=== PATIENT | female | born 1935 | race Caucasian/White ===

== ENCOUNTER 2017-12-07 17:24 | Inpatient (IN) | payer OTHER ==
[~2017-12-07] VITALS: Ht 152.4 cm; Wt 57.0 kg
[~2017-12-07 17:24] MED LIST: ALBU1AER9 INH; BENZ100C7 PO; CHOL1CAP57 PO; DXY100 PO; FLVHFA110 INH; FURO-85 PO; GABA-113 PO; METO-217 PO; MRLP17X PO; NTRSLP4 SL; POTA1CAP2 PO; SENN-91 PO; TPRSR50 PO; TRAM-10 PO; ZOLE5INJ3 IV
[2017-12-07] MEDS ORDERED: METHYLPREDNISOLONE 125 MG VIAL ONE (17:39)
[2017-12-07 17:45] VITALS: PULSE 113; O2SAT 98; O2SAT 99
[2017-12-07] MEDS ORDERED: ALBUT/IPRATROP 3MG/0.5MG NEB 3 ML VIAL INH ONE (17:45)
[2017-12-07] MEDS ORDERED: MAGNESIUM SULFATE 1GM / D5W 1 GM BAG IV STA (17:53)
[2017-12-07] MEDS ORDERED: SODIUM CHLORIDE 0.9% 1000ML 1,000 ML IV STA (17:53)
[2017-12-07 18:05] LABS: BASO % 0.3 %; BASO ABS # 0.03 K/uL (0-0.2); EOS % 5.4 %; EOS ABS # 0.52 K/uL (0-0.5); HEMATOCRIT 43.9 % (37-47); HEMOGLOBIN 14.2 g/dL (12.0-16.0); IG# 0.03 K/uL (0.00-0.02); LYMPH % 22.6 %; LYMPH ABS # 2.19 K/uL (1.2-3.4); MEAN CELL VOLUME 86.1 fL (80-100); MEAN CORPUSCULAR HEMOGLOBIN 27.8 pg (25-34); MEAN CORPUSCULAR HGB CONC 32.3 g/dl (32-36); MEAN PLATELET VOLUME 10.2 fL (7.4-10.4); MONO % 6.7 %; MONO ABS # 0.65 K/uL (0.11-0.59); NEUT % 64.7 %; NEUT ABS # 6.29 K/uL (1.4-6.5); PLATELET COUNT 242 K/uL (130-400); RED CELL DISTRIBUTION WIDTH SD 60.2 fL (36.4-46.3); WHITE BLOOD COUNT 9.71 K/uL (4.8-10.8)
--- NOTE | 2017-12-07 18:05 | DIAGNOSTIC IMAGING REPORT ---
CHEST ONE VIEW PORTABLE CLINICAL HISTORY: CHEST PAIN COMPARISON STUDY: Chest radiograph May 02, 2016. FINDINGS: Incidental note is made of a reverse total right shoulder arthroplasty and multilevel vertebral augmentation as well as cholecystectomy clips. A large hiatal hernia is again noted. Marked joint space narrowing with minimal osteophytosis of the left glenohumeral joint is noted. This could reflect rheumatoid arthritis. There is no evidence for pulmonary edema. There is no consolidation. Cardiomediastinal silhouette is stable. IMPRESSION: No acute cardiopulmonary findings. No change in appearance of the chest. Electronically signed by: Heriberto Ball M.D. 12/07/2017 6:03 PM Dictated Date/Time: 12/07/2017 6:02 PM
[2017-12-07 18:10] LABS: ISTAT CREATININE 0.8 mg/dl (0.6-1.3); ISTAT IONIZED CALCIUM 1.41 mmol/l (1.12-1.32); ISTAT POTASSIUM 3.8 mEq/L (3.3-5.0)
[2017-12-07] MEDS ORDERED: ALBU18002 INH (18:21)
[2017-12-07 18:23] LABS: BLOOD UREA NITROGEN 29 mg/dl (7-18); CALCIUM 10.5 mg/dl (8.5-10.1); CARBON DIOXIDE 28 mmol/L (21-32); GLUCOSE 147 mg/dl (70-99); POTASSIUM 3.7 mmol/L (3.5-5.1); SODIUM 138 mmol/L (136-145)
[2017-12-07] MEDS ORDERED: METO-217 PO (18:25)
[2017-12-07] MEDS ORDERED: PRED-301 PO (18:31)
--- NOTE | 2017-12-07 18:35 | EMERGENCY ROOM VISIT NOTE ---
History Report prepared by Gloria: Marivel Escalona Under the Supervision of: Dr. Moses Vizcaino M.D. First contact with patient: 17:32 Chief Complaint: RESPIRATORY PROBLEMS Stated Complaint: CHEST AND BREATHING History of Present Illness The patient is an 82 year old female who presents to the Emergency Room with complaints of intermittent respiratory problems for four days. The patient states that she came to the ED today because it became worse. She states that it is worse when lying flat. The patient complains of intermittent coughing. The patient denies chest pain, recent long trips, use of hormone pills, recent surgeries, the use of blood thinners, hemoptysis, fever, and abdominal pain. The patient's notes a history of asthma and a weak heart. She denies ever being in the ICU for her breathing and ever being intubated. She notes that she would only like to be intubated if it is short term. The patient's denies a history of CHF, PE, DVT, and COPD. The patient's notes that this has happened a few times. Source of History: patient Onset: for four days Position: other (global) Quality: other (respiratory problems) Timing: intermittent Modifying Factors (Worsening): other (lying flat) Associated Symptoms: + cough, No fevers, No chest pain, No abdominal pain Note: The patient denies recent long trips, use of hormone pills, recent surgeries, the use of blood thinners, and hemoptysis. Review of Systems See HPI for pertinent positives and negatives. A total of ten systems were reviewed and were otherwise negative. 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 (9) Rheumatoid arthritis Surgical Problems: (1) H/O esophagogastroduodenoscopy (2) H/O shoulder replacement (3) History of back surgery (4) History of bilateral hip arthroplasty (5) History of hysterectomy (6) S/P cholecystectomy Family History FH: heart disease FATHER MOTHER Hypertension FATHER Social History Smoking Status: Never Smoker Alcohol Use: occasionally Drug Use: none Marital Status: Housing Status: lives with family Occupation Status: retired Current/Historical Medications Scheduled Cholecalciferol (Vitamin D3), 1,000 UNITS PO DAILY Fluticasone Propionate (Flovent Hfa), 2 PUFFS INH BID Metoprolol Succinate (Toprol Xl), 50 MG PO HS Metoprolol Succinate (Toprol Xl), 25 MG PO DAILY Prednisone (Prednisone), 5 MG PO DAILY Zoledronic Acid (Zoledronic Acid), 5 MG IV YEARLY Scheduled PRN Albuterol Sulfate (Proair Respiclick), PUFFS INH QID PRN for SOB/Wheezing Benzonatate (Benzonatate), 100 MG PO TID PRN for Cough Nitroglycerin (Nitrostat), 0.4 MG SL UD PRN for Chest Pain Polyethylene (Miralax), 17 GM PO DAILY PRN for Constipation Sennosides-Docusate Sodium (Senna S), 1 TAB PO DAILY PRN for BM Tramadol (Ultram), 50 MG PO Q4H PRN for Pain Allergies Coded Allergies: Levofloxacin (Verified Allergy, Intermediate, HEPATOTOXICITY , 12/07/17) Scopolamine (Verified Allergy, Intermediate, CAUSED RED, SWOLLEN AREA BEHIND EAR WHERE PATCH APPLIED, 12/07/17) Lisinopril (Verified Adverse Reaction, Intermediate, COUGH, 12/07/17) Physical Exam Vital Signs Date Time Temp Pulse Resp B/P (MAP) Pulse Ox O2 Delivery O2 Flow Rate FiO2 12/07/17 18:44 111 25 99 12/07/17 18:39 108 21 100 12/07/17 18:34 107 23 100 12/07/17 18:31 174/101 12/07/17 18:29 110 25 99 12/07/17 18:24 107 24 99 12/07/17 18:19 107 28 100 12/07/17 18:16 168/118 12/07/17 18:15 99 BiPAP 60 12/07/17 18:14 107 24 99 12/07/17 18:09 105 25 98 12/07/17 18:09 99 BiPAP 60 12/07/17 18:04 100 39 99 12/07/17 18:01 168/128 12/07/17 17:59 113 30 98 12/07/17 17:57 187/130 12/07/17 17:54 112 36 99 12/07/17 17:51 113 12/07/17 17:49 113 39 99 12/07/17 17:48 206/131 12/07/17 17:46 227/152 12/07/17 17:45 113 33 98 BiPAP/CPAP 70 12/07/17 17:45 113 99 70 12/07/17 17:44 116 33 99 12/07/17 17:38 247/161 12/07/17 17:26 36.7 118 56 231/ 93 Room Air Physical Exam Physical Exam GENERAL: Patient is ill appearing. Labored breathing. Diaphoretic. HENT: Exam performed. Head: Normocephalic and atraumatic. EYES: Conjunctivae and EOM are normal. Pupils are equal, round, and reactive to light. Right eye exhibits no discharge. Left eye exhibits no discharge. No scleral icterus. NECK: Normal range of motion. Neck supple. No JVD present. No spinous process tenderness present. No carotid bruit present. No rigidity. No tracheal deviation and normal range of motion present. CV: Tachycardic rate, regular rhythm, normal heart sounds and intact distal pulses. There is no peripheral edema. Palpable radial pulses bue. PULM/CHEST: Respiratory distress. Diffuse audible expiratory wheezes bilaterally. No stridor. She has no rales. Chest Wall: She exhibits no tenderness. ABD: The abdomen is soft. Bowel sounds are normal. She has no distension. No mass is present. There is no tenderness. There is no rebound, no guarding, no Echeverria's sign and no tenderness at McBurney's point. Rovsig negative MUSC/SKEL: Normal range of motion. There is no peripheral edema, tenderness or deformity. LYMPH: No cervical adenopathy. NEURO: She is alert and oriented to person, place, and time. She has normal strength. No cranial nerve deficit or sensory deficit. Coordination and gait normal. GCS eye subscore is 4. GCS verbal subscore is 5. GCS motor subscore is 6. Cerebellar tests wnl. SKIN: Skin is warm and dry. Patient is diaphoretic. PSYCH: She has a normal mood and affect. She behavior is normal. Judgment and thought content normal. Medical Decision & Procedures ER Provider Diagnostic Interpretation: Radiology results as stated below per my review and radiologist interpretation: CHEST ONE VIEW PORTABLE CLINICAL HISTORY: CHEST PAIN COMPARISON STUDY: Chest radiograph May 02, 2016. FINDINGS: Incidental note is made of a reverse total right shoulder arthroplasty and multilevel vertebral augmentation as well as cholecystectomy clips. A large hiatal hernia is again noted. Marked joint space narrowing with minimal osteophytosis of the left glenohumeral joint is noted. This could reflect rheumatoid arthritis. There is no evidence for pulmonary edema. There is no consolidation. Cardiomediastinal silhouette is stable. IMPRESSION: No acute cardiopulmonary findings. No change in appearance of the chest. Electronically signed by: Heriberto Ball M.D. 12/07/2017 6:03 PM Dictated Date/Time: 12/07/2017 6:02 PM Laboratory Results 12/07/17 17:40 Red Blood Count 5.10, Mean Corpuscular Volume 86.1, Mean Corpuscular Hemoglobin 27.8, Mean Corpuscular Hemoglobin Concent 32.3, Mean Platelet Volume 10.2, Neutrophils (%) (Auto) 64.7, Lymphocytes (%) (Auto) 22.6, Monocytes (%) (Auto) 6.7, Eosinophils (%) (Auto) 5.4, Basophils (%) (Auto) 0.3, Neutrophils # (Auto) 6.29, Lymphocytes # (Auto) 2.19, Monocytes # (Auto) 0.65, Eosinophils # (Auto) 0.52, Basophils # (Auto) 0.03 Test 12/07/17 17:40 12/07/17 17:51 12/07/17 17:54 12/07/17 17:55 White Blood Count 9.71 K/uL (4.8-10.8) Red Blood Count 5.10 M/uL (4.2-5.4) Hemoglobin 14.2 g/dL (12.0-16.0) Hematocrit 43.9 % (37-47) Mean Corpuscular Volume 86.1 fL (80-100) Mean Corpuscular Hemoglobin 27.8 pg (25-34) Mean Corpuscular Hemoglobin Concent 32.3 g/dl (32-36) Platelet Count 242 K/uL (130-400) Mean Platelet Volume 10.2 fL (7.4-10.4) Neutrophils (%) (Auto) 64.7 % Lymphocytes (%) (Auto) 22.6 % Monocytes (%) (Auto) 6.7 % Eosinophils (%) (Auto) 5.4 % Basophils (%) (Auto) 0.3 % Neutrophils # (Auto) 6.29 K/uL (1.4-6.5) Lymphocytes # (Auto) 2.19 K/uL (1.2-3.4) Monocytes # (Auto) 0.65 K/uL (0.11-0.59) Eosinophils # (Auto) 0.52 K/uL (0-0.5) Basophils # (Auto) 0.03 K/uL (0-0.2) RDW Standard Deviation 60.2 fL (36.4-46.3) RDW Coefficient of Variation 19.0 % (11.5-14.5) Immature Granulocyte % (Auto) 0.3 % Immature Granulocyte # (Auto) 0.03 K/uL (0.00-0.02) Venous Blood pH 7.33 (7.36-7.41) Venous Blood Partial Pressure CO2 56 mmHg (38.0-50.0) Venous Blood Partial Pressure O2 48 mmHg Venous Blood HCO3 29 mmol/L Venous Blood Oxygen Saturation 77.9 % Venous Blood Base Excess 1.7 mEq/L Magnesium Level 2.4 mg/dl (1.8-2.4) Troponin I 0.026 ng/ml (0-0.045) Pro-B-Type Natriuretic Peptide 1062 pg/ml (0-1800) Bedside Lactic Acid Venous 1.96 mmol/L (0.90-1.70) Bedside Troponin I 0.030 ng/ml (0-0.045) Prothrombin Time 10.7 SECONDS (9.0-12.0) Prothromb Time International Ratio 1.0 (0.9-1.1) D-Dimer 2190 ug/L FEU (0-500) Procalcitonin < 0.05 ng/ml (0-0.5) Thyroid Stimulating Hormone (TSH) 2.030 uIu/ml (0.300-4.500) Test 12/07/17 17:57 Bedside Hemoglobin 15.6 g/dl (12.0-16.0) Bedside Hematocrit 46 % (37-47) Bedside Sodium 142 mEq/L (135-144) Bedside Potassium 3.8 mEq/L (3.3-5.0) Bedside Chloride 105 mEq/L (101-112) Bedside Total CO2 27 mEq/l (24-31) Bedside Blood Urea Nitrogen 29 mg/dl (7-18) Bedside Creatinine 0.8 mg/dl (0.6-1.3) Bedside Glucose (other) 145 mg/dl (70-99) Bedside Ionized Calcium (Bambi) 1.41 mmol/l (1.12-1.32) Laboratory results reviewed by me Medications Administered Medications (Trade) Dose Ordered Sig/Raman Route Start Time Stop Time Status Last Admin Dose Admin Methylprednisolone Sodium Succinate (Solu-Medrol IV) 125 mg STK-MED ONCE .ROUTE 12/07/17 17:39 12/07/17 17:40 DC 12/07/17 17:44 125 MG Albuterol/ Ipratropium (Duoneb) 12 ml ONE ONCE INH 12/07/17 17:45 12/07/17 17:46 DC 12/07/17 17:52 12 ML Magnesium Sulfate (Magnesium Sulfate) 2 gm NOW STAT IV 12/07/17 17:53 12/07/17 17:55 DC 12/07/17 18:08 2 GM Sodium Chloride 1,000 ml @ 100 mls/hr Q10H STAT IV 12/07/17 17:53 12/07/17 19:52 DC 12/07/17 17:53 100 MLS/HR ECG Per My Interpretation Indication: SOB/dyspnea Rate (beats per minute): 115 Rhythm: sinus tachycardia Findings: PVC (multiple), other (QRS was 92, QT-c 558, artifact present) Comparison ECG Date: REPEAT Change: Sinus tachycardia with a rate of 111. NC, QRS, and QT-c intervals within normal limits. No ST elevations or depressions. Multiple PVCs are present. ED Course 1733: The patient was evaluated in room C8. Immediately noticed to be in acute distress and immediately moved to resuscitation bay. The patient was placed on O2 and threat monitoring analyst. Two large bore IVs were established. Respiratory was called and patient was placed on Bi-PAP 12/5. She was started on continuous breathing treatment with albuterol and ipratropium. steroids given intravenously. Initial EKG done at 1740. Showed sinus tachycardia with a rate of 115. QRS interval was 92. QT-c interval 558. Multiple PVCs were present. While the EKG was being conducted the patient was still labored breathing and there is a high degree of artifact. 1753: Ordered NSS 1000 ml @ 100 mls/hr IV, Magnesium Sulfate 2 gm IV. 1755: Patient is tolerating Bi-PAP well. She is nodding her head that she states that she feels better. Blood pressure is improved. Repeat EKG showed sinus tachycardia with a rate of 111. NC, QRS, and QT-c intervals are within normal limits. No ST elevation or depression. Multiple PVCs are present. Portable chest x-ray conducted. Bedside interpretation by me showed no pneumothorax, mild cardiomegaly, and no cephalization. The patient continued to have diffuse wheezing. Magnesium 2 grams IV piggy back ordered. 1837: Patient continues to tolerate BiPAP well. Labs including CBC venous blood gas troponin and proBNP within normal limits. wheezing has improved. Discussed the patient's case with Dr. [facility] Her[facility]. The patient will be evaluated for further treatment and disposition. Medical Decision 1733: The patient was evaluated in room C8. Immediately noticed to be in acute distress and immediately moved to resuscitation bay. The patient was placed on O2 and threat monitoring analyst. Two large bore IVs were established. Respiratory was called and patient was placed on Bi-PAP 12/5. She was started on continuous breathing treatment with albuterol and ipratropium. steroids given intravenously. Initial EKG done at 1740. Showed sinus tachycardia with a rate of 115. QRS interval was 92. QT-c interval 558. Multiple PVCs were present. While the EKG was being conducted the patient was still labored breathing and there is a high degree of artifact. 1753: Ordered NSS 1000 ml @ 100 mls/hr IV, Magnesium Sulfate 2 gm IV. 1755: Patient is tolerating Bi-PAP well. She is nodding her head that she states that she feels better. Blood pressure is improved. Repeat EKG showed sinus tachycardia with a rate of 111. NC, QRS, and QT-c intervals are within normal limits. No ST elevation or depression. Multiple PVCs are present. Portable chest x-ray conducted. Bedside interpretation by me showed no pneumothorax, mild cardiomegaly, and no cephalization. The patient continued to have diffuse wheezing. Magnesium 2 grams IV piggy back ordered. 1837: Patient continues to tolerate BiPAP well. Labs including CBC venous blood gas troponin and proBNP within normal limits. wheezing has improved. Discussed the patient's case with Dr. Erick Herrera [facility]. The patient will be evaluated for further treatment and disposition. Medication Reconcilliation Current Medication List: was personally reviewed by me Blood Pressure Screening Patient's blood pressure: Elevated blood pressure Blood pressure disposition: Elevated BP felt to be situational Will be further monitored by hospitalist. Consults Time Called: 1834 Consulting Physician: Dr. Erick Herrera Hospitalist Returned Call: 1836 Discussed the patient's case with Dr. Erick Herrera Hospitalist. The patient will be evaluated for further treatment and disposition. Impression Primary Impression: Status asthmaticus Critical Care I have personally spent greater than 63 minutes of critical care time in the direct management of this patient. This includes bedside care, interpretation of diagnostic studies, and testing, discussion with consultants, patient, and family members, and other required patient management activities. This 63 minutes is in excess of all separately billable procedures. Scribe Attestation The scribe's documentation has been prepared under my direction and personally reviewed by me in its entirety. I confirm that the note above accurately reflects all work, treatment, procedures, and medical decision making performed by me. The chart was completed utilizing [employer] Speech voice recognition software. Grammatical errors, random word insertions, pronoun errors, and incomplete sentences are an occasional consequence of this system due to software limitations, ambient noise, and hardware issues. Any formal questions or concerns about the content, text, or information contained within the body of this dictation should be directly addressed to the physician for clarification. Departure Information Dispostion Being Evaluated By Hospitalist Referrals Maya Rubio DO (PCP) Patient Instructions My [facility]
--- NOTE | 2017-12-07 18:57 | History and Physical ---
History & Physical Date & Time of Service: Dec 07, 2017 at 18:57 Chief Complaint: Chest And Breathing Primary Care Physician: Maya Rubio DO History of Present Illness Source: patient, family 82 yo F with hx of interstitial lung disease /COPD /idiopathic cardiomyopathy with severe systolic dysfunction -Last echo EF 30 % ; RA brought to ER with complain of hypoxia , respiratory distress pt reports past 2-3 days has cough with productive sputum , nasal congestion , generalized weakness , fatigue very poor appetite , had low grade fever , chills has been using Neb tx but no improvement of symptom has Home 02 but only uses it for few mins a day as " rescue therapy " this morning -her symptom was worse with significant Orthopnea and PIERRE no complain of chest pain or chest heaviness , no syncope , in ER pt was found to be hypoxic , with acute respiratory distress given Neb tx /IV Solu Medrol 125 mg X1 placed on Bipap Family History FH: heart disease FATHER MOTHER Hypertension FATHER Social History Smoking Status: Never Smoker Drug Use: none Marital Status: Housing status: lives with family Occupational Status: retired Immunizations History of Influenza Vaccine: Unknown Influenza Vaccine Date: Aug 03, 2009 History of Tetanus Vaccine?: Unknown Tetanus Immunization Date: Aug 03, 2012 History of Pneumococcal: Unknown History of Hepatitis B Vaccine: Unknown Multi-Drug Resistant Organisms History of MDRO: No Allergies Coded Allergies: Levofloxacin (Verified Allergy, Intermediate, HEPATOTOXICITY , 12/07/17) Scopolamine (Verified Allergy, Intermediate, CAUSED RED, SWOLLEN AREA BEHIND EAR WHERE PATCH APPLIED, 12/07/17) Lisinopril (Verified Adverse Reaction, Intermediate, COUGH, 12/07/17) Home Medications Scheduled Cholecalciferol (Vitamin D3), 1,000 UNITS PO DAILY Fluticasone Propionate (Flovent Hfa), 2 PUFFS INH BID Metoprolol Succinate (Toprol Xl), 50 MG PO HS Metoprolol Succinate (Toprol Xl), 25 MG PO DAILY Prednisone (Prednisone), 5 MG PO DAILY Zoledronic Acid (Zoledronic Acid), 5 MG IV YEARLY Scheduled PRN Albuterol Sulfate (Proair Respiclick), PUFFS INH QID PRN for SOB/Wheezing Benzonatate (Benzonatate), 100 MG PO TID PRN for Cough Nitroglycerin (Nitrostat), 0.4 MG SL UD PRN for Chest Pain Polyethylene (Miralax), 17 GM PO DAILY PRN for Constipation Sennosides-Docusate Sodium (Senna S), 1 TAB PO DAILY PRN for BM Tramadol (Ultram), 50 MG PO Q4H PRN for Pain Review of Systems Constitutional: + fever, + chills, + weakness, + fatigue Respiratory: + cough, + sputum, + wheezing, + shortness of breath, + dyspnea on exertion, + dyspnea at rest Cardiovascular: + orthopnea Abdomen: + nausea, + problem reported (poor appetite ) Musculoskeletal: + muscle pain Genitourinary - Female: + problem reported (poor urine output ) Psychiatric: + depression symptoms, + anxiety Endocrine: + fatigue Physical Exam Vital Signs Date Time Temp Pulse Resp B/P (MAP) Pulse Ox O2 Delivery O2 Flow Rate FiO2 12/07/17 18:15 99 BiPAP 60 12/07/17 18:09 99 BiPAP 60 12/07/17 17:51 113 12/07/17 17:45 113 33 98 BiPAP/CPAP 70 12/07/17 17:45 113 99 70 12/07/17 17:26 36.7 118 56 231/ 93 Room Air General Appearance: no apparent distress Head: normocephalic, atraumatic Eyes: normal inspection, PERRL, EOMI, sclerae normal ENT: hearing grossly normal Neck: thyroid normal, no JVD, no carotid bruits, trachea midline Respiratory/Chest: + respiratory distress, + decreased breath sounds, + wheezing Cardiovascular: no edema, no JVD, + tachycardia Abdomen/GI: normal bowel sounds, non tender, soft Neurologic/Psych: no motor/sensory deficits, alert, oriented x 3 Diagnostics Laboratory Results Results Past 24 Hours Test 12/07/17 17:40 12/07/17 17:51 12/07/17 17:54 12/07/17 17:57 Range/Units White Blood Count 9.71 4.8-10.8 K/uL Red Blood Count 5.10 4.2-5.4 M/uL Hemoglobin 14.2 12.0-16.0 g/dL Hematocrit 43.9 37-47 % Mean Corpuscular Volume 86.1 80-100 fL Mean Corpuscular Hemoglobin 27.8 25-34 pg Mean Corpuscular Hemoglobin Concent 32.3 32-36 g/dl Platelet Count 242 130-400 K/uL Mean Platelet Volume 10.2 7.4-10.4 fL Neutrophils (%) (Auto) 64.7 % Lymphocytes (%) (Auto) 22.6 % Monocytes (%) (Auto) 6.7 % Eosinophils (%) (Auto) 5.4 % Basophils (%) (Auto) 0.3 % Neutrophils # (Auto) 6.29 1.4-6.5 K/uL Lymphocytes # (Auto) 2.19 1.2-3.4 K/uL Monocytes # (Auto) 0.65 0.11-0.59 K/uL Eosinophils # (Auto) 0.52 0-0.5 K/uL Basophils # (Auto) 0.03 0-0.2 K/uL RDW Standard Deviation 60.2 36.4-46.3 fL RDW Coefficient of Variation 19.0 11.5-14.5 % Immature Granulocyte % (Auto) 0.3 % Immature Granulocyte # (Auto) 0.03 0.00-0.02 K/uL Venous Blood pH 7.33 7.36-7.41 Venous Blood Partial Pressure CO2 56 38.0-50.0 mmHg Venous Blood Partial Pressure O2 48 mmHg Venous Blood HCO3 29 mmol/L Venous Blood Oxygen Saturation 77.9 % Venous Blood Base Excess 1.7 mEq/L Sodium Level 138 136-145 mmol/L Potassium Level 3.7 3.5-5.1 mmol/L Chloride Level 104 98-107 mmol/L Carbon Dioxide Level 28 21-32 mmol/L Anion Gap 6.0 15.0 16-25 mmol/L Blood Urea Nitrogen 29 7-18 mg/dl Creatinine 0.90 0.60-1.20 mg/dl Estimated GFR () 68.1 Estimated GFR (Non- 58.7 BUN/Creatinine Ratio 31.6 10-20 Random Glucose 147 70-99 mg/dl Calcium Level 10.5 8.5-10.1 mg/dl Magnesium Level 2.4 1.8-2.4 mg/dl Troponin I 0.026 0-0.045 ng/ml Pro-B-Type Natriuretic Peptide 1062 0-1800 pg/ml Bedside Lactic Acid Venous 1.96 0.90-1.70 mmol/L Bedside Troponin I 0.030 0-0.045 ng/ml Bedside Hemoglobin 15.6 12.0-16.0 g/dl Bedside Hematocrit 46 37-47 % Bedside Sodium 142 135-144 mEq/L Bedside Potassium 3.8 3.3-5.0 mEq/L Bedside Chloride 105 101-112 mEq/L Bedside Total CO2 27 24-31 mEq/l Bedside Blood Urea Nitrogen 29 7-18 mg/dl Bedside Creatinine 0.8 0.6-1.3 mg/dl Bedside Glucose (other) 145 70-99 mg/dl Bedside Ionized Calcium (Bambi) 1.41 1.12-1.32 mmol/l Test 12/07/17 18:42 Range/Units Microbiology Results 12/07/17 Blood Culture, Received Pending 12/07/17 Blood Culture, Received Pending Diagnostic Radiology CHEST ONE VIEW PORTABLE CLINICAL HISTORY: CHEST PAIN COMPARISON STUDY: Chest radiograph May 02, 2016. FINDINGS: Incidental note is made of a reverse total right shoulder arthroplasty and multilevel vertebral augmentation as well as cholecystectomy clips. A large hiatal hernia is again noted. Marked joint space narrowing with minimal osteophytosis of the left glenohumeral joint is noted. This could reflect rheumatoid arthritis. There is no evidence for pulmonary edema. There is no consolidation. Cardiomediastinal silhouette is stable. IMPRESSION: No acute cardiopulmonary findings. No change in appearance of the chest. CT CHEST WITH CONTRAST : IMPRESSION: 1. No pulmonary emboli identified although segmental and subsegmental pulmonary arteries suboptimally assessed due to respiratory motion. 2. No acute intrathoracic findings. 3. Moderate cardiomegaly. 4. Large hiatal hernia with partially intrathoracic stomach. BILATERAL LOWER EXT DOPPLER : IMPRESSION: No evidence of deep venous thrombus within the bilateral lower extremities. Impression Assessment and Plan ACUTE HYPOXEMIC RESPIRATORY FAILURE : with hx of interstitial lung disease -follows with Pulm at [facility] possible due to COPD exacerbation associated with viral URI/bronchitis -presents with SOB /PIERRE -symptom has ongoing for past 3-4 days associated with flu like symptom became worse this AM was placed on BiPAP , given Neb tx /Iv Solu Medrol symptom much improved after above measures weaned off Bipap -transitioned to nasal canula Cxray shows no infiltrate ; Influenza A -PCR negative D dimer elevated CTA of chest -no PE , lower ext Doppler-no DVT pt is continued with respiratory support with supplemental 02 via nasal canula , Scheduled Q6 hrs and Q2 PRN Neb tx IV solu Medrol empiric Abx with Doxycycline blood and sputum culture ordered Pulmonary eval requested report of using home 02 intermittently will need 2 step exercise prior to discharge for home 02 needs IDIOPATHIC CARDIOMYOPATHY WITH SYSTOLIC DYSFUNCTION : no evidence of Vol overload pt appears clinically dry ordered for gentle hydration ; monitor vol status repeat ECHO ordered not on any diuretics not on ACEI for hx of intolerance( chronic cough ) HTN : presented with hypertensive urgency SBP > 200 due to respiratory distress cont home meds of Metoprolol monitor in Tele RHEUMATOID ARTHRITIS : Hold PO Prednisone as pt will be on IV solu Medrol FULL CODE DVT PROPHYLAXIS : sub q heparin DISPOSITION expected to be discharged home when medically stable PT/OT eval prior to discharge Medicine follow up with Dr Rubio Cardiology follow up with Dr Vincent Family updated at bedside Level of Care Telemetry Resuscitation Status FULL RESUSCITATION VTE Prophylaxis VTE Risk Assessment Done? Y/N: Yes Risk Level: Moderate Given or contraindicated: Unfractionated heparin SQ
[2017-12-07] MEDS ORDERED: ALUMINUM/MAGNESIUM/SIMETH (MAALOX MAX) 30 ML UDC PO PRN (19:00)
[2017-12-07] MEDS ORDERED: NITROGLYCERIN 0.4 MG SL PER TAB CHARGE SL PRN ×2 (19:00→20:45)
[2017-12-07] MEDS ORDERED: POLYETHYLENE (MIRALAX) 17 GM PACK PO PRN ×2 (19:00→20:45)
[2017-12-07] MEDS ORDERED: MAGNESIUM HYDROXIDE SUSP 30 ML UDC PO PRN (19:00)
[2017-12-07] MEDS ORDERED: ACETAMINOPHEN 325 MG TAB PO PRN (19:00)
[2017-12-07 19:48] VITALS: BP 196/108; PULSE 92; TEMP 36.6; O2SAT 100; Ht 152.4 cm; Wt 57.0 kg
[2017-12-07] MEDS ORDERED: TRAMADOL HCL 50 MG TAB PO PRN (20:45)
[2017-12-07] MEDS ORDERED: SODIUM CHLORIDE 0.9% 1000ML 1,000 ML IV SCH (20:45)
[2017-12-07] MEDS ORDERED: DOCUSATE SODIUM/SENNA 50/8.6MG TAB PO PRN (20:45)
[2017-12-07 20:46] VITALS: BP 150/103; O2SAT 96
[2017-12-07] MEDS ORDERED: LEVALBUTEROL/IPRATROPIUM NEB INH SCH (21:00)
[2017-12-07] MEDS ORDERED: LEVALBUTEROL 1.25MG/0.5ML NEB INH SCH (21:00)
[2017-12-07] MEDS ORDERED: IPRATROPIUM BROMIDE NEB SOLN 0.02% 2.5 ML VIAL INH SCH (21:00)
[2017-12-07 21:02] VITALS: PULSE 68; O2SAT 99
[2017-12-07 21:44] LABS: INFLUENZA A PCR Neg for Influ A (NEG); INFLUENZA B PCR Neg for Influ B (NEG)
[2017-12-07 21:47] LABS: CREATININE 0.78 mg/dl (0.60-1.20); POTASSIUM 3.7 mmol/L (3.5-5.1)
[2017-12-07 21:50] LABS: TOTAL PROTEIN 7.7 gm/dl (6.4-8.2)
[2017-12-07] MEDS ORDERED: OPTIRAY 320 IV PRN (22:00)
--- NOTE | 2017-12-07 22:13 | DIAGNOSTIC IMAGING REPORT ---
CT ANGIOGRAPHY OF THE CHEST, PULMONARY EMBOLUS PROTOCOL CLINICAL HISTORY: Hypoxia. COMPARISON STUDY: Chest CT March 17, 2015 and chest radiograph performed earlier today. TECHNIQUE: Following IV administration of 98 mL of Optiray-320, helical axial images of the chest were obtained utilizing the pulmonary embolus protocol. Maximal intensity projections and sagittal and coronal reformats were viewed on an independent 3D workstation. IV contrast was administered without complication. A dose lowering technique was utilized adhering to the principles of ALARA. CT DOSE: 322.41 mGy.cm FINDINGS: No pulmonary emboli are identified although the segmental and subsegmental pulmonary arteries are suboptimally assessed due to respiratory motion. Heart is moderately enlarged. There is no evidence for thoracic aortic dissection. A large hiatal hernia with partially intrathoracic stomach is unchanged. There are no enlarged thoracic lymph nodes. Central airways are patent. A 6 mm right upper lobe nodule is unchanged and CT of March 17, 2015. Therefore, this is benign. There is no consolidation to suggest pneumonia. Linear left lower opacity represents atelectasis. There is no consolidation to suggest pneumonia. The central airways are patent. Numerous old thoracic and lumbar spine compression deformity is are noted. The patient is status post multilevel vertebral augmentation. A left renal cyst is noted. Multiple hypodense hepatic lesions are unchanged and likely reflect cysts as well. IMPRESSION: 1. No pulmonary emboli identified although segmental and subsegmental pulmonary arteries suboptimally assessed due to respiratory motion. 2. No acute intrathoracic findings. 3. Moderate cardiomegaly. 4. Large hiatal hernia with partially intrathoracic stomach. Electronically signed by: Heriberto Ball M.D. 12/07/2017 10:12 PM Dictated Date/Time: 12/07/2017 9:58 PM
--- NOTE | 2017-12-07 22:35 | DIAGNOSTIC IMAGING REPORT ---
BILATERAL LOWER EXTREMITY VENOUS DOPPLER CLINICAL HISTORY: elevated d dimer , R/O DVT COMPARISON STUDY: No previous studies for comparison. TECHNIQUE: Sonography of the deep venous system of the bilateral lower extremities was performed. Compression and augmentation were evaluated. FINDINGS: The bilateral common femoral, superficial femoral and popliteal veins were compressible. Augmentation was normal. Flow was shown within the deep calf vessels. IMPRESSION: No evidence of deep venous thrombus within the bilateral lower extremities. Electronically signed by: Heriberto Ball M.D. 12/07/2017 10:33 PM Dictated Date/Time: 12/07/2017 10:33 PM
[2017-12-07] MEDS: METOPROLOL SUCC 50MG EXT REL TAB PO SCH (22:36)
[2017-12-07] MEDS: DOXYCYCLINE HYCLATE 100 MG CAP PO SCH (22:36)
[2017-12-07] MEDS: FLUTICASONE HFA 110MCG INHALER INH SCH (22:36)
[2017-12-07] MEDS: HEPARIN SOD 5000 UNIT/0.5 ML CARP SQ SCH (22:39)
[2017-12-08] VITALS (14 sets, daily range): BP systolic 130–186; BP diastolic 80–103; PULSE 66–108; TEMP 36.6–36.9; O2SAT 93–100
[2017-12-08] MEDS: METHYLPREDNISOLONE IV 40 MG in SYRINGE 0 ML IV SCH ×3 (00:18→15:57)
[2017-12-08] MEDS: HEPARIN SOD 5000 UNIT/0.5 ML CARP SQ SCH ×3 (05:22→21:46)
[2017-12-08] MEDS ORDERED: NRN300 PO (06:29)
[2017-12-08] MEDS ORDERED: NUTR-977 PO (06:29)
[2017-12-08] MEDS ORDERED: FRRS300 PO (06:29)
[2017-12-08] MEDS: LEVALBUTEROL 1.25MG/0.5ML NEB INH SCH ×2 (07:22→13:57)
[2017-12-08] MEDS: IPRATROPIUM BROMIDE NEB SOLN 0.02% 2.5 ML VIAL INH SCH ×2 (07:23→13:57)
[2017-12-08 07:48] LABS: MEAN CORPUSCULAR HGB CONC 32.1 g/dl (32-36)
[2017-12-08 08:03] LABS: HEMATOCRIT 39.6 % (37-47); HEMOGLOBIN 12.7 g/dL (12.0-16.0); MEAN CELL VOLUME 86.5 fL (80-100); MEAN CORPUSCULAR HEMOGLOBIN 27.7 pg (25-34); RED CELL DISTRIBUTION WIDTH CV 18.5 % (11.5-14.5); RED CELL DISTRIBUTION WIDTH SD 58.8 fL (36.4-46.3); WHITE BLOOD COUNT 6.76 K/uL (4.8-10.8)
[2017-12-08 08:25] LABS: PLATELET COUNT 219 K/uL (130-400)
[2017-12-08] MEDS: BOOST VANILLA PO SCH (08:52)
[2017-12-08] MEDS: DOXYCYCLINE HYCLATE 100 MG CAP PO SCH ×2 (08:54→20:00)
[2017-12-08] MEDS: GABAPENTIN 300 MG CAP PO SCH ×3 (08:54→19:58)
[2017-12-08] MEDS: FERROUS SULFATE 325 MG TAB PO SCH (08:54)
[2017-12-08] MEDS: METOPROLOL SUCC 50MG EXT REL TAB PO SCH ×2 (08:55→19:59)
[2017-12-08] MEDS: CHOLECALCIFEROL 1000 INTER.UNIT TAB PO SCH (08:55)
[2017-12-08] MEDS: FLUTICASONE HFA 110MCG INHALER INH SCH ×2 (08:57→19:59)
--- NOTE | 2017-12-08 11:41 | PULMONARY CONSULTATION ---
DATE OF CONSULTATION: 12/08/2017 TIME: 09:45 a.m. REPORT OF CONSULTATION: The patient was seen in room #241, bed 1. She is a very pleasant 82-year-old female, who presented to the Emergency Room yesterday afternoon with severe shortness of breath. Her history is that she began to notice a mild shortness of breath, starting approximately in December 03. She has a ProAir inhaler at home. It was helping. She also had oxygen that she would use. She began with a mild cough on December 05. There was a small amount of mucus. The ProAir inhaler was not working as good as it had initially. The patient's status worsened significantly on December 07. She became respiratory distressed. She was brought to the ER by her family, although it was recorded that her respiratory rate when she first presented was 56 per minute. She was very rapidly put on BiPAP. This seemed to significantly improve her respiratory status. She states she was only on the BiPAP for about an hour because she felt so much better. She had a good night last night. She feels well this morning. The patient carries a history of asthma. However, she states she was told by a [facility] pulmonary doctor that she did not have asthma. She had been hospitalized from 07/09/2015 until 07/13/2015 with cough, congestion and wheezing. It was thought that she had an asthma exacerbation then. Her ejection fraction at that time was 55%-60%. She was admitted again from 11/29/2015 until 12/09/2015. At that time, she was diagnosed with pneumonia and congestive heart failure. Her ejection fraction at that time was only 25%-30%. The patient has been following with outpatient cardiology. She has not had any leg edema. She did not have any chest pain, but she had just chest tightness. She states she has not used her rescue inhaler at all in between these attacks. She has not had any recent travel history. The patient and her used to travel the world, but they have not had a trip outside the [place] in 11 years. 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 She lives in her home, where she has been for a long time. There has not been any construction going on. She has a history of hiatal hernia. The patient states she does not get reflux and she has not had any dysphagia. She takes [id number] Dramamine on a regular basis for this. She states she found years ago that it worked better than the prescription medicines. The patient had never smoked. PAST SURGICAL HISTORY: 1. Right shoulder replacement. 2. Right and left hip replacements. 3. Vertebroplasty x3. 4. Hysterectomy. 5. Cholecystectomy. 6. Partial parathyroidectomy. PAST MEDICAL HISTORY: 1. Cervical spondylosis. 2. Hiatal hernia. 3. Hyperparathyroidism. 4. Iron deficiency anemia. 5. Osteoporosis. 6. Rheumatoid arthritis. SOCIAL HISTORY: Tobacco never. ETOH -- occasional. ALLERGIES: 1. LEVOFLOXACIN, WHICH CAUSED HEPATOTOXICITY. 2. SCOPOLAMINE, WHICH CAUSED A LOCALIZED SKIN REACTION. 3. LISINOPRIL, WHICH GAVE HER COUGH. MEDICATIONS AT HOME: 1. ProAir p.r.n. 2. Benzonatate p.r.n. 3. Ensure Plus. 4. Ferrous sulfate. 5. Listed as taking Flovent HFA, but the patient denied that to me. 6. Gabapentin 300 mg b.i.d. 7. Metoprolol 50 mg at bedtime and 25 mg daily. 8. Nitro p.r.n. 9. MiraLax p.r.n. 10. Prednisone 5 mg daily. 11. Senna p.r.n. 12. Tramadol p.r.n. 13. Zoledronic acid 5 mg IV yearly. REVIEW OF SYSTEMS: GENERAL: The patient's energy level has been good. She denies chills, fevers or sweats. NEUROLOGIC: Denies syncope or near syncope. OPHTHALMIC: No visual complaints. ENT: Denies nasal congestion, nasal coryza, or postnasal drip. CARDIAC: No chest pain, only the chest tightness. PULMONARY: As noted above. GASTROINTESTINAL: Denies heartburn, nausea, vomiting or diarrhea. GENITOURINARY: No frequency, urgency, or dysuria. MUSCULOSKELETAL: Chronic back pain as well as the pains of rheumatoid arthritis. DERMATOLOGIC: No skin rashes. ENDOCRINE: History of partial parathyroid surgery. PHYSICAL EXAMINATION: VITAL SIGNS: The patient is an 82-year-old female who was cooperative, alert and oriented. She looked in no distress. VITAL SIGNS: Temperature is 36.6. She has not had any fevers since admission. HEENT: Eye exam suggested cataract formation bilaterally. Nares were clear. Mouth exam was unremarkable. NECK: Palpation of the neck reveals no lymph nodes. She did not have any neck vein distention even when nearly supine. She did indicate she has a bed at home that she can adjust her heights and she elevates her head somewhat at night due to the hiatal hernia. CHEST: Inspection of the chest reveals a severe dorsal kyphosis. HEART: Heart rate was 100 per minute. The rhythm was regular. Questionable gallop was heard. LUNGS: Auscultation of the lung saldaña revealed them to be clear. The breath sounds at the left base were diminished compared with the right base. No active wheezes, rales or rhonchi were heard at present. Oxygen saturation was 97% on 4 liters. ABDOMEN: Soft. She has a scar in the lower abdominal region from prior surgery. Bowel sounds were normal. There was no tenderness to palpation, masses or organomegaly. EXTREMITIES: Showed no cyanosis, clubbing or edema. Chest x-ray showed no acute cardiopulmonary findings. A large hiatal hernia was noted. Venous Doppler was negative. CT angio of the chest reveals no pulmonary emboli. A large hiatal hernia was seen with the stomach partially in the chest. There was minimal atelectasis in the left lower lung field. There is a 6-mm right upper lobe nodule unchanged from 03/17/2015. There was no evidence of pneumonia. LABORATORY DATA: White count on admission was 9.71. Hemoglobin 14.2. Platelets 242,000. Today, the hemoglobin was down to 12.7. D-dimer was 2190. INR was 1. Urinalysis showed 10-30 WBCs with 2+ bacteria. Venous blood gas showed a pH of 7.33 with a pCO2 of 56 and a pO2 of 48. Electrolytes show sodium 142, potassium 3.8, chloride 105, and bicarbonate 27. Lactic acid was 1.96, which would be mildly elevated. TSH was 2.03. Procalcitonin was less than 0.05. The original troponin was 0.03. Troponin increased to 0.072 upon repeat. BUN was 27 with a creatinine of 0.78. EKG showed a sinus rhythm with a rate of 91. T-wave inversions were slightly seen in the anterolateral leads. There was a mild left axis deviation. IMPRESSIONS: 1. Acute respiratory failure with hypoxia. 2. Acute bronchospasm -- exact etiology not clear. 3. Asthma by history. 4. Kyphosis. 5. Hiatal hernia. 6. Right upper lobe nodule unchanged in 2 years. 7. Elevated troponins with a history of decreased ejection fraction. COMMENTS: The patient came in with severe distress. She has resolved very quickly. There is a 3-5 day prodrome of symptoms. She did not, however, feel like she was having a cold. She denies any possibility of aspiration. She had a similar episode at the time of 2 prior hospital stays as noted above. She initially was told that she had asthma and then told she did not have asthma. She apparently has had pulmonary function testing done as an outpatient. Clinically, she is doing well. She is on methylprednisolone 40 mg IV q. 8 hours. If she continues to be stable, I would change that to oral as of tomorrow. She is on levalbuterol and ipratropium q. 6 hours while awake. She is ordered Flovent, although she had told me she was not really taking that at home. Clinically, she does not seem to be in CHF, but I suspect cardiology will be involved in her care. I would suggest that an up-to-date echo will be done if it has not been done very recently. She remains on doxycycline and I have no objection to that. Again, if we could obtain a copy of her outpatient pulmonary functions and placed on the chart, that would be great. Thank you for asking me to assist in her care.
--- NOTE | 2017-12-08 14:20 | ECHOCARDIOGRAM REPORT ---
*NOTICE TO RECEIVING [employer] This information is strictly Confidential and protected under [place] law. [place] law prohibits you from making any further disclosure of this information unless further disclosure is expressly permitted by the written consent of the person to whom it pertains or is authorized by law. A general authorization for the release of medical or other information is not sufficient for this purpose. Hospital accepts no responsibility if the information is made available to any other person, INCLUDING THE PATIENT. Interpretation Summary * Name: CONSUELO DUGAN Study Date: 12/08/2017 06:55 AM BP: 152/88 mmHg * Patient Location: C.2T\S\S241\S\1 HR: 90 * : 1935 (M/d/yyy) Gender: Female Height: 60 in * Age: 82 yrs Ethnicity: CA Weight: 123 lb * Ordering Physician: Uzma Suarez * Referring Physician: Self, Referred * Performed By: Alyssa Hdez RDCS * * Reason For Study: Congestive Heart Failure * BSA: 1.5 m2 * -- Conclusions -- * Normal LV chamber size and wall thickness, sigmoid appearing septum. * Moderately reduced LV systolic function with moderate global hypokinesis, EF 35-40%. * Grade III diastolic dysfunction. * No significant valvular pathology. Procedure Details * A complete two-dimensional transthoracic echocardiogram was performed (2D, M-mode, Doppler and color flow Doppler). Left Ventricle * The left ventricle is normal in size. * There is normal left ventricular wall thickness. * The basal septum is thickened and angulated consistent with sigmoid septum. * Ejection Fraction = 35-40%. * Left ventricular systolic function is moderately reduced. * There is moderate global hypokinesis of the left ventricle. Right Ventricle * The right ventricular cavity size is normal (basal dimension <4.2 cm in right ventricular apical 4-chamber view). * The right ventricular systolic function is normal as assessed by tricuspid annular plane systolic excursion (TAPSE) (normal >1.5 cm). Atria * The left atrium is mildly dilated. * Right atrial size is normal. * No ASD detected; PFO is not assessed. Mitral Valve * The mitral valve is normal in structure and function. Tricuspid Valve * The tricuspid valve is normal in structure and function. Aortic Valve * The aortic valve is not well visualized. * No hemodynamically significant valvular aortic stenosis. * There is no significant aortic regurgitation. Pulmonic Valve * The pulmonary valve is not well seen, but the Doppler examination is normal without significant regurgitation or stenosis. Great Vessels * The aortic root is normal size. Pericardium/Pleural * There is no pericardial effusion. Left Ventricular Diastolic Function * Diastolic dysfunction, Grade III, consistent with marked congestive heart failure. MMode 2D Measurements and Calculations IVSd 1.5 cm IVSs 1.8 cm LVIDd 4.3 cm LVIDs 3.7 cm LVPWd 0.77 cm LVPWs 1.1 cm IVS/LVPW 1.9 FS 15.0 % EDV(Teich) 84.0 ml ESV(Teich) 57.1 ml EF(Teich) 32.0 % EDV(cubed) 80.6 ml ESV(cubed) 49.6 ml EF(cubed) 38.5 % % IVS thick 20.4 % % LVPW thick 39.0 % LV mass(C)d 166.4 grams LV mass(C)dI 109.6 grams/m\S\2 LV mass(C)s 186.8 grams LV mass(C)sI 123.1 grams/m\S\2 SV(Teich) 26.9 ml SI(Teich) 17.7 ml/m\S\2 SV(cubed) 31.1 ml SI(cubed) 20.5 ml/m\S\2 Ao root diam 3.5 cm Ao root area 9.4 cm\S\2 ACS 1.6 cm LA dimension 4.0 cm LA/Ao 1.2 LVAd ap4 26.0 cm\S\2 LVLd ap4 7.9 cm EDV(MOD-sp4) 75.3 ml EDV(sp4-el) 72.9 ml LVAs ap4 19.1 cm\S\2 LVLs ap4 7.1 cm ESV(MOD-sp4) 46.2 ml ESV(sp4-el) 43.8 ml EF(MOD-sp4) 38.6 % EF(sp4-el) 39.9 % LVAd ap2 20.0 cm\S\2 LVLd ap2 7.4 cm EDV(MOD-sp2) 50.5 ml EDV(sp2-el) 46.2 ml LVAs ap2 15.8 cm\S\2 LVLs ap2 6.8 cm ESV(MOD-sp2) 34.9 ml ESV(sp2-el) 31.5 ml EF(MOD-sp2) 30.9 % EF(sp2-el) 31.8 % LVLd %diff -7.22 % EDV(MOD-bp) 64.4 ml LVLs %diff -4.82 % ESV(MOD-bp) 40.0 ml EF(MOD-bp) 37.8 % SV(MOD-sp4) 29.1 ml SI(MOD-sp4) 19.2 ml/m\S\2 SV(MOD-sp2) 15.6 ml SI(MOD-sp2) 10.3 ml/m\S\2 SV(MOD-bp) 24.3 ml SI(MOD-bp) 16.0 ml/m\S\2 SV(sp4-el) 29.1 ml SI(sp4-el) 19.1 ml/m\S\2 SV(sp2-el) 14.7 ml SI(sp2-el) 9.7 ml/m\S\2 Doppler Measurements and Calculations MV E max pat 133.4 cm/sec MV dec time 0.11 sec Ao V2 max 179.2 cm/sec Ao max PG 12.8 mmHg Ao max PG (full) 10.5 mmHg LV V1 max PG 2.3 mmHg LV V1 max 76.6 cm/sec PA V2 max 108.6 cm/sec PA max PG 4.7 mmHg
--- NOTE | 2017-12-08 18:12 | Progress Note ---
Medicine Progress Note Date & Time of Visit: Dec 08, 2017 at 15:32. Subjective 82 yo F presents with shortness of breath thought 2/2 acute bronchitis. She was placed on BIPAP in the ER and given solumedrol and bronchodilators with good response. she is on min supplemental oxygen at this time and reports her symptoms are much improved overall and cough is minimal with no fevers or chills present. She is tolerating PO and is at bedside with her. Objective Last 8 Hrs Date Time Temp Pulse Resp B/P (MAP) Pulse Ox O2 Delivery O2 Flow Rate FiO2 12/08/17 13:57 95 18 98 Nasal Cannula 4.0 12/08/17 12:00 Nasal Cannula 4.0 12/08/17 11:45 36.6 93 19 153/87 (109) 96 Nasal Cannula 4.0 12/08/17 11:06 108 98 12/08/17 08:00 Nasal Cannula 4.0 Physical Exam: GEN: WNWD, in no acute distress, alert and appropriate HEENT: NC/AT, PERRL, normal sclerae CARDIO: reg rate, S1/2 heard without m/g/r LUNGS: CTA bilaterally, no crackles, rales or wheezes, good diaphragmatic excursion ABD: soft, non-tender, non-distended, no rebound or guarding, +BS EXTREMITY: RP and DP palpable 2+ bilat, no LE swelling or edema, extremities are warm and well-perfused NEURO: CN 2-12 grossly intact, no gross focal deficits. MUSC: 5/5 strength throughout, no focal deficits SKIN: warm and dry Laboratory Results: 12/08/17 07:23 12/07/17 20:59 Test 12/07/17 17:40 12/07/17 17:51 12/07/17 17:54 12/07/17 17:55 White Blood Count 9.71 K/uL (4.8-10.8) Red Blood Count 5.10 M/uL (4.2-5.4) Hemoglobin 14.2 g/dL (12.0-16.0) Hematocrit 43.9 % (37-47) Mean Corpuscular Volume 86.1 fL (80-100) Mean Corpuscular Hemoglobin 27.8 pg (25-34) Mean Corpuscular Hemoglobin Concent 32.3 g/dl (32-36) Platelet Count 242 K/uL (130-400) Mean Platelet Volume 10.2 fL (7.4-10.4) Neutrophils (%) (Auto) 64.7 % Lymphocytes (%) (Auto) 22.6 % Monocytes (%) (Auto) 6.7 % Eosinophils (%) (Auto) 5.4 % Basophils (%) (Auto) 0.3 % Neutrophils # (Auto) 6.29 K/uL (1.4-6.5) Lymphocytes # (Auto) 2.19 K/uL (1.2-3.4) Monocytes # (Auto) 0.65 K/uL (0.11-0.59) Eosinophils # (Auto) 0.52 K/uL (0-0.5) Basophils # (Auto) 0.03 K/uL (0-0.2) Immature Granulocyte % (Auto) 0.3 % Immature Granulocyte # (Auto) 0.03 K/uL (0.00-0.02) Venous Blood pH 7.33 (7.36-7.41) Venous Blood Partial Pressure CO2 56 mmHg (38.0-50.0) Venous Blood Partial Pressure O2 48 mmHg Venous Blood HCO3 29 mmol/L Venous Blood Oxygen Saturation 77.9 % Venous Blood Base Excess 1.7 mEq/L Pro-B-Type Natriuretic Peptide 1062 pg/ml (0-1800) Bedside Lactic Acid Venous 1.96 mmol/L (0.90-1.70) Bedside Troponin I 0.030 ng/ml (0-0.045) Prothrombin Time 10.7 SECONDS (9.0-12.0) Prothromb Time International Ratio 1.0 (0.9-1.1) D-Dimer 2190 ug/L FEU (0-500) Procalcitonin < 0.05 ng/ml (0-0.5) Thyroid Stimulating Hormone (TSH) 2.030 uIu/ml (0.300-4.500) Test 12/07/17 17:57 12/07/17 20:50 12/07/17 20:59 12/08/17 03:10 Bedside Hemoglobin 15.6 g/dl (12.0-16.0) Bedside Hematocrit 46 % (37-47) Bedside Sodium 142 mEq/L (135-144) Bedside Potassium 3.8 mEq/L (3.3-5.0) Bedside Chloride 105 mEq/L (101-112) Bedside Total CO2 27 mEq/l (24-31) Bedside Blood Urea Nitrogen 29 mg/dl (7-18) Bedside Creatinine 0.8 mg/dl (0.6-1.3) Bedside Glucose (other) 145 mg/dl (70-99) Bedside Ionized Calcium (Bambi) 1.41 mmol/l (1.12-1.32) Influenza Type A (RT-PCR) Neg for Influ A (NEG) Influenza Type B (RT-PCR) Neg for Influ B (NEG) Anion Gap 9.0 mmol/L (3-11) Est Creatinine Clear Calc Drug Dose 42.0 ml/min Estimated GFR () 80.9 Estimated GFR (Non- 69.8 BUN/Creatinine Ratio 34.2 (10-20) Calcium Level 10.0 mg/dl (8.5-10.1) Total Bilirubin 0.3 mg/dl (0.2-1) Direct Bilirubin 0.1 mg/dl (0-0.2) Aspartate Amino Transf (AST/SGOT) 15 U/L (15-37) Alanine Aminotransferase (ALT/SGPT) 16 U/L (12-78) Alkaline Phosphatase 60 U/L (45-117) Total Protein 7.7 gm/dl (6.4-8.2) Albumin 4.0 gm/dl (3.4-5.0) Globulin 3.7 gm/dl (2.5-4.0) Albumin/Globulin Ratio 1.1 (0.9-2) Urine Color DK YELLOW Urine Appearance CLOUDY (CLEAR) Urine pH 5.5 (4.5-7.5) Urine Specific Sandy Level 1.040 (1.000-1.030) Urine Protein NEG (NEG) Urine Glucose (UA) NEG (NEG) Urine Ketones NEG (NEG) Urine Occult Blood NEG (NEG) Urine Nitrite NEG (NEG) Urine Bilirubin NEG (NEG) Urine Urobilinogen NEG (NEG) Urine Leukocyte Esterase SMALL (NEG) Urine WBC (Auto) 10-30 /hpf (0-5) Urine RBC (Auto) 0-4 /hpf (0-4) Urine Hyaline Casts (Auto) 5-10 /lpf (0-5) Urine Epithelial Cells (Auto) 5-10 /lpf (0-5) Urine Bacteria (Auto) 2+ (NEG) Test 12/08/17 07:23 12/08/17 07:36 Red Blood Count 4.58 M/uL (4.2-5.4) Mean Corpuscular Volume 86.5 fL (80-100) Mean Corpuscular Hemoglobin 27.7 pg (25-34) Mean Corpuscular Hemoglobin Concent 32.1 g/dl (32-36) RDW Standard Deviation 58.8 fL (36.4-46.3) RDW Coefficient of Variation 18.5 % (11.5-14.5) Magnesium Level 2.5 mg/dl (1.8-2.4) Troponin I 0.072 ng/ml (0-0.045) Triglycerides Level 76 mg/dl (0-150) Cholesterol Level 262 mg/dl (0-200) HDL Cholesterol 70 mg/dl LDL Cholesterol, Calculated 177 mg/dl VLDL Cholesterol, Calculated 15 mg/dl Cholesterol/HDL Ratio 3.7 Lactic Acid Level 1.3 mmol/L (0.4-2.0) Date/Time Source Procedure Growth Status 12/07/17 17:40 Blood Blood Culture Pending Received 12/07/17 20:50 Nasal MRSA DNA Surveillance Screen - Final Specimen Negative for MRSA by DNA Probe Complete 12/08/17 03:10 Urine , Clean Catch Urine Culture Pending Received Last 24 Hours Test 12/07/17 17:40 12/07/17 17:51 12/07/17 17:54 12/07/17 17:55 White Blood Count 9.71 K/uL Red Blood Count 5.10 M/uL Hemoglobin 14.2 g/dL Hematocrit 43.9 % Mean Corpuscular Volume 86.1 fL Mean Corpuscular Hemoglobin 27.8 pg Mean Corpuscular Hemoglobin Concent 32.3 g/dl Platelet Count 242 K/uL Mean Platelet Volume 10.2 fL Neutrophils (%) (Auto) 64.7 % Lymphocytes (%) (Auto) 22.6 % Monocytes (%) (Auto) 6.7 % Eosinophils (%) (Auto) 5.4 % Basophils (%) (Auto) 0.3 % Neutrophils # (Auto) 6.29 K/uL Lymphocytes # (Auto) 2.19 K/uL Monocytes # (Auto) 0.65 K/uL Eosinophils # (Auto) 0.52 K/uL Basophils # (Auto) 0.03 K/uL RDW Standard Deviation 60.2 fL RDW Coefficient of Variation 19.0 % Immature Granulocyte % (Auto) 0.3 % Immature Granulocyte # (Auto) 0.03 K/uL Venous Blood pH 7.33 Venous Blood Partial Pressure CO2 56 mmHg Venous Blood Partial Pressure O2 48 mmHg Venous Blood HCO3 29 mmol/L Venous Blood Oxygen Saturation 77.9 % Venous Blood Base Excess 1.7 mEq/L Sodium Level 138 mmol/L Potassium Level 3.7 mmol/L Chloride Level 104 mmol/L Carbon Dioxide Level 28 mmol/L Anion Gap 6.0 mmol/L Blood Urea Nitrogen 29 mg/dl Creatinine 0.90 mg/dl Estimated GFR () 68.1 Estimated GFR (Non- 58.7 BUN/Creatinine Ratio 31.6 Random Glucose 147 mg/dl Calcium Level 10.5 mg/dl Magnesium Level 2.4 mg/dl Troponin I 0.026 ng/ml Pro-B-Type Natriuretic Peptide 1062 pg/ml Bedside Lactic Acid Venous 1.96 mmol/L Bedside Troponin I 0.030 ng/ml Prothrombin Time 10.7 SECONDS Prothromb Time International Ratio 1.0 D-Dimer 2190 ug/L FEU Procalcitonin < 0.05 ng/ml Thyroid Stimulating Hormone (TSH) 2.030 uIu/ml Test 12/07/17 17:57 12/07/17 20:50 12/07/17 20:59 12/08/17 00:47 Bedside Hemoglobin 15.6 g/dl Bedside Hematocrit 46 % Bedside Sodium 142 mEq/L Bedside Potassium 3.8 mEq/L Bedside Chloride 105 mEq/L Bedside Total CO2 27 mEq/l Anion Gap 15.0 mmol/L 9.0 mmol/L Bedside Blood Urea Nitrogen 29 mg/dl Bedside Creatinine 0.8 mg/dl Bedside Glucose (other) 145 mg/dl Bedside Ionized Calcium (Bambi) 1.41 mmol/l Influenza Type A (RT-PCR) Neg for Influ A Influenza Type B (RT-PCR) Neg for Influ B Sodium Level 139 mmol/L Potassium Level 3.7 mmol/L Chloride Level 104 mmol/L Carbon Dioxide Level 27 mmol/L Blood Urea Nitrogen 27 mg/dl Creatinine 0.78 mg/dl Est Creatinine Clear Calc Drug Dose 42.0 ml/min Estimated GFR () 80.9 Estimated GFR (Non- 69.8 BUN/Creatinine Ratio 34.2 Random Glucose 169 mg/dl Calcium Level 10.0 mg/dl Total Bilirubin 0.3 mg/dl Direct Bilirubin 0.1 mg/dl Aspartate Amino Transf (AST/SGOT) 15 U/L Alanine Aminotransferase (ALT/SGPT) 16 U/L Alkaline Phosphatase 60 U/L Total Protein 7.7 gm/dl Albumin 4.0 gm/dl Globulin 3.7 gm/dl Albumin/Globulin Ratio 1.1 Troponin I 0.072 ng/ml Test 12/08/17 03:10 12/08/17 07:23 12/08/17 07:36 Urine Color DK YELLOW Urine Appearance CLOUDY Urine pH 5.5 Urine Specific [place] Level 1.040 Urine Protein NEG Urine Glucose (UA) NEG Urine Ketones NEG Urine Occult Blood NEG Urine Nitrite NEG Urine Bilirubin NEG Urine Urobilinogen NEG Urine Leukocyte Esterase SMALL Urine WBC (Auto) 10-30 /hpf Urine RBC (Auto) 0-4 /hpf Urine Hyaline Casts (Auto) 5-10 /lpf Urine Epithelial Cells (Auto) 5-10 /lpf Urine Bacteria (Auto) 2+ White Blood Count 6.76 K/uL Red Blood Count 4.58 M/uL Hemoglobin 12.7 g/dL Hematocrit 39.6 % Mean Corpuscular Volume 86.5 fL Mean Corpuscular Hemoglobin 27.7 pg Mean Corpuscular Hemoglobin Concent 32.1 g/dl RDW Standard Deviation 58.8 fL RDW Coefficient of Variation 18.5 % Platelet Count 219 K/uL Magnesium Level 2.5 mg/dl Troponin I 0.072 ng/ml Triglycerides Level 76 mg/dl Cholesterol Level 262 mg/dl HDL Cholesterol 70 mg/dl LDL Cholesterol, Calculated 177 mg/dl VLDL Cholesterol, Calculated 15 mg/dl Cholesterol/HDL Ratio 3.7 Lactic Acid Level 1.3 mmol/L Date/Time Source Procedure Growth Status 12/07/17 17:40 Blood Blood Culture Pending Received 12/07/17 17:40 Blood Blood Culture Pending Received 12/07/17 20:50 Nasal MRSA DNA Surveillance Screen - Final Specimen Negative for MRSA by DNA Probe Complete 12/08/17 03:10 Urine , Clean Catch Urine Culture Pending Received Assessment & Plan 82 yo F presents with shortness of breath thought 2/2 acute bronchitis. She was placed on BIPAP in the ER and given solumedrol and bronchodilators with good response. she is on min supplemental oxygen at this time and reports her symptoms are much improved overall and cough is minimal with no fevers or chills present. She is tolerating PO and is at bedside with her. 1. Acute hypoxic respiratory failure 2/2 acute bronchitis in setting of possible underlying lung disease (of note she does have RA). CXR reveals no infiltrate, flu screening is negative and CTA chest reveals no PE and she appears euvolemic. Lungs are clear to auscultation and she is oxygenating 100% on 4L which can be weaned down; she is not on regular oxygen supplementation at home. Will switch Solumedrol to prednisone in am, cont Doxy and bronchodilators. Apprec pulm input. 2. Chronic systolic heart failure 2/2 idiopathic cardiomyopathy with EF 30%-pt has refused an ICD per Cardiology outpatient notes. She appears compensated at this time. Continue medical management with Toprol. Updated TTE today reveals EF 35-40% with severe LV dysfunction and Grade III diastolic dysfunction. Of note, not on diuretics as outpatient and not on ACI for h/o cough. 3. HTN-presented with hypertensive urgency with BP now better controlled. Cont Toprol per home regimen. 4. Rheumatoid arthritis-on chronic prednisone 5mg daily. currently increased for lung issues as above. 5. CKD III-at baseline. REnally dose meds, avoid nephrotoxic substances. FULL CODE DVT PROPHYLAXIS : sub q heparin DISPOSITION : expected to be discharged home when medically stable PT/OT eval prior to discharge Medicine follow up with Dr Rubio Cardiology follow up with Dr Melisa Lebron DO [facility] Hospitalist Consultants: [facility] Current Inpatient Medications: Current Inpatient Medications Medications (Trade) Dose Ordered Sig/Raman Route Start Time Stop Time Status Last Admin Dose Admin Heparin Sodium (Porcine) (Heparin Sq 5000 Unit/0.5ml) 5,000 unit Q8 SQ 12/07/17 22:00 01/06/18 21:59 12/08/17 13:54 5,000 UNIT Acetaminophen (Tylenol Tab) 650 mg Q4H PRN PO 12/07/17 19:00 01/06/18 18:59 Al Hydrox/Mg Hydrox/Simethicone (Maalox Max Susp) 15 ml Q4H PRN PO 12/07/17 19:00 01/06/18 18:59 Magnesium Hydroxide (Milk Of Magnesia Susp) 30 ml Q12H PRN PO 12/07/17 19:00 01/06/18 18:59 Nitroglycerin (Nitrostat Tab) 0.4 mg UD PRN SL 12/07/17 19:00 01/06/18 18:59 Polyethylene (Miralax Powder Packet) 17 gm DAILY PRN PO 12/07/17 19:00 01/06/18 18:59 Ipratropium [place] (Atrovent 0.02% 0.5MG/2.5ML Neb) 0.5 mg Q6RWA INH 12/07/17 21:00 01/06/18 20:59 12/08/17 13:57 0.5 MG Levalbuterol (Xopenex 1.25MG/ 0.5ML Neb) 1.25 mg Q6RWA INH 12/07/17 21:00 01/06/18 20:59 12/08/17 13:57 1.25 MG Diphenhydramine HCl (Benadryl Cap) 25 mg HSZ PRN PO 12/07/17 20:45 01/06/18 20:44 Benzonatate (Tessalon Perles Cap) 100 mg TID PRN PO 12/07/17 20:45 01/06/18 20:44 Fluticasone Propionate (Flovent Hfa 110MCG Inhaler) 2 puffs BID INH 12/07/17 21:00 01/06/18 20:59 12/08/17 08:57 2 PUFFS Metoprolol Succinate (Toprol Xl Tab) 25 mg DAILY PO 12/08/17 09:00 01/07/18 08:59 12/08/17 08:55 25 MG Metoprolol Succinate (Toprol Xl Tab) 50 mg HS PO 12/07/17 21:00 01/06/18 20:59 12/07/17 22:36 50 MG Nitroglycerin (Nitrostat Tab) 0.4 mg UD PRN SL 12/07/17 20:45 01/06/18 20:44 Polyethylene (Miralax Powder Packet) 17 gm DAILY PRN PO 12/07/17 20:45 01/06/18 20:44 Senna/Docusate Sodium (Senokot S Tab) 1 tab DAILY PRN PO 12/07/17 20:45 01/06/18 20:44 Tramadol HCl (Ultram Tab) 50 mg Q4H PRN PO 12/07/17 20:45 01/06/18 20:44 Cholecalciferol (Vitamin D Tab) 1,000 inter.unit DAILY PO 12/08/17 09:00 01/07/18 08:59 12/08/17 08:55 1,000 INTER.UNIT Hydralazine HCl (HydrALAZINE INJ) 10 mg Q8 PRN IV. 12/07/17 20:45 01/06/18 20:44 Methylprednisolone Sodium Succinate 40 mg/Syringe 0.64 ml @ 1.5 mls/min Q8H IV 12/08/17 00:00 01/07/18 00:00 12/08/17 08:56 1.5 MLS/MIN Doxycycline Hyclate (Vibramycin Cap) 100 mg BID PO 12/07/17 21:00 12/14/17 20:59 12/08/17 08:54 100 MG Ioversol (Optiray 320) 98 ml UD PRN IV 12/07/17 22:00 12/11/17 21:59 Ferrous Sulfate (Feosol Tab) 325 mg DAILY PO 12/08/17 09:00 01/07/18 08:59 12/08/17 08:54 325 MG Gabapentin (Neurontin Cap) 300 mg BID PO 12/08/17 09:00 01/07/18 08:59 Enteral Nutritional Formula (Boost) 1 can DAILY PO 12/08/17 09:00 01/07/18 08:59 12/08/17 08:52 1 CAN
[2017-12-08] MEDS: HydrALAZINE HCL 20 MG/ML VIAL IV. PRN (23:58)
[2017-12-09] VITALS (13 sets, daily range): BP systolic 147–198; BP diastolic 63–138; PULSE 70–102; TEMP 36.6–37.1; O2SAT 92–98
[2017-12-09] MEDS: IPRATROPIUM BROMIDE NEB SOLN 0.02% 2.5 ML VIAL INH PRN ×3 (04:48→22:50)
[2017-12-09] MEDS: LEVALBUTEROL 1.25MG/0.5ML NEB INH PRN ×3 (04:48→22:50)
[2017-12-09] MEDS: HEPARIN SOD 5000 UNIT/0.5 ML CARP SQ SCH ×3 (05:12→21:42)
[2017-12-09] MEDS: FLUTICASONE HFA 110MCG INHALER INH SCH ×2 (08:24→19:57)
[2017-12-09] MEDS: BENZONATATE 100MG CAP PO PRN ×2 (08:25→13:28)
[2017-12-09] MEDS: METOPROLOL SUCC 50MG EXT REL TAB PO SCH ×2 (08:26→19:55)
[2017-12-09] MEDS: DOXYCYCLINE HYCLATE 100 MG CAP PO SCH ×2 (08:27→19:56)
[2017-12-09] MEDS: CHOLECALCIFEROL 1000 INTER.UNIT TAB PO SCH (08:27)
[2017-12-09] MEDS: FERROUS SULFATE 325 MG TAB PO SCH (08:27)
[2017-12-09] MEDS: BOOST VANILLA PO SCH (08:30)
[2017-12-09] MEDS: GABAPENTIN 300 MG CAP PO SCH ×2 (08:30→19:54)
--- NOTE | 2017-12-09 11:48 | PULMONARY PROGRESS NOTE ---
DATE: 12/09/2017 TIME: 11:20 a.m. SUBJECTIVE: The patient states she had a bad night. She states her blood pressure was elevated. She was short of breath. She relates that they did give her a nebulizer treatment during the night time. Nurses' notes from overnight reported expiratory wheezing. Her saturations, however, were good. They did give her oxygen. At 05:15 a.m., she had reported some relief. She has not coughed up any phlegm she states. She has not had chest pains. OBJECTIVE: GENERAL: The patient looked slightly short of breath. She was, however, standing and walking in her room. Temperature is 37. EARS, NOSE, AND THROAT: Unchanged from yesterday. HEART: Heart rate was 86 per minute. The rhythm was regular with an occasional PVC being noted. Blood pressure 178/93. LUNGS: Lung saldaña revealed mild wheezing bilaterally. This was somewhat greater on the right than the left. Room air oxygen saturation done by myself was 93%. Respiratory rate was 20 breaths per minute. EXTREMITIES: Showed no cyanosis, clubbing or edema. It appears she has not had any laboratory studies done today. There was no chest x-ray today. IMPRESSIONS: 1. Respiratory failure with hypoxia. 2. Acute bronchospasm. 3. Asthma by history. 4. Decreased ejection fraction -- rule out congestive heart failure. 5. Kyphosis. 6. Hiatal hernia. 7. Small pulmonary nodule -- unchanged in 2-1/2 years. COMMENTS: The patient is still having symptoms. She does not feel as good as she did yesterday morning. Prednisone was started today. If she exacerbates she still may need some individual dose of methylprednisolone. She is getting the levalbuterol while awake and p.r.n. She is getting ipratropium by nebulizer just p.r.n. The patient obviously is not ready for discharge. We will continue to follow with you.
--- NOTE | 2017-12-09 11:50 | Progress Note ---
Internal Med Progress Note Date of Service: Dec 09, 2017. Provider Documentation: SUBJECTIVE: Seen and examined at bedside States feeling weak and has dry cough, SOB Denies Chest pain, dizziness States that she had a bad night yesterday, got SOB and her BP was elevated OBJECTIVE: Vital Signs-as noted below Physical Exam: General Appearance:Moderately built and nourished, no apparent distress Head: normocephalic, Atraumatic Eyes: normal inspection, EOMI, PERRL Neck: supple, Trachea midline Respiratory/Chest: Decreased breath sounds, mild scattered wheezes Cardiovascular: S1, S2, No murmur Abdomen/GI:Soft, Non tender, Bowel sounds present Extremities/Musculoskelatal:normal inspection, no edema Neurologic/Psych:AAOX3, grossly no focal neurological deficits Skin: normal color, warm Lab data as noted below. ASSESSMENT & PLAN: Patient is an 82 yr female who presented with SOB 2/2 acute bronchitis. . Acute hypoxic respiratory failure 2/2 acute bronchitis CXR reveals no infiltrate Flu screen: Negative CTA:no PE Appears euvolemic Continue Prednisone Taper Continue Doxycycline, Nebs PRN Appreciate Pulmonology Input Wean off oxygen as able Blood Culture; No growth to date Chronic systolic heart failure 2/2 idiopathic cardiomyopathy with EF 30% Patient refused an ICD in the past Follows with as outpatient No signs of decompensation Continue Toprol Patient reports she took herself off diuretic secondary to Urinary frequency/ Incontinence Also not on ACI for h/o cough Very reluctant to be started on any new medications Needs follow up with Cardiology as outpatient HTN presented with hypertensive urgency Continue Toprol monitor H/O Rheumatoid arthritis on chronic prednisone 5mg daily CKD III stable avoid nephrotoxic agents DVT Px: Heparin SQ Code Status: Full Code Disposition: Expected to be discharged home when medically stable Medicine follow up with Dr Rubio Cardiology follow up with Dr Vincent Vital Signs: Date Time Temp Pulse Resp B/P (MAP) Pulse Ox O2 Delivery O2 Flow Rate FiO2 12/09/17 11:57 36.8 70 18 151/63 (92) 96 12/09/17 08:00 Room Air 12/09/17 07:51 37.0 86 18 178/93 (121) 97 12/09/17 05:32 153/75 (101) 92 Room Air 12/09/17 04:48 90 22 98 Nasal Cannula 2.0 12/09/17 04:45 Nasal Cannula 2.0 12/09/17 04:29 37.1 83 18 173/88 (116) 95 12/09/17 01:32 147/74 (98) 12/09/17 00:00 Room Air 12/08/17 23:47 36.9 92 18 186/96 (126) 93 Room Air 2.0 60 182/103 (129) 12/08/17 23:43 36.9 92 18 182/103 (129) 93 186/96 (126) 12/08/17 21:42 174/80 (111) 12/08/17 20:07 97 Room Air 12/08/17 20:07 Room Air 12/08/17 19:40 36.6 105 18 183/100 (127) 95 Nasal Cannula 2.0 186/101 (129) 12/08/17 16:00 Nasal Cannula 4.0 12/08/17 15:19 36.9 106 18 134/85 (101) 100 Nasal Cannula 4.0 12/08/17 13:57 95 18 98 Nasal Cannula 4.0
[2017-12-09] MEDS: GUAIFENESIN/CODEINE 100MG/10MG 5ML UDC PO PRN ×2 (16:09→21:41)
[2017-12-09] MEDS ORDERED: CEFTRIAXONE SOD INJ 1 GM in DEXTROSE 5% ADD-VANTAGE 50ML 50 ML IV SCH (16:30)
[2017-12-09] MEDS: HydrALAZINE HCL 20 MG/ML VIAL IV. PRN (21:42)
[2017-12-09] MEDS ORDERED: COUGH DROP (SUGAR FREE) LOZ 24 LOZ/1 BOX LOZ ONE (21:52)
[2017-12-09] MEDS ORDERED: NURSING DECISION MEDICATION ORDER SCH (22:00)
[2017-12-09] MEDS ORDERED: COUGH DROP (SUGAR FREE) LOZ 24 LOZ/1 BOX LOZ PRN (22:30)
[2017-12-10] VITALS (10 sets, daily range): BP systolic 131–173; BP diastolic 86–110; PULSE 66–105; TEMP 36.5–36.9; O2SAT 93–97
[2017-12-10] MEDS: HEPARIN SOD 5000 UNIT/0.5 ML CARP SQ SCH ×3 (04:56→20:16)
[2017-12-10] MEDS: IPRATROPIUM BROMIDE NEB SOLN 0.02% 2.5 ML VIAL INH PRN ×2 (05:06→16:20)
[2017-12-10] MEDS: LEVALBUTEROL 1.25MG/0.5ML NEB INH PRN ×2 (05:06→16:20)
[2017-12-10 07:59] LABS: HEMATOCRIT 38.8 % (37-47); HEMOGLOBIN 12.5 g/dL (12.0-16.0); MEAN CELL VOLUME 85.8 fL (80-100); MEAN CORPUSCULAR HEMOGLOBIN 27.7 pg (25-34); MEAN CORPUSCULAR HGB CONC 32.2 g/dl (32-36); PLATELET COUNT 157 K/uL (130-400); RED CELL DISTRIBUTION WIDTH SD 60.4 fL (36.4-46.3); WHITE BLOOD COUNT 8.29 K/uL (4.8-10.8)
[2017-12-10 08:28] LABS: CREATININE 0.57 mg/dl (0.60-1.20); POTASSIUM 3.2 mmol/L (3.5-5.1)
[2017-12-10] MEDS: FLUTICASONE HFA 110MCG INHALER INH SCH ×2 (08:30→20:15)
[2017-12-10] MEDS: DOXYCYCLINE HYCLATE 100 MG CAP PO SCH ×2 (08:31→20:14)
[2017-12-10] MEDS: CHOLECALCIFEROL 1000 INTER.UNIT TAB PO SCH (08:31)
[2017-12-10] MEDS: FERROUS SULFATE 325 MG TAB PO SCH (08:31)
[2017-12-10] MEDS: METOPROLOL SUCC 50MG EXT REL TAB PO SCH ×2 (08:33→20:14)
[2017-12-10] MEDS: GABAPENTIN 300 MG CAP PO SCH ×2 (08:35→20:15)
[2017-12-10] MEDS: BOOST VANILLA PO SCH (08:37)
[2017-12-10] MEDS: BENZONATATE 100MG CAP PO PRN ×2 (08:46→23:33)
[2017-12-10] MEDS ORDERED: POTASSIUM CHLORIDE 10 MEQ TABCR PO ONE (09:45)
--- NOTE | 2017-12-10 13:58 | Progress Note ---
Internal Med Progress Note Date of Service: Dec 10, 2017. Provider Documentation: SUBJECTIVE: Seen and examined at bedside Still has significant cough Less SOB Denies Chest pain, dizziness BP is better today Eager to get discharged OBJECTIVE: Vital Signs-as noted below Physical Exam: General Appearance:Moderately built and nourished, no apparent distress Head: normocephalic, Atraumatic Eyes: normal inspection, EOMI, PERRL Neck: supple, Trachea midline Respiratory/Chest: Normal breath sounds, CTA Cardiovascular: S1, S2, No murmur Abdomen/GI:Soft, Non tender, Bowel sounds present Extremities/Musculoskelatal:normal inspection, no edema Neurologic/Psych:AAOX3, grossly no focal neurological deficits Skin: normal color, warm Lab data as noted below. ASSESSMENT & PLAN: Patient is an 82 yr female who presented with SOB 2/2 acute bronchitis. . Acute hypoxic respiratory failure 2/2 acute bronchitis CXR reveals no infiltrate Flu screen: Negative CTA:no PE Appears euvolemic Continue Prednisone Taper Continue Doxycycline, Nebs PRN Appreciate Pulmonology Input Weaned off oxygen Blood Culture; No growth to date UTI: POA Asymptomatic Urine Culture: Enterococcus Started on Amoxicillin Chronic systolic heart failure 2/2 idiopathic cardiomyopathy with EF 30% Patient refused an ICD in the past Follows with as outpatient No signs of decompensation Continue Toprol Patient reports she took herself off diuretic secondary to Urinary frequency/ Incontinence Also not on ACI for h/o cough Very reluctant to be started on any new medications Needs follow up with Cardiology as outpatient HTN presented with hypertensive urgency BP better Continue Toprol monitor H/O Rheumatoid arthritis on chronic prednisone 5mg daily CKD III stable avoid nephrotoxic agents DVT Px: Heparin SQ Code Status: Full Code Disposition: Expected to be discharged home when medically stable Medicine follow up with Dr Rubio Cardiology follow up with Dr Vincent Vital Signs: Date Time Temp Pulse Resp B/P (MAP) Pulse Ox O2 Delivery O2 Flow Rate FiO2 12/10/17 11:50 36.8 66 18 131/86 (101) 97 12/10/17 11:00 Room Air 12/10/17 08:00 Room Air 12/10/17 07:53 36.9 68 18 131/86 (101) 95 12/10/17 05:49 171/91 (117) 12/10/17 05:09 82 18 94 Room Air 12/10/17 05:00 Room Air 12/10/17 03:35 36.7 73 18 164/92 (116) 94 Room Air 12/10/17 00:00 36.7 98 18 155/87 (109) 93 Room Air 12/09/17 23:25 Room Air 12/09/17 22:50 97 20 95 Room Air 12/09/17 21:43 198/138 (158) 12/09/17 20:00 Room Air 12/09/17 19:31 36.8 101 17 182/91 (121) 93 Room Air 12/09/17 16:00 36.6 102 22 158/85 (109) 95 Room Air 12/09/17 16:00 Room Air Lab Results: Results Past 24 Hours Test 12/10/17 07:15 Range/Units White Blood Count 8.29 4.8-10.8 K/uL Red Blood Count 4.52 4.2-5.4 M/uL Hemoglobin 12.5 12.0-16.0 g/dL Hematocrit 38.8 37-47 % Mean Corpuscular Volume 85.8 80-100 fL Mean Corpuscular Hemoglobin 27.7 25-34 pg Mean Corpuscular Hemoglobin Concent 32.2 32-36 g/dl RDW Standard Deviation 60.4 36.4-46.3 fL RDW Coefficient of Variation 19.0 11.5-14.5 % Platelet Count 157 130-400 K/uL Sodium Level 140 136-145 mmol/L Potassium Level 3.2 3.5-5.1 mmol/L Chloride Level 108 98-107 mmol/L Carbon Dioxide Level 26 21-32 mmol/L Anion Gap 6.0 3-11 mmol/L Blood Urea Nitrogen 26 7-18 mg/dl Creatinine 0.57 0.60-1.20 mg/dl Est Creatinine Clear Calc Drug Dose 57.7 ml/min Estimated GFR () 98.7 Estimated GFR (Non- 85.1 BUN/Creatinine Ratio 46.7 10-20 Random Glucose 104 70-99 mg/dl Calcium Level 9.0 8.5-10.1 mg/dl Magnesium Level 2.1 1.8-2.4 mg/dl
[2017-12-10] MEDS: AMOXICILLIN 500 MG CAP PO SCH ×2 (14:07→20:15)
[2017-12-10] MEDS: GUAIFENESIN/CODEINE 100MG/10MG 5ML UDC PO PRN (14:09)
--- NOTE | 2017-12-10 16:04 | PULMONARY PROGRESS NOTE ---
DATE: 12/10/2017 TIME: 3:45 p.m. SUBJECTIVE: The patient is feeling improved. She is less short of breath today. Her cough is less. She did expectorate a small amount of phlegm. Overall, she feels better. Her was present during this evaluation. OBJECTIVE: GENERAL: The patient was comfortable. VITAL SIGNS: Temperature is 36.5. EARS, NOSE, THROAT: Unchanged. HEART: The cardiac rate is 100 per minute. The rhythm is regular. Blood pressure is 131/86. LUNGS: Lung saldaña revealed very slight rhonchi. Respiratory rate was 16. Oxygen saturation on room air was 95%. She sounded much better than yesterday. EXTREMITIES: Showed trace edema. There was no cyanosis or clubbing. LABORATORY DATA: White count is 8.29, hemoglobin 12.5, and platelets 157,000. Electrolytes show sodium 140, potassium 3.2, chloride 108, and bicarbonate 26. The BUN was 26 with a creatinine of 0.57. Urine culture reports Enterococcus faecalis. This was greater than 100,000 colonies per mL. It was sensitive to all antibiotics tested. She is on amoxicillin which would have the same coverage as ampicillin and it was sensitive. IMPRESSIONS: 1. Respiratory failure -- acute -- with hypoxia -- improved. 2. Acute bronchospasm, likely secondary to acute bronchitis. 3. Asthma by history. 4. Kyphosis. 5. Hiatal hernia. COMMENTS AND RECOMMENDATIONS: The patient is doing much better. She is on prednisone 40 mg per day. She is on the amoxicillin. She is still getting her neb treatments. She is hoping to go home tomorrow. If she continues to improve that certainly would be feasible. I have not seen the patient's outpatient PFTs that we had inquired about. I would suggest that perhaps 1 month after discharge when she is back to baseline that a repeat PFT be done.
[2017-12-10] MEDS: HydrALAZINE HCL 20 MG/ML VIAL IV. PRN (23:33)
[2017-12-11 00:14] VITALS: BP 151/78
[2017-12-11 04:47] VITALS: BP 145/78; PULSE 80; TEMP 36.6; O2SAT 92
[2017-12-11] MEDS: HEPARIN SOD 5000 UNIT/0.5 ML CARP SQ SCH ×2 (06:39→14:00)
[2017-12-11 07:19] VITALS: BP 164/107; PULSE 89; TEMP 36.6; O2SAT 93
[2017-12-11 07:56] LABS: CALCIUM 9.5 mg/dl (8.5-10.1); CREATININE 0.78 mg/dl (0.60-1.20)
[2017-12-11] MEDS: GABAPENTIN 300 MG CAP PO SCH (08:03)
[2017-12-11] MEDS: BOOST VANILLA PO SCH (08:03)
[2017-12-11] MEDS: FLUTICASONE HFA 110MCG INHALER INH SCH (08:05)
[2017-12-11] MEDS: DOXYCYCLINE HYCLATE 100 MG CAP PO SCH (08:06)
[2017-12-11] MEDS: CHOLECALCIFEROL 1000 INTER.UNIT TAB PO SCH (08:06)
[2017-12-11] MEDS: AMOXICILLIN 500 MG CAP PO SCH (08:06)
[2017-12-11] MEDS: FERROUS SULFATE 325 MG TAB PO SCH (08:06)
[2017-12-11] MEDS: BENZONATATE 100MG CAP PO PRN (08:06)
[2017-12-11] MEDS: METOPROLOL SUCC 50MG EXT REL TAB PO SCH (08:07)
[2017-12-11] MEDS ORDERED: LOSARTAN POTASSIUM 25 MG TAB PO ONE (10:30)
--- NOTE | 2017-12-11 10:42 | Progress Note ---
Internal Med Progress Note Date of Service: Dec 11, 2017. Provider Documentation: SUBJECTIVE: Seen and examined at bedside Less cough No new complaints Denies Chest pain, SOB, dizziness Eager to get discharged OBJECTIVE: Vital Signs-as noted below Physical Exam: General Appearance:Moderately built and nourished, no apparent distress Head: normocephalic, Atraumatic Eyes: normal inspection, EOMI, PERRL Neck: supple, Trachea midline Respiratory/Chest: Normal breath sounds, Scattered rhonchi Cardiovascular: S1, S2, No murmur Abdomen/GI:Soft, Non tender, Bowel sounds present Extremities/Musculoskelatal:normal inspection, no edema Neurologic/Psych:AAOX3, grossly no focal neurological deficits Skin: normal color, warm Lab data as noted below. ASSESSMENT & PLAN: Patient is an 82 yr female who presented with SOB 2/2 acute bronchitis. . 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% Patient refused an ICD in the past Follows with as outpatient No signs of decompensation Continue Toprol Patient reports she took herself off diuretic secondary to Urinary frequency/ Incontinence Also not on ACI for h/o cough Very reluctant to be started on any new medications Needs follow up with Cardiology as outpatient Convinced patient to add Losartan (25mg daily) and increase Metoprolol to 50 BID (Was on 25mg AM and 50mg HS) HTN presented with hypertensive urgency Continue Toprol monitor Added losartan and increased Metoprolol to 50mg BID as above H/O Rheumatoid arthritis on chronic prednisone 5mg daily CKD III stable avoid nephrotoxic agents DVT Px: Heparin SQ Code Status: Full Code Disposition: Plan to discharge home today. States doesn't want any rehab/Home Health services Follow up with for Primary Care on 2017 at 10:45AM Follow up with your Sales Utility Representative in 2-4 weeks Follow up with your Minister Of Religion in 2 weeks Complete the Prednisone and antibiotic course as prescribed Seek immediate medical attention if your symptoms reoccur or worsen Get Pulmonary function tests as outpatient as advised Vital Signs: Date Time Temp Pulse Resp B/P (MAP) Pulse Ox O2 Delivery O2 Flow Rate FiO2 12/11/17 08:10 Room Air 12/11/17 07:19 36.6 89 18 164/107 (126) 93 Room Air 12/11/17 04:47 36.6 80 19 145/78 (100) 92 Room Air 12/11/17 04:00 Room Air 12/11/17 00:14 151/78 (102) 12/11/17 00:00 Room Air 12/10/17 23:47 36.5 95 18 173/110 (131) 95 Room Air 12/10/17 20:00 Room Air 12/10/17 19:58 36.7 105 22 168/103 (124) 94 Room Air 12/10/17 16:20 70 18 95 Room Air 12/10/17 16:00 Room Air 12/10/17 15:18 36.5 73 16 131/86 (101) 95 12/10/17 11:50 36.8 66 18 131/86 (101) 97 12/10/17 11:00 Room Air Lab Results: Results Past 24 Hours Test 12/11/17 07:01 Range/Units Sodium Level 140 136-145 mmol/L Potassium Level 4.0 3.5-5.1 mmol/L Chloride Level 109 98-107 mmol/L Carbon Dioxide Level 23 21-32 mmol/L Anion Gap 8.0 3-11 mmol/L Blood Urea Nitrogen 32 7-18 mg/dl Creatinine 0.78 0.60-1.20 mg/dl Est Creatinine Clear Calc Drug Dose 42.5 ml/min Estimated GFR () 80.9 Estimated GFR (Non- 69.8 BUN/Creatinine Ratio 40.8 10-20 Random Glucose 109 70-99 mg/dl Calcium Level 9.5 8.5-10.1 mg/dl Magnesium Level 2.4 1.8-2.4 mg/dl
[2017-12-11] MEDS ORDERED: DXY100 PO (10:44)
[2017-12-11] MEDS ORDERED: AMX500 PO (10:44)
[2017-12-11] MEDS ORDERED: METO-217 PO (10:44)
[2017-12-11] MEDS ORDERED: PRD20 PO (10:44)
[2017-12-11] MEDS ORDERED: CZR25 PO (10:44)
--- NOTE | 2017-12-11 10:46 | Discharge Summary ---
Discharge Summary Date of Service Dec 11, 2017. Discharge Summary Admission Date: Dec 07, 2017 at 18:44 Discharge Date: Dec 11, 2017 Discharge Disposition: Home Principal Diagnosis: Acute Bronchitis, UTI Procedures: CTA: 1. No pulmonary emboli identified although segmental and subsegmental pulmonary arteries suboptimally assessed due to respiratory motion. 2. No acute intrathoracic findings. 3. Moderate cardiomegaly. 4. Large hiatal hernia with partially intrathoracic stomach. Venous Doppler: No evidence of deep venous thrombus within the bilateral lower extremities. CXR: No acute cardiopulmonary findings. No change in appearance of the chest. ECHO: * Normal LV chamber size and wall thickness, sigmoid appearing septum. * Moderately reduced LV systolic function with moderate global hypokinesis, EF 35-40%. * Grade III diastolic dysfunction. * No significant valvular pathology. Consultations: Pulmonology Pending Studies/Follow-Up: Follow up with for Primary Care on 2017 at 10:45AM Follow up with your Chef Instructor in 2-4 weeks Follow up with your Vba Developer in 2 weeks Complete the Prednisone and antibiotic course as prescribed Seek immediate medical attention if your symptoms reoccur or worsen Get Pulmonary function tests as outpatient as advised Admission Information HPI (per Admitting provider): 82 yo F with hx of interstitial lung disease /COPD /idiopathic cardiomyopathy with severe systolic dysfunction -Last echo EF 30 % ; RA brought to ER with complain of hypoxia , respiratory distress pt reports past 2-3 days has cough with productive sputum , nasal congestion , generalized weakness , fatigue very poor appetite , had low grade fever , chills has been using Neb tx but no improvement of symptom has Home 02 but only uses it for few mins a day as " rescue therapy " this morning -her symptom was worse with significant Orthopnea and PIERRE no complain of chest pain or chest heaviness , no syncope , in ER pt was found to be hypoxic , with acute respiratory distress given Neb tx /IV Solu Medrol 125 mg X1 placed on Bipap Physical Exam (per Admitting): General Appearance: no apparent distress Head: normocephalic, atraumatic Eyes: normal inspection, PERRL, EOMI, sclerae normal ENT: hearing grossly normal Neck: thyroid normal, no JVD, no carotid bruits, trachea midline Respiratory/Chest: + respiratory distress, + decreased breath sounds, + wheezing Cardiovascular: no edema, no JVD, + tachycardia Abdomen/GI: normal bowel sounds, non tender, soft Neurologic/Psych: no motor/sensory deficits, alert, oriented x 3 Hospital Course Patient is an 82 yr female who presented with SOB 2/2 acute bronchitis. . 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% Patient refused an ICD in the past Follows with as outpatient No signs of decompensation Continue Toprol Patient reports she took herself off diuretic secondary to Urinary frequency/ Incontinence Also not on ACI for h/o cough Very reluctant to be started on any new medications Needs follow up with Cardiology as outpatient Convinced patient to add Losartan (25mg daily) and increase Metoprolol to 50 BID (Was on 25mg AM and 50mg HS) HTN presented with hypertensive urgency Continue Toprol monitor Added losartan and increased Metoprolol to 50mg BID as above H/O Rheumatoid arthritis on chronic prednisone 5mg daily CKD III stable avoid nephrotoxic agents DVT Px: Heparin SQ Code Status: Full Code Disposition: Plan to discharge home today. States doesn't want any rehab/Home Health services Follow up with for Primary Care on 2017 at 10:45AM Follow up with your Chef Instructor in 2-4 weeks Follow up with your Vba Developer in 2 weeks Complete the Prednisone and antibiotic course as prescribed Seek immediate medical attention if your symptoms reoccur or worsen Get Pulmonary function tests as outpatient as advised Total time spent on discharge = 33 minutes This includes examination of the patient, discharge planning, medication reconciliation, and communication with other providers. Discharge Instructions Discharge Instructions Date of Service Dec 11, 2017. Admission Reason for Admission: Acute Hypoxemic Respiratory Failure Discharge Discharge Diagnosis / Problem: Acute Bronchitis, UTI Discharge Goals Goal(s): Decrease discomfort, Improve function Activity Recommendations Activity Limitations: resume your previous activity Exercise/Sports Limitations: as tolerated . Instructions / Follow-Up Instructions / Follow-Up Follow up with for Primary Care on 2017 at 10:45AM Follow up with your Chef Instructor in 2-4 weeks Follow up with your Vba Developer in 2 weeks Complete the Prednisone and antibiotic course as prescribed Seek immediate medical attention if your symptoms reoccur or worsen Get Pulmonary function tests as outpatient as advised Current Hospital Diet Patient's current hospital diet: AHA Diet (Heart Healthy) Discharge Diet Recommended Diet: AHA Diet (Heart Healthy) Pending Studies Studies pending at discharge: no Laboratory Results Lipid Panel Test 12/08/17 07:23 Range/Units Triglycerides Level 76 0-150 mg/dl Cholesterol Level 262 H 0-200 mg/dl HDL Cholesterol 70 mg/dl Cholesterol/HDL Ratio 3.7 LDL Cholesterol, Calculated 177 mg/dl Medical Emergencies . Who to Call and When: Medical Emergencies: If at any time you feel your situation is an emergency, please call 911 immediately. . Non-Emergent Contact Non-Emergency issues call your: Primary Care Provider, Chef Instructor, Vba Developer Call Non-Emergent contact if: you have a fever, your pain is not controlled, your pain is worsening, your pain is unusual for you, your pain is concerning you, you have any medication questions Seek immediate medical attention if your symptoms reoccur or worsen . . "Provider Documentation" section prepared by Ramos Rooney. . <Electronically signed by Ramos Rooney MD> Signed: 12/11/17 1046 Signed: The status of this report is Signed * If report status is Draft, the document has not been finalized by the responsible provider.
[2017-12-11] MEDS: GUAIFENESIN/CODEINE 100MG/10MG 5ML UDC PO PRN (10:55)
[2017-12-11 11:21] VITALS: BP 180/99; PULSE 90; TEMP 36.8; O2SAT 92
[2017-12-11] MEDS: HydrALAZINE HCL 20 MG/ML VIAL IV. PRN (12:05)
[2017-12-11 12:37] VITALS: BP 133/72
[2017-12-11 12:54] VITALS: BP 133/72; PULSE 90; TEMP 36.8; O2SAT 92
[2017-12-12] MEDS ORDERED: METOPROLOL SUCC 50MG EXT REL TAB PO SCH (09:00)
[2017-12-12] MEDS ORDERED: LOSARTAN POTASSIUM 25 MG TAB PO SCH (09:00)
== END 2017-12-11 14:20 | disposition home or self-care (01) | DRG 189 ==
LOC: C.EDB 17:25 → C.2T 18:44 → ENRESERV 19:04
PROVIDERS: ADMIT Hospitalist; ATTEND Internal Medicine
DX: J96.01 Acute respiratory failure with hypoxia (principal); J44.0 Chronic obstructive pulmonary disease with (acute) lower respiratory infection; J84.9 Interstitial pulmonary disease, unspecified; I42.9 Cardiomyopathy, unspecified; N39.0 Urinary tract infection, site not specified; I50.22 Chronic systolic (congestive) heart failure; B95.2 Enterococcus as the cause of diseases classified elsewhere; N18.3 Chronic kidney disease, stage 3 (moderate); J20.9 Acute bronchitis, unspecified; M47.812 Spondylosis without myelopathy or radiculopathy, cervical region; I50.9 Heart failure, unspecified; K21.9 Gastro-esophageal reflux disease without esophagitis; M81.0 Age-related osteoporosis without current pathological fracture; M06.9 Rheumatoid arthritis, unspecified; Z88.1 Allergy status to other antibiotic agents; Z88.8 Allergy status to other drugs, medicaments and biological substances; I25.5 Ischemic cardiomyopathy; I16.0 Hypertensive urgency; Z96.611 Presence of right artificial shoulder joint; M40.209 Unspecified kyphosis, site unspecified

== ENCOUNTER 2018-05-28 14:22 | Inpatient (IN) | payer OTHER ==
[~2018-05-28] VITALS: Ht 152.4 cm; Wt 54.6 kg
[~2018-05-28 14:22] MED LIST changes: -ALBU1AER9 INH; +AMX500 PO; +CZR25 PO; +FRRS300 PO; -FURO-85 PO; -GABA-113 PO; +NRN300 PO; +NUTR-977 PO; -POTA1CAP2 PO; +PRD20 PO; -TPRSR50 PO
[2018-05-28] MEDS ORDERED: METHYLPREDNISOLONE 125 MG VIAL IV STA (15:07)
[2018-05-28] MEDS ORDERED: ALBUT/IPRATROP 3MG/0.5MG NEB 3 ML VIAL INH ONE (15:15)
[2018-05-28 15:39] VITALS: PULSE 108; O2SAT 94
[2018-05-28] MEDS ORDERED: METOPROLOL SUCC 50MG EXT REL TAB PO STA (15:39)
[2018-05-28] MEDS ORDERED: LOSARTAN POTASSIUM 25 MG TAB PO STA (15:39)
[2018-05-28 15:46] LABS: BASO % 0.4 %; BASO ABS # 0.03 K/uL (0-0.2); EOS ABS # 0.16 K/uL (0-0.5); HEMOGLOBIN 13.4 g/dL (12.0-16.0); IG# 0.02 K/uL (0.00-0.02); LYMPH % 11.9 %; LYMPH ABS # 0.97 K/uL (1.2-3.4); MEAN CELL VOLUME 86.9 fL (80-100); MEAN CORPUSCULAR HEMOGLOBIN 28.4 pg (25-34); MEAN CORPUSCULAR HGB CONC 32.7 g/dl (32-36); MEAN PLATELET VOLUME 10.8 fL (7.4-10.4); MONO % 6.9 %; MONO ABS # 0.56 K/uL (0.11-0.59); NEUT % 78.6 %; NEUT ABS # 6.41 K/uL (1.4-6.5); PLATELET COUNT 234 K/uL (130-400); RED CELL DISTRIBUTION WIDTH CV 14.8 % (11.5-14.5); RED CELL DISTRIBUTION WIDTH SD 47.3 fL (36.4-46.3); WHITE BLOOD COUNT 8.15 K/uL (4.8-10.8)
[2018-05-28 15:55] LABS: PTT PATIENT 26.2 SECONDS (21.0-31.0)
[2018-05-28 16:06] LABS: ALBUMIN 3.7 gm/dl (3.4-5.0); ALKALINE PHOSPHATASE 55 U/L (45-117); ALT/SGPT 18 U/L (12-78); AST/SGOT 19 U/L (15-37); BLOOD UREA NITROGEN 20 mg/dl (7-18); CALCIUM 9.5 mg/dl (8.5-10.1); CARBON DIOXIDE 27 mmol/L (21-32); CREATININE 0.69 mg/dl (0.60-1.20); GLUCOSE 161 mg/dl (70-99); POTASSIUM 3.4 mmol/L (3.5-5.1); SODIUM 138 mmol/L (136-145); TOTAL PROTEIN 7.4 gm/dl (6.4-8.2)
[2018-05-28] MEDS ORDERED: COLO100C PO (16:32)
[2018-05-28] MEDS ORDERED: LOSA1TAB PO (16:32)
[2018-05-28] MEDS ORDERED: XPNINS ND (16:32)
[2018-05-28] MEDS ORDERED: SYMIN160 INH (16:32)
[2018-05-28] MEDS ORDERED: METO50TA8 PO (16:32)
[2018-05-28] MEDS ORDERED: CEFTRIAXONE SOD INJ 1 GM ADDVIAL IV STA (16:56)
[2018-05-28] MEDS ORDERED: AZITHROMYCIN 250 MG TAB PO ONE (17:00)
[2018-05-28] MEDS ORDERED: POTASSIUM CHLORIDE 10 MEQ TABCR PO SCH (17:34)
[2018-05-28] MEDS ORDERED: TRAMADOL HCL 50 MG TAB PO PRN (18:15)
[2018-05-28] MEDS ORDERED: ALUMINUM/MAGNESIUM/SIMETH (MAALOX MAX) 30 ML UDC PO PRN (18:15)
[2018-05-28] MEDS ORDERED: MAGNESIUM HYDROXIDE SUSP 30 ML UDC PO PRN (18:15)
[2018-05-28] MEDS ORDERED: ACETAMINOPHEN 325 MG TAB PO PRN (18:15)
[2018-05-28] MEDS ORDERED: ONDANSETRON INJ 2 MG/ML 2 ML VIAL IV PRN (18:15)
[2018-05-28] MEDS ORDERED: ALBU18002 INH (18:21)
[2018-05-28] MEDS ORDERED: PRED-301 PO (18:31)
--- NOTE | 2018-05-28 18:33 | History and Physical ---
History & Physical Date & Time of Service: May 28, 2018 at 18:14 Chief Complaint: SOB Primary Care Physician: Maya Rubio DO History of Present Illness Source: patient, clinic records, hospital records This is an 82 year old female with a past medical history of a chronic nonspecific lung disease and follows with pulmonology as outpatient, RA with long-term steroid use, osteoporosis, chronic mixed systolic-diastolic heart failure - presents with a few week history of worsening shortness of breath. States for months she has had difficulty with a productive cough and shortness of breath. Follows with pulmonology as an outpatient; has been using Xopenex nebulizer, albuterol inhaler and Symbicort. States that the past week her breathing worsened and she had a CT scan done as an outpatient yesterday. She states her breathing this morning became even worse, so she had to come to the ER. In the ER, received one hour long nebulizer and her breathing status improved slightly. Denies fevers/chills. Denies chest pain. Past Medical/Surgical History Medical Problems: (1) Acute hypoxemic respiratory failure (2) Asthma (3) CERVICAL SPONDYLOSIS (4) Chest pain (5) CHF (congestive heart failure) (6) Elevated troponin (7) Elevated troponin (8) GERD (gastroesophageal reflux disease) (9) Hyperparathyroidism (10) KERRI (iron deficiency anemia) (11) Mucus plugging of bronchi (12) Osteoporosis localized to spine (13) Pneumonia (14) Rheumatoid arthritis (15) Shortness of breath (16) Status asthmaticus Surgical Problems: (1) H/O esophagogastroduodenoscopy (2) H/O shoulder replacement (3) History of back surgery (4) History of bilateral hip arthroplasty (5) History of hysterectomy (6) S/P cholecystectomy Family History FH: heart disease FATHER MOTHER Hypertension FATHER Social History Smoking Status: Never Smoker Drug Use: none Marital Status: Housing status: lives with family Occupational Status: retired Immunizations History of Influenza Vaccine: Unknown Influenza Vaccine Date: Aug 03, 2009 History of Tetanus Vaccine?: Unknown Tetanus Immunization Date: Aug 03, 2012 History of Pneumococcal: Unknown History of Hepatitis B Vaccine: Unknown Allergies Coded Allergies: Levofloxacin (Verified Allergy, Intermediate, HEPATOTOXICITY , 12/07/17) Scopolamine (Verified Allergy, Intermediate, CAUSED RED, SWOLLEN AREA BEHIND EAR WHERE PATCH APPLIED, 12/07/17) Lisinopril (Verified Adverse Reaction, Intermediate, COUGH, 12/07/17) Home Medications Scheduled Budesonide/Formoterol Fumarate (Symbicort 160/4.5 Inhaler), 2 PUFF INH BID Cholecalciferol (Vitamin D3), 1,000 UNITS PO DAILY Colostrum (Colostrum), 500 MG PO DAILY Enteral Nutrition Formula (Ensure Plus Vanilla), PO DAILY Ferrous Sulfate (Ferrous Sulfate), 1 TAB PO BID Losartan Potassium (Cozaar), 25 MG PO DAILY Metoprolol Succ (Toprol Xl) (Toprol-Xl), 50 MG PO BID Prednisone (Prednisone), 5 MG PO BID Scheduled PRN Albuterol Sulfate (Proair Respiclick), PUFFS INH QID PRN for SOB/Wheezing Benzonatate (Benzonatate), 100 MG PO TID PRN for Cough Levalbuterol (Levalbuterol HCl), 1 DOSE ND Q8 PRN for Wheezing Nitroglycerin (Nitrostat), 0.4 MG SL UD PRN for Chest Pain Polyethylene (Miralax), 17 GM PO DAILY PRN for Constipation Sennosides-Docusate Sodium (Senna S), 1 TAB PO DAILY PRN for BM Tramadol (Ultram), 50 MG PO Q6 PRN for Pain Review of Systems Constitutional: No fever, No chills Eyes: No worsening of vision ENT: No hearing loss Respiratory: + cough, + sputum, + wheezing, + shortness of breath, + dyspnea on exertion, No dyspnea at rest, No hemoptysis Cardiovascular: No chest pain, No orthopnea, No edema, No palpitations Abdomen: No pain, No nausea, No vomiting, No diarrhea, No constipation, No GI bleeding Musculoskeletal: + joint pain (chronic back pain, multiple joint pains), No muscle pain Genitourinary - Female: No dysuria, No urinary frequency, No urinary urgency, No urinary incontinence Psychiatric: No depression symptoms, No anxiety, No insomnia Endocrine: No fatigue Hematologic / Lymphatic: No abnormal bleeding/bruising Integumentary: No rash Allergic / Immunologic: No environmental allergies, No seasonal allergies Physical Exam Vital Signs Date Time Temp Pulse Resp B/P (MAP) Pulse Ox O2 Delivery O2 Flow Rate FiO2 05/28/18 17:35 109 05/28/18 17:30 107 26 163/92 95 Nasal Cannula 2.0 05/28/18 16:30 113 26 169/109 100 Nebulizer 05/28/18 15:39 108 28 94 Nasal Cannula 2.0 05/28/18 14:58 108 28 163/144 94 Nasal Cannula 2.0 05/28/18 14:58 89 Room Air 05/28/18 14:55 110 05/28/18 14:32 92 Room Air 05/28/18 14:23 37.0 117 28 174/110 92 Room Air General Appearance: + mild distress Head: normocephalic, atraumatic Eyes: normal inspection ENT: hearing grossly normal Neck: supple Respiratory/Chest: no respiratory distress, no accessory muscle use, + wheezing (diffuse end expiratory wheezing) Cardiovascular: no edema, + tachycardia, + systolic murmur Abdomen/GI: normal bowel sounds, non tender, soft Back: no CVA tenderness, no muscle spasm Extremities/Musculoskelatal: normal inspection, no calf tenderness, normal capillary refill, no pedal edema 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 as tested, no motor/sensory deficits, alert, normal mood/affect, oriented x 3 Skin: normal color, warm/dry, no rash Lymphatic: no adenopathy Diagnostics Laboratory Results Results Past 24 Hours Test 05/28/18 15:30 05/28/18 15:38 Range/Units White Blood Count 8.15 4.8-10.8 K/uL Red Blood Count 4.72 4.2-5.4 M/uL Hemoglobin 13.4 12.0-16.0 g/dL Hematocrit 41.0 37-47 % Mean Corpuscular Volume 86.9 80-100 fL Mean Corpuscular Hemoglobin 28.4 25-34 pg Mean Corpuscular Hemoglobin Concent 32.7 32-36 g/dl Platelet Count 234 130-400 K/uL Mean Platelet Volume 10.8 7.4-10.4 fL Neutrophils (%) (Auto) 78.6 % Lymphocytes (%) (Auto) 11.9 % Monocytes (%) (Auto) 6.9 % Eosinophils (%) (Auto) 2.0 % Basophils (%) (Auto) 0.4 % Neutrophils # (Auto) 6.41 1.4-6.5 K/uL Lymphocytes # (Auto) 0.97 1.2-3.4 K/uL Monocytes # (Auto) 0.56 0.11-0.59 K/uL Eosinophils # (Auto) 0.16 0-0.5 K/uL Basophils # (Auto) 0.03 0-0.2 K/uL RDW Standard Deviation 47.3 36.4-46.3 fL RDW Coefficient of Variation 14.8 11.5-14.5 % Immature Granulocyte % (Auto) 0.2 % Immature Granulocyte # (Auto) 0.02 0.00-0.02 K/uL Prothrombin Time 10.8 9.0-12.0 SECONDS Prothromb Time International Ratio 1.0 0.9-1.1 Activated Partial Thromboplast Time 26.2 21.0-31.0 SECONDS Partial Thromboplastin Ratio 1.0 Sodium Level 138 136-145 mmol/L Potassium Level 3.4 3.5-5.1 mmol/L Chloride Level 104 98-107 mmol/L Carbon Dioxide Level 27 21-32 mmol/L Anion Gap 7.0 3-11 mmol/L Blood Urea Nitrogen 20 7-18 mg/dl Creatinine 0.69 0.60-1.20 mg/dl Estimated GFR () 92.6 Estimated GFR (Non- 79.9 BUN/Creatinine Ratio 28.7 10-20 Random Glucose 161 70-99 mg/dl Calcium Level 9.5 8.5-10.1 mg/dl Total Bilirubin 0.3 0.2-1 mg/dl Direct Bilirubin 0.1 0-0.2 mg/dl Aspartate Amino Transf (AST/SGOT) 19 15-37 U/L Alanine Aminotransferase (ALT/SGPT) 18 12-78 U/L Alkaline Phosphatase 55 45-117 U/L Total Protein 7.4 6.4-8.2 gm/dl Albumin 3.7 3.4-5.0 gm/dl Bedside Troponin I < 0.030 0-0.045 ng/ml Microbiology Results 05/28/18 Blood Culture, Received Pending 05/28/18 Blood Culture, Received Pending EKG Sinus tachycardia Nonspecific ST and T wave abnormality Impression Assessment and Plan This is an 82 year old female with a past medical history of a chronic nonspecific lung disease and follows with pulmonology as outpatient, RA with long-term steroid use, osteoporosis, chronic mixed systolic-diastolic heart failure - presents with a few week history of worsening shortness of breath. Acute Hypoxic Respiratory Failure Possible Bronchiectasis - Mucous plugging noted on outpatient CT - Presented with hypoxia, productive cough - will use oxygen as needed - nebs ordered - prednisone 40mg daily - Rocephin + Azithro - pulmonology consulted - vibration vest, flutter valve, chest PT ordered Rheumatoid Arthritis - will use prednisone 40mg for above - taper down back to prednisone 5mg BID; baseline dose Chronic Mixed Systolic-Diastolic Heart Failure - outpatient echo showing grade 3 diastolic dysfunction and LVEF of 35-40% - currently does not appear to be volume overloaded, will monitor DVT ppx - Lovenox FULL CODE Resuscitation Status VTE Prophylaxis Will order VTE Prophylaxis: Yes
--- NOTE | 2018-05-28 18:38 | EMERGENCY ROOM VISIT NOTE ---
History Report prepared by Gloria: Jr Polk Under the Supervision of: Dr. Jake Hodge M.D. First contact with patient: 14:55 Chief Complaint: SHORTNESS OF BREATH Stated Complaint: SOB Nursing Triage Summary: shortness of breath. productive cough. had ct scan done earlier today History of Present Illness The patient is a 82 year old female who presents to the Emergency Room with complaints of worsening shortness of breath since one week ago, and worsening to a greater extent today. She states that she had her symptoms since November, when she was given antibiotics. She notes that her symptoms improved after finishing the antibiotics for a couple of days, but they returned. She states she was prescribed additional antibiotics, with the last round being around 1 month ago. She reports that her shortness of breath was worsened to a greater extent after a CT scan this morning, although she notes it has currently improved. She reports that she has had several nebulizers today. She notes it usually improves her symptoms, but states there was no improvement today. The patient reports that she vomited yesterday. She notes chest soreness from coughing. She states that she has been coughing for a month or two. She reports that her oxygen sat was found to be low today in the ER, and notes that she uses oxygen at home as needed, usually at night. The patient denies fevers. She reports that she is on Prednisone 5 mg per day and blood pressure medication, but did not yet take her medications today. She denies a history of smoking. Source of History: patient Onset: one week ago, to a greater extent today Position: other (lungs) Symptom Intensity: severe Quality: other (shortness of breath) Timing: worsening Associated Symptoms: + cough, + chest pain (from coughing), + vomiting ( yesterday), No fevers Review of Systems See HPI for pertinent positives & negatives. A total of 10 systems reviewed and were otherwise negative. Past Medical & Surgical Medical Problems: (1) Acute hypoxemic respiratory failure (2) Asthma (3) CERVICAL SPONDYLOSIS (4) CHF (congestive heart failure) (5) GERD (gastroesophageal reflux disease) (6) Hyperparathyroidism (7) KERRI (iron deficiency anemia) (8) Mucus plugging of bronchi (9) Osteoporosis localized to spine (10) Rheumatoid arthritis Surgical Problems: (1) H/O esophagogastroduodenoscopy (2) H/O shoulder replacement (3) History of back surgery (4) History of bilateral hip arthroplasty (5) History of hysterectomy (6) S/P cholecystectomy Family History FH: heart disease FATHER MOTHER Hypertension FATHER Social History Smoking Status: Never Smoker Alcohol Use: occasionally Drug Use: none Marital Status: Housing Status: lives with family Occupation Status: retired Current/Historical Medications Scheduled Budesonide/Formoterol Fumarate (Symbicort 160/4.5 Inhaler), 2 PUFF INH BID Cholecalciferol (Vitamin D3), 1,000 UNITS PO DAILY Colostrum (Colostrum), 500 MG PO DAILY Enteral Nutrition Formula (Ensure Plus Vanilla), PO DAILY Ferrous Sulfate (Ferrous Sulfate), 1 TAB PO BID Losartan Potassium (Cozaar), 25 MG PO DAILY Metoprolol Succ (Toprol Xl) (Toprol-Xl), 50 MG PO BID Prednisone (Prednisone), 5 MG PO BID Scheduled PRN Albuterol Sulfate (Proair Respiclick), PUFFS INH QID PRN for SOB/Wheezing Benzonatate (Benzonatate), 100 MG PO TID PRN for Cough Levalbuterol (Levalbuterol HCl), 1 DOSE ND Q8 PRN for Wheezing Nitroglycerin (Nitrostat), 0.4 MG SL UD PRN for Chest Pain Polyethylene (Miralax), 17 GM PO DAILY PRN for Constipation Sennosides-Docusate Sodium (Senna S), 1 TAB PO DAILY PRN for BM Tramadol (Ultram), 50 MG PO Q6 PRN for Pain Allergies Coded Allergies: Levofloxacin (Verified Allergy, Intermediate, HEPATOTOXICITY , 12/07/17) Scopolamine (Verified Allergy, Intermediate, CAUSED RED, SWOLLEN AREA BEHIND EAR WHERE PATCH APPLIED, 12/07/17) Lisinopril (Verified Adverse Reaction, Intermediate, COUGH, 12/07/17) Physical Exam Vital Signs Date Time Temp Pulse Resp B/P (MAP) Pulse Ox O2 Delivery O2 Flow Rate FiO2 05/28/18 17:35 109 05/28/18 17:30 107 26 163/92 95 Nasal Cannula 2.0 05/28/18 16:30 113 26 169/109 100 Nebulizer 05/28/18 15:39 108 28 94 Nasal Cannula 2.0 05/28/18 14:58 108 28 163/144 94 Nasal Cannula 2.0 05/28/18 14:58 89 Room Air 05/28/18 14:55 110 8 14:32 92 Room Air 05/28/18 14:23 37.0 117 28 174/110 92 Room Air Physical Exam Constitutional: Vital signs reviewed. Eyes: Pupils are equal round reactive to light. Conjunctiva are noninjected. ENT: Pharynx is clear without erythema or exudate. Mucous membranes are moist. Neck supple without meningeal signs. Respiratory: Diffuse wheezing bilaterally. Breath sounds are equal bilaterally. Tachypneic. Cardiovascular: Regular rate and rhythm. No rubs or gallops. GI: Soft, nondistended and nontender. Bowel sounds are present. Musculoskeletal: No peripheral edema. No lower extremity tenderness. Integumentary: No cyanosis. Neurological: The patient is awake and alert. No focal deficits. Psychiatric: Normal affect. Medical Decision & Procedures ER Provider Diagnostic Interpretation: Radiology results as stated below per the radiologist's interpretation: CT CHEST W CONTRAST IMPRESSION: Scattered mucoid impaction, which may be related to bronchitis; there is mild right middle lobe atelectasis versus scarring distal to some of this impaction. Scattered additional mild atelectasis, without consolidative airspace disease. No pleural effusions. No significant change in the apical pulmonary nodules, compatible with a benign process. Multi-vessel coronary disease. Additional findings as described above. Laboratory Results 05/28/18 15:30 Red Blood Count 4.72, Mean Corpuscular Volume 86.9, Mean Corpuscular Hemoglobin 28.4, Mean Corpuscular Hemoglobin Concent 32.7, Mean Platelet Volume 10.8, Neutrophils (%) (Auto) 78.6, Lymphocytes (%) (Auto) 11.9, Monocytes (%) (Auto) 6.9, Eosinophils (%) (Auto) 2.0, Basophils (%) (Auto) 0.4, Neutrophils # (Auto) 6.41, Lymphocytes # (Auto) 0.97, Monocytes # (Auto) 0.56, Eosinophils # (Auto) 0.16, Basophils # (Auto) 0.03 05/28/18 15:30 Test 05/28/18 15:30 05/28/18 15:38 White Blood Count 8.15 K/uL (4.8-10.8) Red Blood Count 4.72 M/uL (4.2-5.4) Hemoglobin 13.4 g/dL (12.0-16.0) Hematocrit 41.0 % (37-47) Mean Corpuscular Volume 86.9 fL (80-100) Mean Corpuscular Hemoglobin 28.4 pg (25-34) Mean Corpuscular Hemoglobin Concent 32.7 g/dl (32-36) Platelet Count 234 K/uL (130-400) Mean Platelet Volume 10.8 fL (7.4-10.4) Neutrophils (%) (Auto) 78.6 % Lymphocytes (%) (Auto) 11.9 % Monocytes (%) (Auto) 6.9 % Eosinophils (%) (Auto) 2.0 % Basophils (%) (Auto) 0.4 % Neutrophils # (Auto) 6.41 K/uL (1.4-6.5) Lymphocytes # (Auto) 0.97 K/uL (1.2-3.4) Monocytes # (Auto) 0.56 K/uL (0.11-0.59) Eosinophils # (Auto) 0.16 K/uL (0-0.5) Basophils # (Auto) 0.03 K/uL (0-0.2) RDW Standard Deviation 47.3 fL (36.4-46.3) RDW Coefficient of Variation 14.8 % (11.5-14.5) Immature Granulocyte % (Auto) 0.2 % Immature Granulocyte # (Auto) 0.02 K/uL (0.00-0.02) Prothrombin Time 10.8 SECONDS (9.0-12.0) Prothromb Time International Ratio 1.0 (0.9-1.1) Activated Partial Thromboplast Time 26.2 SECONDS (21.0-31.0) Partial Thromboplastin Ratio 1.0 Anion Gap 7.0 mmol/L (3-11) Estimated GFR () 92.6 Estimated GFR (Non- 79.9 BUN/Creatinine Ratio 28.7 (10-20) Calcium Level 9.5 mg/dl (8.5-10.1) Total Bilirubin 0.3 mg/dl (0.2-1) Direct Bilirubin 0.1 mg/dl (0-0.2) Aspartate Amino Transf (AST/SGOT) 19 U/L (15-37) Alanine Aminotransferase (ALT/SGPT) 18 U/L (12-78) Alkaline Phosphatase 55 U/L (45-117) Total Protein 7.4 gm/dl (6.4-8.2) Albumin 3.7 gm/dl (3.4-5.0) Bedside Troponin I < 0.030 ng/ml (0-0.045) Laboratory results as reviewed by me. Medications Administered Medications (Trade) Dose Ordered Sig/Raman Route Start Time Stop Time Status Last Admin Dose Admin Albuterol/ Ipratropium (Duoneb) 12 ml ONE ONCE INH 05/28/18 15:15 05/28/18 15:29 DC 05/28/18 15:38 12 ML Methylprednisolone Sodium Succinate (Solu-Medrol IV) 125 mg NOW STAT IV 05/28/18 15:07 05/28/18 15:09 DC 05/28/18 15:36 125 MG Losartan Potassium (coZAAR TAB) 25 mg NOW STAT PO 05/28/18 15:39 05/28/18 15:41 DC 05/28/18 16:34 25 MG Metoprolol Succinate (Toprol Xl Tab) 50 mg NOW STAT PO 05/28/18 15:39 05/28/18 15:41 DC 05/28/18 16:34 50 MG Ceftriaxone Sodium (Rocephin Inj) 1 gm NOW STAT IV 05/28/18 16:56 05/28/18 16:57 DC 05/28/18 17:19 1 GM Azithromycin (Zithromax Tab) 500 mg NOW ONCE PO 05/28/18 17:00 05/28/18 17:01 DC 05/28/18 17:19 500 MG ECG Per My Interpretation Indication: SOB/dyspnea Rate (beats per minute): 108 Rhythm: sinus tachycardia Findings: other (Limited interpretation due to baseline interference. No ST elevation. No PVCs.) ED Course 1500: The patient was evaluated in room A2. A complete history and physical exam was performed. 1507: Ordered Solu-Medrol 125 mg IV 1515: Ordered Duoneb 12 ml INH 1539: Ordered Toprol 50 mg PO, Losartan Potassium 25 mg PO 1550: [email or web address] attempted to be obtained, but they were currently unavailable. I informed the patient. 1647: I discussed CT scan results with the patient. On reexamination, she is still wheezing diffusely. 1652: I consulted Dr. Winston - Pulmonology. He does not believe there is a need for bronchoscope. He agrees with hospitalization and antibiotics. 1655: Ordered Rocephin 1 gm IV 1699: I updated the patient on the plan. Ordered Zithromax 500 mg PO 1701: I consulted YENNIFER Oshea. She will reevaluate the patient for hospitalization. Medical Decision This is an 82-year-old female who presents with shortness of breath. Differential diagnosis includes COPD exacerbation, asthma, hypoxemia, pulmonary embolism, pneumonia, bronchitis. I did perform a limited focused review of portions of the patient's old chart on the electronic medical record. The patient was admitted in December for bronchitis and COPD. I did evaluate the patient as noted above. Patient is presenting with low O2 saturation and diffuse wheezing. She has a history of COPD/asthma. IV access was established. I did treat her with Solu-Medrol IV. She was given a hour- long continuous DuoNeb. She was given supplemental oxygen as well. The patient was placed on a continuous engine monitor. I did order and personally review the patient's 12-lead EKG as described above. I did order and review the patient's blood work as noted in the electronic medical record. Troponin is negative. I did obtain records from the [facility]. She did have a CT of her chest today which showed mucoid impaction throughout her lungs without pulmonary embolism. I did reevaluate the patient. She still has hypoxia as well as diffuse wheezing. I did discuss the case with her tire mold tester Dr. winston. Blood cultures were obtained and the patient was given IV ceftriaxone and oral Zithromax. I did discuss the case with the hospitalist and casework manager. Medication Reconcilliation Current Medication List: was personally reviewed by [place] Blood Pressure Screening Patient's blood pressure: Elevated blood pressure Blood pressure disposition: Referred to PCP Consults Time Called: 1649 Consulting Physician: YENNIFER Oshea Returned Call: [phone] I consulted YENNIFER Oshea. She will reevaluate the patient for hospitalization. Impression Primary Impression: COPD exacerbation Additional Impressions: Hypoxia Bronchitis Critical Care I have personally spent 35 minutes of critical care time in the direct management of this patient. This includes bedside care, interpretation of diagnostic studies and testing, discussion with consultants and patient, and other required patient management activities. This time is in excess of all separately billable procedures. Scribe Attestation The scribe's documentation has been prepared under my direct and personally reviewed by me in its entirety. I confirm that the note above accurately reflects all work, treatment, procedures, and medical decision making performed by me. Departure Information Dispostion Being Evaluated By Hospitalist Referrals Maya Rubio DO (PCP) Patient Instructions [facility] Problem Qualifiers
[2018-05-28 18:40] VITALS: BP_SYST 170; BP_DIAS 111; BP_DIAS 122; PULSE 105; TEMP 36.6; O2SAT 94; BMI 23.6
[2018-05-28] MEDS ORDERED: BUDESONIDE/FORMOTEROL FUMARATE 160/4.5 60 PUFFS/INHALER INH SCH (20:05)
[2018-05-28] MEDS ORDERED: LEVALBUTEROL/IPRATROPIUM NEB INH SCH (21:00)
[2018-05-28] MEDS: LEVALBUTEROL 0.63MG/3 ML NEB INH SCH (21:23)
[2018-05-28] MEDS: IPRATROPIUM BROMIDE NEB SOLN 0.02% 2.5 ML VIAL INH SCH (21:23)
[2018-05-28 21:24] VITALS: PULSE 110; O2SAT 94
[2018-05-28] MEDS ORDERED: NURSING VERBAL MED ORDER ONE (21:30)
[2018-05-28] MEDS: GUAIFENESIN 600 MG TABCR PO SCH (21:41)
[2018-05-28] MEDS: BENZONATATE 100MG CAP PO PRN (21:42)
[2018-05-28] MEDS: METOPROLOL SUCC 50MG EXT REL TAB PO SCH (21:43)
[2018-05-28] MEDS: FERROUS SULFATE 325 MG TAB PO SCH (21:43)
[2018-05-28] MEDS ORDERED: CLONIDINE HCL 0.1 MG TAB PO ONE (21:45)
[2018-05-28] MEDS ORDERED: ZOLPIDEM TARTRATE 5 MG TAB PO PRN (21:45)
[2018-05-28] MEDS: ENOXAPARIN 40 MG/0.4 ML SYR SQ SCH (22:02)
[2018-05-28 23:01] VITALS: BP 165/103; PULSE 112; TEMP 36.3; O2SAT 92
[2018-05-29] MEDS: IPRATROPIUM BROMIDE NEB SOLN 0.02% 2.5 ML VIAL INH SCH ×4 (05:08→18:57)
[2018-05-29 05:09] VITALS: PULSE 98; O2SAT 94
[2018-05-29] MEDS: LEVALBUTEROL 0.63MG/3 ML NEB INH SCH ×4 (05:09→18:57)
[2018-05-29 05:41] LABS: HEMOGLOBIN 12.8 g/dL (12.0-16.0); MEAN CELL VOLUME 87.5 fL (80-100); MEAN PLATELET VOLUME 10.5 fL (7.4-10.4); PLATELET COUNT 267 K/uL (130-400); RED CELL DISTRIBUTION WIDTH CV 14.9 % (11.5-14.5); RED CELL DISTRIBUTION WIDTH SD 47.6 fL (36.4-46.3); WHITE BLOOD COUNT 7.65 K/uL (4.8-10.8)
[2018-05-29 06:12] LABS: CALCIUM 9.3 mg/dl (8.5-10.1); CREATININE 0.7 mg/dl (0.60-1.20); POTASSIUM 4.2 mmol/L (3.5-5.1)
[2018-05-29 06:59] VITALS: BP 138/76; PULSE 73; TEMP 36.5; O2SAT 98
[2018-05-29 07:12] VITALS: PULSE 84; O2SAT 94
[2018-05-29] MEDS ORDERED: BOOST VANILLA OR BOOST GLUCOSE CONTROL CHOCOLATE PO SCH (08:00)
[2018-05-29] MEDS: GUAIFENESIN 600 MG TABCR PO SCH ×2 (08:27→20:39)
[2018-05-29] MEDS: AZITHROMYCIN 250 MG TAB PO SCH (08:27)
[2018-05-29] MEDS: METOPROLOL SUCC 50MG EXT REL TAB PO SCH ×2 (08:27→20:41)
[2018-05-29] MEDS: FERROUS SULFATE 325 MG TAB PO SCH ×2 (08:27→20:39)
[2018-05-29] MEDS: BENZONATATE 100MG CAP PO PRN ×2 (08:28→22:35)
[2018-05-29] MEDS: LOSARTAN POTASSIUM 25 MG TAB PO SCH (08:28)
[2018-05-29] MEDS ORDERED: NURSING DECISION MEDICATION ORDER SCH (08:45)
[2018-05-29] MEDS ORDERED: PANTOprazole SOD 40 MG TAB PO STA (08:50)
[2018-05-29] MEDS ORDERED: LEVALBUTEROL/IPRATROPIUM NEB INH PRN (09:00)
--- NOTE | 2018-05-29 09:11 | DIAGNOSTIC IMAGING REPORT ---
CHEST 2 VIEWS ROUTINE CLINICAL HISTORY: 82 years-old Female presenting with shortness of breath, mucous plugging. TECHNIQUE: PA and lateral views of the chest were obtained. COMPARISON: 12/07/2017. FINDINGS: Atherosclerosis of the aortic arch. Cardiac silhouette normal in size. Bronchial wall thickening. Lungs and pleural spaces clear. Reverse right total shoulder arthroplasty. Degenerative changes of the spine. Multiple levels demonstrate evidence of prior kyphoplasty. Suspected underlying osteopenia with exaggerated thoracic kyphosis. Kyphotic deformity largely results from two adjacent moderate to severe compression deformities, which did not demonstrate kyphoplasty changes. There is also osteoporotic/compression deformities in the lumbar spine with some of which have increased from prior. Cholecystectomy clips noted. Large hiatal hernia. IMPRESSION: 1. Findings suggest reactive airways disease or viral bronchiolitis. No focal infiltrate to suggest pneumonia. 2. Osteopenia with multilevel compression deformities, some of which demonstrate kyphoplasty changes and some do not. Increased compression deformity in the lumbar spine. Electronically signed by: Jaxon Smith M.D. 05/29/2018 9:10 AM Dictated Date/Time: 05/29/2018 9:07 AM
[2018-05-29] MEDS ORDERED: IPRATROPIUM BROMIDE NEB SOLN 0.02% 2.5 ML VIAL INH PRN (09:15)
[2018-05-29] MEDS ORDERED: LEVALBUTEROL 0.63MG/3 ML NEB INH PRN (09:15)
[2018-05-29] MEDS: BUDESONIDE 0.5 MG/2 ML VIAL (PULMICORT) INH SCH ×2 (09:30→18:57)
[2018-05-29] MEDS: METHYLPREDNISOLONE IV 40 MG in SYRINGE 0 ML IV SCH ×2 (09:42→20:39)
[2018-05-29] MEDS: BOOST VANILLA OR BOOST GLUCOSE CONTROL CHOCOLATE PO SCH (09:42)
--- NOTE | 2018-05-29 11:01 | PULMONARY CONSULTATION ---
DATE OF CONSULTATION: 05/29/2018 TIME: 8:35 a.m. REPORT OF CONSULTATION: The patient was seen in room 401. She is an 82-year-old female who carries a history of asthma. She has had at least 3 prior admissions dating back to 2014 with respiratory problems. One of these, she did have pneumonia. She was last hospitalized from 12/07/2017 until 12/11/2017. She states she did reasonably well for a period of time after that. I have seen her in the office on 01/27/2018 and she was doing well. Pulmonary functions on that date showed a mild obstructive pattern. She states she has had a cough since February. She has seen her family doctor a few times. She has had courses of antibiotics and prednisone. It would seem to help relatively transiently. She does have a nebulizer at home. She usually only does it once a day in the morning, even though she admits it helps. She has been on Symbicort, but she acknowledges that she often forgets to take the second dose. She brings up fair quantities of white sputum. She has not coughed any blood. The mucus has not been dark in color. She states she has had sweats, but no chills or fevers. She has not had chest pains. There reportedly was an episode of vomiting on May 27. The patient is known to have a very large hiatal hernia. She does not complain of heartburn. However, she acknowledges that her breathing is worse when she lays down. She has a hospital bed that she can elevate and she does this on a regular basis. The patient has been wheezing. The Emergency Room doctor called me yesterday and stated she was very tight. The patient had gone to her primary provider yesterday. They apparently ordered a CT angio of the chest. We do not have those in our system for review. The verbal report I received was that there was a suggestion of some mucus plugging in the lower lung saldaña. The patient states she had a fairly good night. In the last hour or so, she notices increasing chest congestion. PAST MEDICAL HISTORY: 1. Cervical spondylosis. 2. CHF with one episode of an ejection fraction between 25% and 30% back in 2016. 3. Large hiatal hernia with questionable reflux. 4. Hyperparathyroidism. 5. Anemia, secondary to low iron. 6. Osteoporosis. 7. Rheumatoid arthritis. PAST SURGICAL HISTORY: 1. Right shoulder replacement. 2. Right and left hip replacements. 3. Vertebroplasty x3. 4. Hysterectomy. 5. Cholecystectomy. 6. Partial parathyroidectomy. SOCIAL HISTORY: Tobacco never. ETOH - 2 alcoholic beverages per day. ALLERGIES: 1. LEVOFLOXACIN, WHICH CAUSED HEPATOTOXICITY. 2. SCOPOLAMINE, WHICH CAUSED A LOCALIZED SKIN REACTION. 3. LISINOPRIL, WHICH GAVE HER COUGH. FAMILY HISTORY: Father and mother both had heart disease and father had hypertension. 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 REVIEW OF SYSTEMS: Negative except for the above-mentioned complaints. Ten systems reviewed. MEDICATIONS AT HOME: 1. ProAir p.r.n. 2. Benzonatate Perles p.r.n. 3. Symbicort 160/4.5 two puffs b.i.d. 4. Cholecalciferol 1000 units daily. 5. Colostrum 500 mg daily. 6. Ensure. 7. Ferrous sulfate b.i.d. 8. Levalbuterol q. 8 p.r.n. by nebulizer. 9. Losartan 25 mg daily. 10. Metoprolol 50 mg b.i.d. 11. MiraLax p.r.n. 12. Prednisone 5 mg b.i.d. 13. Senna. 14. Tramadol 50 mg p.r.n. PHYSICAL EXAMINATION: GENERAL: The patient is a pleasant 82-year-old female who was cooperative, alert and oriented. She did not appear in distress. It seemed as though she coughed after she had taken a bite for breakfast as I came in. She has not noticed this, however. VITAL SIGNS: Cardiac rate was 73. Rhythm is regular. Blood pressure 138/76. HEENT: Pupils were reactive to light. Nares were clear. Mouth exam showed no erythema or exudate. NECK: Palpation of the neck reveals no lymph nodes. Neck veins did not appear distended. CHEST: The chest was of normal expansion. There is some increased AP diameter mildly. Scattered rhonchi are heard bilaterally, greater posteriorly than anteriorly. Respiratory rate was 20. Saturation 98% on 2 liters. ABDOMEN: Soft. Bowel sounds were normal. There was no tenderness to palpation or masses. EXTREMITIES: Showed no cyanosis, clubbing or edema. LABORATORY DATA: White count is 7.65, hemoglobin 12.8, platelets 267,000. Coags were normal. Electrolytes show sodium 138, potassium 4.2, chloride 104, bicarb 26. BUN is 21 with a creatinine of 0.7. Troponin was negative. Liver functions were normal. EKG showed a sinus tachycardia with a rate of 108. Nonspecific ST and T-wave changes were seen. IMPRESSION: 1. Asthma with exacerbation. 2. Large hiatal hernia - possible gastroesophageal reflux disease complicating the asthma. 3. Osteoporosis. COMMENTS AND RECOMMENDATIONS: The patient has been having problems. She states for about 2 months. She has had several courses of prednisone without dramatic improvement. In light of that, I would suggest a trial of Solu-Medrol at least for a couple days rather than just plain prednisone. Would also start budesonide by nebulizer as she is not getting the Symbicort here. She is using the flutter valve. Would like to have her try the vibration vest. She does have osteoporosis. I explained to her that the first time it is dried, she should assess whether she feels it is too rough for her or not. If not, she will try it and see how it goes. We will start Protonix for reflux and see if this improves her situation. I would continue with the azithromycin and ceftriaxone. If the patient did not show improvement after several days, consideration could be given to bronchoscopy. She is a bit tight to do it at present and she did not seem too enthusiastic with the idea. We do need to get her CAT scan installed into our system, so we can review it. Thank you for asking me to assist in her care.
--- NOTE | 2018-05-29 14:44 | Progress Note ---
Subjective Date of Service: May 29, 2018. Subjective Pt evaluation today including: conversation w/ patient, physical exam, lab review, review of studies, review of inpatient medication list Saw/examined the patient in room 401 She's doing slightly better in terms of breath Her cough is still present, intermittently productive Denies any new symptoms; no fevers/chills Problem List Medical Problems: (1) Bronchitis Status: Acute (2) Chest pain Status: Acute (3) COPD exacerbation Status: Acute (4) Elevated troponin Status: Acute (5) Elevated troponin Status: Acute (6) Hypoxia Status: Acute (7) Pneumonia Status: Acute (8) Shortness of breath Status: Acute (9) Status asthmaticus Status: Acute Review of Systems Constitutional: No fever, No chills Respiratory: + cough, + sputum, + wheezing, + shortness of breath, No dyspnea on exertion, No dyspnea at rest, No hemoptysis Cardiac: No chest pain Medications Current Inpatient Medications Medications (Trade) Dose Ordered Sig/Raman Route Start Time Stop Time Status Last Admin Dose Admin Enoxaparin Sodium (Lovenox Inj) 40 mg Q24H SQ 05/28/18 22:00 06/27/18 21:59 05/28/18 22:02 40 MG Acetaminophen (Tylenol Tab) 650 mg Q4H PRN PO 05/28/18 18:15 06/27/18 18:14 Al Hydrox/Mg Hydrox/Simethicone (Maalox Max Susp) 15 ml Q4H PRN PO 05/28/18 18:15 06/27/18 18:14 Magnesium Hydroxide (Milk Of Magnesia Susp) 30 ml Q6H PRN PO 05/28/18 18:15 06/27/18 18:14 Ondansetron HCl (Zofran Inj) 4 mg Q6H PRN IV 05/28/18 18:15 06/27/18 18:14 Ceftriaxone Sodium 1 gm/ Dextrose 50 ml @ 100 mls/hr Q24H IV 05/29/18 18:00 06/04/18 17:59 Azithromycin (Zithromax Tab) 250 mg QAM PO 05/29/18 08:00 06/02/18 08:59 05/29/18 08:27 250 MG Guaifenesin (Mucinex Contr Rel Tab) 600 mg Q12 PO 8/16/18 21:00 06/27/18 20:59 05/29/18 08:27 600 MG Benzonatate (Tessalon Perles Cap) 100 mg TID PRN PO 05/28/18 18:15 06/27/18 18:14 05/29/18 08:28 100 MG Budesonide/ Formoterol Fumarate (Symbicort 160/ 4.5 Inh) 2 puffs BID INH 05/28/18 20:05 06/27/18 20:59 Future Hold Ferrous Sulfate (Feosol Tab) 325 mg BID PO 05/28/18 20:06 06/27/18 20:59 05/29/18 08:27 325 MG Losartan Potassium (coZAAR TAB) 25 mg DAILY PO 05/29/18 08:00 06/28/18 08:59 05/29/18 08:28 25 MG Metoprolol Succinate (Toprol Xl Tab) 50 mg BID PO 05/28/18 20:06 06/27/18 20:59 05/29/18 08:27 50 MG Senna/Docusate Sodium (Senokot S Tab) 1 tab DAILY PRN PO 05/28/18 18:15 06/27/18 18:14 Tramadol HCl (Ultram Tab) 50 mg Q6 PRN PO 05/28/18 18:15 06/27/18 18:14 Ipratropium [place] (Atrovent 0.02% 0.5MG/2.5ML Neb) 0.5 mg Q6R INH 05/28/18 21:00 06/27/18 20:59 05/29/18 05:08 0.5 MG Levalbuterol (Xopenex 0.63 Mg/ 3 Ml Neb) 0.63 mg Q6R INH 05/28/18 21:00 06/27/18 20:59 05/29/18 05:09 0.63 MG Zolpidem Tartrate (Ambien Tab) 5 mg HSZ PRN PO 05/28/18 21:45 06/27/18 21:44 Enteral Nutritional Formula (Boost) 1 can DAILY PO 05/29/18 08:00 06/28/18 07:59 05/29/18 09:42 1 CAN Pantoprazole Sodium (Protonix Tab) 40 mg QAM PO 05/30/18 08:00 06/01/18 08:01 Methylprednisolone Sodium Succinate 40 mg/Syringe 0.64 ml @ 1.5 mls/min BID IV 05/29/18 09:30 06/28/18 09:29 05/29/18 09:42 1.5 MLS/MIN Budesonide (Pulmicort Respules 0.5MG/ 2ML Neb Soln) 0.5 mg BIDR INH 05/29/18 09:30 06/28/18 09:29 Ipratropium [place] (Atrovent 0.02% 0.5MG/2.5ML Neb) 0.5 mg Q3R PRN INH 05/29/18 09:15 06/28/18 09:14 Levalbuterol (Xopenex 0.63 Mg/ 3 Ml Neb) 0.63 mg Q3R PRN INH 05/29/18 09:15 06/28/18 09:14 Objective Vital Signs Date Time Temp Pulse Resp B/P (MAP) Pulse Ox O2 Delivery O2 Flow Rate FiO2 05/29/18 09:05 Nasal Cannula 2.0 05/29/18 06:59 36.5 73 17 138/76 (96) 98 Nasal Cannula 2.0 05/29/18 05:09 98 20 94 Nasal Cannula 2.0 05/29/18 00:00 Nasal Cannula 2.0 05/28/18 23:01 36.3 112 19 165/103 (123) 92 Nasal Cannula 2.0 05/28/18 21:24 110 20 94 Nasal Cannula 2.0 05/28/18 18:40 36.6 105 22 170/111 94 Nasal Cannula 2.0 170/122 05/28/18 18:30 102 24 153/97 95 Nasal Cannula 2.0 05/28/18 17:35 109 05/28/18 17:30 107 26 163/92 95 Nasal Cannula 2.0 05/28/18 16:30 113 26 169/109 100 Nebulizer 05/28/18 15:39 108 28 94 Nasal Cannula 2.0 05/28/18 14:58 108 28 163/144 94 Nasal Cannula 2.0 05/28/18 14:58 89 Room Air 05/28/18 14:55 110 Physical Exam General Appearance: no apparent distress Respiratory/Chest: no respiratory distress, no accessory muscle use, + decreased breath sounds, + crackles Cardiovascular: regular rate, rhythm, no edema, no murmur Extremities: normal inspection, no pedal edema Neurologic/Psychiatric: no motor/sensory deficits, alert, normal mood/affect Laboratory Results Last 24 Hours Test 05/28/18 15:30 05/28/18 15:38 05/29/18 05:16 05/29/18 11:58 White Blood Count 8.15 K/uL 7.65 K/uL Red Blood Count 4.72 M/uL 4.57 M/uL Hemoglobin 13.4 g/dL 12.8 g/dL Hematocrit 41.0 % 40.0 % Mean Corpuscular Volume 86.9 fL 87.5 fL Mean Corpuscular Hemoglobin 28.4 pg 28.0 pg Mean Corpuscular Hemoglobin Concent 32.7 g/dl 32.0 g/dl Platelet Count 234 K/uL 267 K/uL Mean Platelet Volume 10.8 fL 10.5 fL Neutrophils (%) (Auto) 78.6 % Lymphocytes (%) (Auto) 11.9 % Monocytes (%) (Auto) 6.9 % Eosinophils (%) (Auto) 2.0 % Basophils (%) (Auto) 0.4 % Neutrophils # (Auto) 6.41 K/uL Lymphocytes # (Auto) 0.97 K/uL Monocytes # (Auto) 0.56 K/uL Eosinophils # (Auto) 0.16 K/uL Basophils # (Auto) 0.03 K/uL RDW Standard Deviation 47.3 fL 47.6 fL RDW Coefficient of Variation 14.8 % 14.9 % Immature Granulocyte % (Auto) 0.2 % Immature Granulocyte # (Auto) 0.02 K/uL Prothrombin Time 10.8 SECONDS Prothromb Time International Ratio 1.0 Activated Partial Thromboplast Time 26.2 SECONDS Partial Thromboplastin Ratio 1.0 Sodium Level 138 mmol/L 138 mmol/L Potassium Level 3.4 mmol/L 4.2 mmol/L Chloride Level 104 mmol/L 104 mmol/L Carbon Dioxide Level 27 mmol/L 26 mmol/L Anion Gap 7.0 mmol/L 8.0 mmol/L Blood Urea Nitrogen 20 mg/dl 21 mg/dl Creatinine 0.69 mg/dl 0.70 mg/dl Estimated GFR () 92.6 92.2 Estimated GFR (Non- 79.9 79.6 BUN/Creatinine Ratio 28.7 30.6 Random Glucose 161 mg/dl 121 mg/dl Calcium Level 9.5 mg/dl 9.3 mg/dl Total Bilirubin 0.3 mg/dl Direct Bilirubin 0.1 mg/dl Aspartate Amino Transf (AST/SGOT) 19 U/L Alanine Aminotransferase (ALT/SGPT) 18 U/L Alkaline Phosphatase 55 U/L Total Protein 7.4 gm/dl Albumin 3.7 gm/dl Bedside Troponin I < 0.030 ng/ml Est Creatinine Clear Calc Drug Dose 43.0 ml/min Magnesium Level 2.1 mg/dl Bedside Glucose 141 mg/dl Assessment and Plan This is an 82 year old female with a past medical history of a chronic nonspecific lung disease and follows with pulmonology as outpatient, RA with long-term steroid use, osteoporosis, chronic mixed systolic-diastolic heart failure - presents with a few week history of worsening shortness of breath. Acute Hypoxic Respiratory Failure Possible Bronchiectasis 05/29 - appreciate pulmonary input - changing prednisone to Solu-medrol - Rocephin + Azithro - added budesonide nebulizer - Protonix added due to possible GERD related cough - vibration vest, flutter valve, chest PT 05/28 - Mucous plugging noted on outpatient CT - Presented with hypoxia, productive cough - will use oxygen as needed - nebs ordered - prednisone 40mg daily - Rocephin + Azithro - pulmonology consulted - vibration vest, flutter valve, chest PT ordered Rheumatoid Arthritis - will use prednisone 40mg for above - taper down back to prednisone 5mg BID; baseline dose Chronic Mixed Systolic-Diastolic Heart Failure - outpatient echo showing grade 3 diastolic dysfunction and LVEF of 35-40% - currently does not appear to be volume overloaded, will monitor DVT ppx - Lovenox FULL CODE
[2018-05-29 14:58] VITALS: BP 148/88; PULSE 82; TEMP 36.6; O2SAT 95
[2018-05-29 15:38] VITALS: Ht 152.4 cm; Wt 54.6 kg
[2018-05-29] MEDS: CEFTRIAXONE SOD INJ 1 GM in DEXTROSE 5% ADD-VANTAGE 50ML 50 ML IV SCH (17:27)
[2018-05-29 19:01] VITALS: PULSE 87; O2SAT 92
[2018-05-29] MEDS: ENOXAPARIN 40 MG/0.4 ML SYR SQ SCH (20:39)
[2018-05-29] MEDS ORDERED: CARBOHYDRATES FOR HYPOGLYCEMIA PO PRN (21:15)
[2018-05-29] MEDS ORDERED: GLUCAGON FOR INJ 1 MG VIAL SQ PRN (21:15)
[2018-05-29] MEDS ORDERED: GLUCOSE 40% GEL 15 GM TUBE PO PRN (21:15)
[2018-05-29] MEDS ORDERED: DEXTROSE 50% 50 ML SYR IV PRN (21:15)
[2018-05-29] MEDS ORDERED: GLUCOSE 10 TABS/TUBE PO PRN (21:15)
[2018-05-29] MEDS ORDERED: INSULIN ASPART 100 UNITS/ML 3 ML PEN SC SCH (22:15)
[2018-05-29] MEDS ORDERED: INSULIN GLARGINE SOLOSTAR 100 UNITS/ML 3 ML PEN SC SCH (22:15)
[2018-05-30] VITALS (11 sets, daily range): BP systolic 134–197; BP diastolic 70–110; PULSE 64–94; TEMP 36.6–36.8; O2SAT 90–97
[2018-05-30] MEDS: LEVALBUTEROL 0.63MG/3 ML NEB INH SCH ×4 (01:50→18:52)
[2018-05-30] MEDS: IPRATROPIUM BROMIDE NEB SOLN 0.02% 2.5 ML VIAL INH SCH ×4 (01:50→18:52)
[2018-05-30 07:00] LABS: HEMOGLOBIN A1C 6.1 % (4.5-5.6)
[2018-05-30] MEDS: BUDESONIDE 0.5 MG/2 ML VIAL (PULMICORT) INH SCH ×2 (07:08→18:52)
[2018-05-30 07:15] LABS: HEMATOCRIT 36.9 % (37-47); HEMOGLOBIN 11.7 g/dL (12.0-16.0); MEAN CELL VOLUME 87.6 fL (80-100); MEAN CORPUSCULAR HEMOGLOBIN 27.8 pg (25-34); MEAN CORPUSCULAR HGB CONC 31.7 g/dl (32-36); MEAN PLATELET VOLUME 11.3 fL (7.4-10.4); PLATELET COUNT 253 K/uL (130-400); RED CELL DISTRIBUTION WIDTH SD 47.8 fL (36.4-46.3); WHITE BLOOD COUNT 13.66 K/uL (4.8-10.8)
[2018-05-30] MEDS: METHYLPREDNISOLONE IV 40 MG in SYRINGE 0 ML IV SCH ×2 (07:41→21:20)
[2018-05-30] MEDS: BENZONATATE 100MG CAP PO PRN ×2 (07:41→22:59)
[2018-05-30] MEDS: AZITHROMYCIN 250 MG TAB PO SCH (07:41)
[2018-05-30] MEDS: FERROUS SULFATE 325 MG TAB PO SCH ×2 (07:41→20:00)
[2018-05-30] MEDS: GUAIFENESIN 600 MG TABCR PO SCH ×2 (07:41→21:20)
[2018-05-30] MEDS: LOSARTAN POTASSIUM 25 MG TAB PO SCH (07:42)
[2018-05-30] MEDS: INSULIN ASPART 100 UNITS/ML 3 ML PEN SC SCH ×4 (07:42→21:00)
[2018-05-30] MEDS: METOPROLOL SUCC 50MG EXT REL TAB PO SCH ×2 (07:42→21:22)
[2018-05-30] MEDS: PANTOprazole SOD 40 MG TAB PO SCH (07:42)
[2018-05-30] MEDS: BOOST VANILLA OR BOOST GLUCOSE CONTROL CHOCOLATE PO SCH (07:43)
[2018-05-30] MEDS: DOCUSATE SODIUM/SENNA 50/8.6MG TAB PO PRN (07:44)
[2018-05-30 07:47] LABS: CALCIUM 9.3 mg/dl (8.5-10.1); CREATININE 0.65 mg/dl (0.60-1.20); POTASSIUM 4.2 mmol/L (3.5-5.1)
[2018-05-30] MEDS ORDERED: BOOST GLUCOSE CONTROL VANILLA PO SCH (08:00)
--- NOTE | 2018-05-30 08:41 | PULMONARY PROGRESS NOTE ---
DATE: 05/30/2018 PULMONARY PROGRESS NOTE TIME: 8:00 a.m. SUBJECTIVE: The patient is feeling improved. She is less short of breath and less tight. She is not bringing up much phlegm. Her cough is overall less than what it had been. She has had 3 treatments with the vest. She notices some discomfort from it. She is not convinced that it is helping. Her sugars did go up over 200. This is no doubt related to the steroids. OBJECTIVE: GENERAL: The patient is comfortable at rest. She did not cough during this exam. VITAL SIGNS: Temperature is 36.8. She has had no fevers. CARDIOVASCULAR: Heart rate is 69 per minute. Rhythm is regular. Blood pressure is 150/82. LUNGS: Auscultation reveals [id number] wheeze bilaterally posteriorly. There was no accessory muscle use. The respiratory rate is 18 breaths per minute. Oxygen saturation was 97% on 2 liters. ABDOMEN: Soft and nontender. EXTREMITIES: Showed no cyanosis, clubbing or edema. Unfortunately, we still do not have the CAT scan from [facility] installed on our computer PAC system. Review of her x-ray done here does show the significant hiatal hernia with a good portion of the stomach apparently being in the chest. Prior kyphoplasty x2 was noted. Bronchial wall thickening was noted. LABORATORY DATA: White count is 13.66. I suspect the white count has elevated due to the steroids. Hemoglobin is 11.7. Platelets are 253,000. Electrolytes show sodium 139, potassium 4.2, chloride 105, bicarb 26. BUN is 25 with a creatinine 0.65. IMPRESSIONS: 1. Asthma with exacerbation. 2. Large hiatal hernia. 3. Suspect gastroesophageal reflux disease. COMMENTS: We are going to discontinue the vest because she finds it somewhat uncomfortable from a musculoskeletal perspective. We need to have the CAT scan put through from the [facility] system into our PAC system. I would continue the pantoprazole. I believe she should stay on this after discharge. Would give her at least 1 more day of the IV methylprednisolone in light of the improvement. Would continue with her other nebulizer treatments.
--- NOTE | 2018-05-30 12:20 | Progress Note ---
Subjective Date of Service: May 30, 2018. Subjective Pt evaluation today including: conversation w/ patient, physical exam, lab review, review of studies, review of inpatient medication list Saw/examined the patient in room 401 She's doing well, her cough is still present, but her breathing is improving She is able to ambulate without dyspnea Problem List Medical Problems: (1) Bronchitis Status: Acute (2) Chest pain Status: Acute (3) COPD exacerbation Status: Acute (4) Elevated troponin Status: Acute (5) Elevated troponin Status: Acute (6) Hypoxia Status: Acute (7) Pneumonia Status: Acute (8) Shortness of breath Status: Acute (9) Status asthmaticus Status: Acute Review of Systems Respiratory: + cough, + wheezing, + shortness of breath (improving), No sputum , No dyspnea on exertion Cardiac: No chest pain, No edema, No palpitations Medications Current Inpatient Medications Medications (Trade) Dose Ordered Sig/Raman Route Start Time Stop Time Status Last Admin Dose Admin Enoxaparin Sodium (Lovenox Inj) 40 mg Q24H SQ 05/28/18 22:00 06/27/18 21:59 05/29/18 20:39 40 MG Acetaminophen (Tylenol Tab) 650 mg Q4H PRN PO 05/28/18 18:15 06/27/18 18:14 Al Hydrox/Mg Hydrox/Simethicone (Maalox Max Susp) 15 ml Q4H PRN PO 05/28/18 18:15 06/27/18 18:14 Magnesium Hydroxide (Milk Of Magnesia Susp) 30 ml Q6H PRN PO 05/28/18 18:15 06/27/18 18:14 Ondansetron HCl (Zofran Inj) 4 mg Q6H PRN IV 05/28/18 18:15 06/27/18 18:14 Ceftriaxone Sodium 1 gm/ Dextrose 50 ml @ 100 mls/hr Q24H IV 05/29/18 18:00 06/04/18 17:59 05/29/18 17:27 100 MLS/HR Azithromycin (Zithromax Tab) 250 mg QAM PO 05/29/18 08:00 06/02/18 08:59 05/30/18 07:41 250 MG Guaifenesin (Mucinex Contr Rel Tab) 600 mg Q12 PO 05/28/18 21:00 06/27/18 20:59 05/30/18 07:41 600 MG Benzonatate (Tessalon Perles Cap) 100 mg TID PRN PO 05/28/18 18:15 06/27/18 18:14 05/30/18 07:41 100 MG Budesonide/ Formoterol Fumarate (Symbicort 160/ 4.5 Inh) 2 puffs BID INH 05/28/18 20:05 06/27/18 20:59 Future Hold Ferrous Sulfate (Feosol Tab) 325 mg BID PO 05/28/18 20:06 06/27/18 20:59 05/30/18 07:41 325 MG Losartan Potassium (coZAAR TAB) 25 mg DAILY PO 05/29/18 08:00 06/28/18 08:59 05/30/18 07:42 25 MG Metoprolol Succinate (Toprol Xl Tab) 50 mg BID PO 05/28/18 20:06 06/27/18 20:59 05/30/18 07:42 50 MG Senna/Docusate Sodium (Senokot S Tab) 1 tab DAILY PRN PO 05/28/18 18:15 06/27/18 18:14 05/30/18 07:44 1 TAB Tramadol HCl (Ultram Tab) 50 mg Q6 PRN PO 05/28/18 18:15 06/27/18 18:14 Ipratropium [place] (Atrovent 0.02% 0.5MG/2.5ML Neb) 0.5 mg Q6R INH 05/28/18 21:00 06/27/18 20:59 05/30/18 07:08 0.5 MG Levalbuterol (Xopenex 0.63 Mg/ 3 Ml Neb) 0.63 mg Q6R INH 05/28/18 21:00 06/27/18 20:59 05/30/18 07:09 0.63 MG Zolpidem Tartrate (Ambien Tab) 5 mg HSZ PRN PO 05/28/18 21:45 06/27/18 21:44 Enteral Nutritional Formula (Boost) 1 can DAILY PO 05/29/18 08:00 06/28/18 07:59 05/30/18 07:43 1 CAN Pantoprazole Sodium (Protonix Tab) 40 mg QAM PO 05/30/18 08:00 06/01/18 08:01 05/30/18 07:42 40 MG Methylprednisolone Sodium Succinate 40 mg/Syringe 0.64 ml @ 1.5 mls/min BID IV 05/29/18 09:30 06/28/18 09:29 05/30/18 07:41 1.5 MLS/MIN Budesonide (Pulmicort Respules 0.5MG/ 2ML Neb Soln) 0.5 mg BIDR INH 05/29/18 09:30 06/28/18 09:29 05/30/18 07:08 0.5 MG Ipratropium [place] (Atrovent 0.02% 0.5MG/2.5ML Neb) 0.5 mg Q3R PRN INH 05/29/18 09:15 06/28/18 09:14 Levalbuterol (Xopenex 0.63 Mg/ 3 Ml Neb) 0.63 mg Q3R PRN INH 05/29/18 09:15 06/28/18 09:14 Insulin Glargine (Lantus Solostar Pen) 5 units HS SC 05/30/18 21:00 06/29/18 20:59 Insulin Aspart (novoLOG ASPART) SLIDING SCALE If C... ACHS SC 05/30/18 06:30 06/29/18 06:29 Glucose (Glucose 40% Gel) 15-30 GRAMS 15 GRAMS... UD PRN PO 05/29/18 21:15 06/28/18 21:14 Glucose (Glucose Chew Tab) 4-8 Tablets 4 Tabl... UD PRN PO 05/29/18 21:15 06/28/18 21:14 Dextrose (Dextrose 50% 50ML Syringe) 25-50ML 25ML FOR ... UD PRN IV 05/29/18 21:15 06/28/18 21:14 Glucagon (Glucagon Inj) 1 mg UD PRN SQ 05/29/18 21:15 06/28/18 21:14 Carbohydrates (Carbohydrates For Hypoglycemia) 15-30 GRAMS 15 grams if BSG 54-69... UD PRN PO 05/29/18 21:15 06/28/18 21:14 Objective Vital Signs Date Time Temp Pulse Resp B/P (MAP) Pulse Ox O2 Delivery O2 Flow Rate FiO2 05/30/18 08:00 Nasal Cannula 2.0 05/30/18 07:13 36.8 69 19 150/82 (104) 90 05/30/18 07:11 77 16 97 Nasal Cannula 2.0 05/30/18 01:51 74 16 97 Nasal Cannula 2.0 05/30/18 00:01 36.6 76 20 134/70 (91) 96 2.0 05/29/18 20:45 Nasal Cannula 2.0 05/29/18 19:01 87 16 92 Nasal Cannula 2.0 05/29/18 14:58 36.6 82 20 148/88 (108) 95 2.5 Physical Exam General Appearance: no apparent distress Respiratory/Chest: no respiratory distress, no accessory muscle use, + decreased breath sounds, + wheezing (mild end expiratory wheezing) Cardiovascular: regular rate, rhythm, no edema, no murmur Extremities: non-tender, normal inspection, no pedal edema Neurologic/Psychiatric: no motor/sensory deficits, alert, normal mood/affect Laboratory Results Last 24 Hours Test 05/29/18 15:30 05/29/18 17:15 05/29/18 20:13 05/29/18 22:31 Estimated Average Glucose 128 mg/dl Hemoglobin A1c 6.1 % Bedside Glucose 140 mg/dl 209 mg/dl 144 mg/dl Test 05/30/18 06:38 05/30/18 07:27 05/30/18 11:45 White Blood Count 13.66 K/uL Red Blood Count 4.21 M/uL Hemoglobin 11.7 g/dL Hematocrit 36.9 % Mean Corpuscular Volume 87.6 fL Mean Corpuscular Hemoglobin 27.8 pg Mean Corpuscular Hemoglobin Concent 31.7 g/dl RDW Standard Deviation 47.8 fL RDW Coefficient of Variation 15.0 % Platelet Count 253 K/uL Mean Platelet Volume 11.3 fL Sodium Level 139 mmol/L Potassium Level 4.2 mmol/L Chloride Level 105 mmol/L Carbon Dioxide Level 26 mmol/L Anion Gap 8.0 mmol/L Blood Urea Nitrogen 25 mg/dl Creatinine 0.65 mg/dl Est Creatinine Clear Calc Drug Dose 46.3 ml/min Estimated GFR () 94.5 Estimated GFR (Non- 81.5 BUN/Creatinine Ratio 38.8 Random Glucose 124 mg/dl Calcium Level 9.3 mg/dl Bedside Glucose 116 mg/dl 130 mg/dl Assessment and Plan This is an 82 year old female with a past medical history of a chronic nonspecific lung disease and follows with pulmonology as outpatient, RA with long-term steroid use, osteoporosis, chronic mixed systolic-diastolic heart failure - presents with a few week history of worsening shortness of breath. Acute Hypoxic Respiratory Failure Possible Bronchiectasis 05/30 - much improved breathing status - will continue our current regimen of Solu-medrol, nebs as needed, Budesonide nebulizer - Protonix - continue antibiotics - flutter valve, chest PT 05/29 - appreciate pulmonary input - changing prednisone to Solu-medrol - Rocephin + Azithro - added budesonide nebulizer - Protonix added due to possible GERD related cough - vibration vest, flutter valve, chest PT 05/28 - Mucous plugging noted on outpatient CT - Presented with hypoxia, productive cough - will use oxygen as needed - nebs ordered - prednisone 40mg daily - Rocephin + Azithro - pulmonology consulted - vibration vest, flutter valve, chest PT ordered Rheumatoid Arthritis - will use Solu-medrol as above - taper down back to prednisone 5mg BID; baseline dose Chronic Mixed Systolic-Diastolic Heart Failure - outpatient echo showing grade 3 diastolic dysfunction and LVEF of 35-40% - currently does not appear to be volume overloaded, will monitor DVT ppx - Lovenox FULL CODE
[2018-05-30] MEDS ORDERED: NURSING VERBAL MED ORDER ONE (15:45)
[2018-05-30] MEDS ORDERED: LOSARTAN POTASSIUM 25 MG TAB PO ONE ×2 (17:00→22:29)
[2018-05-30] MEDS: CEFTRIAXONE SOD INJ 1 GM in DEXTROSE 5% ADD-VANTAGE 50ML 50 ML IV SCH (17:02)
[2018-05-30] MEDS ORDERED: INSULIN GLARGINE SOLOSTAR 100 UNITS/ML 3 ML PEN SC SCH (21:00)
[2018-05-30] MEDS: ENOXAPARIN 40 MG/0.4 ML SYR SQ SCH (21:20)
[2018-05-31] VITALS (12 sets, daily range): BP systolic 158–191; BP diastolic 57–120; PULSE 74–92; TEMP 36.6–36.7; O2SAT 92–99
[2018-05-31] MEDS: LEVALBUTEROL 0.63MG/3 ML NEB INH SCH ×4 (01:47→18:56)
[2018-05-31] MEDS: IPRATROPIUM BROMIDE NEB SOLN 0.02% 2.5 ML VIAL INH SCH ×4 (01:47→18:56)
[2018-05-31] MEDS: BUDESONIDE 0.5 MG/2 ML VIAL (PULMICORT) INH SCH ×2 (07:09→18:56)
[2018-05-31] MEDS ORDERED: LOSARTAN POTASSIUM 25 MG TAB PO SCH (08:00)
[2018-05-31] MEDS: FERROUS SULFATE 325 MG TAB PO SCH ×2 (08:11→19:28)
[2018-05-31] MEDS: PANTOprazole SOD 40 MG TAB PO SCH (08:12)
[2018-05-31] MEDS: INSULIN ASPART 100 UNITS/ML 3 ML PEN SC SCH ×4 (08:12→21:00)
[2018-05-31] MEDS: GUAIFENESIN 600 MG TABCR PO SCH ×2 (08:12→19:28)
[2018-05-31] MEDS: METHYLPREDNISOLONE IV 40 MG in SYRINGE 0 ML IV SCH (08:12)
[2018-05-31] MEDS: AZITHROMYCIN 250 MG TAB PO SCH (08:12)
[2018-05-31] MEDS: METOPROLOL SUCC 50MG EXT REL TAB PO SCH ×2 (08:12→19:28)
[2018-05-31] MEDS: BOOST VANILLA OR BOOST GLUCOSE CONTROL CHOCOLATE PO SCH (08:12)
[2018-05-31] MEDS: DOCUSATE SODIUM/SENNA 50/8.6MG TAB PO PRN (08:32)
[2018-05-31] MEDS: BENZONATATE 100MG CAP PO PRN (08:32)
--- NOTE | 2018-05-31 10:16 | PULMONARY PROGRESS NOTE ---
DATE: 05/31/2018 TIME OF EXAM: 8:15 a.m. SUBJECTIVE: The patient states she did not sleep well last night. She is not exactly sure why. She continues to cough. She states she is not bringing up any phlegm. Prior to coming in, she had been bringing some mucus up. It is quite early in the morning, and she has not been up out of bed. She states that nursing staff put her on a bed alert such that she cannot get up on her own. OBJECTIVE: GENERAL: The patient was comfortable at rest. VITAL SIGNS: Temperature is 36.7. CARDIOVASCULAR: Heart rate is 79 per minute. Rhythm is regular. Blood pressure was elevated at 188/76. Her blood pressure has been intermittently elevated. RESPIRATORY: Respiratory rate was 16 breaths per minute. Saturation 96% on 2 L. She does have a persistence of wheeze bilaterally on expiration. EXTREMITIES: Showed no cyanosis, clubbing or edema. Unfortunately, the CAT scan from [id number] still has not been placed into our system, and we do not have access to it. IMPRESSION: 1. Asthma with exacerbation. 2. Multiple lung nodules, no change from 2013. 3. Large hiatal hernia, possible reflux. COMMENTS/RECOMMENDATIONS: The patient is about the same as yesterday. She is better than on admission, but improvement is somewhat slow. Regrettably we do not have her CAT scan to review. The patient's sugars have been moderately elevated. I am going to decrease the methylprednisolone down to 20 mg IV b.i.d. Would otherwise continue her treatment. We still need to persist and try and obtain the CAT scan from [id number] and have it installed in our system for review. I discussed with the patient that if she would not improve, ultimately a therapeutic bronchoscopy could be considered. Obviously, we would like to avoid it if we can improve her medically.
--- NOTE | 2018-05-31 10:38 | Progress Note ---
Subjective Date of Service: May 31, 2018. Subjective Pt evaluation today including: conversation w/ patient, physical exam, lab review, review of studies, review of inpatient medication list Saw/examined the patient in room 401 Still unable to bring up sputum dry cough persists breathing status slightly improved, she is now ambulating Problem List Medical Problems: (1) Bronchitis Status: Acute (2) Chest pain Status: Acute (3) COPD exacerbation Status: Acute (4) Elevated troponin Status: Acute (5) Elevated troponin Status: Acute (6) Hypoxia Status: Acute (7) Pneumonia Status: Acute (8) Shortness of breath Status: Acute (9) Status asthmaticus Status: Acute Review of Systems Constitutional: No fever, No chills Respiratory: + cough, + wheezing, + shortness of breath, No sputum, No dyspnea on exertion, No dyspnea at rest, No hemoptysis Cardiac: No chest pain, No edema, No palpitations Medications Current Inpatient Medications Medications (Trade) Dose Ordered Sig/Raman Route Start Time Stop Time Status Last Admin Dose Admin Enoxaparin Sodium (Lovenox Inj) 40 mg Q24H SQ 05/28/18 22:00 06/27/18 21:59 05/30/18 21:20 40 MG Acetaminophen (Tylenol Tab) 650 mg Q4H PRN PO 05/28/18 18:15 06/27/18 18:14 Al Hydrox/Mg Hydrox/Simethicone (Maalox Max Susp) 15 ml Q4H PRN PO 05/28/18 18:15 06/27/18 18:14 Magnesium Hydroxide (Milk Of Magnesia Susp) 30 ml Q6H PRN PO 05/28/18 18:15 06/27/18 18:14 05/31/18 08:35 30 ML Ondansetron HCl (Zofran Inj) 4 mg Q6H PRN IV 05/28/18 18:15 06/27/18 18:14 Ceftriaxone Sodium 1 gm/ Dextrose 50 ml @ 100 mls/hr Q24H IV 05/29/18 18:00 06/04/18 17:59 05/30/18 17:02 100 MLS/HR Azithromycin (Zithromax Tab) 250 mg QAM PO 05/29/18 08:00 06/02/18 08:59 05/31/18 08:12 250 MG Benzonatate (Tessalon Perles Cap) 100 mg TID PRN PO 05/28/18 18:15 06/27/18 18:14 05/31/18 08:32 100 MG Budesonide/ Formoterol Fumarate (Symbicort 160/ 4.5 Inh) 2 puffs BID INH 05/28/18 20:05 06/27/18 20:59 Future Hold Ferrous Sulfate (Feosol Tab) 325 mg BID PO 05/28/18 20:06 06/27/18 20:59 05/31/18 08:11 325 MG Metoprolol Succinate (Toprol Xl Tab) 50 mg BID PO 05/28/18 20:06 06/27/18 20:59 05/31/18 08:12 50 MG Senna/Docusate Sodium (Senokot S Tab) 1 tab DAILY PRN PO 05/28/18 18:15 06/27/18 18:14 05/31/18 08:32 1 TAB Tramadol HCl (Ultram Tab) 50 mg Q6 PRN PO 05/28/18 18:15 06/27/18 18:14 Ipratropium [place] (Atrovent 0.02% 0.5MG/2.5ML Neb) 0.5 mg Q6R INH 05/28/18 21:00 06/27/18 20:59 05/31/18 07:09 0.5 MG Levalbuterol (Xopenex 0.63 Mg/ 3 Ml Neb) 0.63 mg Q6R INH 05/28/18 21:00 06/27/18 20:59 05/31/18 07:09 0.63 MG Zolpidem Tartrate (Ambien Tab) 5 mg HSZ PRN PO 05/28/18 21:45 06/27/18 21:44 Enteral Nutritional Formula (Boost) 1 can DAILY PO 05/29/18 08:00 06/28/18 07:59 05/31/18 08:12 1 CAN Pantoprazole Sodium (Protonix Tab) 40 mg QAM PO 05/30/18 08:00 06/01/18 08:01 05/31/18 08:12 40 MG Budesonide (Pulmicort Respules 0.5MG/ 2ML Neb Soln) 0.5 mg BIDR INH 05/29/18 09:30 06/28/18 09:29 05/31/18 07:09 0.5 MG Ipratropium [place] (Atrovent 0.02% 0.5MG/2.5ML Neb) 0.5 mg Q3R PRN INH 05/29/18 09:15 06/28/18 09:14 Levalbuterol (Xopenex 0.63 Mg/ 3 Ml Neb) 0.63 mg Q3R PRN INH 05/29/18 09:15 06/28/18 09:14 Insulin Aspart (novoLOG ASPART) SLIDING SCALE If C... ACHS SC 05/30/18 06:30 06/29/18 06:29 Glucose (Glucose 40% Gel) 15-30 GRAMS 15 GRAMS... UD PRN PO 05/29/18 21:15 06/28/18 21:14 Glucose (Glucose Chew Tab) 4-8 Tablets 4 Tabl... UD PRN PO 05/29/18 21:15 06/28/18 21:14 Dextrose (Dextrose 50% 50ML Syringe) 25-50ML 25ML FOR ... UD PRN IV 05/29/18 21:15 06/28/18 21:14 Glucagon (Glucagon Inj) 1 mg UD PRN SQ 05/29/18 21:15 06/28/18 21:14 Carbohydrates (Carbohydrates For Hypoglycemia) 15-30 GRAMS 15 grams if BSG 54-69... UD PRN PO 05/29/18 21:15 06/28/18 21:14 Losartan Potassium (coZAAR TAB) 75 mg DAILY PO 05/31/18 08:00 06/28/18 08:59 05/31/18 08:12 75 MG Prednisone (PredniSONE TAB) 40 mg DAILY PO 06/01/18 08:00 07/01/18 07:59 UNV Guaifenesin (Mucinex Contr Rel Tab) 1,200 mg Q12 PO 05/31/18 21:00 06/30/18 20:59 UNV Objective Vital Signs Date Time Temp Pulse Resp B/P (MAP) Pulse Ox O2 Delivery O2 Flow Rate FiO2 05/31/18 08:58 Nasal Cannula 2.0 05/31/18 07:09 79 16 96 Nasal Cannula 2.0 05/31/18 06:56 36.7 74 18 188/76 (113) 93 2.0 05/31/18 04:03 36.7 92 20 158/57 (90) 95 2.0 05/31/18 01:49 74 16 95 Nasal Cannula 2.0 05/31/18 00:02 171/100 (123) 05/30/18 22:44 36.7 80 20 197/110 (139) 97 2.0 05/30/18 20:45 Nasal Cannula 2.0 05/30/18 18:57 36.6 94 20 178/106 (130) 93 05/30/18 18:54 90 16 93 Nasal Cannula 1.5 05/30/18 17:50 160/105 (123) 05/30/18 16:10 180/103 (128) 05/30/18 15:29 36.8 85 18 179/101 (127) 93 Room Air 1.0 173/100 (124) 05/30/18 14:29 64 16 95 Nasal Cannula 2.0 Physical Exam General Appearance: no apparent distress Respiratory/Chest: no respiratory distress, no accessory muscle use, + wheezing (diffuse end expiratory wheezing) Cardiovascular: regular rate, rhythm, no edema, no murmur Neurologic/Psychiatric: no motor/sensory deficits, alert, normal mood/affect Laboratory Results Last 24 Hours Test 05/30/18 11:45 05/30/18 16:44 05/30/18 20:03 05/31/18 07:18 Bedside Glucose 130 mg/dl 138 mg/dl 155 mg/dl 123 mg/dl Assessment and Plan This is an 82 year old female with a past medical history of a chronic nonspecific lung disease and follows with pulmonology as outpatient, RA with long-term steroid use, osteoporosis, chronic mixed systolic-diastolic heart failure - presents with a few week history of worsening shortness of breath. Acute Hypoxic Respiratory Failure Possible Bronchiectasis 05/31 - increasing Mucinex dose - continue flutter valve, Protonix - changing IV solu-medrol to prednisone - budesonide nebulizers 05/30 - much improved breathing status - will continue our current regimen of Solu-medrol, nebs as needed, Budesonide nebulizer - Protonix - continue antibiotics - flutter valve, chest PT 05/29 - appreciate pulmonary input - changing prednisone to Solu-medrol - Rocephin + Azithro - added budesonide nebulizer - Protonix added due to possible GERD related cough - vibration vest, flutter valve, chest PT 05/28 - Mucous plugging noted on outpatient CT - Presented with hypoxia, productive cough - will use oxygen as needed - nebs ordered - prednisone 40mg daily - Rocephin + Azithro - pulmonology consulted - vibration vest, flutter valve, chest PT ordered Elevated Blood Pressure - high blood pressure, likely due to steroids - Cozaar dose increased to 75mg daily - will continue to monitor Rheumatoid Arthritis - will use Solu-medrol as above - taper down back to prednisone 5mg BID; baseline dose Chronic Mixed Systolic-Diastolic Heart Failure - outpatient echo showing grade 3 diastolic dysfunction and LVEF of 35-40% - currently does not appear to be volume overloaded, will monitor DVT ppx - Lovenox FULL CODE
[2018-05-31] MEDS ORDERED: AMLODIPINE BESYLATE 5 MG TAB PO ONE (15:00)
[2018-05-31] MEDS: CEFTRIAXONE SOD INJ 1 GM in DEXTROSE 5% ADD-VANTAGE 50ML 50 ML IV SCH (17:29)
[2018-05-31] MEDS: ENOXAPARIN 40 MG/0.4 ML SYR SQ SCH (19:29)
[2018-05-31] MEDS ORDERED: LOSARTAN POTASSIUM 25 MG TAB PO ONE (22:34)
[2018-05-31] MEDS ORDERED: METOPROLOL SUCC 25MG EXT REL TAB PO ONE (22:34)
[2018-06-01] VITALS (11 sets, daily range): BP systolic 114–194; BP diastolic 75–118; PULSE 71–88; TEMP 36.3–36.7; O2SAT 90–98
[2018-06-01] MEDS: IPRATROPIUM BROMIDE NEB SOLN 0.02% 2.5 ML VIAL INH SCH ×4 (01:55→19:20)
[2018-06-01] MEDS: LEVALBUTEROL 0.63MG/3 ML NEB INH SCH ×4 (01:55→19:21)
[2018-06-01] MEDS: BENZONATATE 100MG CAP PO PRN (03:15)
[2018-06-01 06:21] LABS: HEMATOCRIT 40.7 % (37-47); HEMOGLOBIN 12.9 g/dL (12.0-16.0); MEAN CELL VOLUME 87.9 fL (80-100); MEAN CORPUSCULAR HEMOGLOBIN 27.9 pg (25-34); MEAN CORPUSCULAR HGB CONC 31.7 g/dl (32-36); MEAN PLATELET VOLUME 11.7 fL (7.4-10.4); PLATELET COUNT 238 K/uL (130-400); RED CELL DISTRIBUTION WIDTH SD 48.4 fL (36.4-46.3); WHITE BLOOD COUNT 8.87 K/uL (4.8-10.8)
[2018-06-01 06:59] LABS: CALCIUM 8.9 mg/dl (8.5-10.1); CREATININE 0.55 mg/dl (0.60-1.20); POTASSIUM 3.6 mmol/L (3.5-5.1)
[2018-06-01] MEDS: INSULIN ASPART 100 UNITS/ML 3 ML PEN SC SCH ×4 (07:22→21:00)
[2018-06-01] MEDS: BOOST VANILLA OR BOOST GLUCOSE CONTROL CHOCOLATE PO SCH (07:23)
[2018-06-01] MEDS: LOSARTAN POTASSIUM 50 MG TAB PO SCH (07:24)
[2018-06-01] MEDS: FERROUS SULFATE 325 MG TAB PO SCH ×2 (07:24→17:16)
[2018-06-01] MEDS: AMLODIPINE BESYLATE 5 MG TAB PO SCH (07:25)
[2018-06-01] MEDS: METOPROLOL SUCC 50MG EXT REL TAB PO SCH ×2 (07:25→21:15)
[2018-06-01] MEDS: PANTOprazole SOD 40 MG TAB PO SCH (07:25)
[2018-06-01] MEDS: AZITHROMYCIN 250 MG TAB PO SCH (07:26)
[2018-06-01] MEDS: GUAIFENESIN 600 MG TABCR PO SCH ×2 (07:26→21:15)
[2018-06-01] MEDS: BUDESONIDE 0.5 MG/2 ML VIAL (PULMICORT) INH SCH ×2 (07:33→19:23)
[2018-06-01] MEDS ORDERED: HYDROCHLOROTHIAZIDE 25 MG TAB PO STA (10:30)
--- NOTE | 2018-06-01 12:24 | Progress Note ---
Subjective Date of Service: Jun 01, 2018. Subjective Pt evaluation today including: conversation w/ patient, physical exam, lab review, review of studies, review of inpatient medication list Saw/examined the patient in room 401 +cough, sputum production this AM Feels slightly better after bringing sputum up Problem List Medical Problems: (1) Bronchitis Status: Acute (2) Chest pain Status: Acute (3) COPD exacerbation Status: Acute (4) Elevated troponin Status: Acute (5) Elevated troponin Status: Acute (6) Hypoxia Status: Acute (7) Pneumonia Status: Acute (8) Shortness of breath Status: Acute (9) Status asthmaticus Status: Acute Review of Systems Constitutional: No fever, No chills Respiratory: + cough, + sputum, No wheezing, No shortness of breath, No dyspnea on exertion, No dyspnea at rest, No hemoptysis Cardiac: No chest pain Abdomen: No pain, No nausea, No vomiting, No diarrhea, No constipation, No GI bleeding Heme: No abnormal bleeding/bruising Medications Current Inpatient Medications Medications (Trade) Dose Ordered Sig/Raman Route Start Time Stop Time Status Last Admin Dose Admin Enoxaparin Sodium (Lovenox Inj) 40 mg Q24H SQ 05/28/18 22:00 06/27/18 21:59 05/31/18 19:29 40 MG Acetaminophen (Tylenol Tab) 650 mg Q4H PRN PO 05/28/18 18:15 06/27/18 18:14 Al Hydrox/Mg Hydrox/Simethicone (Maalox Max Susp) 15 ml Q4H PRN PO 05/28/18 18:15 06/27/18 18:14 Magnesium Hydroxide (Milk Of Magnesia Susp) 30 ml Q6H PRN PO 05/28/18 18:15 06/27/18 18:14 05/31/18 08:35 30 ML Ondansetron HCl (Zofran Inj) 4 mg Q6H PRN IV 05/28/18 18:15 06/27/18 18:14 Ceftriaxone Sodium 1 gm/ Dextrose 50 ml @ 100 mls/hr Q24H IV 05/29/18 18:00 06/04/18 17:59 05/31/18 17:29 100 MLS/HR Azithromycin (Zithromax Tab) 250 mg QAM PO 05/29/18 08:00 8/21/18 08:59 06/01/18 07:26 250 MG Benzonatate (Tessalon Perles Cap) 100 mg TID PRN PO 05/28/18 18:15 06/27/18 18:14 06/01/18 03:15 100 MG Budesonide/ Formoterol Fumarate (Symbicort 160/ 4.5 Inh) 2 puffs BID INH 05/28/18 20:05 06/27/18 20:59 Future Hold Ferrous Sulfate (Feosol Tab) 325 mg BID PO 05/28/18 20:06 06/27/18 20:59 05/31/18 08:11 325 MG Senna/Docusate Sodium (Senokot S Tab) 1 tab DAILY PRN PO 05/28/18 18:15 06/27/18 18:14 05/31/18 08:32 1 TAB Tramadol HCl (Ultram Tab) 50 mg Q6 PRN PO 05/28/18 18:15 06/27/18 18:14 Ipratropium [place] (Atrovent 0.02% 0.5MG/2.5ML Neb) 0.5 mg Q6R INH 05/28/18 21:00 06/27/18 20:59 06/01/18 07:22 0.5 MG Levalbuterol (Xopenex 0.63 Mg/ 3 Ml Neb) 0.63 mg Q6R INH 05/28/18 21:00 06/27/18 20:59 06/01/18 07:22 0.63 MG Zolpidem Tartrate (Ambien Tab) 5 mg HSZ PRN PO 05/28/18 21:45 06/27/18 21:44 Enteral Nutritional Formula (Boost) 1 can DAILY PO 05/29/18 08:00 06/28/18 07:59 06/01/18 07:23 1 CAN Budesonide (Pulmicort Respules 0.5MG/ 2ML Neb Soln) 0.5 mg BIDR INH 05/29/18 09:30 06/28/18 09:29 06/01/18 07:33 0.5 MG Ipratropium [place] (Atrovent 0.02% 0.5MG/2.5ML Neb) 0.5 mg Q3R PRN INH 05/29/18 09:15 06/28/18 09:14 Levalbuterol (Xopenex 0.63 Mg/ 3 Ml Neb) 0.63 mg Q3R PRN INH 05/29/18 09:15 06/28/18 09:14 Insulin Aspart (novoLOG ASPART) SLIDING SCALE If C... ACHS SC 05/30/18 06:30 06/29/18 06:29 Glucose (Glucose 40% Gel) 15-30 GRAMS 15 GRAMS... UD PRN PO 05/29/18 21:15 06/28/18 21:14 Glucose (Glucose Chew Tab) 4-8 Tablets 4 Tabl... UD PRN PO 05/29/18 21:15 06/28/18 21:14 Dextrose (Dextrose 50% 50ML Syringe) 25-50ML 25ML FOR ... UD PRN IV 05/29/18 21:15 06/28/18 21:14 Glucagon (Glucagon Inj) 1 mg UD PRN SQ 05/29/18 21:15 06/28/18 21:14 Carbohydrates (Carbohydrates For Hypoglycemia) 15-30 GRAMS 15 grams if BSG 54-69... UD PRN PO 05/29/18 21:15 06/28/18 21:14 Prednisone (PredniSONE TAB) 40 mg DAILY PO 06/01/18 08:00 07/01/18 07:59 06/01/18 07:25 40 MG Guaifenesin (Mucinex Contr Rel Tab) 1,200 mg Q12 PO 05/31/18 21:00 06/30/18 20:59 06/01/18 07:26 1,200 MG Amlodipine Besylate (Norvasc Tab) 10 mg QAM PO 06/01/18 08:00 07/01/18 07:59 06/01/18 07:25 10 MG Losartan Potassium (coZAAR TAB) 100 mg DAILY PO 06/01/18 08:00 06/28/18 08:59 06/01/18 07:24 100 MG Metoprolol Succinate (Toprol Xl Tab) 75 mg BID PO 06/01/18 08:00 06/27/18 20:59 06/01/18 07:25 75 MG Hydrochlorothiazide (Hydrochlorothiazide Tab) 25 mg QAM PO 06/02/18 08:00 07/02/18 07:59 Objective Vital Signs Date Time Temp Pulse Resp B/P (MAP) Pulse Ox O2 Delivery O2 Flow Rate FiO2 06/01/18 11:10 171/101 (124) 06/01/18 07:23 73 16 91 Room Air 06/01/18 07:01 36.3 78 18 194/118 (143) 90 3.0 06/01/18 02:05 177/105 (129) 06/01/18 01:58 80 16 90 Room Air 06/01/18 00:16 71 190/101 (130) 98 05/31/18 22:57 36.6 89 18 191/118 (142) 94 3.0 05/31/18 20:00 Nasal Cannula 2.0 05/31/18 18:59 92 16 94 Nasal Cannula 2.0 05/31/18 16:03 187/75 (112) 05/31/18 15:52 36.7 74 18 92 Nasal Cannula 2.0 05/31/18 15:04 79 16 99 Nasal Cannula 2.0 05/31/18 13:43 177/108 (131) Physical Exam General Appearance: no apparent distress Respiratory/Chest: no respiratory distress, no accessory muscle use, + rhonchi , + wheezing Cardiovascular: regular rate, rhythm, no edema, no murmur Laboratory Results Last 24 Hours Test 05/31/18 16:59 05/31/18 20:20 06/01/18 05:41 06/01/18 07:18 Bedside Glucose 123 mg/dl 155 mg/dl 99 mg/dl White Blood Count 8.87 K/uL Red Blood Count 4.63 M/uL Hemoglobin 12.9 g/dL Hematocrit 40.7 % Mean Corpuscular Volume 87.9 fL Mean Corpuscular Hemoglobin 27.9 pg Mean Corpuscular Hemoglobin Concent 31.7 g/dl RDW Standard Deviation 48.4 fL RDW Coefficient of Variation 15.0 % Platelet Count 238 K/uL Mean Platelet Volume 11.7 fL Sodium Level 142 mmol/L Potassium Level 3.6 mmol/L Chloride Level 104 mmol/L Carbon Dioxide Level 30 mmol/L Anion Gap 7.0 mmol/L Blood Urea Nitrogen 22 mg/dl Creatinine 0.55 mg/dl Est Creatinine Clear Calc Drug Dose 54.7 ml/min Estimated GFR () 99.8 Estimated GFR (Non- 86.1 BUN/Creatinine Ratio 39.7 Random Glucose 88 mg/dl Calcium Level 8.9 mg/dl Magnesium Level 2.6 mg/dl Test 06/01/18 11:08 Bedside Glucose 157 mg/dl Assessment and Plan This is an 82 year old female with a past medical history of a chronic nonspecific lung disease and follows with pulmonology as outpatient, RA with long-term steroid use, osteoporosis, chronic mixed systolic-diastolic heart failure - presents with a few week history of worsening shortness of breath. Acute Hypoxic Respiratory Failure Possible Bronchiectasis 06/01 - continue pulmonary toilet - continue Mucinex dose, flutter valve - Protonix on discharge as well - continue prednisone - will continue abx. for 5 days total, d/c in AM 05/31 - increasing Mucinex dose - continue flutter valve, Protonix - changing IV solu-medrol to prednisone - budesonide nebulizers 05/30 - much improved breathing status - will continue our current regimen of Solu-medrol, nebs as needed, Budesonide nebulizer - Protonix - continue antibiotics - flutter valve, chest PT 05/29 - appreciate pulmonary input - changing prednisone to Solu-medrol - Rocephin + Azithro - added budesonide nebulizer - Protonix added due to possible GERD related cough - vibration vest, flutter valve, chest PT 05/28 - Mucous plugging noted on outpatient CT - Presented with hypoxia, productive cough - will use oxygen as needed - nebs ordered - prednisone 40mg daily - Rocephin + Azithro - pulmonology consulted - vibration vest, flutter valve, chest PT ordered Elevated Blood Pressure - high blood pressure, likely due to steroids - Amlodipine 10mg added - Cozaar increased to 100mg daily - Lopressor increased - HCTZ added as well Rheumatoid Arthritis - will use Solu-medrol as above - taper down back to prednisone 5mg BID; baseline dose Chronic Mixed Systolic-Diastolic Heart Failure - outpatient echo showing grade 3 diastolic dysfunction and LVEF of 35-40% - currently does not appear to be volume overloaded, will monitor DVT ppx - Lovenox FULL CODE
[2018-06-01] MEDS ORDERED: HYDROCHLOROTHIAZIDE 25 MG TAB PO ONE (12:30)
[2018-06-01] MEDS: CEFTRIAXONE SOD INJ 1 GM in DEXTROSE 5% ADD-VANTAGE 50ML 50 ML IV SCH (18:02)
--- NOTE | 2018-06-01 18:25 | Pulmonology Progress Note ---
Pulmonary Progress Note Date of Service Jun 01, 2018. Attending Dr Phelps Subjective Not much change coordinator past 24 hours. Not bringing up any sputum. Objective NAD, alert Lungs clear, no wheeze, rhonchi Cor: RRR, no murmer Assessment & Plan (1) COPD exacerbation Assessment & Plan: Slow improvement Rec: Slow prednisone taper Continue ICS, mucolytics, flutter therapy, inhaled bronchodilators, wean O2 (2) Asthma Assessment & Plan: No wheezing at present. Data Medications: Current Inpatient Medications Medications (Trade) Dose Ordered Sig/Raman Route Start Time Stop Time Status Last Admin Dose Admin Enoxaparin Sodium (Lovenox Inj) 40 mg Q24H SQ 05/28/18 22:00 06/27/18 21:59 05/31/18 19:29 40 MG Acetaminophen (Tylenol Tab) 650 mg Q4H PRN PO 05/28/18 18:15 06/27/18 18:14 Al Hydrox/Mg Hydrox/Simethicone (Maalox Max Susp) 15 ml Q4H PRN PO 05/28/18 18:15 06/27/18 18:14 Magnesium Hydroxide (Milk Of Magnesia Susp) 30 ml Q6H PRN PO 05/28/18 18:15 06/27/18 18:14 05/31/18 08:35 30 ML Ondansetron HCl (Zofran Inj) 4 mg Q6H PRN IV 05/28/18 18:15 06/27/18 18:14 Ceftriaxone Sodium 1 gm/ Dextrose 50 ml @ 100 mls/hr Q24H IV 05/29/18 18:00 06/04/18 17:59 06/01/18 18:02 100 MLS/HR Azithromycin (Zithromax Tab) 250 mg QAM PO 05/29/18 08:00 06/02/18 08:59 06/01/18 07:26 250 MG Benzonatate (Tessalon Perles Cap) 100 mg TID PRN PO 05/28/18 18:15 06/27/18 18:14 06/01/18 03:15 100 MG Budesonide/ Formoterol Fumarate (Symbicort 160/ 4.5 Inh) 2 puffs BID INH 05/28/18 20:05 06/27/18 20:59 Future Hold Ferrous Sulfate (Feosol Tab) 325 mg BID PO 05/28/18 20:06 06/27/18 20:59 05/31/18 08:11 325 MG Senna/Docusate Sodium (Senokot S Tab) 1 tab DAILY PRN PO 05/28/18 18:15 06/27/18 18:14 05/31/18 08:32 1 TAB Tramadol HCl (Ultram Tab) 50 mg Q6 PRN PO 05/28/18 18:15 06/27/18 18:14 Ipratropium [place] (Atrovent 0.02% 0.5MG/2.5ML Neb) 0.5 mg Q6R INH 05/28/18 21:00 06/27/18 20:59 06/01/18 14:24 0.5 MG Levalbuterol (Xopenex 0.63 Mg/ 3 Ml Neb) 0.63 mg Q6R INH 05/28/18 21:00 06/27/18 20:59 06/01/18 14:24 0.63 MG Zolpidem Tartrate (Ambien Tab) 5 mg HSZ PRN PO 05/28/18 21:45 06/27/18 21:44 Enteral Nutritional Formula (Boost) 1 can DAILY PO 05/29/18 08:00 06/28/18 07:59 06/01/18 07:23 1 CAN Budesonide (Pulmicort Respules 0.5MG/ 2ML Neb Soln) 0.5 mg BIDR INH 05/29/18 09:30 06/28/18 09:29 06/01/18 07:33 0.5 MG Ipratropium [place] (Atrovent 0.02% 0.5MG/2.5ML Neb) 0.5 mg Q3R PRN INH 05/29/18 09:15 06/28/18 09:14 Levalbuterol (Xopenex 0.63 Mg/ 3 Ml Neb) 0.63 mg Q3R PRN INH 05/29/18 09:15 06/28/18 09:14 Insulin Aspart (novoLOG ASPART) SLIDING SCALE If C... ACHS SC 05/30/18 06:30 06/29/18 06:29 Glucose (Glucose 40% Gel) 15-30 GRAMS 15 GRAMS... UD PRN PO 05/29/18 21:15 06/28/18 21:14 Glucose (Glucose Chew Tab) 4-8 Tablets 4 Tabl... UD PRN PO 05/29/18 21:15 06/28/18 21:14 Dextrose (Dextrose 50% 50ML Syringe) 25-50ML 25ML FOR ... UD PRN IV 05/29/18 21:15 06/28/18 21:14 Glucagon (Glucagon Inj) 1 mg UD PRN SQ 05/29/18 21:15 06/28/18 21:14 Carbohydrates (Carbohydrates For Hypoglycemia) 15-30 GRAMS 15 grams if BSG 54-69... UD PRN PO 05/29/18 21:15 06/28/18 21:14 Prednisone (PredniSONE TAB) 40 mg DAILY PO 06/01/18 08:00 07/01/18 07:59 06/01/18 07:25 40 MG Guaifenesin (Mucinex Contr Rel Tab) 1,200 mg Q12 PO 05/31/18 21:00 06/30/18 20:59 06/01/18 07:26 1,200 MG Amlodipine Besylate (Norvasc Tab) 10 mg QAM PO 06/01/18 08:00 07/01/18 07:59 06/01/18 07:25 10 MG Losartan Potassium (coZAAR TAB) 100 mg DAILY PO 06/01/18 08:00 06/28/18 08:59 06/01/18 07:24 100 MG Metoprolol Succinate (Toprol Xl Tab) 75 mg BID PO 06/01/18 08:00 06/27/18 20:59 06/01/18 07:25 75 MG Hydrochlorothiazide (Hydrochlorothiazide Tab) 50 mg QAM PO 06/02/18 08:00 07/02/18 07:59 I & O: 24-Hour Column 06/02/18 08:00 Intake Total 420 ml Output Total 800 ml Balance -380 ml Vital Signs: Date Time Temp Pulse Resp B/P (MAP) Pulse Ox O2 Delivery O2 Flow Rate FiO2 06/01/18 16:00 Room Air 06/01/18 15:47 36.6 88 18 134/86 (102) 90 Room Air 06/01/18 14:25 77 16 90 Room Air 06/01/18 14:08 Nasal Cannula 2.0 06/01/18 13:35 87 136/81 (99) 06/01/18 11:10 171/101 (124) 06/01/18 07:23 73 16 91 Room Air 06/01/18 07:01 36.3 78 18 194/118 (143) 90 3.0 06/01/18 02:05 177/105 (129) 06/01/18 01:58 80 16 90 Room Air 06/01/18 00:16 71 190/101 (130) 98 05/31/18 22:57 36.6 89 18 191/118 (142) 94 3.0 05/31/18 20:00 Nasal Cannula 2.0 05/31/18 18:59 92 16 94 Nasal Cannula 2.0 Laboratory Results: Last 24 Hours Test 05/31/18 20:20 06/01/18 05:41 06/01/18 07:18 06/01/18 11:08 Bedside Glucose 155 mg/dl 99 mg/dl 157 mg/dl White Blood Count 8.87 K/uL Red Blood Count 4.63 M/uL Hemoglobin 12.9 g/dL Hematocrit 40.7 % Mean Corpuscular Volume 87.9 fL Mean Corpuscular Hemoglobin 27.9 pg Mean Corpuscular Hemoglobin Concent 31.7 g/dl RDW Standard Deviation 48.4 fL RDW Coefficient of Variation 15.0 % Platelet Count 238 K/uL Mean Platelet Volume 11.7 fL Sodium Level 142 mmol/L Potassium Level 3.6 mmol/L Chloride Level 104 mmol/L Carbon Dioxide Level 30 mmol/L Anion Gap 7.0 mmol/L Blood Urea Nitrogen 22 mg/dl Creatinine 0.55 mg/dl Est Creatinine Clear Calc Drug Dose 54.7 ml/min Estimated GFR () 99.8 Estimated GFR (Non- 86.1 BUN/Creatinine Ratio 39.7 Random Glucose 88 mg/dl Calcium Level 8.9 mg/dl Magnesium Level 2.6 mg/dl Test 06/01/18 16:34 Bedside Glucose 215 mg/dl
[2018-06-01] MEDS: ENOXAPARIN 40 MG/0.4 ML SYR SQ SCH (21:17)
[2018-06-02] MEDS: IPRATROPIUM BROMIDE NEB SOLN 0.02% 2.5 ML VIAL INH SCH ×2 (01:42→07:09)
[2018-06-02] MEDS: LEVALBUTEROL 0.63MG/3 ML NEB INH SCH ×2 (01:42→07:09)
[2018-06-02 01:44] VITALS: PULSE 78; O2SAT 91
[2018-06-02 05:46] LABS: HEMOGLOBIN 12.6 g/dL (12.0-16.0); MEAN CELL VOLUME 86.3 fL (80-100); MEAN CORPUSCULAR HEMOGLOBIN 27.9 pg (25-34); MEAN CORPUSCULAR HGB CONC 32.3 g/dl (32-36); MEAN PLATELET VOLUME 11.5 fL (7.4-10.4); PLATELET COUNT 198 K/uL (130-400); RED CELL DISTRIBUTION WIDTH SD 47.9 fL (36.4-46.3); WHITE BLOOD COUNT 7.98 K/uL (4.8-10.8)
[2018-06-02 06:21] LABS: CALCIUM 8.9 mg/dl (8.5-10.1); CREATININE 0.71 mg/dl (0.60-1.20); POTASSIUM 3.5 mmol/L (3.5-5.1)
[2018-06-02] MEDS: BUDESONIDE 0.5 MG/2 ML VIAL (PULMICORT) INH SCH (07:09)
[2018-06-02 07:11] VITALS: PULSE 65; O2SAT 92
[2018-06-02 07:24] VITALS: BP 162/76; PULSE 71; TEMP 36.6; O2SAT 92
[2018-06-02] MEDS ORDERED: HYDROCHLOROTHIAZIDE 50 MG TAB PO SCH (08:00)
[2018-06-02] MEDS: INSULIN ASPART 100 UNITS/ML 3 ML PEN SC SCH ×2 (08:00→11:45)
[2018-06-02] MEDS ORDERED: HYDROCHLOROTHIAZIDE 25 MG TAB PO SCH (08:00)
[2018-06-02] MEDS: FERROUS SULFATE 325 MG TAB PO SCH (08:00)
[2018-06-02] MEDS: BOOST VANILLA OR BOOST GLUCOSE CONTROL CHOCOLATE PO SCH (08:02)
[2018-06-02] MEDS: GUAIFENESIN 600 MG TABCR PO SCH (08:05)
[2018-06-02] MEDS: AZITHROMYCIN 250 MG TAB PO SCH (08:05)
[2018-06-02] MEDS: METOPROLOL SUCC 50MG EXT REL TAB PO SCH (08:06)
[2018-06-02] MEDS: LOSARTAN POTASSIUM 50 MG TAB PO SCH (08:08)
[2018-06-02] MEDS: AMLODIPINE BESYLATE 5 MG TAB PO SCH (08:08)
[2018-06-02] MEDS ORDERED: Enteral Nutrition Formula PO (10:00)
[2018-06-02] MEDS ORDERED: TPRSR50 PO (10:00)
[2018-06-02] MEDS ORDERED: NRV5 PO (10:00)
[2018-06-02] MEDS ORDERED: HYD50 PO (10:00)
[2018-06-02] MEDS ORDERED: PRD20 PO (10:00)
[2018-06-02] MEDS ORDERED: CZR50 PO (10:00)
--- NOTE | 2018-06-02 10:16 | Progress Note ---
Internal Med Progress Note Date of Service: Jun 02, 2018. Provider Documentation: SUBJECTIVE: Patient ambulating on room air. Reports that breathing is better. Less coughing. Denies chest pain. Denies problems with ambulation OBJECTIVE: Exam: General- no acute distress Eyes- EOMI Neck- no JVD Lungs- good air inhalation and exhalation, no wheezing, no active coughing Heart- regular rate Abdomen- soft, nontender, bowel sounds present Extremities- no edema Neuro- awake and alter, no focal deficits ASSESSMENT & PLAN: Hospital Course and Discharge Plans This is an 82 year old female with a past medical history of a chronic nonspecific lung disease and follows with pulmonology as outpatient, RA with long-term steroid use, osteoporosis, chronic mixed systolic-diastolic heart failure - presents with a few week history of worsening shortness of breath. Chest X ray Findings suggest reactive airways disease or viral bronchiolitis. No focal infiltrate to suggest pneumonia. Acute Hypoxic Respiratory Failure Possible bronchiolitis vs COPD exacerbation 06/02 -antibiotics completed, discharge on prednisone taper of 40 mg daily for 2 days , then 30 mg daily for 2 days, then 20 mg daily for 2 days, then 10 mg daily for 2 days 06/01 - continue pulmonary toilet - continue Mucinex dose, flutter valve - Protonix on discharge as well - continue prednisone - will continue abx. for 5 days total, d/c in AM 05/31 - increasing Mucinex dose - continue flutter valve, Protonix - changing IV solu-medrol to prednisone - budesonide nebulizers 05/30 - much improved breathing status - will continue our current regimen of Solu-medrol, nebs as needed, Budesonide nebulizer - Protonix - continue antibiotics - flutter valve, chest PT 05/29 - appreciate pulmonary input - changing prednisone to Solu-medrol - Rocephin + Azithro - added budesonide nebulizer - Protonix added due to possible GERD related cough - vibration vest, flutter valve, chest PT 05/28 - Mucous plugging noted on outpatient CT - Presented with hypoxia, productive cough - will use oxygen as needed - nebs ordered - prednisone 40mg daily - Rocephin + Azithro - pulmonology consulted - vibration vest, flutter valve, chest PT ordered Hypertension - Elevated Blood Pressure -high blood pressure, likely due to steroids vs respiratory distress -during this stay patient has had increases in medications of Lopressor and Losartan; also had been started on amlodipine and HCTZ -continue as outpatient with prescriptions made. Patient will need this regimen to be reassessed by primary care doctor Rheumatoid Arthritis -prednisone taper until back to predbisone 5 mg BID baseline dose Chronic Mixed Systolic-Diastolic Heart Failure - outpatient echo showing grade 3 diastolic dysfunction and LVEF of 35-40% Discharge Diagnosis Acute respiratory failure with hypoxia from possible bronchiolitis vs COPD exacerbation vs Mucous plugging of bronchi Hypertension Rheumatoid Arthritis Discharge Instructions prednisone taper of 40 mg daily for 2 days, then 30 mg daily for 2 days, then 20 mg daily for 2 days, then 10 mg daily for 2 days before resuming baseline 5 mg BID for prednisone Follow up with primary care doctor for Hypertension and breathing 06/08/2018 11:10 AM Maya Rubio DO [facility] Follow with pulmonary doctor for breathing Pulmonary Clinic with Dr. Winston on 06/08/18 at 3PM [address], [address] [place] [address] Vital Signs: Date Time Temp Pulse Resp B/P (MAP) Pulse Ox O2 Delivery O2 Flow Rate FiO2 06/02/18 10:18 36.6 71 16 92 Room Air Nasal Cannula 06/02/18 09:37 Room Air 06/02/18 07:24 36.6 71 16 162/76 (104) 92 06/02/18 07:11 65 18 92 Room Air 06/02/18 01:44 78 18 91 Room Air 06/02/18 00:10 Room Air 06/01/18 23:11 36.7 85 18 114/75 (88) 92 Room Air 06/01/18 19:23 88 16 90 Room Air 06/01/18 16:00 Room Air 06/01/18 15:47 36.6 88 18 134/86 (102) 90 Room Air 06/01/18 14:25 77 16 90 Room Air 06/01/18 14:08 Nasal Cannula 2.0 06/01/18 13:35 87 136/81 (99) 06/01/18 11:10 171/101 (124) Lab Results: Results Past 24 Hours Test 06/01/18 11:08 06/01/18 16:34 06/01/18 20:28 06/02/18 05:23 Range/Units Bedside Glucose 157 215 128 70-90 mg/dl White Blood Count 7.98 4.8-10.8 K/uL Red Blood Count 4.52 4.2-5.4 M/uL Hemoglobin 12.6 12.0-16.0 g/dL Hematocrit 39.0 37-47 % Mean Corpuscular Volume 86.3 80-100 fL Mean Corpuscular Hemoglobin 27.9 25-34 pg Mean Corpuscular Hemoglobin Concent 32.3 32-36 g/dl RDW Standard Deviation 47.9 36.4-46.3 fL RDW Coefficient of Variation 15.0 11.5-14.5 % Platelet Count 198 130-400 K/uL Mean Platelet Volume 11.5 7.4-10.4 fL Sodium Level 138 136-145 mmol/L Potassium Level 3.5 3.5-5.1 mmol/L Chloride Level 103 98-107 mmol/L Carbon Dioxide Level 28 21-32 mmol/L Anion Gap 7.0 3-11 mmol/L Blood Urea Nitrogen 25 7-18 mg/dl Creatinine 0.71 0.60-1.20 mg/dl Est Creatinine Clear Calc Drug Dose 42.4 ml/min Estimated GFR () 90.7 Estimated GFR (Non- 78.2 BUN/Creatinine Ratio 34.7 10-20 Random Glucose 101 70-99 mg/dl Calcium Level 8.9 8.5-10.1 mg/dl Magnesium Level 2.3 1.8-2.4 mg/dl Test 06/02/18 07:34 Range/Units Bedside Glucose 95 70-90 mg/dl
[2018-06-02 10:18] VITALS: BP 162/76; PULSE 71; TEMP 36.6; O2SAT 92
--- NOTE | 2018-06-02 11:12 | Discharge Summary ---
Discharge Summary Date of Service Jun 02, 2018. Discharge Summary Admission Date: May 28, 2018 at 18:13 Discharge Date: Jun 02, 2018 Discharge Disposition: Home Principal Diagnosis: Acute respiratory failure with hypoxia from possible bronchiolitis vs COPD exacerbation vs Mucous plugging of bronchi Hypertension Rheumatoid Arthritis Medication Reconciliation New Medications: Amlodipine Besylate (Amlodipine Besylate) 5 Mg Tab 10 MG PO QAM for 30 Days, #30 TAB Hydrochlorothiazide (Hydrochlorothiazide) 50 Mg Tab 50 MG PO QAM for 30 Days, #30 TAB Losartan Potassium (Losartan Potassium) 50 Mg Tab 100 MG PO DAILY for 30 Days, #30 TAB Metoprolol Succinate (Metoprolol Succinate ER) 50 Mg Tabcr 75 MG PO BID for 30 Days, #90 TAB Prednisone (Prednisone) 20 Mg Tab 0 PO DAILY for 8 Days, #9 TAB take 40 mg daily for 2 days, then take 30 mg daily for 2 days, then take 20 mg daily for 2 days, then take 10 mg daily for 2 days [Enteral Nutrition Formula] () 1 CAN LIQD 1 CAN PO DAILY for 30 Days, #30 CAN Continued Medications: Albuterol Sulfate (Proair Respiclick) 108 Mcg/Act Aer PUFFS INH QID PRN for SOB/Wheezing Benzonatate (Benzonatate) 100 Mg Cap 100 MG PO TID PRN for Cough for 30 Days, #90 CAP Budesonide/Formoterol Fumarate (Symbicort 160/4.5 Inhaler) 120 Puffs/ Aero 2 PUFF INH BID Cholecalciferol (Vitamin D3) 1,000 Unit Cap 1000 UNITS PO DAILY Colostrum (Colostrum) 500 Mg Cap 500 MG PO DAILY Ferrous Sulfate (Ferrous Sulfate) 325 Mg Tab 1 TAB PO BID Levalbuterol (Levalbuterol HCl) 0.63 Mg/3 Ml Nebu 1 DOSE ND Q8 PRN for Wheezing Nitroglycerin (Nitrostat) 0.4 Mg/1 Tab Subl 0.4 MG SL UD PRN for Chest Pain for 30 Days, #30 TABS 6 Refills Polyethylene (Miralax) 17 Gm Pow 17 GM PO DAILY PRN for Constipation Sennosides-Docusate Sodium (Senna S) 1 Tab Tab 1 TAB PO DAILY PRN for BM Tramadol (Ultram) 50 Mg Tab 50 MG PO Q6 PRN for Pain, TAB Discontinued Medications: Enteral Nutrition Formula (Ensure Plus Vanilla) 1 Can Liqd PO DAILY, CAN Losartan Potassium (Cozaar) 25 Mg Tab 25 MG PO DAILY, TAB Metoprolol Succ (Toprol Xl) (Toprol-Xl) 50 Mg Tabcr 50 MG PO BID, #30 TAB Prednisone (Prednisone) 5 Mg Tab 5 MG PO BID Admission Information HPI (per Admitting provider): This is an 82 year old female with a past medical history of a chronic nonspecific lung disease and follows with pulmonology as outpatient, RA with long-term steroid use, osteoporosis, chronic mixed systolic-diastolic heart failure - presents with a few week history of worsening shortness of breath. States for months she has had difficulty with a productive cough and shortness of breath. Follows with pulmonology as an outpatient; has been using Xopenex nebulizer, albuterol inhaler and Symbicort. States that the past week her breathing worsened and she had a CT scan done as an outpatient yesterday. She states her breathing this morning became even worse, so she had to come to the ER. In the ER, received one hour long nebulizer and her breathing status improved slightly. Denies fevers/chills. Denies chest pain. Physical Exam (per Admitting): General Appearance: + mild distress Head: normocephalic, atraumatic Eyes: normal inspection ENT: hearing grossly normal Neck: supple Respiratory/Chest: no respiratory distress, no accessory muscle use, + wheezing (diffuse end expiratory wheezing) Cardiovascular: no edema, + tachycardia, + systolic murmur Abdomen/GI: normal bowel sounds, non tender, soft Back: no CVA tenderness, no muscle spasm Extremities/Musculoskelatal: normal inspection, no calf tenderness, normal capillary refill, no pedal edema Neurologic/Psych: clinical informatics spec II-XII nml as tested, no motor/sensory deficits, alert , normal mood/affect, oriented x 3 Skin: normal color, warm/dry, no rash Lymphatic: no adenopathy Hospital Course Hospital Course and Discharge Plans This is an 82 year old female with a past medical history of a chronic nonspecific lung disease and follows with pulmonology as outpatient, RA with long-term steroid use, osteoporosis, chronic mixed systolic-diastolic heart failure - presents with a few week history of worsening shortness of breath. Chest X ray Findings suggest reactive airways disease or viral bronchiolitis. No focal infiltrate to suggest pneumonia. Acute Hypoxic Respiratory Failure Possible bronchiolitis vs COPD exacerbation 06/02 -antibiotics completed, discharge on prednisone taper of 40 mg daily for 2 days , then 30 mg daily for 2 days, then 20 mg daily for 2 days, then 10 mg daily for 2 days 06/01 - continue pulmonary toilet - continue Mucinex dose, flutter valve - Protonix on discharge as well - continue prednisone - will continue abx. for 5 days total, d/c in AM 05/31 - increasing Mucinex dose - continue flutter valve, Protonix - changing IV solu-medrol to prednisone - budesonide nebulizers 05/30 - much improved breathing status - will continue our current regimen of Solu-medrol, nebs as needed, Budesonide nebulizer - Protonix - continue antibiotics - flutter valve, chest PT 05/29 - appreciate pulmonary input - changing prednisone to Solu-medrol - Rocephin + Azithro - added budesonide nebulizer - Protonix added due to possible GERD related cough - vibration vest, flutter valve, chest PT 05/28 - Mucous plugging noted on outpatient CT - Presented with hypoxia, productive cough - will use oxygen as needed - nebs ordered - prednisone 40mg daily - Rocephin + Azithro - pulmonology consulted - vibration vest, flutter valve, chest PT ordered Hypertension - Elevated Blood Pressure -high blood pressure, likely due to steroids vs respiratory distress -during this stay patient has had increases in medications of Lopressor and Losartan; also had been started on amlodipine and HCTZ -continue as outpatient with prescriptions made. Patient will need this regimen to be reassessed by primary care doctor Rheumatoid Arthritis -prednisone taper until back to predbisone 5 mg BID baseline dose Chronic Mixed Systolic-Diastolic Heart Failure - outpatient echo showing grade 3 diastolic dysfunction and LVEF of 35-40% Discharge Diagnosis Acute respiratory failure with hypoxia from possible bronchiolitis vs COPD exacerbation vs Mucous plugging of bronchi Hypertension Rheumatoid Arthritis Discharge Instructions prednisone taper of 40 mg daily for 2 days, then 30 mg daily for 2 days, then 20 mg daily for 2 days, then 10 mg daily for 2 days before resuming baseline 5 mg BID for prednisone Follow up with primary care doctor for Hypertension and breathing 06/08/2018 11:10 AM Maya Rubio DO [facility] Follow with pulmonary doctor for breathing Pulmonary Clinic with Dr. Winston on 06/08/18 at 3PM [place] [id number] [facility], [address] [place] [address] Total time spent on discharge = 40 minutes This includes examination of the patient, discharge planning, medication reconciliation, and communication with other providers. Discharge Instructions see above
--- NOTE | 2018-06-02 11:12 | Discharge Instructions ---
Discharge Instructions Date of Service Jun 02, 2018. Admission Reason for Admission: Acute Hypoxemic Respiratory Failure Discharge Discharge Diagnosis / Problem: Acute respiratory failure with hypoxia from possible bronchiolitis vs COPD Discharge Goals Goal(s): Improve function, Improve disease control Activity Recommendations Activity Limitations: per Instructions/Follow-up section . Instructions / Follow-Up Instructions / Follow-Up Hospital Course and Discharge Plans This is an 82 year old female with a past medical history of a chronic nonspecific lung disease and follows with pulmonology as outpatient, RA with long-term steroid use, osteoporosis, chronic mixed systolic-diastolic heart failure - presents with a few week history of worsening shortness of breath. Chest X ray Findings suggest reactive airways disease or viral bronchiolitis. No focal infiltrate to suggest pneumonia. Acute Hypoxic Respiratory Failure Possible bronchiolitis vs COPD exacerbation 06/02 -antibiotics completed, discharge on prednisone taper of 40 mg daily for 2 days , then 30 mg daily for 2 days, then 20 mg daily for 2 days, then 10 mg daily for 2 days 06/01 - continue pulmonary toilet - continue Mucinex dose, flutter valve - Protonix on discharge as well - continue prednisone - will continue abx. for 5 days total, d/c in AM 05/31 - increasing Mucinex dose - continue flutter valve, Protonix - changing IV solu-medrol to prednisone - budesonide nebulizers 05/30 - much improved breathing status - will continue our current regimen of Solu-medrol, nebs as needed, Budesonide nebulizer - Protonix - continue antibiotics - flutter valve, chest PT 05/29 - appreciate pulmonary input - changing prednisone to Solu-medrol - Rocephin + Azithro - added budesonide nebulizer - Protonix added due to possible GERD related cough - vibration vest, flutter valve, chest PT 05/28 - Mucous plugging noted on outpatient CT - Presented with hypoxia, productive cough - will use oxygen as needed - nebs ordered - prednisone 40mg daily - Rocephin + Azithro - pulmonology consulted - vibration vest, flutter valve, chest PT ordered Hypertension - Elevated Blood Pressure -high blood pressure, likely due to steroids vs respiratory distress -during this stay patient has had increases in medications of Lopressor and Losartan; also had been started on amlodipine and HCTZ -continue as outpatient with prescriptions made. Patient will need this regimen to be reassessed by primary care doctor Rheumatoid Arthritis -prednisone taper until back to predbisone 5 mg BID baseline dose Chronic Mixed Systolic-Diastolic Heart Failure - outpatient echo showing grade 3 diastolic dysfunction and LVEF of 35-40% Discharge Diagnosis Acute respiratory failure with hypoxia from possible bronchiolitis vs COPD exacerbation vs Mucous plugging of bronchi Hypertension Rheumatoid Arthritis Discharge Instructions prednisone taper of 40 mg daily for 2 days, then 30 mg daily for 2 days, then 20 mg daily for 2 days, then 10 mg daily for 2 days before resuming baseline 5 mg BID for prednisone Follow up with primary care doctor for Hypertension and breathing 06/08/2018 11:10 AM Maya Rubio DO [facility] Follow with pulmonary doctor for breathing Pulmonary Clinic with Dr. Winston on 06/08/18 at 3PM [address], [address] [place] [address] Current Hospital Diet Patient's current hospital diet: Regular Diet Discharge Diet Recommended Diet: Regular Diet Pending Studies Studies pending at discharge: no Laboratory Results 06/02/18 05:23 06/02/18 05:23 Test 05/28/18 15:30 05/28/18 15:38 05/29/18 15:30 06/02/18 05:23 Immature Granulocyte % (Auto) 0.2 % White Blood Count 8.15 K/uL (4.8-10.8) Red Blood Count 4.72 M/uL (4.2-5.4) 4.52 M/uL (4.2-5.4) Hemoglobin 13.4 g/dL (12.0-16.0) Hematocrit 41.0 % (37-47) Mean Corpuscular Volume 86.9 fL (80-100) 86.3 fL (80-100) Mean Corpuscular Hemoglobin 28.4 pg (25-34) 27.9 pg (25-34) Mean Corpuscular Hemoglobin Concent 32.7 g/dl (32-36) 32.3 g/dl (32-36) Platelet Count 234 K/uL (130-400) Mean Platelet Volume 10.8 fL (7.4-10.4) 11.5 fL (7.4-10.4) Neutrophils (%) (Auto) 78.6 % Lymphocytes (%) (Auto) 11.9 % Monocytes (%) (Auto) 6.9 % Eosinophils (%) (Auto) 2.0 % Basophils (%) (Auto) 0.4 % Neutrophils # (Auto) 6.41 K/uL (1.4-6.5) Lymphocytes # (Auto) 0.97 K/uL (1.2-3.4) Monocytes # (Auto) 0.56 K/uL (0.11-0.59) Eosinophils # (Auto) 0.16 K/uL (0-0.5) Basophils # (Auto) 0.03 K/uL (0-0.2) Immature Granulocyte # (Auto) 0.02 K/uL (0.00-0.02) Prothrombin Time 10.8 SECONDS (9.0-12.0) Prothromb Time International Ratio 1.0 (0.9-1.1) Activated Partial Thromboplast Time 26.2 SECONDS (21.0-31.0) Partial Thromboplastin Ratio 1.0 Total Bilirubin 0.3 mg/dl (0.2-1) Direct Bilirubin 0.1 mg/dl (0-0.2) Aspartate Amino Transf (AST/SGOT) 19 U/L (15-37) Alanine Aminotransferase (ALT/SGPT) 18 U/L (12-78) Alkaline Phosphatase 55 U/L (45-117) Total Protein 7.4 gm/dl (6.4-8.2) Albumin 3.7 gm/dl (3.4-5.0) Bedside Troponin I < 0.030 ng/ml (0-0.045) Estimated Average Glucose 128 mg/dl Hemoglobin A1c 6.1 % (4.5-5.6) RDW Standard Deviation 47.9 fL (36.4-46.3) RDW Coefficient of Variation 15.0 % (11.5-14.5) Anion Gap 7.0 mmol/L (3-11) Est Creatinine Clear Calc Drug Dose 42.4 ml/min Estimated GFR () 90.7 Estimated GFR (Non- 78.2 BUN/Creatinine Ratio 34.7 (10-20) Calcium Level 8.9 mg/dl (8.5-10.1) Magnesium Level 2.3 mg/dl (1.8-2.4) Test 06/02/18 07:34 Bedside Glucose 95 mg/dl (70-90) Date/Time Source Procedure Growth Status 05/28/18 15:30 Blood Blood Culture - Preliminary NO GROWTH TO DATE. Resulted 05/29/18 10:59 Sputum Expectorated Sputum Gram Stain - Final Complete 05/29/18 10:59 Sputum Expectorated Sputum Sputum Culture - Final MODERATE NORMAL AMADA. Complete Hemoglobin A1c Test 05/29/18 15:30 Range/Units Estimated Average Glucose 128 mg/dl Hemoglobin A1c 6.1 H 4.5-5.6 % Medical Emergencies . Who to Call and When: Medical Emergencies: If at any time you feel your situation is an emergency, please call 911 immediately. . Non-Emergent Contact Non-Emergency issues call your: Primary Care Provider, [employer] Supervisor Call Non-Emergent contact if: you have any medication questions . . "Provider Documentation" section prepared by Narciso Chaudhari. .
== END 2018-06-02 13:22 | disposition home or self-care (01) | DRG 189 ==
LOC: C.EDB 14:23 → C.4E 18:13 → ENRESERV 18:24
PROVIDERS: ADMIT Family Medicine; ATTEND Hospitalist
DX: J96.01 Acute respiratory failure with hypoxia (principal); J44.1 Chronic obstructive pulmonary disease with (acute) exacerbation; J21.9 Acute bronchiolitis, unspecified; I50.42 Chronic combined systolic (congestive) and diastolic (congestive) heart failure; K44.9 Diaphragmatic hernia without obstruction or gangrene; K21.9 Gastro-esophageal reflux disease without esophagitis; R03.0 Elevated blood-pressure reading, without diagnosis of hypertension; T49.0X5A Adverse effect of local antifungal, anti-infective and anti-inflammatory drugs, initial encounter; M06.9 Rheumatoid arthritis, unspecified; D50.9 Iron deficiency anemia, unspecified; M81.0 Age-related osteoporosis without current pathological fracture; Z79.52 Long term (current) use of systemic steroids; Z79.899 Other long term (current) drug therapy; Z88.1 Allergy status to other antibiotic agents; Z88.8 Allergy status to other drugs, medicaments and biological substances

== ENCOUNTER 2020-08-18 10:21 | Inpatient (IN) ==
[2020-08-18 11:08] LABS: Basophils # (auto) 0.02 K/uL (0-0.2); Basophils % (auto) 0.3 %; Eosinophils # (auto) 0.16 K/uL (0-0.5); Eosinophils % (auto) 2.4 %; Hematocrit (blood only) 43.3 % (37-47); Hemoglobin 13.6 g/dL (12.0-16.0); Immature Granulocytes # (auto) 0.01 K/uL (0.00-0.02); Immature Granulocytes % (auto) 0.2 %; Lymphocytes # (auto) 0.62 K/uL (1.2-3.4); Lymphocytes % (auto) 9.5 %; Mean Corpuscular Hemoglobin 29.4 pg (25-34); Mean Corpuscular Hgb Conc 31.4 g/dL (32-36); Mean Corpuscular Volume 93.5 fL (80-100); Mean Platelet Volume 11.7 fL (7.4-10.4); Monocytes # (auto) 0.47 K/uL (0.11-0.59); Monocytes % (auto) 7.2 %; Neutrophils # (auto) 5.26 K/uL (1.4-6.5); Neutrophils % (auto) 80.4 %; Platelet Count 236 K/uL (130-400); RDW Coefficient of Variation 17.7 % (11.5-14.5); RDW Standard Deviation 59.8 fL (36.4-46.3); Red Blood Count 4.63 M/uL (4.2-5.4); White Blood Count 6.54 K/uL (4.8-10.8)
[2020-08-18] MEDS ORDERED: ONDANSETRON INJ 2 MG/ML 2 ML VIAL IV STA (11:08)
[2020-08-18 11:26] LABS: INR 1.9 (0.9-1.1); Partial Thromboplastin Ratio 1.1; Partial Thromboplastin Time 31.5 Seconds (21.0-31.0); Prothrombin Time 19.8 Seconds (9.0-12.0)
--- NOTE | 2020-08-18 11:32 | XRay Report ---
XR chest 1V portable CLINICAL HISTORY: SEPSIS COMPARISON STUDY: 07/26/2020 FINDINGS: The heart is enlarged. There is a retrocardiac opacity consistent with a hiatal hernia. The re is aortic tortuosity. There is evidence for multiple prior vertebroplasties. There is a linear opa city within the right midlung zone likely representing subsegmental atelectasis. There are basilar op acities likely atelectatic although an infectious/inflammatory process could appear similar. There ar e postsurgical changes of a reverse total right shoulder arthroplasty.[ IMPRESSION: 1. Cardiomegaly 2. Large hiatal hernia 3. Basilar opacities, likely atelectatic although an infectious/inflammatory process could appear sim ilar ACT 112: Negative or not required by law. Electronically signed by: Donald Chapman M.D. 08/18/2020 11:31 AM
[2020-08-18 11:41] LABS: Albumin Level 2.9 gm/dl (3.4-5.0); BUN Creatinine Ratio 39.8 (10-20); Bilirubin,Total 1.9 mg/dl (0.2-1); Calcium 9.7 mg/dl (8.5-10.1); Creatinine Clr Calc Pharmacy 20.9 ml/min; Est GFR (African American) 40.5; Est GFR (Non-African American) 34.9; Potassium 3.6 mmol/L (3.5-5.1); Troponin I 0.2 ng/ml (0-0.045)
[2020-08-18 12:13] LABS: Bilirubin Direct 1.1 mg/dl (0-0.2)
[2020-08-18] MEDS ORDERED: FUROSEMIDE 40 MG/4 ML VIAL IV STA (12:19)
--- NOTE | 2020-08-18 12:20 | CT Scan Report ---
CT SCAN OF THE BRAIN WITHOUT IV CONTRAST CLINICAL HISTORY: Fall. COMPARISON STUDY: No priors. TECHNIQUE: Unenhanced axial CT scan of the brain is performed from the vertex to the skull base. A do se lowering technique was utilized adhering to the principles of ALARA. FINDINGS: Brain parenchyma: There are age-related involutional changes noting moderate confluent subcortical a nd periventricular microangiopathic change. There is no hemorrhage, mass effect, or evidence of acute territorial ischemia by CT criteria. Casarez-white matter differentiation is preserved. No extra-axial fluid collection is seen. Ventricles, sulci, cisterns: Prominent secondary to involutional change. Intracranial vasculature: There is atherosclerotic calcification of the cavernous carotid and vertebr al arteries. Calvarium: The skeletal structures are osteopenic. No depressed calvarial fracture is seen. Soft tissues: There is minimal left frontal scalp contusion. Sinuses and mastoids: A 12 mm retention cyst is noted in the left maxillary antrum. The remaining vis ualized paranasal sinuses are clear. The mastoid air cells are well pneumatized. Orbits: The bony orbits are grossly intact. CT of the paranasal sinuses dated 03/02/2008. There are bi lateral ocular lens implants. IMPRESSION: There is no hemorrhage, mass effect, or evidence of acute territorial ischemia by CT lul lobato. ACT 112: Negative or not required by law. Electronically signed by: Kyle Garcia M.D. 08/18/2020 12:19 PM
--- NOTE | 2020-08-18 12:23 | CT Scan Report ---
MAXILLOFACIAL CT CT DOSE: HISTORY: fall TECHNIQUE: Multiaxial CT images of the maxillofacial region were performed and reformatted in the cor onal plane without the use of contrast. A dose lowering technique was utilized adhering to the princ iplarmando of SHAHBAZ. COMPARISON: None. FINDINGS: The visualized cervical spine, skull base, mandible, pterygoid plates, zygomatic arches, la rocio papyracea, and orbital floors are intact. Mild nasal bone deformity is likely due to old, healed fractures. No acute facial fractures identified. There is left supraorbital soft tissue swelling. Th e globes and retrobulbar fat are intact. IMPRESSION: No acute fractures within the maxillofacial region. Left supraorbital soft tissue swelling. ACT 112: Negative or not required by law. Electronically signed by: Pedrito Mcknight M.D. 08/18/2020 12:21 PM
--- NOTE | 2020-08-18 12:26 | CT Scan Report ---
CT SCAN OF THE CERVICAL SPINE CLINICAL HISTORY: Fall. Change in mental status. COMPARISON STUDY: CT of the cervical spine dated 02/14/2015. TECHNIQUE: CT scan of the cervical spine is performed from the skull base to the upper thoracic spine . Images are reviewed in the axial, sagittal, and coronal planes. IV contrast was not administered fo r this examination. A dose lowering technique was utilized adhering to the principles of ALARA. CT DOSE: 1259.46 mGy.cm FINDINGS: Skeletal structures: The skeletal structures are osteopenic. There is no evidence of fracture or subl uxation involving the cervical spine. Vertebral body height is maintained throughout the cervical spi ne. There is mild anterolisthesis at C3-C4 and C4-C5. Alignment is otherwise preserved. Anterior oste ophytes are seen throughout. There is a mild chronic compression deformity of T1. The odontoid proces s and lateral masses are intact. The atlantoaxial articulation is preserved noting productive degener ative change. The spinous processes appear intact. There is moderate multilevel cervical spondylosis. Uncovertebral and facet arthropathy contribute to neural foraminal stenosis at several levels. Intervertebral discs: Mild to moderate disc space narrowing is seen at C5-C6 and C6-C7. The remaining disc spaces are maintained. Central canal: Posterior disc osteophyte complexes at C5-C6 and C6-C7 likely contribute to acquired c ompromise of the central canal. Soft tissues: The prevertebral and paraspinous soft tissues are within normal limits. There is athero sclerotic calcification of the carotid bulbs. The thyroid gland is enlarged and heterogeneous. Calcif ied sialoliths are noted in the submandibular glands. Calvarium: The visualized calvarium at the skull base appears intact. Brain parenchyma: Partially visualized brain parenchyma the skull base is within normal limits noting age-related involutional change. Sinuses and mastoids: A retention cyst is partially visualized in the left maxillary antrum. The mast oid air cells are well pneumatized. Lung apices: A right pleural effusion is noted. IMPRESSION: 1. There is no evidence of fracture or subluxation involving the cervical spine. 2. Osteopenia and spondylotic change as above. 3. Right pleural effusion. ACT 112: Negative or not required by law. Electronically signed by: Kyle Garcia M.D. 08/18/2020 12:25 PM
--- NOTE | 2020-08-18 12:27 | CT Scan Report ---
CT SCAN OF THE ABDOMEN AND PELVIS WITHOUT CONTRAST CLINICAL HISTORY: Trauma. Jaundice. COMPARISON STUDY: Contrast-enhanced study dated 07/26/2020 TECHNIQUE: CT scan of the abdomen and pelvis was performed from the lung bases to the proximal femurs . Images are reviewed in the axial, sagittal, and coronal planes. IV contrast was not administered fo r this examination. A dose lowering technique was utilized adhering to the principles of ALARA. CT DOSE: FINDINGS: Lower chest: The heart is enlarged. There are coronary artery calcifications. There are bilateral ple ural effusions. There are dependent basilar opacities likely representing compressive atelectasis alt sven an infectious/inflammatory processes could appear similar Liver: There is a stable 8 mm right hepatic lobe hypodensity likely representing a cyst Gallbladder: Surgically absent Spleen: Normal in size and attenuation. Pancreas: Unremarkable. Adrenal glands: Unremarkable. Kidneys: There are bilateral nonobstructing renal calculi. There is no significant hydronephrosis. Bowel: There is colonic diverticulosis. There is no definite evidence of acute diverticulitis. There is no convincing evidence of acute appendicitis. Bowel evaluation is significantly limited due to the possibility of intra-abdominal fat, the lack of orally administered contrast, and the lack of intrav enous contrast. Peritoneum: There is no intraperitoneal free air or abdominal ascites. Vasculature: There are moderately extensive atherosclerotic vascular calcifications. There is no evid ence of abdominal aortic aneurysm Adenopathy: None. Pelvic viscera: Visualization of pelvis is limited due to beam hardening artifact from the patient's hip arthroplasties. The bladder is distended. Skeletal structures: Bones are osteopenic. There are multiple thoracic and lumbar vertebral body comp ression fractures. The patient is status post multi level vertebroplasties There is generalized anasarca IMPRESSION: 1. Technically limited study secondary to the lack of intravenous and oral contrast, as well as secon joseph to the paucity of intra-abdominal fat and increased fat density secondary to anasarca 2. Cardiomegaly and bilateral pleural effusions with associated basilar opacities likely atelectatic 3. Bilateral nephrolithiasis. No ureteral or bladder calculi identified 4. No evidence of bowel obstruction. No evidence of free air 5. Distended urinary bladder 6. Hiatal hernia 7. Osteopenia. Multiple chronic thoracic and lumbar vertebral body fractures. Postsurgical changes of multilevel vertebroplasty. ACT 112: Negative or not required by law. Electronically signed by: Donald Chapman M.D. 08/18/2020 12:25 PM
[2020-08-18 12:58] LABS: Appearance Urine Cloudy (Clear); Bacteria Urine Automated 4+ (Negative); Bilirubin Urine Negative (Negative); Blood Urine Negative (Negative); Color Urine Dark Yellow; Glucose Urine UA Negative (Negative); Ketones Urine Trace (Negative); Leukocyte Esterase Urine 2+ (Negative); Nitrite Urine Negative (Negative); Protein Urine 1+ (Negative); RBC Urine Automated 0-4 /hpf (0-4); Specific Gravity Urine 1.018 (1.000-1.030); Urobilinogen Urine Negative (Negative)
--- NOTE | 2020-08-18 14:48 | History & Physical Report ---
Date of Service August 18, 2020 Assessment & Plan (1) Acute respiratory failure with hypoxia: (2) Acute on chronic systolic CHF (congestive heart failure): (3) Elevated troponin: (4) Idiopathic cardiomyopathy: -Admit to [facility] with telemetry -Patient presenting from home by referral PCP for evaluation of elevated LFTs -In the ED, found to be volume overloaded with significant lower extremity edema, proBNP 24,000, hypoxic on room air at 89% - currently saturating well on 2 L of oxygen via nasal cannula -History of idiopathic cardiomyopathy, EF <20% on echo 07/2019. Patient has declined AICD in the past as well as medications however seems to be compliant with medications recently. -S/p Lasix 40 mg IV in the ED, will continue with Lasix 40 mg IV twice daily -Continue home beta-sinai, Entresto, isosorbide -Rangel placed for strict I's and O's, low Na+ diet, daily weights -Initial troponin 0.2, EKG without acute ST changes. Likely demand ischemia secondary to acute CHF. Continue serial cardiac enzymes -Update echo -Cardiology consult, input appreciated (5) Coagulopathy: (6) Elevated LFTs: -Total bili 1.9, AST 346, ALT 260, alk phos 101, INR 1.9 -? Congestive hepatopathy from CHF -No evidence of CBD obstruction or dilatation on CT -GI consult, discussed with YENNIFER Montero -[facility] -Trial vitamin K 5 mg IV, should help coagulopathy if patient is nutritionally deficient -Clear liquids for now, n.p.o. after midnight for possible GI procedure tomorrow (7) Acute kidney injury superimposed on chronic kidney disease: (8) CKD (chronic kidney disease), stage III: -Creatinine 1.3, baseline ~ 1.0 -Likely prerenal in nature -Monitor renal function closely while diuresing for CHF (9) Superior mesenteric artery stenosis: -CT ABD/pelvis w/ contrast 07/26: CT abdomen pelvis with IV contrast was obtained that showed focal high-grade stenosis with near complete occlusion within a proximal branch of the superior mesenteric artery -Patient denies abdominal pain -Lactate 2.6, repeat 1.6 -Doubt ischemic bowel -Continue aspirin. Patient was prescribed statin by PCP however did not start yet, will hold at this time due to elevated LFTs -Patient has vascular surgery follow-up scheduled as an outpatient (10) Rheumatoid arthritis: -On chronic prednisone, will continue (11) DVT prophylaxis: -SCDs due to coagulopathy History of Present Illness Start taking aspirin however did not start the statin. Chief Complaint: Abnormal labs, referred by PCP Primary Care Provider: Maya Rubio DO 85-year-old female with PMH chronic systolic CHF due to idiopathic cardiomyopathy EF < 20%, asthma, CKD stage III, rheumatoid arthritis on chronic steroids, and other problems listed below who presents the ED by referral PCP for evaluation of abnormal labs. For the past 1 month, patient reports very poor appetite and persistent nausea and vomiting. Patient reports vomiting every day. Describes emesis as bilious/clear in nature. Denies hematemesis or coffee-ground emesis. Reports several episodes of diarrhea, denies abdominal pain. reports about a 20 pound weight loss over the past several months. Patient also has been having increasing lower extremity edema. She reports generalized weakness and lethargy. She has chronic back pain which he has been receiving injections for. No fevers or chills. Reports some chest discomfort while vomiting however no other chest pain, denies shortness of breath. No lightheadedness, dizziness, diaphoresis, syncopal events. Patient has urinary incontinence at baseline, denies dysuria. Patient was evaluated by PCP yesterday and was noted to be jaundiced. Labs were obtained showing elevated LFTs and patient was referred to the ED for further evaluation. Note the patient had an ED evaluation on 07/[address] abdomen pelvis with IV contrast was obtained that showed focal high-grade stenosis with near complete occlusion within a proximal branch of the superior mesenteric artery. Patient was started on aspirin and statin and has follow-up with vascular surgery scheduled. Patient reports she started the aspirin however did not start the statin yet. In the ED, labs show total bili 1.9, AST 346, ALT 260. INR 1.9. Troponin 0.2, EKG without acute ST changes. proBNP 28,000. Patient was hypoxic on room air at 89%, this improved with 2 L of oxygen via nasal cannula. CXR shows bibasilar opacities. CT abdomen pelvis w/o contrast negative for acute findings. Patient was given furosemide 40 mg IV and IV Zofran. Allergies Allergy/AdvReac Type Severity Reaction Status Date / Time levofloxacin Allergy Intermediate HEPATOTOXIC Verified 08/18/20 11:39 ITY scopolamine Allergy Intermediate CAUSED Verified 08/18/20 11:39 RED, SWOLLEN AREA BEHIND EAR WHERE PATCH APPLIED lisinopril AdvReac Intermediate COUGH Verified 08/18/20 11:39 Home Medications Home Medications Medication Instructions Recorded Confirmed Type albuterol sulfate 1 puff INHALATION Q6H PRN 07/29/18 08/18/20 History nitroglycerin 0.4 mg sublingual 0.4 mg SUBLINGUAL UD PRN tab 06/30/19 08/18/20 History tablet Oxygen Home #1 ea 07/12/19 02/29/20 History levalbuterol HCl 0.63 mg/3 mL 0.63 mg INH DAILY PRN ml 07/12/19 08/18/20 History solution for nebulization tramadol 50 mg tablet 50 mg PO QID PRN tab 07/12/19 08/18/20 History furosemide 20 mg tablet 40 mg PO DAILY tab 08/17/19 08/18/20 History potassium chloride 10 mEq 10 meq PO QAM tab 08/17/19 08/18/20 History tablet,extended release prednisone 5 mg tablet 5 mg PO QAM tab 08/17/19 08/18/20 History metoprolol tartrate 25 mg tablet 25 mg PO DAILY 02/29/20 08/18/20 History isosorbide mononitrate 30 mg PO DAILY 07/26/20 08/18/20 History ondansetron 4 mg PO Q8H PRN #10 tab 07/26/20 08/18/20 Rx sacubitril-valsartan [Entresto] 1 tab PO BID 07/26/20 08/18/20 History aspirin 81 mg PO DAILY 08/18/20 08/18/20 History Past Med/Surg History Medical History Anemia Asthma USES PRN INH ONCE PER WEEK - LAST EXAC January, Cancer BCC - REMOVED Chronic systolic CHF (congestive heart failure) CKD (chronic kidney disease), stage III GERD (gastroesophageal reflux disease) Hiatal hernia History of hyperparathyroidism Hypertension Idiopathic cardiomyopathy Osteoarthritis Osteoporosis Rheumatoid arthritis Severe mitral regurgitation Surgical History History of back surgery History of cataract surgery History of cholecystectomy History of colonoscopy History of hysterectomy History of parathyroidectomy History of tooth extraction History of total hip arthroplasty BL History of total shoulder replacement RT Nausea and vomiting after administration of anesthetic agent Family History Father Heart disease Brother Heart disease Brother Heart disease Social History Smoking Status: Never smoker Second Hand Exposure: Yes (former smoker); Do You Dip or Chew Tobacco: No; Tobacco Cessation Education Requested by Patient: No Hx Alcohol Use: No Hx Substance Use: No Preferred Language: Kenyan Communication Ability: Effective Respiratory Therapy Director Required: No Beliefs That Will Affect Care: None Current Living Situation: Spouse Other Information That Helps Us Care for You: No Feels Safe at Home: Yes Safety Concerns: Feels Safe At This Time Assistive Devices: Oxygen - Continuous Assistive Devices Comment: ! liter continuous, 2 liters at night Review of Systems Review of Systems: ROS per HPI, all other systems reviewed and negative Physical Exam Constitutional: + ill appearing and + cachectic; no acute distress vitals as above Eyes: PERRL, conjunctivae normal, anicteric sclerae ENMT: external ear and nose normal, oropharynx normal Respiratory: normal respiratory effort; no respiratory distress Auscultation: + diminished lung sounds Cardiovascular: Rate/Rhythm: regular rate and regular rhythm Vessels: normal peripheral pulses Extremities: + edema (+3 pitting edema BLE) Gastrointestinal (Abdomen): normal bowel sounds, soft, nontender, no hepatosplenomegaly Musculoskeletal: no cyanosis or clubbing, extremities motor strength 5/5 Skin: no rashes, warm and dry Neurologic: PERRL, EOMI, accommodation nl, no face palsy, no dysarthria Psychiatric: A+Ox3, euthymic affect Results & Data Results & Data ([facility]) Vital Signs (Past 12 Hours) Vital Signs Temp Pulse Pulse Resp BP Pulse Ox 08/18/20 14:37 68 21 108/82 97 08/18/20 13:10 100 08/18/20 12:41 80 26 H 137/94 89 L 08/18/20 11:58 114/79 08/18/20 11:57 24 92 08/18/20 11:22 84 28 H 114/71 91 08/18/20 11:10 82 20 96 08/18/20 11:08 82 20 114/71 96 08/18/20 10:23 36.4 C L 103 H 18 97 Laboratory Results Short CBC 08/18/20 Range/Units 10:46 WBC 6.54 (4.8-10.8) K/uL Hgb 13.6 (12.0-16.0) g/dL Hct 43.3 (37-47) % Plt Count 236 (130-400) K/uL BMP 08/18/20 10:46 Sodium 143 Potassium 3.6 Chloride 104 Carbon Dioxide 28 BUN 54 H Creatinine 1.36 H Glucose 78 Calcium 9.7 Cardiac Enzymes 08/18/20 Range/Units 10:46 Troponin I 0.200 H* (0-0.045) ng/ml Liver Function 08/18/20 08/18/20 Range/Units 10:46 12:59 Total Bilirubin 1.9 H (0.2-1) mg/dl Direct Bilirubin 1.1 H 1.2 H (0-0.2) mg/dl AST 346 H (15-37) U/L ALT 260 H (12-78) U/L Alkaline Phosphatase 101 (45-117) U/L Albumin 2.9 L (3.4-5.0) gm/dl Urine 08/18/20 Range/Units 12:30 Urine Color Dark Yellow Urine Appearance Cloudy A (Clear) Urine pH 5.0 (4.5-7.5) Ur Specific [place] 1.018 (1.000-1.030) Urine Protein 1+ H (Negative) Urine Glucose (UA) Negative (Negative) Diagnostic Findings CT ABD/PELVIS IMPRESSION: 1. Technically limited study secondary to the lack of intravenous and oral contrast, as well as secondary to the paucity of intra-abdominal fat and increased fat density secondary to anasarca 2. Cardiomegaly and bilateral pleural effusions with associated basilar opacities likely atelectatic 3. Bilateral nephrolithiasis. No ureteral or bladder calculi identified 4. No evidence of bowel obstruction. No evidence of free air 5. Distended urinary bladder 6. Hiatal hernia 7. Osteopenia. Multiple chronic thoracic and lumbar vertebral body fractures. Postsurgical changes of multilevel vertebroplasty. CERVICAL SPINE CT IMPRESSION: 1. There is no evidence of fracture or subluxation involving the cervical spine. 2. Osteopenia and spondylotic change as above. 3. Right pleural effusion. CXR IMPRESSION: 1. Cardiomegaly 2. Large hiatal hernia 3. Basilar opacities, likely atelectatic although an infectious/inflammatory process could appear similar FACIAL CT IMPRESSION: No acute fractures within the maxillofacial region. Left supraorbital soft tissue swelling. HEAD CT IMPRESSION: There is no hemorrhage, mass effect, or evidence of acute territorial ischemia by CT criteria. Code Status & VTE Plan Code Status Patient is a DNR as per Dr. Xavier's discussion with her. VTE Prophylaxis Plan VTE Prophylaxis will be ordered: Yes Supervising Physician Co-Signing Physician Notes Pt was seen and examined. Agreed with Vanessa DE OLIVEIRA exam, assessment and plan. 85-year-old female with PMH chronic systolic CHF due to idiopathic cardiomyopathy EF < 20%, asthma, CKD stage III, rheumatoid arthritis on chronic steroids presents the ED by referral PCP for evaluation of abnormal labs. Pt said that she has been having poor oral intake, weakness associated with nausea and vomiting. Pt said that lately she has been very fatigue and tired. She said that she can just sit on the chair to read a book and fall asleep. Denies any abdominal pain, chest pain, SOB, dizziness, diaphoresis, and dysuria. she was in the ER about 2 weeks ago for a fall. She had CT abd/pelvis done at that time showed focal high-grade stenosis with near complete occlusion within a proximal branch of the superior mesenteric artery. In the ED, labs show total bili 1.9, AST 346, ALT 260. INR 1.9, Troponin 0.2 and proBNP 28,000. CXR showed bibasilar opacities. repeat CT abdomen pelvis w/o contrast negative for acute findings. Received Lasix 40 mg IV on admission. Will continue lasix 40mg IV BID. Will trend troponin. will get a resting ECHO. Cardiology consult. Will give vit K due to elevate INR. Will consult Gastro consult. case discussed with Dr. Mcintosh recommended to get a RUQ u/s and believed the elevated liver enzymes mostly related to CHF. If RUQ u/s showed any ductal dilation or stones within the common bile duct, will consider to get ERCP. Will hold statin for now and monitor liver enzymes. Will start on clear liquid diet. Will make NPO after midnight. Will continue monitor closely. MD Morenita
--- NOTE | 2020-08-18 15:22 | Gastrointestinal Consultation ---
Date of Consultation August 18, 2020 Assessment & Plan (1) Elevated LFTs: Most likely secondary to congestive hepatopathy. Also considered are microlithiasis in the bile duct (though no suggestion on CT) and effect of statin though would not expect INR to increase with statin. Plan: CPK Recheck liver function labs tomorrow morning. Liver US Vit K 5mg (will improve INR if she is nutritionally deficient). OK for clear liquids tonight. Please keep NPO after midnight as would consider E INTERNET MARKETING STRATEGIST tomorrow if evidence of choledocholithiasis on US. Present on Admission?: Yes Supervising Physician Co-Signing Physician Notes I saw and evaluated the patient. We are consulted for evaluation of elevated liver enzymes. Of note the patient notes that she has shortness of breath which was her main complaint this afternoon. She was recently started on a statin medication as an outpatient. Her exam is notable for bilateral pitting edema to her knees. Her imaging study shows evidence of bilateral pleural effusions as well. Physical examination Frail appearing elderly female Scleral icterus noted No right-sided abdominal tenderness noted Pitting edema of the lower extremities bilaterally Impression: Patient with a history of what appears to be congestive heart failure, GI consulted for evaluation of elevated liver tests. Even the patient's history I suspect that the etiology to her liver test elevation is congestive hepatopathy. It would certainly be reasonable to obtain further evaluation with a right upper quadrant ultrasound to look for evidence of ductal dilation or stones within the common bile duct. If negative would recommend cardiology consultation for treatment of her suspected cardiac disease. Recommendations Right upper quadrant ultrasound Consider a CPK given her recent fall Consider 5 mg of vitamin K Consider a cardiology evaluation If right upper quadrant ultrasound is positive we can certainly make arrangements for ERCP Please call with any questions or concerns History of Present Illness Reason for Consultation: elevated LFTs Requesting Physician: Dr. Gauthier/YENNIFER Oshea Attending Physician: Dr. Gauthier History of Present Illness Ms. Marivel Booth is an 85 yr old female pt of Dr. Rubio with a hx of CHF, idiopathic cardiomyopathy EF < 20%, asthma, CKD stage III, Rh Arthritis on chronic steroids. She was directed by the PCP to present to the ED for abnormal labs. LFTs are elevated and were normal just 2 weeks ago: T BIli 1.9, D Bili 1.2, AST 346 ALT 260, Alk Phos 101. Pt tells us that she that also came to the ED for SOB. INR is 1.9 and she is not on any anticoagulants. She does take one 81mg ASA daily. She is also experiencing an acute renal injury. Cr is 1.36 and her baseline is 0.8. She does not have leukocytosis or fever. She tells me that she has had a poor appetite for a few months. About twice weekly, she will have sudden vomiting, without much preceding nausea. She doesn't believe she has lost weight in the past month but is surprised as she "hardly eats anything." She hasn't had any jaundice or icterus. She denies any blood in her urine, stool or emesis. She has chronic right mid back pain, "where the bra is," and sees Dr. Thomas for this. This pain is recently very persistent, present anytime that she doesn't have Tramadol on board. This pain is not changed by eating, though she says that, when the pain is present, she "can't eat." She denies any abdominal pain. On exam, she is frail, very thin and abd is soft, non tender. Allergies Allergy/AdvReac Type Severity Reaction Status Date / Time levofloxacin Allergy Intermediate HEPATOTOXIC Verified 08/18/20 11:39 ITY scopolamine Allergy Intermediate CAUSED Verified 08/18/20 11:39 RED, SWOLLEN AREA BEHIND EAR WHERE PATCH APPLIED lisinopril AdvReac Intermediate COUGH Verified 08/18/20 11:39 Home Medications Home Medications Medication Instructions Recorded Confirmed Type albuterol sulfate 1 puff INHALATION Q6H PRN 07/29/18 08/18/20 History nitroglycerin 0.4 mg sublingual 0.4 mg SUBLINGUAL UD PRN tab 06/30/19 08/18/20 History tablet Oxygen Home #1 ea 07/12/19 02/29/20 History levalbuterol HCl 0.63 mg/3 mL 0.63 mg INH DAILY PRN ml 07/12/19 08/18/20 History solution for nebulization tramadol 50 mg tablet 50 mg PO QID PRN tab 07/12/19 08/18/20 History furosemide 20 mg tablet 40 mg PO DAILY tab 08/17/19 08/18/20 History potassium chloride 10 mEq 10 meq PO QAM tab 08/17/19 08/18/20 History tablet,extended release prednisone 5 mg tablet 5 mg PO QAM tab 08/17/19 08/18/20 History metoprolol tartrate 25 mg tablet 25 mg PO DAILY 02/29/20 08/18/20 History isosorbide mononitrate 30 mg PO DAILY 07/26/20 08/18/20 History ondansetron 4 mg PO Q8H PRN #10 tab 07/26/20 08/18/20 Rx sacubitril-valsartan [Entresto] 1 tab PO BID 07/26/20 08/18/20 History aspirin 81 mg PO DAILY 08/18/20 08/18/20 History Patient History Medical History Anemia Asthma USES PRN INH ONCE PER WEEK - LAST EXAC January, Cancer BCC - REMOVED Chronic systolic CHF (congestive heart failure) CKD (chronic kidney disease), stage III GERD (gastroesophageal reflux disease) Hiatal hernia History of hyperparathyroidism Hypertension Idiopathic cardiomyopathy Osteoarthritis Osteoporosis Rheumatoid arthritis Severe mitral regurgitation Surgical History History of back surgery History of cataract surgery History of cholecystectomy History of colonoscopy History of hysterectomy History of parathyroidectomy History of tooth extraction History of total hip arthroplasty BL History of total shoulder replacement RT Nausea and vomiting after administration of anesthetic agent Social History Smoking Status: Never smoker Second Hand Exposure: Yes (former smoker); Do You Dip or Chew Tobacco: No; Tobacco Cessation Education Requested by Patient: No Hx Alcohol Use: No Hx Substance Use: No Preferred Language: Danish Communication Ability: Effective Corporate Strategist Required: No Beliefs That Will Affect Care: None Current Living Situation: Spouse Other Information That Helps Us Care for You: No Feels Safe at Home: Yes Safety Concerns: Feels Safe At This Time Assistive Devices: Oxygen - at Night, Oxygen - Continuous and Wheelchair Assistive Devices Comment: ! liter continuous, 2 liters at night Review of Systems Review of Systems: ROS: Gen: Frail, poor appetite; No fevers Eyes: No icterus, no eye redness, or pain, no recent vision changes Resp: No SOB, no cough Cardio: No palpitations/irregular beats, no chest pain GI: See HPI, otherwise (-). : Denies pain on urination Skin: No jaundice, itching or new rashes Physical Exam Constitutional: + ill appearing (chronically), + cachectic, + frail appearing and cooperative appears mildly uncomfortable but no acute distress Eyes: PERRL, conjunctivae normal, anicteric sclerae ENMT: external ear and nose normal, oropharynx normal Neck: trachea midline, no thyromegaly Respiratory: no labored breathing Auscultation: + crackles (Rt base > left base but present bilaterally); no wheezes Cardiovascular: Rate/Rhythm: regular rate and regular rhythm Vessels: + JVD Extremities: + edema (marked bilateral lower leg edema) 3/6 systolic murmur present Gastrointestinal (Abdomen): normal bowel sounds, soft, nontender, no hepatosplenomegaly (very thin abdomen) Skin: skin changes consistent with chronic lower leg edema Neurologic: PERRL, EOMI, accommodation nl, no face palsy, no dysarthria Results & Data ([facility]) Vital Signs (Past 12 Hours) Vital Signs Temp Pulse Pulse Resp BP Pulse Ox 08/18/20 14:37 68 21 108/82 97 08/18/20 13:10 100 08/18/20 12:41 80 26 H 137/94 89 L 08/18/20 11:58 114/79 08/18/20 11:57 24 92 08/18/20 11:22 84 28 H 114/71 91 08/18/20 11:10 82 20 96 08/18/20 11:08 82 20 114/71 96 08/18/20 10:23 36.4 C L 103 H 18 97 Laboratory Results WBC 6.5, Hb 13.6, Hct 43.3, plts 236, INR 1.9, Na 143, K 3.6, Cl 104, CO2 28, BUN 54, Cr 1.36, glucose 78, troponin 0.2, BNP 28k, Lactate 2.6, T Bili 1.9, D bili 1.1, AST 346, ALT 269, ALk Phos 1010. Diagnostic Findings Non contrast CT abd/pelvis today: 1. Technically limited study secondary to the lack of intravenous and oral contrast, as well as secondary to the paucity of intra-abdominal fat and increased fat density secondary to anasarca 2. Cardiomegaly and bilateral pleural effusions with associated basilar opacities likely atelectatic 3. Bilateral nephrolithiasis. No ureteral or bladder calculi identified 4. No evidence of bowel obstruction. No evidence of free air 5. Distended urinary bladder 6. Hiatal hernia 7. Osteopenia. Multiple chronic thoracic and lumbar vertebral body fractures. Postsurgical changes of multilevel vertebroplast
[2020-08-18] MEDS ORDERED: traMADol HCL 50 MG TABLET PO PRN (16:32)
[2020-08-18] MEDS ORDERED: PHYTONADIONE 5 MG in SODIUM CHLORIDE 0.9% 50 ML IV ONE (16:45)
[2020-08-18 17:28] LABS: Troponin I 0.189 ng/ml (0-0.045)
--- NOTE | 2020-08-18 18:18 | Electrocardiogram Report ---
Test Reason : Blood Pressure : / mmHG Vent. Rate : 087 BPM Atrial Rate : 087 BPM P-R Int : 220 ms QRS Dur : 110 ms QT Int : 422 ms P-R-T Axes : -04 263 004 degrees QTc Int : 507 ms Poor data quality, interpretation may be adversely affected Sinus rhythm with 1st degree A-V block Incomplete right bundle branch block Possible Anteroseptal infarct , age undetermined Nonspecific ST abnormality Abnormal ECG When compared with ECG of 26-JUL-2020 14:24, Premature ventricular complexes are no longer Present Premature atrial complexes are no longer Present Borderline criteria for Anteroseptal infarct are now Present Confirmed by Javier Walters ([id number]) on 08/18/2020 6:18:04 PM Referred By: SELF Confirmed By:Tanner Walters
--- NOTE | 2020-08-18 18:22 | Emergency Department Note ---
History of Present Illness General Chief complaint: Abnormal Labs/Diagnostic Testing Stated complaint: DOCTOR REFERRAL Time Seen by Provider: 08/18/20 10:30 History of Present Illness Provider complaint: Abnormal labs confusion Onset (ago): month(s) 1 Location: head Maximum Pain Intensity: 0 Associated symptoms: + weakness; no chest pain, no cough, no fever/chills, no headaches, no nausea/vomiting and no shortness of breath 85-year-old female presents emergency department with her daughter for abnormal labs. Daughter states they were told to come into the emergency department prior to their [facility] PCP who told them that her labs are abnormal. The daughter repeats that the patient has been increasingly confused over the last 1 month after she fell. Patient does report hitting her head. Patient currently reports no chest pain difficulty breathing loss of taste or smell, fever, nausea vomiting or diarrhea. Home Medications Home Medications Medication Instructions Recorded Confirmed Type albuterol sulfate 1 puff INHALATION Q6H PRN 07/29/18 08/18/20 History nitroglycerin 0.4 mg sublingual 0.4 mg SUBLINGUAL UD PRN tab 06/30/19 08/18/20 History tablet Oxygen Home #1 ea 07/12/19 02/29/20 History levalbuterol HCl 0.63 mg/3 mL 0.63 mg INH DAILY PRN ml 07/12/19 08/18/20 History solution for nebulization tramadol 50 mg tablet 50 mg PO QID PRN tab 07/12/19 08/18/20 History furosemide 20 mg tablet 40 mg PO DAILY tab 08/17/19 08/18/20 History potassium chloride 10 mEq 10 meq PO QAM tab 08/17/19 08/18/20 History tablet,extended release prednisone 5 mg tablet 5 mg PO QAM tab 08/17/19 08/18/20 History metoprolol tartrate 25 mg tablet 25 mg PO DAILY 02/29/20 08/18/20 History isosorbide mononitrate 30 mg PO DAILY 07/26/20 08/18/20 History ondansetron 4 mg PO Q8H PRN #10 tab 07/26/20 08/18/20 Rx sacubitril-valsartan [Entresto] 1 tab PO BID 07/26/20 08/18/20 History aspirin 81 mg PO DAILY 08/18/20 08/18/20 History Allergies Allergy/AdvReac Type Severity Reaction Status Date / Time levofloxacin Allergy Intermediate HEPATOTOXIC Verified 08/18/20 11:39 ITY scopolamine Allergy Intermediate CAUSED Verified 08/18/20 11:39 RED, SWOLLEN AREA BEHIND EAR WHERE PATCH APPLIED lisinopril AdvReac Intermediate COUGH Verified 08/18/20 11:39 Past Med/Surg History Medical History Anemia Asthma USES PRN INH ONCE PER WEEK - LAST EXAC January, Cancer BCC - REMOVED Chronic systolic CHF (congestive heart failure) CKD (chronic kidney disease), stage III GERD (gastroesophageal reflux disease) Hiatal hernia History of hyperparathyroidism Hypertension Idiopathic cardiomyopathy Osteoarthritis Osteoporosis Rheumatoid arthritis Severe mitral regurgitation Surgical History History of back surgery History of cataract surgery History of cholecystectomy History of colonoscopy History of hysterectomy History of parathyroidectomy History of tooth extraction History of total hip arthroplasty BL History of total shoulder replacement RT Nausea and vomiting after administration of anesthetic agent Family History Father Heart disease Brother Heart disease Brother Heart disease Social History Smoking Status: Never smoker Second Hand Exposure: Yes (former smoker); Do You Dip or Chew Tobacco: No; Tobacco Cessation Education Requested by Patient: No Hx Alcohol Use: No Hx Substance Use: No Preferred Language: Wolof Communication Ability: Effective Java Technical Architect Required: No Beliefs That Will Affect Care: None Current Living Situation: Spouse Other Information That Helps Us Care for You: No Feels Safe at Home: Yes Safety Concerns: Feels Safe At This Time Assistive Devices: Oxygen - at Night, Oxygen - Continuous and Wheelchair Assistive Devices Comment: ! liter continuous, 2 liters at night Review of Systems A total of 10 systems reviewed and were otherwise negative Physical Exam Vital Signs Vital Signs - 24 hr 08/18/20 10:23 08/18/20 11:08 08/18/20 11:10 Temperature 36.4 C L Temperature Source Oral Pulse Rate 103 H 82 Pulse Rate [Apical] 82 Pulse Rhythm Regular Pulse Rhythm [Apical] Regular Pulse Strength [Apical] Normal Respiratory Rate 18 20 20 Respiratory Effort / Characteristics Non-Labored Spontaneous Respiratory Depth Normal Respiratory Pattern Regular Blood Pressure [Right Arm] 114/71 Blood Pressure Mean [Right Arm] 85 Blood Pressure Position [Right Arm] Sitting Pulse Oximetry 97 96 96 Oxygen Delivery Method Room Air Room Air Room Air Oxygen Flow Rate Sepsis Recent Fever Within 48 Hours No Sepsis New/Unexplained Change in Mental Status N/A Sepsis Action Taken by Nursing No Action Required 08/18/20 11:22 08/18/20 11:57 08/18/20 11:58 Temperature Temperature Source Pulse Rate Pulse Rate [Apical] 84 Pulse Rhythm Pulse Rhythm [Apical] Regular Pulse Strength [Apical] Normal Respiratory Rate 28 H 24 Respiratory Effort / Characteristics Non-Labored Respiratory Depth Normal Respiratory Pattern Regular Blood Pressure [Right Arm] 114/71 114/79 Blood Pressure Mean [Right Arm] 85 90 Blood Pressure Position [Right Arm] Lying Sitting Pulse Oximetry 91 92 Oxygen Delivery Method Room Air Room Air Oxygen Flow Rate Sepsis Recent Fever Within 48 Hours Sepsis New/Unexplained Change in Mental Status Sepsis Action Taken by Nursing 08/18/20 12:41 08/18/20 13:10 Temperature Temperature Source Pulse Rate Pulse Rate [Apical] 80 Pulse Rhythm Pulse Rhythm [Apical] Regular Pulse Strength [Apical] Normal Respiratory Rate 26 H Respiratory Effort / Characteristics Non-Labored Respiratory Depth Normal Respiratory Pattern Regular Blood Pressure [Right Arm] 137/94 Blood Pressure Mean [Right Arm] 108 Blood Pressure Position [Right Arm] Sitting Pulse Oximetry 89 L 100 Oxygen Delivery Method Room Air Nasal Cannula Oxygen Flow Rate 2 Sepsis Recent Fever Within 48 Hours Sepsis New/Unexplained Change in Mental Status Sepsis Action Taken by Nursing Physical Exam GENERAL: She appears well-developed and well-nourished. She does not appear distressed. HENT: Exam performed. -Head: Normocephalic -Right Ear: External ear normal. No mastoid tenderness. -Left Ear: External ear normal. No mastoid tenderness. -Mouth/Throat: The oropharynx is clear and moist. No trismus in the jaw. No dental abscesses or uvula swelling. No oropharyngeal exudate or tonsillar abs cesses. EYES: Scleral icterus bilaterally. Ecchymosis around the left eye. EOM are normal. Pupils are equal, round, and reactive to light. Right eye exhibits no discharge. Left eye exhibits no discharge. No scleral icterus. NECK: Normal range of motion. Neck supple. No JVD present. No spinous process tenderness present. No carotid bruit present. No rigidity. No tracheal deviation and normal range of motion present. No Brudzinski's sign and no Kernig's sign noted. CV: Normal rate, regular rhythm, normal heart sounds and intact distal pulses. Palpable radial pulses bue. PULM/CHEST: Effort normal and breath sounds normal. No respiratory distress. No stridor. She has no wheezes. She has no rales. -Chest Wall: She exhibits no tenderness. ABD: The abdomen is soft. Bowel sounds are normal. She has no distension. No mass is present. There is no tenderness. There is no rebound, no guarding, no Echeverria's sign and no tenderness at McBurney's point. Rovsig negative MUSC/SKEL: Normal range of motion. There is no peripheral edema, tenderness or deformity. 3+ pitting edema of the bilateral lower extremities. LYMPH: No cervical adenopathy. NEURO:No cranial nerve deficit or sensory deficit. Coordination and gait normal. GCS eye subscore is 4. GCS verbal subscore is 4. GCS motor subscore is 6. Cerebellar tests wnl. SKIN: Skin is warm and dry. She is not diaphoretic. PSYCH: She has a normal mood and affect. Behavior is normal. Judgment and thought content normal. Course Course 1030: The patient was evaluated in room C7. A complete history and physical exam was performed. Cardiac monitoring: An order was placed for continuous cardiac monitoring. The monitor shows a rate of 90 with sinus rhythm 1245: Patient hypoxic on room air 89%. Patient was started on nasal cannula 2 L which improved her oxygen saturation. Lactic acid 2.6, total bilirubin 1.9 direct bili 1.1 AST/ALT 346/260 respectively. Troponin is elevated 0.2. Her previous EKGs have also been elevated. Patient's proBNP is elevated at 20,011. Patient reports no chest pain at this time. Patient will be treated with Lasix 40 mg IV push. Discussed the case with [facility] hospitalist Vanessa DE OLIVEIRA who asked that the patient be tested for Covid and she will evaluate the patient for admission. Administered Medications Discontinued Medications Furosemide (Furosemide 40 Mg/4 Ml Vial) 40 mg IV NOW STA Stop: 08/18/20 12:20 Last Admin: 08/18/20 13:05 Dose: 40 mg Documented by: [id number] Phytonadione 5 mg/ Sodium (Chloride) 50.5 mls @ 101 mls/hr IV ONE ONE Stop: 08/18/20 17:14 Last Admin: 08/18/20 17:51 Dose: 101 mls/hr Documented by: [id number] Ondansetron HCl (Ondansetron Inj 2 Mg/Ml 2 Ml Vial) 4 mg IV NOW STA Stop: 08/18/20 11:09 Last Admin: 08/18/20 11:24 Dose: 4 mg Documented by: [id number] Critical Care Time Critical Care Time: Yes Total Critical Care Time: 62 I have personally spent greater than 62 minutes of critical care time in the direct management of this patient. This includes bedside care, interpretation of diagnostic studies, and testing, discussion with consultants, patient, and family members, and other required patient management activities. This 62 minutes is in excess of all separately billable procedures. Medical Decision Making Laboratory Data Result diagrams: 08/18/20 10:46 08/18/20 10:46 Lab Results 08/18/20 08/18/20 08/18/20 Range/Units 10:46 10:46 10:46 WBC 6.54 (4.8-10.8) K/uL RBC 4.63 (4.2-5.4) M/uL Hgb 13.6 (12.0-16.0) g/dL Hct 43.3 (37-47) % MCV 93.5 (80-100) fL MCH 29.4 (25-34) pg MCHC 31.4 L (32-36) g/dL RDW Std Deviation 59.8 H (36.4-46.3) fL RDW Coeff of Brady 17.7 H (11.5-14.5) % Plt Count 236 (130-400) K/uL MPV 11.7 H (7.4-10.4) fL Immature Gran % (Auto) 0.2 % Neut % (Auto) 80.4 % Lymph % (Auto) 9.5 % [place] % (Auto) 7.2 % Eos % (Auto) 2.4 % Baso % (Auto) 0.3 % Neut # (Auto) 5.26 (1.4-6.5) K/uL Lymph # (Auto) 0.62 L (1.2-3.4) K/uL [place] # (Auto) 0.47 (0.11-0.59) K/uL Eos # (Auto) 0.16 (0-0.5) K/uL Baso # (Auto) 0.02 (0-0.2) K/uL Immature Gran # (Auto) 0.01 (0.00-0.02) K/uL PT 19.8 H (9.0-12.0) Seconds INR 1.9 H (0.9-1.1) APTT 31.5 H (21.0-31.0) Seconds PTT Ratio 1.1 Sodium (136-145) mmol/L Potassium (3.5-5.1) mmol/L Chloride (98-107) mmol/L Carbon Dioxide (21-32) mmol/L Anion Gap (3-11) BUN (7-18) mg/dl Creatinine (0.6-1.2) mg/dl Est Cr Clr Drug Dosing ml/min Est GFR ( Amer) Est GFR (Non-Af Amer) BUN/Creatinine Ratio (10-20) Glucose (70-99) mg/dl Lactate (0.4-2.0) mmol/L Calcium (8.5-10.1) mg/dl Magnesium (1.8-2.4) mg/dl Total Bilirubin (0.2-1) mg/dl Direct Bilirubin (0-0.2) mg/dl AST (15-37) U/L ALT (12-78) U/L Alkaline Phosphatase (45-117) U/L Total Creatine Kinase (26-192) U/L Troponin I (0-0.045) ng/ml NT-Pro-B Natriuret Pep (0-1800) pg/ml Total Protein (6.4-8.2) gm/dl Albumin (3.4-5.0) gm/dl Procalcitonin 0.37 (0-0.5) ng/ml Specimen Hemolysis Urine Color Urine Appearance (Clear) Urine pH (4.5-7.5) Ur Specific [place] (1.000-1.030) Urine Protein (Negative) Urine Glucose (UA) (Negative) Urine Ketones (Negative) Urine Blood (Negative) Urine Nitrite (Negative) Urine Bilirubin (Negative) Urine Urobilinogen (Negative) Ur Leukocyte Esterase (Negative) Urine WBC (Auto) (0-5) /hpf Urine RBC (Auto) (0-4) /hpf U Hyaline Cast (Auto) (0-5) /lpf U Epithel Cells (Auto) (0-5) /lpf Urine Bacteria (Auto) (Negative) COVID-19 Eval Order COVID-19 PCR (Negative) SARS-CoV-2, RNA, NAAT 08/18/20 08/18/20 08/18/20 Range/Units 10:46 10:46 10:46 WBC (4.8-10.8) K/uL RBC (4.2-5.4) M/uL Hgb (12.0-16.0) g/dL Hct (37-47) % MCV (80-100) fL MCH (25-34) pg MCHC (32-36) g/dL RDW Std Deviation (36.4-46.3) fL RDW Coeff of Brady (11.5-14.5) % Plt Count (130-400) K/uL MPV (7.4-10.4) fL Immature Gran % (Auto) % Neut % (Auto) % Lymph % (Auto) % [place] % (Auto) % Eos % (Auto) % Baso % (Auto) % Neut # (Auto) (1.4-6.5) K/uL Lymph # (Auto) (1.2-3.4) K/uL [place] # (Auto) (0.11-0.59) K/uL Eos # (Auto) (0-0.5) K/uL Baso # (Auto) (0-0.2) K/uL Immature Gran # (Auto) (0.00-0.02) K/uL PT (9.0-12.0) Seconds INR (0.9-1.1) APTT (21.0-31.0) Seconds PTT Ratio Sodium 143 (136-145) mmol/L Potassium 3.6 (3.5-5.1) mmol/L Chloride 104 (98-107) mmol/L Carbon Dioxide 28 (21-32) mmol/L Anion Gap 11.0 (3-11) BUN 54 H (7-18) mg/dl Creatinine 1.36 H (0.6-1.2) mg/dl Est Cr Clr Drug Dosing 20.9 ml/min Est GFR ( Amer) 40.5 Est GFR (Non-Af Amer) 34.9 BUN/Creatinine Ratio 39.8 H (10-20) Glucose 78 (70-99) mg/dl Lactate 2.6 H* (0.4-2.0) mmol/L Calcium 9.7 (8.5-10.1) mg/dl Magnesium 2.0 (1.8-2.4) mg/dl Total Bilirubin 1.9 H (0.2-1) mg/dl Direct Bilirubin 1.1 H (0-0.2) mg/dl AST 346 H (15-37) U/L ALT 260 H (12-78) U/L Alkaline Phosphatase 101 (45-117) U/L Total Creatine Kinase (26-192) U/L Troponin I 0.200 H* (0-0.045) ng/ml NT-Pro-B Natriuret Pep 48368 H (0-1800) pg/ml Total Protein 6.0 L (6.4-8.2) gm/dl Albumin 2.9 L (3.4-5.0) gm/dl Procalcitonin (0-0.5) ng/ml Specimen Hemolysis Cancelled Urine Color Urine Appearance (Clear) Urine pH (4.5-7.5) Ur Specific [place] (1.000-1.030) Urine Protein (Negative) Urine Glucose (UA) (Negative) Urine Ketones (Negative) Urine Blood (Negative) Urine Nitrite (Negative) Urine Bilirubin (Negative) Urine Urobilinogen (Negative) Ur Leukocyte Esterase (Negative) Urine WBC (Auto) (0-5) /hpf Urine RBC (Auto) (0-4) /hpf U Hyaline Cast (Auto) (0-5) /lpf U Epithel Cells (Auto) (0-5) /lpf Urine Bacteria (Auto) (Negative) COVID-19 Eval Order COVID-19 PCR (Negative) SARS-CoV-2, RNA, NAAT 08/18/20 08/18/20 08/18/20 Range/Units 10:46 12:30 12:59 WBC (4.8-10.8) K/uL RBC (4.2-5.4) M/uL Hgb (12.0-16.0) g/dL Hct (37-47) % MCV (80-100) fL MCH (25-34) pg MCHC (32-36) g/dL RDW Std Deviation (36.4-46.3) fL RDW Coeff of Brady (11.5-14.5) % Plt Count (130-400) K/uL MPV (7.4-10.4) fL Immature Gran % (Auto) % Neut % (Auto) % Lymph % (Auto) % [place] % (Auto) % Eos % (Auto) % Baso % (Auto) % Neut # (Auto) (1.4-6.5) K/uL Lymph # (Auto) (1.2-3.4) K/uL [place] # (Auto) (0.11-0.59) K/uL Eos # (Auto) (0-0.5) K/uL Baso # (Auto) (0-0.2) K/uL Immature Gran # (Auto) (0.00-0.02) K/uL PT (9.0-12.0) Seconds INR (0.9-1.1) APTT (21.0-31.0) Seconds PTT Ratio Sodium (136-145) mmol/L Potassium (3.5-5.1) mmol/L Chloride (98-107) mmol/L Carbon Dioxide (21-32) mmol/L Anion Gap (3-11) BUN (7-18) mg/dl Creatinine (0.6-1.2) mg/dl Est Cr Clr Drug Dosing ml/min Est GFR ( Amer) Est GFR (Non-Af Amer) BUN/Creatinine Ratio (10-20) Glucose (70-99) mg/dl Lactate (0.4-2.0) mmol/L Calcium (8.5-10.1) mg/dl Magnesium (1.8-2.4) mg/dl Total Bilirubin (0.2-1) mg/dl Direct Bilirubin 1.2 H (0-0.2) mg/dl AST (15-37) U/L ALT (12-78) U/L Alkaline Phosphatase (45-117) U/L Total Creatine Kinase (26-192) U/L Troponin I (0-0.045) ng/ml NT-Pro-B Natriuret Pep (0-1800) pg/ml Total Protein (6.4-8.2) gm/dl Albumin (3.4-5.0) gm/dl Procalcitonin (0-0.5) ng/ml Specimen Hemolysis Urine Color Dark Yellow Urine Appearance Cloudy A (Clear) Urine pH 5.0 (4.5-7.5) Ur Specific [place] 1.018 (1.000-1.030) Urine Protein 1+ H (Negative) Urine Glucose (UA) Negative (Negative) Urine Ketones Trace H (Negative) Urine Blood Negative (Negative) Urine Nitrite Negative (Negative) Urine Bilirubin Negative (Negative) Urine Urobilinogen Negative (Negative) Ur Leukocyte Esterase 2+ H (Negative) Urine WBC (Auto) 1-5 (0-5) /hpf Urine RBC (Auto) 0-4 (0-4) /hpf U Hyaline Cast (Auto) 1-5 (0-5) /lpf U Epithel Cells (Auto) 10-20 H (0-5) /lpf Urine Bacteria (Auto) 4+ H (Negative) COVID-19 Eval Order COVID-19 PCR (Negative) SARS-CoV-2, RNA, NAAT 08/18/20 08/18/20 08/18/20 Range/Units 12:59 13:15 13:15 WBC (4.8-10.8) K/uL RBC (4.2-5.4) M/uL Hgb (12.0-16.0) g/dL Hct (37-47) % MCV (80-100) fL MCH (25-34) pg MCHC (32-36) g/dL RDW Std Deviation (36.4-46.3) fL RDW Coeff of Brady (11.5-14.5) % Plt Count (130-400) K/uL MPV (7.4-10.4) fL Immature Gran % (Auto) % Neut % (Auto) % Lymph % (Auto) % [place] % (Auto) % Eos % (Auto) % Baso % (Auto) % Neut # (Auto) (1.4-6.5) K/uL Lymph # (Auto) (1.2-3.4) K/uL [place] # (Auto) (0.11-0.59) K/uL Eos # (Auto) (0-0.5) K/uL Baso # (Auto) (0-0.2) K/uL Immature Gran # (Auto) (0.00-0.02) K/uL PT (9.0-12.0) Seconds INR (0.9-1.1) APTT (21.0-31.0) Seconds PTT Ratio Sodium (136-145) mmol/L Potassium (3.5-5.1) mmol/L Chloride (98-107) mmol/L Carbon Dioxide (21-32) mmol/L Anion Gap (3-11) BUN (7-18) mg/dl Creatinine (0.6-1.2) mg/dl Est Cr Clr Drug Dosing ml/min Est GFR ( Amer) Est GFR (Non-Af Amer) BUN/Creatinine Ratio (10-20) Glucose (70-99) mg/dl Lactate 1.6 (0.4-2.0) mmol/L Calcium (8.5-10.1) mg/dl Magnesium (1.8-2.4) mg/dl Total Bilirubin (0.2-1) mg/dl Direct Bilirubin (0-0.2) mg/dl AST (15-37) U/L ALT (12-78) U/L Alkaline Phosphatase (45-117) U/L Total Creatine Kinase (26-192) U/L Troponin I (0-0.045) ng/ml NT-Pro-B Natriuret Pep (0-1800) pg/ml Total Protein (6.4-8.2) gm/dl Albumin (3.4-5.0) gm/dl Procalcitonin (0-0.5) ng/ml Specimen Hemolysis Urine Color Urine Appearance (Clear) Urine pH (4.5-7.5) Ur Specific [place] (1.000-1.030) Urine Protein (Negative) Urine Glucose (UA) (Negative) Urine Ketones (Negative) Urine Blood (Negative) Urine Nitrite (Negative) Urine Bilirubin (Negative) Urine Urobilinogen (Negative) Ur Leukocyte Esterase (Negative) Urine WBC (Auto) (0-5) /hpf Urine RBC (Auto) (0-4) /hpf U Hyaline Cast (Auto) (0-5) /lpf U Epithel Cells (Auto) (0-5) /lpf Urine Bacteria (Auto) (Negative) COVID-19 Eval Order Covid19 Done at [facility] COVID-19 PCR (Negative) SARS-CoV-2, RNA, NAAT Cancelled 08/18/20 Range/Units 13:15 WBC (4.8-10.8) K/uL RBC (4.2-5.4) M/uL Hgb (12.0-16.0) g/dL Hct (37-47) % MCV (80-100) fL MCH (25-34) pg MCHC (32-36) g/dL RDW Std Deviation (36.4-46.3) fL RDW Coeff of Brady (11.5-14.5) % Plt Count (130-400) K/uL MPV (7.4-10.4) fL Immature Gran % (Auto) % Neut % (Auto) % Lymph % (Auto) % [place] % (Auto) % Eos % (Auto) % Baso % (Auto) % Neut # (Auto) (1.4-6.5) K/uL Lymph # (Auto) (1.2-3.4) K/uL [place] # (Auto) (0.11-0.59) K/uL Eos # (Auto) (0-0.5) K/uL Baso # (Auto) (0-0.2) K/uL Immature Gran # (Auto) (0.00-0.02) K/uL PT (9.0-12.0) Seconds INR (0.9-1.1) APTT (21.0-31.0) Seconds PTT Ratio Sodium (136-145) mmol/L Potassium (3.5-5.1) mmol/L Chloride (98-107) mmol/L Carbon Dioxide (21-32) mmol/L Anion Gap (3-11) BUN (7-18) mg/dl Creatinine (0.6-1.2) mg/dl Est Cr Clr Drug Dosing ml/min Est GFR ( Amer) Est GFR (Non-Af Amer) BUN/Creatinine Ratio (10-20) Glucose (70-99) mg/dl Lactate (0.4-2.0) mmol/L Calcium (8.5-10.1) mg/dl Magnesium (1.8-2.4) mg/dl Total Bilirubin (0.2-1) mg/dl Direct Bilirubin (0-0.2) mg/dl AST (15-37) U/L ALT (12-78) U/L Alkaline Phosphatase (45-117) U/L Total Creatine Kinase (26-192) U/L Troponin I (0-0.045) ng/ml NT-Pro-B Natriuret Pep (0-1800) pg/ml Total Protein (6.4-8.2) gm/dl Albumin (3.4-5.0) gm/dl Procalcitonin (0-0.5) ng/ml Specimen Hemolysis Urine Color Urine Appearance (Clear) Urine pH (4.5-7.5) Ur Specific [place] (1.000-1.030) Urine Protein (Negative) Urine Glucose (UA) (Negative) Urine Ketones (Negative) Urine Blood (Negative) Urine Nitrite (Negative) Urine Bilirubin (Negative) Urine Urobilinogen (Negative) Ur Leukocyte Esterase (Negative) Urine WBC (Auto) (0-5) /hpf Urine RBC (Auto) (0-4) /hpf U Hyaline Cast (Auto) (0-5) /lpf U Epithel Cells (Auto) (0-5) /lpf Urine Bacteria (Auto) (Negative) COVID-19 Eval Order COVID-19 PCR NEGATIVE (Negative) SARS-CoV-2, RNA, NAAT Imaging Data Radiologist's Impression: CT SCAN OF THE BRAIN WITHOUT IV CONTRAST CLINICAL HISTORY: Fall. COMPARISON STUDY: No priors. TECHNIQUE: Unenhanced axial CT scan of the brain is performed from the vertex to the skull base. A dose lowering technique was utilized adhering to the principles of ALARA. FINDINGS: Brain parenchyma: There are age-related involutional changes noting moderate confluent subcortical and periventricular microangiopathic change. There is no hemorrhage, mass effect, or evidence of acute territorial ischemia by CT criteria. Casarez-white matter differentiation is preserved. No extra-axial fluid collection is seen. Ventricles, sulci, cisterns: Prominent secondary to involutional change. Intracranial vasculature: There is atherosclerotic calcification of the cavernous carotid and vertebral arteries. Calvarium: The skeletal structures are osteopenic. No depressed calvarial fracture is seen. Soft tissues: There is minimal left frontal scalp contusion. Sinuses and mastoids: A 12 mm retention cyst is noted in the left maxillary antrum. The remaining visualized paranasal sinuses are clear. The mastoid air cells are well pneumatized. Orbits: The bony orbits are grossly intact. CT of the paranasal sinuses dated 03/02/2008. There are bilateral ocular lens implants. IMPRESSION: There is no hemorrhage, mass effect, or evidence of acute territorial ischemia by CT criteria. ACT 112: Negative or not required by law. Electronically signed by: Kyle Garcia M.D. 08/18/2020 12:19 PM Dictated: 08/18/20 1215Transcribed: 08/18/[address] DOSE: HISTORY: fall TECHNIQUE: Multiaxial CT images of the maxillofacial region were performed and reformatted in the coronal plane without the use of contrast. A dose lowering technique was utilized adhering to the principles of ALARA. COMPARISON: None. FINDINGS: The visualized cervical spine, skull base, mandible, pterygoid plates, zygomatic arches, lamina papyracea, and orbital floors are intact. Mild nasal bone deformity is likely due to old, healed fractures. No acute facial fractures identified. There is left supraorbital soft tissue swelling. The globes and retrobulbar fat are intact. IMPRESSION: No acute fractures within the maxillofacial region. Left supraorbital soft tissue swelling. ACT 112: Negative or not required by law. Electronically signed by: Pedrito Mcknight M.D. 08/18/2020 12:21 PM Dictated: 08/18/20 1218Transcribed: 08/18/20 1218 XR chest 1V portable CLINICAL HISTORY: SEPSIS COMPARISON STUDY: 07/26/2020 FINDINGS: The heart is enlarged. There is a retrocardiac opacity consistent with a hiatal hernia. There is aortic tortuosity. There is evidence for multiple prior vertebroplasties. There is a linear opacity within the right midlung zone likely representing subsegmental atelectasis. There are basilar opacities likely atelectatic although an infectious/inflammatory process could appear similar. There are postsurgical changes of a reverse total right shoulder arthroplasty.[ IMPRESSION: 1. Cardiomegaly 2. Large hiatal hernia 3. Basilar opacities, likely atelectatic although an infectious/inflammatory process could appear similar ACT 112: Negative or not required by law. Electronically signed by: Donald Chapman M.D. 08/18/2020 11:31 AM Dictated: 08/18/20 1130Transcribed: 08/18/[address] SCAN OF THE CERVICAL SPINE CLINICAL HISTORY: Fall. Change in mental status. COMPARISON STUDY: CT of the cervical spine dated 02/14/2015. TECHNIQUE: CT scan of the cervical spine is performed from the skull base to the upper thoracic spine. Images are reviewed in the axial, sagittal, and coronal planes. IV contrast was not administered for this examination. A dose lowering technique was utilized adhering to the principles of ALARA. CT DOSE: 1259.46 mGy.cm FINDINGS: Skeletal structures: The skeletal structures are osteopenic. There is no evidence of fracture or subluxation involving the cervical spine. Vertebral body height is maintained throughout the cervical spine. There is mild anterolisthe sis at C3-C4 and C4-C5. Alignment is otherwise preserved. Anterior osteophytes are seen throughout. There is a mild chronic compression deformity of T1. The odontoid process and lateral masses are intact. The atlantoaxial articulation is preserved noting productive degenerative change. The spinous processes appear intact. There is moderate multilevel cervical spondylosis. Uncovertebral and facet arthropathy contribute to neural foraminal stenosis at several levels. Intervertebral discs: Mild to moderate disc space narrowing is seen at C5-C6 and C6-C7. The remaining disc spaces are maintained. Central canal: Posterior disc osteophyte complexes at C5-C6 and C6-C7 likely contribute to acquired compromise of the central canal. Soft tissues: The prevertebral and paraspinous soft tissues are within normal limits. There is atherosclerotic calcification of the carotid bulbs. The thyroid gland is enlarged and heterogeneous. Calcified sialoliths are noted in the submandibular glands. Calvarium: The visualized calvarium at the skull base appears intact. Brain parenchyma: Partially visualized brain parenchyma the skull base is within normal limits noting age-related involutional change. Sinuses and mastoids: A retention cyst is partially visualized in the left maxillary antrum. The mastoid air cells are well pneumatized. Lung apices: A right pleural effusion is noted. IMPRESSION: 1. There is no evidence of fracture or subluxation involving the cervical spine. 2. Osteopenia and spondylotic change as above. 3. Right pleural effusion. ACT 112: Negative or not required by law. Electronically signed by: Kyle Garcia M.D. 08/18/2020 12:25 PM Dictated: 08/18/20 1219Transcribed: 08/18/[address] SCAN OF THE ABDOMEN AND PELVIS WITHOUT CONTRAST CLINICAL HISTORY: Trauma. Jaundice. COMPARISON STUDY: Contrast-enhanced study dated 07/26/2020 TECHNIQUE: CT scan of the abdomen and pelvis was performed from the lung bases to the proximal femurs. Images are reviewed in the axial, sagittal, and coronal planes. IV contrast was not administered for this examination. A dose lowering technique was utilized adhering to the principles of ALARA. CT DOSE: FINDINGS: Lower chest: The heart is enlarged. There are coronary artery calcifications. There are bilateral pleural effusions. There are dependent basilar opacities likely representing compressive atelectasis although an infectious/inflammatory processes could appear similar Liver: There is a stable 8 mm right hepatic lobe hypodensity likely representing a cyst Gallbladder: Surgically absent Spleen: Normal in size and attenuation. Pancreas: Unremarkable. Adrenal glands: Unremarkable. Kidneys: There are bilateral nonobstructing renal calculi. There is no significant hydronephrosis. Bowel: There is colonic diverticulosis. There is no definite evidence of acute diverticulitis. There is no convincing evidence of acute appendicitis. Bowel evaluation is significantly limited due to the possibility of intra-abdominal fat, the lack of orally administered contrast, and the lack of intravenous contrast. Peritoneum: There is no intraperitoneal free air or abdominal ascites. Vasculature: There are moderately extensive atherosclerotic vascular calcifications. There is no evidence of abdominal aortic aneurysm Adenopathy: None. Pelvic viscera: Visualization of pelvis is limited due to beam hardening artifact from the patient's hip arthroplasties. The bladder is distended. Skeletal structures: Bones are osteopenic. There are multiple thoracic and lumbar vertebral body compression fractures. The patient is status post multi level vertebroplasties There is generalized anasarca IMPRESSION: 1. Technically limited study secondary to the lack of intravenous and oral contrast, as well as secondary to the paucity of intra-abdominal fat and increased fat density secondary to anasarca 2. Cardiomegaly and bilateral pleural effusions with associated basilar opacities likely atelectatic 3. Bilateral nephrolithiasis. No ureteral or bladder calculi identified 4. No evidence of bowel obstruction. No evidence of free air 5. Distended urinary bladder 6. Hiatal hernia 7. Osteopenia. Multiple chronic thoracic and lumbar vertebral body fractures. Postsurgical changes of multilevel vertebroplasty. ACT 112: Negative or not required by law. Electronically signed by: Donald Chapman M.D. 08/18/2020 12:25 PM Dictated: 08/18/20 1218Transcribed: 08/18/20 1218 ECG Data Indication: + weakness Rate (beats per minute): 87 Rhythm: + normal sinus ECG Intervals/blocks: + First degree AV block, + Normal QRS and + Prolonged QT ECG ST segments: + Normal ST segments MDM Narrative 1030: The patient was evaluated in room C7. A complete history and physical exam was performed. Cardiac monitoring: An order was placed for continuous cardiac monitoring. The monitor shows a rate of 90 with sinus rhythm 1245: Patient hypoxic on room air 89%. Patient was started on nasal cannula 2 L which improved her oxygen saturation. Lactic acid 2.6, total bilirubin 1.9 dir ect bili 1.1 AST/ALT 346/260 respectively. Troponin is elevated 0.2. Her previous EKGs have also been elevated. Patient's proBNP is elevated at 20,011. Patient reports no chest pain at this time. Patient will be treated with Lasix 40 mg IV push. Discussed the case with [facility] hospitalist Vanessa DE OLIVEIRA who asked that the patient be tested for Covid and she will evaluate the patient for admission. Impression & Plan Hypoxia, Chronic systolic CHF (congestive heart failure), Elevated LFTs, Elevated troponin, Jaundice Discharge Plan Visit Data Chief Complaint: Abnormal Labs/Diagnostic Testing Stated Complaint: DOCTOR REFERRAL ED Provider: Moses Vizcaino Discharge Problem: Hypoxia, Chronic systolic CHF (congestive heart failure), Elevated LFTs, Elevated troponin, Jaundice Patient Disposition: Admitted As Inpatient Discharge Instructions Interventions: ED Discharge Assessment Last Done: 08/18/20 16:11
--- NOTE | 2020-08-18 19:28 | Ultrasound Report ---
US liver CLINICAL HISTORY: transaminitis COMPARISON STUDY: Right upper quadrant ultrasound December 05, 2017. CT of the abdomen and pelvis No 2019. FINDINGS: A right pleural effusion is incidentally noted. There is no biliary ductal dilatation statu s post cholecystectomy. The common bile duct measures 5 mm in caliber. The pancreatic body is normal. The head and tail are obscured. This exam is compromised by suboptimal penetration. No hepatic lesio ns are identified. There is no right hydronephrosis. A 9 mm right renal cyst is incidentally noted. IMPRESSION: 1. No biliary ductal dilatation status post cholecystectomy. 2. Partially obscured pancreas. 3. Right pleural effusion. ACT 112: Negative or not required by law. Electronically signed by: Heriberto Ball M.D. 08/18/2020 7:27 PM
--- NOTE | 2020-08-18 19:33 | Communication Note ---
Date of Service: August 18, 2020 I reviewed the right upper quadrant ultrasound from this afternoon. It appears there is no evidence of biliary obstruction. With this, the likely etiology of her liver enzyme elevation is from congestive hepatopathy. Would suggest evalaution by Cardiology to try and maximize her cardiac function. Would also suggest stopping her statin medicaiton + obtain a CPK. Please call with any additional quetions or concerns. At the present time there does not appear to be a role for an endoscopic intervention, you could consider a referral to tertiary center for a transjugular liver biopsy and portal pressure to confirm the diagnosis of congestive hepatopathy.
[2020-08-18] MEDS ORDERED: FUROSEMIDE 40 MG/4 ML VIAL IV SCH (21:00)
[2020-08-18] MEDS: SACUBITRIL-VALSARTAN 24-26 MG TAB PO SCH (21:02)
[2020-08-18] MEDS: FUROSEMIDE 40 MG in SYRINGE 0 ML IV SCH (21:02)
[2020-08-19 08:19] LABS: Hematocrit (blood only) 43.5 % (37-47); Hemoglobin 13.9 g/dL (12.0-16.0); Mean Corpuscular Volume 93.8 fL (80-100); Mean Platelet Volume 11.4 fL (7.4-10.4); Platelet Count 160 K/uL (130-400); RDW Coefficient of Variation 17.5 % (11.5-14.5); RDW Standard Deviation 59.8 fL (36.4-46.3); Red Blood Count 4.64 M/uL (4.2-5.4); White Blood Count 5.29 K/uL (4.8-10.8)
[2020-08-19 08:31] LABS: INR 1.7 (0.9-1.1); Prothrombin Time 17.1 Seconds (9.0-12.0)
[2020-08-19] MEDS ORDERED: POTASSIUM CHLORIDE 10 MEQ TABCR PO SCH (09:00)
[2020-08-19 09:05] LABS: Albumin Globulin Ratio 0.9 (0.9-2); Albumin Level 2.5 gm/dl (3.4-5.0); BUN Creatinine Ratio 43.3 (10-20); Bilirubin,Total 1.9 mg/dl (0.2-1); Calcium 9.2 mg/dl (8.5-10.1); Creatinine Clr Calc Pharmacy 29.7 ml/min; Est GFR (African American) 61.6; Est GFR (Non-African American) 53.2; Globulin 2.9 gm/dl (2.5-4.0); Potassium 2.6 mmol/L (3.5-5.1); Total Protein 5.4 gm/dl (6.4-8.2)
[2020-08-19] MEDS: SACUBITRIL-VALSARTAN 24-26 MG TAB PO SCH ×2 (09:20→20:43)
[2020-08-19] MEDS: ASPIRIN 81 MG ECTAB PO SCH (09:20)
[2020-08-19] MEDS: FUROSEMIDE 40 MG in SYRINGE 0 ML IV SCH ×2 (09:21→17:32)
[2020-08-19] MEDS: METOPROLOL TARTRATE 25 MG TAB PO SCH (09:21)
[2020-08-19] MEDS: predniSONE 5 MG TAB PO SCH (09:21)
[2020-08-19] MEDS: ISOSORBIDE MONO EXTENDED REL 30 MG TABCR PO SCH (09:21)
[2020-08-19] MEDS ORDERED: POTASSIUM CHLORIDE CRTAB 20 MEQ TABCR PO STA (09:39)
--- NOTE | 2020-08-19 09:43 | Electrocardiogram Report ---
Test Reason : Blood Pressure : / mmHG Vent. Rate : 091 BPM Atrial Rate : 091 BPM P-R Int : 222 ms QRS Dur : 112 ms QT Int : 408 ms P-R-T Axes : 074 -71 017 degrees QTc Int : 501 ms Sinus rhythm with 1st degree A-V block with Premature atrial complexes Left anterior fascicular block Possible Anterior infarct (cited on or before 18-AUG-2020) Abnormal ECG When compared with ECG of 18-AUG-2020 10:36, Premature atrial complexes are now Present Incomplete right bundle branch block is no longer Present Confirmed by Tj Leal ([id number]) on 08/19/2020 9:42:44 AM Referred By: REFERRED SELF Confirmed By:Tj Leal
--- NOTE | 2020-08-19 09:45 | Hospitalist Progress Note ---
Date of Service August 19, 2020 Assessment & Plan (1) Acute respiratory failure with hypoxia: (2) Acute on chronic systolic CHF (congestive heart failure): (3) Elevated troponin: (4) Idiopathic cardiomyopathy: -Patient presenting from home by referral PCP for evaluation of elevated LFTs -In the ED, found to be volume overloaded with significant lower extremity edema, proBNP 28,000, hypoxic on room air at 89% - currently saturating well on 2 L of oxygen via nasal cannula -History of idiopathic cardiomyopathy, EF <20% on echo 07/2019. Patient has declined AICD in the past as well as medications however seems to be compliant with medications recently. -S/p Lasix 40 mg IV in the ED, will continue with Lasix 40 mg IV twice daily -Continue home beta-sinai, Entresto, isosorbide -Rangel placed for strict I's and O's, low Na+ diet, daily weights -Initial troponin 0.2, EKG without acute ST changes. Likely demand ischemia secondary to acute CHF. Continue serial cardiac enzymes -Updated echo - EF <15%, -Cardiology consult, input appreciated (5) Coagulopathy: (6) Elevated LFTs: -Total bili 1.9, AST 346, ALT 260, alk phos 101, INR 1.9 -Congestive hepatopathy from CHF -No evidence of CBD obstruction or dilatation on CT -GI consult, discussed with YENNIFER Montero -[facility] - reviewed by GI - no obstruction -Trial vitamin K 5 mg, should help coagulopathy if patient is nutritionally deficient (7) Acute kidney injury superimposed on chronic kidney disease: (8) CKD (chronic kidney disease), stage III: - Creatinine 1.3, baseline ~ 1.0 - 2/2 CHF exacerbation - Monitor renal function closely while diuresing for CHF - current Cr <1 Bacteriuria - asymptomatic - will repeat UA - closly monitor for any symptoms of UTI (9) Superior mesenteric artery stenosis: -CT ABD/pelvis w/ contrast 07/26: CT abdomen pelvis with IV contrast was obtained that showed focal high-grade stenosis with near complete occlusion within a proximal branch of the superior mesenteric artery -Patient denies abdominal pain -Lactate 2.6, repeat 1.6 -Doubt ischemic bowel -Continue aspirin. Patient was prescribed statin by PCP however did not start yet, will hold at this time due to elevated LFTs -Patient has vascular surgery follow-up scheduled as an outpatient (10) Rheumatoid arthritis: -On chronic prednisone, will continue (11) DVT prophylaxis: -SCDs due to coagulopathy Admission and Anticipated Discharge Date Admission Date: August 18, 2020 Subjective Patient is sitting up in bed, in no acute distress. She says that she does not remember too much from yesterday. She does know however that she is in the hospital, she is alert and oriented x3 and answering questions appropriately. She says that she feels better. She denies any significant chest pain or shortness of breath, however she is currently on 2 L of supplemental oxygen via nasal cannula. Denies abdominal pain, only says that she feels tired. Review of Systems Review of Systems: All systems reviewed & are unremarkable except as noted in HPI & below Constitutional: + fatigue; no fever and no chills Respiratory: + dyspnea (much improved) Cardiovascular: no chest pain and no palpitations Gastrointestinal: no abdominal pain, no nausea and no vomiting Physical Exam Physical Exam: Constitutional: elderly female sitting up in bed, + ill appearing and + cachectic; no acute distress Eyes: PERRL, EOMI, conjunctivae normal, anicteric sclerae ENMT: external ear and nose normal, oropharynx normal Respiratory: normal respiratory effort; no respiratory distress Auscultation: + diminished lung sounds Cardiovascular: Rate/Rhythm: regular rate and regular rhythm Vessels: normal peripheral pulses Extremities: + edema (2+ pitting edema BLE) Gastrointestinal (Abdomen): normal bowel sounds, soft, nontender Musculoskeletal: no cyanosis or clubbing, extremities motor strength 5/5 Skin: no rashes, warm and dry Neurologic: PERRL, EOMI, no face palsy, no dysarthria, moves extremities Psychiatric: A+Ox3, euthymic affect Results & Data Results & Data ([facility]) Vital Signs (Past 12 Hours) Vital Signs Temp Pulse Pulse Resp BP Pulse Ox 08/19/20 07:33 36.4 C L 69 18 114/63 94 08/19/20 07:06 71 08/19/20 04:21 66 08/19/20 04:09 36.5 C 76 20 146/80 H 97 08/18/20 22:54 36.7 C 86 18 113/70 92 Laboratory Results 08/19/20 08/19/20 08/19/20 Range/Units 08:04 08:04 08:04 WBC 5.29 (4.8-10.8) K/uL RBC 4.64 (4.2-5.4) M/uL Hgb 13.9 (12.0-16.0) g/dL Hct 43.5 (37-47) % MCV 93.8 (80-100) fL MCH 30.0 (25-34) pg MCHC 32.0 (32-36) g/dL RDW Std Deviation 59.8 H (36.4-46.3) fL RDW Coeff of Brady 17.5 H (11.5-14.5) % Plt Count 160 (130-400) K/uL MPV 11.4 H (7.4-10.4) fL Immature Gran % (Auto) % Neut % (Auto) % Lymph % (Auto) % [place] % (Auto) % Eos % (Auto) % Baso % (Auto) % Neut # (Auto) (1.4-6.5) K/uL Lymph # (Auto) (1.2-3.4) K/uL [place] # (Auto) (0.11-0.59) K/uL Eos # (Auto) (0-0.5) K/uL Baso # (Auto) (0-0.2) K/uL Immature Gran # (Auto) (0.00-0.02) K/uL PT 17.1 H (9.0-12.0) Seconds INR 1.7 H (0.9-1.1) APTT (21.0-31.0) Seconds PTT Ratio Sodium 147 H (136-145) mmol/L Potassium 2.6 L D (3.5-5.1) mmol/L Chloride 106 (98-107) mmol/L Carbon Dioxide 33 H (21-32) mmol/L Anion Gap 8.0 (3-11) BUN 42 H (7-18) mg/dl Creatinine 0.96 D (0.6-1.2) mg/dl Est Cr Clr Drug Dosing 29.7 ml/min Est GFR ( Amer) 61.6 Est GFR (Non-Af Amer) 53.2 BUN/Creatinine Ratio 43.3 H (10-20) Glucose 84 (70-99) mg/dl POC Glucose (70-99) mg/dl Lactate (0.4-2.0) mmol/L Calcium 9.2 (8.5-10.1) mg/dl Magnesium (1.8-2.4) mg/dl Total Bilirubin 1.9 H (0.2-1) mg/dl Direct Bilirubin (0-0.2) mg/dl AST 299 H (15-37) U/L ALT 238 H (12-78) U/L Alkaline Phosphatase 84 (45-117) U/L Total Creatine Kinase (26-192) U/L Troponin I (0-0.045) ng/ml NT-Pro-B Natriuret Pep (0-1800) pg/ml Total Protein 5.4 L (6.4-8.2) gm/dl Albumin 2.5 L (3.4-5.0) gm/dl Globulin 2.9 (2.5-4.0) gm/dl Albumin/Globulin Ratio 0.9 (0.9-2) Procalcitonin (0-0.5) ng/ml Specimen Hemolysis Urine Color Urine Appearance (Clear) Urine pH (4.5-7.5) Ur Specific [place] (1.000-1.030) Urine Protein (Negative) Urine Glucose (UA) (Negative) Urine Ketones (Negative) Urine Blood (Negative) Urine Nitrite (Negative) Urine Bilirubin (Negative) Urine Urobilinogen (Negative) Ur Leukocyte Esterase (Negative) Urine WBC (Auto) (0-5) /hpf Urine RBC (Auto) (0-4) /hpf U Hyaline Cast (Auto) (0-5) /lpf U Epithel Cells (Auto) (0-5) /lpf Urine Bacteria (Auto) (Negative) COVID-19 Eval Order COVID-19 PCR (Negative) SARS-CoV-2, RNA, NAAT 08/19/20 08/18/20 08/18/20 Range/Units 08:02 22:25 16:44 WBC (4.8-10.8) K/uL RBC (4.2-5.4) M/uL Hgb (12.0-16.0) g/dL Hct (37-47) % MCV (80-100) fL MCH (25-34) pg MCHC (32-36) g/dL RDW Std Deviation (36.4-46.3) fL RDW Coeff of Brady (11.5-14.5) % Plt Count (130-400) K/uL MPV (7.4-10.4) fL Immature Gran % (Auto) % Neut % (Auto) % Lymph % (Auto) % [place] % (Auto) % Eos % (Auto) % Baso % (Auto) % Neut # (Auto) (1.4-6.5) K/uL Lymph # (Auto) (1.2-3.4) K/uL [place] # (Auto) (0.11-0.59) K/uL Eos # (Auto) (0-0.5) K/uL Baso # (Auto) (0-0.2) K/uL Immature Gran # (Auto) (0.00-0.02) K/uL PT (9.0-12.0) Seconds INR (0.9-1.1) APTT (21.0-31.0) Seconds PTT Ratio Sodium (136-145) mmol/L Potassium (3.5-5.1) mmol/L Chloride (98-107) mmol/L Carbon Dioxide (21-32) mmol/L Anion Gap (3-11) BUN (7-18) mg/dl Creatinine (0.6-1.2) mg/dl Est Cr Clr Drug Dosing ml/min Est GFR ( Amer) Est GFR (Non-Af Amer) BUN/Creatinine Ratio (10-20) Glucose (70-99) mg/dl POC Glucose 80 (70-99) mg/dl Lactate (0.4-2.0) mmol/L Calcium (8.5-10.1) mg/dl Magnesium (1.8-2.4) mg/dl Total Bilirubin (0.2-1) mg/dl Direct Bilirubin (0-0.2) mg/dl AST (15-37) U/L ALT (12-78) U/L Alkaline Phosphatase (45-117) U/L Total Creatine Kinase 104 (26-192) U/L Troponin I 0.167 H* 0.189 H* (0-0.045) ng/ml NT-Pro-B Natriuret Pep (0-1800) pg/ml Total Protein (6.4-8.2) gm/dl Albumin (3.4-5.0) gm/dl Globulin (2.5-4.0) gm/dl Albumin/Globulin Ratio (0.9-2) Procalcitonin (0-0.5) ng/ml Specimen Hemolysis Urine Color Urine Appearance (Clear) Urine pH (4.5-7.5) Ur Specific [place] (1.000-1.030) Urine Protein (Negative) Urine Glucose (UA) (Negative) Urine Ketones (Negative) Urine Blood (Negative) Urine Nitrite (Negative) Urine Bilirubin (Negative) Urine Urobilinogen (Negative) Ur Leukocyte Esterase (Negative) Urine WBC (Auto) (0-5) /hpf Urine RBC (Auto) (0-4) /hpf U Hyaline Cast (Auto) (0-5) /lpf U Epithel Cells (Auto) (0-5) /lpf Urine Bacteria (Auto) (Negative) COVID-19 Eval Order COVID-19 PCR (Negative) SARS-CoV-2, RNA, NAAT 08/18/20 08/18/20 08/18/20 Range/Units 16:44 13:15 13:15 WBC (4.8-10.8) K/uL RBC (4.2-5.4) M/uL Hgb (12.0-16.0) g/dL Hct (37-47) % MCV (80-100) fL MCH (25-34) pg MCHC (32-36) g/dL RDW Std Deviation (36.4-46.3) fL RDW Coeff of Brady (11.5-14.5) % Plt Count (130-400) K/uL MPV (7.4-10.4) fL Immature Gran % (Auto) % Neut % (Auto) % Lymph % (Auto) % [place] % (Auto) % Eos % (Auto) % Baso % (Auto) % Neut # (Auto) (1.4-6.5) K/uL Lymph # (Auto) (1.2-3.4) K/uL [place] # (Auto) (0.11-0.59) K/uL Eos # (Auto) (0-0.5) K/uL Baso # (Auto) (0-0.2) K/uL Immature Gran # (Auto) (0.00-0.02) K/uL PT (9.0-12.0) Seconds INR (0.9-1.1) APTT (21.0-31.0) Seconds PTT Ratio Sodium (136-145) mmol/L Potassium (3.5-5.1) mmol/L Chloride (98-107) mmol/L Carbon Dioxide (21-32) mmol/L Anion Gap (3-11) BUN (7-18) mg/dl Creatinine (0.6-1.2) mg/dl Est Cr Clr Drug Dosing ml/min Est GFR ( Amer) Est GFR (Non-Af Amer) BUN/Creatinine Ratio (10-20) Glucose (70-99) mg/dl POC Glucose (70-99) mg/dl Lactate (0.4-2.0) mmol/L Calcium (8.5-10.1) mg/dl Magnesium (1.8-2.4) mg/dl Total Bilirubin (0.2-1) mg/dl Direct Bilirubin (0-0.2) mg/dl AST (15-37) U/L ALT (12-78) U/L Alkaline Phosphatase (45-117) U/L Total Creatine Kinase (26-192) U/L Troponin I (0-0.045) ng/ml NT-Pro-B Natriuret Pep (0-1800) pg/ml Total Protein (6.4-8.2) gm/dl Albumin (3.4-5.0) gm/dl Globulin (2.5-4.0) gm/dl Albumin/Globulin Ratio (0.9-2) Procalcitonin (0-0.5) ng/ml Specimen Hemolysis Urine Color Urine Appearance (Clear) Urine pH (4.5-7.5) Ur Specific [place] (1.000-1.030) Urine Protein (Negative) Urine Glucose (UA) (Negative) Urine Ketones (Negative) Urine Blood (Negative) Urine Nitrite (Negative) Urine Bilirubin (Negative) Urine Urobilinogen (Negative) Ur Leukocyte Esterase (Negative) Urine WBC (Auto) (0-5) /hpf Urine RBC (Auto) (0-4) /hpf U Hyaline Cast (Auto) (0-5) /lpf U Epithel Cells (Auto) (0-5) /lpf Urine Bacteria (Auto) (Negative) COVID-19 Eval Order COVID-19 PCR NEGATIVE (Negative) SARS-CoV-2, RNA, NAAT Cancelled 08/18/20 08/18/20 08/18/20 Range/Units 13:15 12:59 12:59 WBC (4.8-10.8) K/uL RBC (4.2-5.4) M/uL Hgb (12.0-16.0) g/dL Hct (37-47) % MCV (80-100) fL MCH (25-34) pg MCHC (32-36) g/dL RDW Std Deviation (36.4-46.3) fL RDW Coeff of Brady (11.5-14.5) % Plt Count (130-400) K/uL MPV (7.4-10.4) fL Immature Gran % (Auto) % Neut % (Auto) % Lymph % (Auto) % [place] % (Auto) % Eos % (Auto) % Baso % (Auto) % Neut # (Auto) (1.4-6.5) K/uL Lymph # (Auto) (1.2-3.4) K/uL [place] # (Auto) (0.11-0.59) K/uL Eos # (Auto) (0-0.5) K/uL Baso # (Auto) (0-0.2) K/uL Immature Gran # (Auto) (0.00-0.02) K/uL PT (9.0-12.0) Seconds INR (0.9-1.1) APTT (21.0-31.0) Seconds PTT Ratio Sodium (136-145) mmol/L Potassium (3.5-5.1) mmol/L Chloride (98-107) mmol/L Carbon Dioxide (21-32) mmol/L Anion Gap (3-11) BUN (7-18) mg/dl Creatinine (0.6-1.2) mg/dl Est Cr Clr Drug Dosing ml/min Est GFR ( Amer) Est GFR (Non-Af Amer) BUN/Creatinine Ratio (10-20) Glucose (70-99) mg/dl POC Glucose (70-99) mg/dl Lactate 1.6 (0.4-2.0) mmol/L Calcium (8.5-10.1) mg/dl Magnesium (1.8-2.4) mg/dl Total Bilirubin (0.2-1) mg/dl Direct Bilirubin 1.2 H (0-0.2) mg/dl AST (15-37) U/L ALT (12-78) U/L Alkaline Phosphatase (45-117) U/L Total Creatine Kinase (26-192) U/L Troponin I (0-0.045) ng/ml NT-Pro-B Natriuret Pep (0-1800) pg/ml Total Protein (6.4-8.2) gm/dl Albumin (3.4-5.0) gm/dl Globulin (2.5-4.0) gm/dl Albumin/Globulin Ratio (0.9-2) Procalcitonin (0-0.5) ng/ml Specimen Hemolysis Urine Color Urine Appearance (Clear) Urine pH (4.5-7.5) Ur Specific [place] (1.000-1.030) Urine Protein (Negative) Urine Glucose (UA) (Negative) Urine Ketones (Negative) Urine Blood (Negative) Urine Nitrite (Negative) Urine Bilirubin (Negative) Urine Urobilinogen (Negative) Ur Leukocyte Esterase (Negative) Urine WBC (Auto) (0-5) /hpf Urine RBC (Auto) (0-4) /hpf U Hyaline Cast (Auto) (0-5) /lpf U Epithel Cells (Auto) (0-5) /lpf Urine Bacteria (Auto) (Negative) COVID-19 Eval Order Covid19 Done at [facility] COVID-19 PCR (Negative) SARS-CoV-2, RNA, NAAT 08/18/20 08/18/20 08/18/20 Range/Units 12:30 10:46 10:46 WBC (4.8-10.8) K/uL RBC (4.2-5.4) M/uL Hgb (12.0-16.0) g/dL Hct (37-47) % MCV (80-100) fL MCH (25-34) pg MCHC (32-36) g/dL RDW Std Deviation (36.4-46.3) fL RDW Coeff of Brady (11.5-14.5) % Plt Count (130-400) K/uL MPV (7.4-10.4) fL Immature Gran % (Auto) % Neut % (Auto) % Lymph % (Auto) % [place] % (Auto) % Eos % (Auto) % Baso % (Auto) % Neut # (Auto) (1.4-6.5) K/uL Lymph # (Auto) (1.2-3.4) K/uL [place] # (Auto) (0.11-0.59) K/uL Eos # (Auto) (0-0.5) K/uL Baso # (Auto) (0-0.2) K/uL Immature Gran # (Auto) (0.00-0.02) K/uL PT (9.0-12.0) Seconds INR (0.9-1.1) APTT (21.0-31.0) Seconds PTT Ratio Sodium (136-145) mmol/L Potassium (3.5-5.1) mmol/L Chloride (98-107) mmol/L Carbon Dioxide (21-32) mmol/L Anion Gap (3-11) BUN (7-18) mg/dl Creatinine (0.6-1.2) mg/dl Est Cr Clr Drug Dosing ml/min Est GFR ( Amer) Est GFR (Non-Af Amer) BUN/Creatinine Ratio (10-20) Glucose (70-99) mg/dl POC Glucose (70-99) mg/dl Lactate (0.4-2.0) mmol/L Calcium (8.5-10.1) mg/dl Magnesium (1.8-2.4) mg/dl Total Bilirubin (0.2-1) mg/dl Direct Bilirubin (0-0.2) mg/dl AST (15-37) U/L ALT (12-78) U/L Alkaline Phosphatase (45-117) U/L Total Creatine Kinase (26-192) U/L Troponin I (0-0.045) ng/ml NT-Pro-B Natriuret Pep 86624 H (0-1800) pg/ml Total Protein (6.4-8.2) gm/dl Albumin (3.4-5.0) gm/dl Globulin (2.5-4.0) gm/dl Albumin/Globulin Ratio (0.9-2) Procalcitonin (0-0.5) ng/ml Specimen Hemolysis Urine Color Dark Yellow Urine Appearance Cloudy A (Clear) Urine pH 5.0 (4.5-7.5) Ur Specific [place] 1.018 (1.000-1.030) Urine Protein 1+ H (Negative) Urine Glucose (UA) Negative (Negative) Urine Ketones Trace H (Negative) Urine Blood Negative (Negative) Urine Nitrite Negative (Negative) Urine Bilirubin Negative (Negative) Urine Urobilinogen Negative (Negative) Ur Leukocyte Esterase 2+ H (Negative) Urine WBC (Auto) 1-5 (0-5) /hpf Urine RBC (Auto) 0-4 (0-4) /hpf U Hyaline Cast (Auto) 1-5 (0-5) /lpf U Epithel Cells (Auto) 10-20 H (0-5) /lpf Urine Bacteria (Auto) 4+ H (Negative) COVID-19 Eval Order COVID-19 PCR (Negative) SARS-CoV-2, RNA, NAAT 08/18/20 08/18/20 08/18/20 Range/Units 10:46 10:46 10:46 WBC (4.8-10.8) K/uL RBC (4.2-5.4) M/uL Hgb (12.0-16.0) g/dL Hct (37-47) % MCV (80-100) fL MCH (25-34) pg MCHC (32-36) g/dL RDW Std Deviation (36.4-46.3) fL RDW Coeff of Brady (11.5-14.5) % Plt Count (130-400) K/uL MPV (7.4-10.4) fL Immature Gran % (Auto) % Neut % (Auto) % Lymph % (Auto) % [place] % (Auto) % Eos % (Auto) % Baso % (Auto) % Neut # (Auto) (1.4-6.5) K/uL Lymph # (Auto) (1.2-3.4) K/uL [place] # (Auto) (0.11-0.59) K/uL Eos # (Auto) (0-0.5) K/uL Baso # (Auto) (0-0.2) K/uL Immature Gran # (Auto) (0.00-0.02) K/uL PT 19.8 H (9.0-12.0) Seconds INR 1.9 H (0.9-1.1) APTT 31.5 H (21.0-31.0) Seconds PTT Ratio 1.1 Sodium 143 (136-145) mmol/L Potassium 3.6 (3.5-5.1) mmol/L Chloride 104 (98-107) mmol/L Carbon Dioxide 28 (21-32) mmol/L Anion Gap 11.0 (3-11) BUN 54 H (7-18) mg/dl Creatinine 1.36 H (0.6-1.2) mg/dl Est Cr Clr Drug Dosing 20.9 ml/min Est GFR ( Amer) 40.5 Est GFR (Non-Af Amer) 34.9 BUN/Creatinine Ratio 39.8 H (10-20) Glucose 78 (70-99) mg/dl POC Glucose (70-99) mg/dl Lactate 2.6 H* (0.4-2.0) mmol/L Calcium 9.7 (8.5-10.1) mg/dl Magnesium 2.0 (1.8-2.4) mg/dl Total Bilirubin 1.9 H (0.2-1) mg/dl Direct Bilirubin 1.1 H (0-0.2) mg/dl AST 346 H (15-37) U/L ALT 260 H (12-78) U/L Alkaline Phosphatase 101 (45-117) U/L Total Creatine Kinase (26-192) U/L Troponin I 0.200 H* (0-0.045) ng/ml NT-Pro-B Natriuret Pep (0-1800) pg/ml Total Protein 6.0 L (6.4-8.2) gm/dl Albumin 2.9 L (3.4-5.0) gm/dl Globulin (2.5-4.0) gm/dl Albumin/Globulin Ratio (0.9-2) Procalcitonin (0-0.5) ng/ml Specimen Hemolysis Cancelled Urine Color Urine Appearance (Clear) Urine pH (4.5-7.5) Ur Specific [place] (1.000-1.030) Urine Protein (Negative) Urine Glucose (UA) (Negative) Urine Ketones (Negative) Urine Blood (Negative) Urine Nitrite (Negative) Urine Bilirubin (Negative) Urine Urobilinogen (Negative) Ur Leukocyte Esterase (Negative) Urine WBC (Auto) (0-5) /hpf Urine RBC (Auto) (0-4) /hpf U Hyaline Cast (Auto) (0-5) /lpf U Epithel Cells (Auto) (0-5) /lpf Urine Bacteria (Auto) (Negative) COVID-19 Eval Order COVID-19 PCR (Negative) SARS-CoV-2, RNA, NAAT 08/18/20 08/18/20 Range/Units 10:46 10:46 WBC 6.54 (4.8-10.8) K/uL RBC 4.63 (4.2-5.4) M/uL Hgb 13.6 (12.0-16.0) g/dL Hct 43.3 (37-47) % MCV 93.5 (80-100) fL MCH 29.4 (25-34) pg MCHC 31.4 L (32-36) g/dL RDW Std Deviation 59.8 H (36.4-46.3) fL RDW Coeff of Brady 17.7 H (11.5-14.5) % Plt Count 236 (130-400) K/uL MPV 11.7 H (7.4-10.4) fL Immature Gran % (Auto) 0.2 % Neut % (Auto) 80.4 % Lymph % (Auto) 9.5 % [place] % (Auto) 7.2 % Eos % (Auto) 2.4 % Baso % (Auto) 0.3 % Neut # (Auto) 5.26 (1.4-6.5) K/uL Lymph # (Auto) 0.62 L (1.2-3.4) K/uL [place] # (Auto) 0.47 (0.11-0.59) K/uL Eos # (Auto) 0.16 (0-0.5) K/uL Baso # (Auto) 0.02 (0-0.2) K/uL Immature Gran # (Auto) 0.01 (0.00-0.02) K/uL PT (9.0-12.0) Seconds INR (0.9-1.1) APTT (21.0-31.0) Seconds PTT Ratio Sodium (136-145) mmol/L Potassium (3.5-5.1) mmol/L Chloride (98-107) mmol/L Carbon Dioxide (21-32) mmol/L Anion Gap (3-11) BUN (7-18) mg/dl Creatinine (0.6-1.2) mg/dl Est Cr Clr Drug Dosing ml/min Est GFR ( Amer) Est GFR (Non-Af Amer) BUN/Creatinine Ratio (10-20) Glucose (70-99) mg/dl POC Glucose (70-99) mg/dl Lactate (0.4-2.0) mmol/L Calcium (8.5-10.1) mg/dl Magnesium (1.8-2.4) mg/dl Total Bilirubin (0.2-1) mg/dl Direct Bilirubin (0-0.2) mg/dl AST (15-37) U/L ALT (12-78) U/L Alkaline Phosphatase (45-117) U/L Total Creatine Kinase (26-192) U/L Troponin I (0-0.045) ng/ml NT-Pro-B Natriuret Pep (0-1800) pg/ml Total Protein (6.4-8.2) gm/dl Albumin (3.4-5.0) gm/dl Globulin (2.5-4.0) gm/dl Albumin/Globulin Ratio (0.9-2) Procalcitonin 0.37 (0-0.5) ng/ml Specimen Hemolysis Urine Color Urine Appearance (Clear) Urine pH (4.5-7.5) Ur Specific [place] (1.000-1.030) Urine Protein (Negative) Urine Glucose (UA) (Negative) Urine Ketones (Negative) Urine Blood (Negative) Urine Nitrite (Negative) Urine Bilirubin (Negative) Urine Urobilinogen (Negative) Ur Leukocyte Esterase (Negative) Urine WBC (Auto) (0-5) /hpf Urine RBC (Auto) (0-4) /hpf U Hyaline Cast (Auto) (0-5) /lpf U Epithel Cells (Auto) (0-5) /lpf Urine Bacteria (Auto) (Negative) COVID-19 Eval Order COVID-19 PCR (Negative) SARS-CoV-2, RNA, NAAT Medications Administered Current Inpatient Medications Aspirin (Aspirin 81 Mg Ectab) 81 mg PO DAILY [facility] Stop: 09/18/20 08:59 Last Admin: 08/19/20 09:20 Dose: 81 mg Documented by: Furosemide 40 mg/ Syringe 4 mls @ 4 mls/min IV [id number] [facility] Stop: 09/17/20 20:59 Last Admin: 08/19/20 09:21 Dose: 4 mls/min Documented by: Isosorbide Mononitrate (Isosorbide [place] Extended Rel 30 Mg Tabcr) 30 mg PO DAILY [facility] Stop: 09/18/20 08:59 Last Admin: 08/19/20 09:21 Dose: 30 mg Documented by: Metoprolol Tartrate (Metoprolol Tartrate 25 Mg Tab) 25 mg PO DAILY [facility] Stop: 09/18/20 08:59 Last Admin: 08/19/20 09:21 Dose: 25 mg Documented by: Potassium Chloride (Potassium Chloride 10 Meq Tabcr) 10 meq PO QAM [facility] Stop: 09/18/20 08:59 Last Admin: 08/19/20 09:21 Dose: 10 meq Documented by: Potassium Chloride (Potassium Chloride 20 Meq Tabcr) 60 meq PO QAM [facility] Stop: 09/19/20 12:59 Prednisone (Prednisone 5 Mg Tab) 5 mg PO QAM [facility] Stop: 09/18/20 08:59 Last Admin: 08/19/20 09:21 Dose: 5 mg Documented by: Sacubitril/Valsartan (Sacubitril-Valsartan 24-26 Mg Tab) 1 tab PO BID [facility] Stop: 09/17/20 20:59 Last Admin: 08/19/20 09:20 Dose: 1 tab Documented by: Tramadol HCl (Tramadol Hcl 50 Mg Tablet) 50 mg PO QID PRN PRN Reason: Pain Stop: 09/17/20 16:31
--- NOTE | 2020-08-19 10:08 | Cardiology Consultation ---
Date of Consultation August 19, 2020 History of Present Illness Attending Physician: Piyush Martinez MD History of Present Illness Past medical history: 1. Idiopathic cardiomyopathy with an estimated left ventricular ejection fracti on of around 30%. 2. Refused ICD in the past 3. Severe COPD 4. Rheumatoid arthritis Allergies Allergy/AdvReac Type Severity Reaction Status Date / Time levofloxacin Allergy Intermediate HEPATOTOXIC Verified 08/18/20 11:39 ITY scopolamine Allergy Intermediate CAUSED Verified 08/18/20 11:39 RED, SWOLLEN AREA BEHIND EAR WHERE PATCH APPLIED lisinopril AdvReac Intermediate COUGH Verified 08/18/20 11:39 Home Medications Home Medications Medication Instructions Recorded Confirmed Type albuterol sulfate 1 puff INHALATION Q6H PRN 07/29/18 08/18/20 History nitroglycerin 0.4 mg sublingual 0.4 mg SUBLINGUAL UD PRN tab 06/30/19 08/18/20 History tablet Oxygen Home #1 ea 07/12/19 02/29/20 History levalbuterol HCl 0.63 mg/3 mL 0.63 mg INH DAILY PRN ml 07/12/19 08/18/20 History solution for nebulization tramadol 50 mg tablet 50 mg PO QID PRN tab 07/12/19 08/18/20 History furosemide 20 mg tablet 40 mg PO DAILY tab 08/17/19 08/18/20 History potassium chloride 10 mEq 10 meq PO QAM tab 08/17/19 08/18/20 History tablet,extended release prednisone 5 mg tablet 5 mg PO QAM tab 08/17/19 08/18/20 History metoprolol tartrate 25 mg tablet 25 mg PO DAILY 02/29/20 08/18/20 History isosorbide mononitrate 30 mg PO DAILY 07/26/20 08/18/20 History ondansetron 4 mg PO Q8H PRN #10 tab 07/26/20 08/18/20 Rx sacubitril-valsartan [Entresto] 1 tab PO BID 07/26/20 08/18/20 History aspirin 81 mg PO DAILY 08/18/20 08/18/20 History Patient History Medical History Anemia Asthma USES PRN INH ONCE PER WEEK - LAST EXAC January, Cancer BCC - REMOVED Chronic systolic CHF (congestive heart failure) CKD (chronic kidney disease), stage III GERD (gastroesophageal reflux disease) Hiatal hernia History of hyperparathyroidism Hypertension Idiopathic cardiomyopathy Osteoarthritis Osteoporosis Rheumatoid arthritis Severe mitral regurgitation Surgical History History of back surgery History of cataract surgery History of cholecystectomy History of colonoscopy History of hysterectomy History of parathyroidectomy History of tooth extraction History of total hip arthroplasty BL History of total shoulder replacement RT Nausea and vomiting after administration of anesthetic agent Family History Father Heart disease Brother Heart disease Brother Heart disease Social History Smoking Status: Never smoker Second Hand Exposure: Yes (former smoker); Do You Dip or Chew Tobacco: No; Tobacco Cessation Education Requested by Patient: No Hx Alcohol Use: No Hx Substance Use: No Preferred Language: Bengali Communication Ability: Effective Director Of Technology Required: No Beliefs That Will Affect Care: None Current Living Situation: Spouse Other Information That Helps Us Care for You: No Feels Safe at Home: Yes Safety Concerns: Feels Safe At This Time Assistive Devices: Oxygen - Continuous Assistive Devices Comment: ! liter continuous, 2 liters at night Results & Data ([facility]) Vital Signs (Past 12 Hours) Vital Signs Temp Pulse Pulse Resp BP Pulse Ox 08/19/20 07:33 36.4 C L 69 18 114/63 94 08/19/20 07:06 71 08/19/20 04:21 66 08/19/20 04:09 36.5 C 76 20 146/80 H 97 08/18/20 22:54 36.7 C 86 18 113/70 92
[2020-08-19 10:14] LABS: Magnesium 1.7 mg/dl (1.8-2.4); Phosphorus 3.1 mg/dl (2.5-4.9)
[2020-08-19] MEDS ORDERED: Nursing to Pharmacy Communication SCH (11:00)
--- NOTE | 2020-08-19 11:02 | Cardiology Consultation ---
Date of Consultation August 19, 2020 Assessment & Plan (1) Acute on chronic systolic CHF (congestive heart failure): (2) Elevated LFTs: (3) Idiopathic cardiomyopathy: (4) Elevated troponin: The patient has acute on chronic systolic heart failure with congestion of the liver. She has severe LV dysfunction on her echocardiogram with an estimated left ventricular ejection fraction of under 20%. She is currently clinically stable and I would continue her current treatment including cor recting her electrolytes. Her overall long-term prognosis however, is poor. History of Present Illness Attending Physician: Piyush Martinez MD History of Present Illness This is an 85-year-old female whom I follow through my clinic. She has a history of COPD, rheumatoid arthritis and an idiopathic cardiomyopathy with an estimated left ventricular ejection fraction of under 20% with mitral regurgitation. The patient presented to the hospital with respiratory distress due to congestive heart failure. She had elevated transaminases because of a congested liver. She has been started on IV diuretics with improvement. She has no complaints of chest pain. She is currently maintaining sinus rhythm. Allergies Allergy/AdvReac Type Severity Reaction Status Date / Time levofloxacin Allergy Intermediate HEPATOTOXIC Verified 08/18/20 11:39 ITY scopolamine Allergy Intermediate CAUSED Verified 08/18/20 11:39 RED, SWOLLEN AREA BEHIND EAR WHERE PATCH APPLIED lisinopril AdvReac Intermediate COUGH Verified 08/18/20 11:39 Home Medications Home Medications Medication Instructions Recorded Confirmed Type albuterol sulfate 1 puff INHALATION Q6H PRN 07/29/18 08/18/20 History nitroglycerin 0.4 mg sublingual 0.4 mg SUBLINGUAL UD PRN tab 06/30/19 08/18/20 History tablet Oxygen Home #1 ea 07/12/19 02/29/20 History levalbuterol HCl 0.63 mg/3 mL 0.63 mg INH DAILY PRN ml 07/12/19 08/18/20 History solution for nebulization tramadol 50 mg tablet 50 mg PO QID PRN tab 07/12/19 08/18/20 History furosemide 20 mg tablet 40 mg PO DAILY tab 08/17/19 08/18/20 History potassium chloride 10 mEq 10 meq PO QAM tab 08/17/19 08/18/20 History tablet,extended release prednisone 5 mg tablet 5 mg PO QAM tab 08/17/19 08/18/20 History metoprolol tartrate 25 mg tablet 25 mg PO DAILY 02/29/20 08/18/20 History isosorbide mononitrate 30 mg PO DAILY 07/26/20 08/18/20 History ondansetron 4 mg PO Q8H PRN #10 tab 07/26/20 08/18/20 Rx sacubitril-valsartan [Entresto] 1 tab PO BID 07/26/20 08/18/20 History aspirin 81 mg PO DAILY 08/18/20 08/18/20 History Patient History Medical History Anemia Asthma USES PRN INH ONCE PER WEEK - LAST EXAC January, Cancer BCC - REMOVED Chronic systolic CHF (congestive heart failure) CKD (chronic kidney disease), stage III GERD (gastroesophageal reflux disease) Hiatal hernia History of hyperparathyroidism Hypertension Idiopathic cardiomyopathy Osteoarthritis Osteoporosis Rheumatoid arthritis Severe mitral regurgitation Surgical History History of back surgery History of cataract surgery History of cholecystectomy History of colonoscopy History of hysterectomy History of parathyroidectomy History of tooth extraction History of total hip arthroplasty BL History of total shoulder replacement RT Nausea and vomiting after administration of anesthetic agent Family History Father Heart disease Brother Heart disease Brother Heart disease Social History Smoking Status: Never smoker Second Hand Exposure: Yes (former smoker); Do You Dip or Chew Tobacco: No; Tobacco Cessation Education Requested by Patient: No Hx Alcohol Use: No Hx Substance Use: No Preferred Language: [place] Communication Ability: Effective Water Softener Service Supervisor Required: No Beliefs That Will Affect Care: None Current Living Situation: Spouse Other Information That Helps Us Care for You: No Feels Safe at Home: Yes Safety Concerns: Feels Safe At This Time Assistive Devices: Glasses Assistive Devices Comment: ! liter continuous, 2 liters at night Review of Systems Review of Systems: All systems reviewed & are unremarkable except as noted in HPI & below Nothing additional to add. Physical Exam Physical Exam: General: no acute distress and stated age Head: normocephalic, no masses, lesions, tenderness or abnormalities Eyes: conjunctiva are pink and non-injected, sclera clear Neck: supple, no adenopathy, no bruits, normal jugular venous pulse, no hepatojugular reflux Chest: normal shape and normal respiratory effort Lungs: clear to auscultation and percussion Cardiac Exam: - regular rate & rhythm, systolic murmur apex of the heart- normal S1, normal S2 Pulses: 2(+) throughout Abdomen: abdomen soft, non-tender, no abnormal masses and no hepatosplenomegaly Musculoskeletal: no gait disturbance, no joint inflammation, no deforming arthritis Extremities: Edema around the feet bilaterally Neuro: grossly normal exam Results & Data ([facility]) Vital Signs (Past 12 Hours) Vital Signs Temp Pulse Pulse Resp BP Pulse Ox 08/19/20 07:33 36.4 C L 69 18 114/63 94 08/19/20 07:06 71 08/19/20 04:21 66 08/19/20 04:09 36.5 C 76 20 146/80 H 97 Laboratory Results Laboratory Results - last 24 hr 08/18/20 08/18/20 08/18/20 10:46 10:46 10:46 WBC 6.54 RBC 4.63 Hgb 13.6 Hct 43.3 MCV 93.5 MCH 29.4 MCHC 31.4 L RDW Std Deviation 59.8 H RDW Coeff of Brady 17.7 H Plt Count 236 MPV 11.7 H Immature Gran % (Auto) 0.2 Neut % (Auto) 80.4 Lymph % (Auto) 9.5 [place] % (Auto) 7.2 Eos % (Auto) 2.4 Baso % (Auto) 0.3 Neut # (Auto) 5.26 Lymph # (Auto) 0.62 L [place] # (Auto) 0.47 Eos # (Auto) 0.16 Baso # (Auto) 0.02 Immature Gran # (Auto) 0.01 PT 19.8 H INR 1.9 H APTT 31.5 H PTT Ratio 1.1 Sodium Potassium Chloride Carbon Dioxide Anion Gap BUN Creatinine Est Cr Clr Drug Dosing Est GFR ( Amer) Est GFR (Non-Af Amer) BUN/Creatinine Ratio Glucose POC Glucose Lactate Calcium Phosphorus Magnesium Total Bilirubin Direct Bilirubin AST ALT Alkaline Phosphatase Total Creatine Kinase Troponin I NT-Pro-B Natriuret Pep Total Protein Albumin Globulin Albumin/Globulin Ratio Procalcitonin 0.37 Specimen Hemolysis Urine Color Urine Appearance Urine pH Ur Specific [place] Urine Protein Urine Glucose (UA) Urine Ketones Urine Blood Urine Nitrite Urine Bilirubin Urine Urobilinogen Ur Leukocyte Esterase Urine WBC (Auto) Urine RBC (Auto) U Hyaline Cast (Auto) U Epithel Cells (Auto) Urine Bacteria (Auto) COVID-19 Eval Order COVID-19 PCR SARS-CoV-2, RNA, NAAT 08/18/20 08/18/20 08/18/20 10:46 10:46 10:46 WBC RBC Hgb Hct MCV MCH MCHC RDW Std Deviation RDW Coeff of [place] Plt Count MPV Immature Gran % (Auto) Neut % (Auto) Lymph % (Auto) [place] % (Auto) Eos % (Auto) Baso % (Auto) Neut # (Auto) Lymph # (Auto) [place] # (Auto) Eos # (Auto) Baso # (Auto) Immature Gran # (Auto) PT INR APTT PTT Ratio Sodium 143 Potassium 3.6 Chloride 104 Carbon Dioxide 28 Anion Gap 11.0 BUN 54 H Creatinine 1.36 H Est Cr Clr Drug Dosing 20.9 Est GFR ( Amer) 40.5 Est GFR (Non-Af Amer) 34.9 BUN/Creatinine Ratio 39.8 H Glucose 78 POC Glucose Lactate 2.6 H* Calcium 9.7 Phosphorus Magnesium 2.0 Total Bilirubin 1.9 H Direct Bilirubin 1.1 H AST 346 H ALT 260 H Alkaline Phosphatase 101 Total Creatine Kinase Troponin I 0.200 H* NT-Pro-B Natriuret Pep 95877 H Total Protein 6.0 L Albumin 2.9 L Globulin Albumin/Globulin Ratio Procalcitonin Specimen Hemolysis Cancelled Urine Color Urine Appearance Urine pH Ur Specific [place] Urine Protein Urine Glucose (UA) Urine Ketones Urine Blood Urine Nitrite Urine Bilirubin Urine Urobilinogen Ur Leukocyte Esterase Urine WBC (Auto) Urine RBC (Auto) U Hyaline Cast (Auto) U Epithel Cells (Auto) Urine Bacteria (Auto) COVID-19 Eval Order COVID-19 PCR SARS-CoV-2, RNA, NAAT 08/18/20 08/18/20 08/18/20 10:46 12:30 12:59 WBC RBC Hgb Hct MCV MCH MCHC RDW Std Deviation RDW Coeff of [place] Plt Count MPV Immature Gran % (Auto) Neut % (Auto) Lymph % (Auto) [place] % (Auto) Eos % (Auto) Baso % (Auto) Neut # (Auto) Lymph # (Auto) [place] # (Auto) Eos # (Auto) Baso # (Auto) Immature Gran # (Auto) PT INR APTT PTT Ratio Sodium Potassium Chloride Carbon Dioxide Anion Gap BUN Creatinine Est Cr Clr Drug Dosing Est GFR ( Amer) Est GFR (Non-Af Amer) BUN/Creatinine Ratio Glucose POC Glucose Lactate Calcium Phosphorus Magnesium Total Bilirubin Direct Bilirubin 1.2 H AST ALT Alkaline Phosphatase Total Creatine Kinase Troponin I NT-Pro-B Natriuret Pep Total Protein Albumin Globulin Albumin/Globulin Ratio Procalcitonin Specimen Hemolysis Urine Color Dark Yellow Urine Appearance Cloudy A Urine pH 5.0 Ur Specific [place] 1.018 Urine Protein 1+ H Urine Glucose (UA) Negative Urine Ketones Trace H Urine Blood Negative Urine Nitrite Negative Urine Bilirubin Negative Urine Urobilinogen Negative Ur Leukocyte Esterase 2+ H Urine WBC (Auto) 1-5 Urine RBC (Auto) 0-4 U Hyaline Cast (Auto) 1-5 U Epithel Cells (Auto) 10-20 H Urine Bacteria (Auto) 4+ H COVID-19 Eval Order COVID-19 PCR SARS-CoV-2, RNA, NAAT 08/18/20 08/18/20 08/18/20 12:59 13:15 13:15 WBC RBC Hgb Hct MCV MCH MCHC RDW Std Deviation RDW Coeff of [place] Plt Count MPV Immature Gran % (Auto) Neut % (Auto) Lymph % (Auto) [place] % (Auto) Eos % (Auto) Baso % (Auto) Neut # (Auto) Lymph # (Auto) [place] # (Auto) Eos # (Auto) Baso # (Auto) Immature Gran # (Auto) PT INR APTT PTT Ratio Sodium Potassium Chloride Carbon Dioxide Anion Gap BUN Creatinine Est Cr Clr Drug Dosing Est GFR ( Amer) Est GFR (Non-Af Amer) BUN/Creatinine Ratio Glucose POC Glucose Lactate 1.6 Calcium Phosphorus Magnesium Total Bilirubin Direct Bilirubin AST ALT Alkaline Phosphatase Total Creatine Kinase Troponin I NT-Pro-B Natriuret Pep Total Protein Albumin Globulin Albumin/Globulin Ratio Procalcitonin Specimen Hemolysis Urine Color Urine Appearance Urine pH Ur Specific [place] Urine Protein Urine Glucose (UA) Urine Ketones Urine Blood Urine Nitrite Urine Bilirubin Urine Urobilinogen Ur Leukocyte Esterase Urine WBC (Auto) Urine RBC (Auto) U Hyaline Cast (Auto) U Epithel Cells (Auto) Urine Bacteria (Auto) COVID-19 Eval Order Covid19 Done at [facility] COVID-19 PCR SARS-CoV-2, RNA, NAAT Cancelled 08/18/20 08/18/20 08/18/20 13:15 16:44 16:44 WBC RBC Hgb Hct MCV MCH MCHC RDW Std Deviation RDW Coeff of Brady Plt Count MPV Immature Gran % (Auto) Neut % (Auto) Lymph % (Auto) [place] % (Auto) Eos % (Auto) Baso % (Auto) Neut # (Auto) Lymph # (Auto) [place] # (Auto) Eos # (Auto) Baso # (Auto) Immature Gran # (Auto) PT INR APTT PTT Ratio Sodium Potassium Chloride Carbon Dioxide Anion Gap BUN Creatinine Est Cr Clr Drug Dosing Est GFR ( Amer) Est GFR (Non-Af Amer) BUN/Creatinine Ratio Glucose POC Glucose Lactate Calcium Phosphorus Magnesium Total Bilirubin Direct Bilirubin AST ALT Alkaline Phosphatase Total Creatine Kinase 104 Troponin I 0.189 H* NT-Pro-B Natriuret Pep Total Protein Albumin Globulin Albumin/Globulin Ratio Procalcitonin Specimen Hemolysis Urine Color Urine Appearance Urine pH Ur Specific [place] Urine Protein Urine Glucose (UA) Urine Ketones Urine Blood Urine Nitrite Urine Bilirubin Urine Urobilinogen Ur Leukocyte Esterase Urine WBC (Auto) Urine RBC (Auto) U Hyaline Cast (Auto) U Epithel Cells (Auto) Urine Bacteria (Auto) COVID-19 Eval Order COVID-19 PCR NEGATIVE SARS-CoV-2, RNA, NAAT 08/18/20 08/19/20 08/19/20 22:25 08:02 08:04 WBC 5.29 RBC 4.64 Hgb 13.9 Hct 43.5 MCV 93.8 MCH 30.0 MCHC 32.0 RDW Std Deviation 59.8 H RDW Coeff of Brady 17.5 H Plt Count 160 MPV 11.4 H Immature Gran % (Auto) Neut % (Auto) Lymph % (Auto) [place] % (Auto) Eos % (Auto) Baso % (Auto) Neut # (Auto) Lymph # (Auto) [place] # (Auto) Eos # (Auto) Baso # (Auto) Immature Gran # (Auto) PT INR APTT PTT Ratio Sodium Potassium Chloride Carbon Dioxide Anion Gap BUN Creatinine Est Cr Clr Drug Dosing Est GFR ( Amer) Est GFR (Non-Af Amer) BUN/Creatinine Ratio Glucose POC Glucose 80 Lactate Calcium Phosphorus Magnesium Total Bilirubin Direct Bilirubin AST ALT Alkaline Phosphatase Total Creatine Kinase Troponin I 0.167 H* NT-Pro-B Natriuret Pep Total Protein Albumin Globulin Albumin/Globulin Ratio Procalcitonin Specimen Hemolysis Urine Color Urine Appearance Urine pH Ur Specific [place] Urine Protein Urine Glucose (UA) Urine Ketones Urine Blood Urine Nitrite Urine Bilirubin Urine Urobilinogen Ur Leukocyte Esterase Urine WBC (Auto) Urine RBC (Auto) U Hyaline Cast (Auto) U Epithel Cells (Auto) Urine Bacteria (Auto) COVID-19 Eval Order COVID-19 PCR SARS-CoV-2, RNA, NAAT 08/19/20 08/19/20 08/19/20 08:04 08:04 08:04 WBC RBC Hgb Hct MCV MCH MCHC RDW Std Deviation RDW Coeff of [place] Plt Count MPV Immature Gran % (Auto) Neut % (Auto) Lymph % (Auto) [place] % (Auto) Eos % (Auto) Baso % (Auto) Neut # (Auto) Lymph # (Auto) [place] # (Auto) Eos # (Auto) Baso # (Auto) Immature Gran # (Auto) PT 17.1 H INR 1.7 H APTT PTT Ratio Sodium 147 H Potassium 2.6 L D Chloride 106 Carbon Dioxide 33 H Anion Gap 8.0 BUN 42 H Creatinine 0.96 D Est Cr Clr Drug Dosing 29.7 Est GFR ( Amer) 61.6 Est GFR (Non-Af Amer) 53.2 BUN/Creatinine Ratio 43.3 H Glucose 84 POC Glucose Lactate Calcium 9.2 Phosphorus 3.1 Magnesium 1.7 L Total Bilirubin 1.9 H Direct Bilirubin AST 299 H ALT 238 H Alkaline Phosphatase 84 Total Creatine Kinase Troponin I NT-Pro-B Natriuret Pep Total Protein 5.4 L Albumin 2.5 L Globulin 2.9 Albumin/Globulin Ratio 0.9 Procalcitonin Specimen Hemolysis Urine Color Urine Appearance Urine pH Ur Specific [place] Urine Protein Urine Glucose (UA) Urine Ketones Urine Blood Urine Nitrite Urine Bilirubin Urine Urobilinogen Ur Leukocyte Esterase Urine WBC (Auto) Urine RBC (Auto) U Hyaline Cast (Auto) U Epithel Cells (Auto) Urine Bacteria (Auto) COVID-19 Eval Order COVID-19 PCR SARS-CoV-2, RNA, NAAT Medications Administered Current Inpatient Medications Aspirin (Aspirin 81 Mg Ectab) 81 mg PO DAILY DARY Stop: 09/18/20 08:59 Last Admin: 08/19/20 09:20 Dose: 81 mg Documented by: Furosemide 40 mg/ Syringe 4 mls @ 4 mls/min IV [id number] DARY Stop: 09/17/20 20:59 Last Admin: 08/19/20 09:21 Dose: 4 mls/min Documented by: Isosorbide Mononitrate (Isosorbide [place] Extended Rel 30 Mg Tabcr) 30 mg PO DAILY DARY Stop: 09/18/20 08:59 Last Admin: 08/19/20 09:21 Dose: 30 mg Documented by: Metoprolol Tartrate (Metoprolol Tartrate 25 Mg Tab) 25 mg PO DAILY [facility] Stop: 09/18/20 08:59 Last Admin: 08/19/20 09:21 Dose: 25 mg Documented by: Miscellaneous Information (Nursing To Pharmacy Communication) 1 ea N/A TODAY [facility] Stop: 09/18/20 10:59 Potassium Chloride (Potassium Chloride 20 Meq Tabcr) 60 meq PO 1300 ONE Stop: 08/19/20 13:01 Prednisone (Prednisone 5 Mg Tab) 5 mg PO QAM [facility] Stop: 09/18/20 08:59 Last Admin: 08/19/20 09:21 Dose: 5 mg Documented by: Sacubitril/Valsartan (Sacubitril-Valsartan 24-26 Mg Tab) 1 tab PO BID [facility] Stop: 09/17/20 20:59 Last Admin: 08/19/20 09:20 Dose: 1 tab Documented by: Tramadol HCl (Tramadol Hcl 50 Mg Tablet) 50 mg PO QID PRN PRN Reason: Pain Stop: 09/17/20 16:31
[2020-08-19] MEDS ORDERED: POTASSIUM CHLORIDE PWD 20 MEQ PACK PO ONE (13:00)
[2020-08-19] MEDS ORDERED: POTASSIUM CHLORIDE CRTAB 20 MEQ TABCR PO ONE (13:00)
[2020-08-19 15:50] LABS: BUN Creatinine Ratio 42.2 (10-20); Calcium 8.9 mg/dl (8.5-10.1); Creatinine Clr Calc Pharmacy 30.6 ml/min; Est GFR (Non-African American) 55.3; Magnesium 1.6 mg/dl (1.8-2.4); Phosphorus 2.7 mg/dl (2.5-4.9); Potassium 4.4 mmol/L (3.5-5.1)
[2020-08-19] MEDS ORDERED: PHYTONADIONE 2.5 MG TAB PO ONE (17:00)
[2020-08-19] MEDS ORDERED: PHYTONADIONE 5 MG TAB PO ONE (17:00)
[2020-08-19] MEDS ORDERED: MAGNESIUM SULFATE / D5W 1 GM/100 ML BAG IV ONE (17:15)
[2020-08-19 19:06] LABS: Appearance Urine Clear (Clear); Bacteria Urine Automated 1+ (Negative); Bilirubin Urine Negative (Negative); Blood Urine 1+ (Negative); Color Urine Dark Yellow; Epithelial Cell Urine Auto 20-30 /lpf (0-5); Glucose Urine UA Negative (Negative); Ketones Urine Negative (Negative); Leukocyte Esterase Urine 2+ (Negative); Nitrite Urine Negative (Negative); Protein Urine Negative (Negative); RBC Urine Automated 0-4 /hpf (0-4); Specific Gravity Urine 1.014 (1.000-1.030); Urobilinogen Urine Negative (Negative)
[2020-08-20] MEDS ORDERED: traMADol HCL 50 MG TABLET PO STA (03:29)
--- NOTE | 2020-08-20 07:36 | Hospitalist Progress Note ---
Date of Service August 20, 2020 Assessment & Plan (1) Acute respiratory failure with hypoxia: (2) Acute on chronic systolic CHF (congestive heart failure): (3) Elevated troponin: (4) Idiopathic cardiomyopathy: -Patient presenting from home by referral PCP for evaluation of elevated LFTs -In the ED, found to be volume overloaded with significant lower extremity edema, proBNP 28,000, hypoxic on room air at 89% - currently saturating well on 2 L of oxygen via nasal cannula -History of idiopathic cardiomyopathy, EF <20% on echo 07/2019. Patient has declined AICD in the past as well as medications however seems to be compliant with medications recently. -S/p Lasix 40 mg IV in the ED, continued with Lasix 40 mg IV twice daily, will switch to PO lasix 40 bid -Continue home beta-sinai, Entresto, isosorbide -Rangel placed for strict I's and O's, low Na+ diet, daily weights -Initial troponin 0.2, EKG without acute ST changes. Likely demand ischemia secondary to acute CHF. -Updated echo - EF <15%, LV systolic function is severely reduced. RV systolic function is severely reduced. Left atrium is severely dilated. Right atrium is severely dilated. There is mild to moderate mitral regurg. -Cardiology consult, input appreciated -pt is currently stable however given above echo, poor prognosis (5) Coagulopathy: (6) Elevated LFTs: -Total bili 1.9, AST 346, ALT 260, alk phos 101, INR 1.9 -Congestive hepatopathy from CHF -No evidence of CBD obstruction or dilatation on CT -GI consult, discussed with YENNIFER Montero -[facility] - reviewed by GI - no obstruction -Trial vitamin K 5 mg, should help coagulopathy if patient is nutritionally deficient (7) Acute kidney injury superimposed on chronic kidney disease: (8) CKD (chronic kidney disease), stage III: - Creatinine 1.3, baseline ~ 1.0 - 2/2 CHF exacerbation - Monitor renal function closely while diuresing for CHF - current Cr <1 Bacteriuria - asymptomatic - closely monitor for any symptoms of UTI (9) Superior mesenteric artery stenosis: -CT ABD/pelvis w/ contrast 07/26: CT abdomen pelvis with IV contrast was obtained that showed focal high-grade stenosis with near complete occlusion within a proximal branch of the superior mesenteric artery -Patient denies abdominal pain -Lactate 2.6, repeat 1.6 -Doubt ischemic bowel -Continue aspirin. Patient was prescribed statin by PCP however did not start yet, will hold at this time due to elevated LFTs -Patient has vascular surgery follow-up scheduled as an outpatient (10) Rheumatoid arthritis: -On chronic prednisone, will continue (11) DVT prophylaxis: -SCDs due to coagulopathy Admission and Anticipated Discharge Date Admission Date: August 18, 2020 Subjective Pt is sitting up in bed in NAD. Says she feels much better today. Reports some chest pain at night, now denies any chest pain, palpitations or shortness of breath. Review of Systems Review of Systems: All systems reviewed & are unremarkable except as noted in HPI & below Constitutional: no fever and no chills Respiratory: no cough and no dyspnea Cardiovascular: no chest pain and no palpitations Gastrointestinal: no abdominal pain, no nausea and no vomiting Physical Exam Physical Exam: Constitutional: elderly female sitting up in bed, + cachectic; no acute distress Eyes: PERRL, EOMI, conjunctivae normal, anicteric sclerae ENMT: external ear and nose normal, oropharynx normal Respiratory: normal respiratory effort; no respiratory distress Auscultation: CTAB, but somewhat diminished lung sounds at bases Cardiovascular: Rate/Rhythm: regular rate and regular rhythm Vessels: normal peripheral pulses Extremities: + trace LE edema (much improved) Gastrointestinal (Abdomen): normal bowel sounds, soft, nontender Musculoskeletal: no cyanosis or clubbing, extremities motor strength 5/5 Skin: no rashes, warm and dry Neurologic: PERRL, EOMI, no face palsy, no dysarthria, moves extremities Psychiatric: A+Ox3, euthymic affect Results & Data Results & Data ([facility]) Vital Signs (Past 12 Hours) Vital Signs Temp Pulse Pulse Resp BP Pulse Ox 08/20/20 04:28 36.4 C L 80 18 127/83 92 08/20/20 01:15 100 H 08/19/20 23:14 36.9 C 89 18 101/53 L 92 Laboratory Results 08/20/20 08/20/20 08/20/20 Range/Units 16:33 11:52 08:11 WBC (4.8-10.8) K/uL RBC (4.2-5.4) M/uL Hgb (12.0-16.0) g/dL Hct (37-47) % MCV (80-100) fL MCH (25-34) pg MCHC (32-36) g/dL RDW Std Deviation (36.4-46.3) fL RDW Coeff of Brady (11.5-14.5) % Plt Count (130-400) K/uL MPV (7.4-10.4) fL Sodium 145 (136-145) mmol/L Potassium 3.3 L D (3.5-5.1) mmol/L Chloride 104 (98-107) mmol/L Carbon Dioxide 34 H (21-32) mmol/L Anion Gap 7.0 (3-11) BUN 27 H (7-18) mg/dl Creatinine 0.80 (0.6-1.2) mg/dl Est Cr Clr Drug Dosing 38.7 ml/min Est GFR ( Amer) 76.8 Est GFR (Non-Af Amer) 66.3 BUN/Creatinine Ratio 33.9 H (10-20) Glucose 98 (70-99) mg/dl POC Glucose 124 H 136 H (70-99) mg/dl Calcium 9.1 (8.5-10.1) mg/dl Phosphorus 1.8 L (2.5-4.9) mg/dl Magnesium 1.9 (1.8-2.4) mg/dl Total Bilirubin 2.2 H (0.2-1) mg/dl AST 201 H (15-37) U/L ALT 213 H (12-78) U/L Alkaline Phosphatase 88 (45-117) U/L Total Protein 5.9 L (6.4-8.2) gm/dl Albumin 3.0 L (3.4-5.0) gm/dl Globulin 2.9 (2.5-4.0) gm/dl Albumin/Globulin Ratio 1.0 (0.9-2) Urine Color Urine Appearance (Clear) Urine pH (4.5-7.5) Ur Specific [place] (1.000-1.030) Urine Protein (Negative) Urine Glucose (UA) (Negative) Urine Ketones (Negative) Urine Blood (Negative) Urine Nitrite (Negative) Urine Bilirubin (Negative) Urine Urobilinogen (Negative) Ur Leukocyte Esterase (Negative) Urine WBC (Auto) (0-5) /hpf Urine RBC (Auto) (0-4) /hpf U Hyaline Cast (Auto) (0-5) /lpf U Epithel Cells (Auto) (0-5) /lpf Urine Bacteria (Auto) (Negative) 08/20/20 08/20/20 08/19/20 Range/Units 08:11 07:40 20:30 WBC 6.62 (4.8-10.8) K/uL RBC 4.83 (4.2-5.4) M/uL Hgb 14.3 (12.0-16.0) g/dL Hct 45.3 (37-47) % MCV 93.8 (80-100) fL MCH 29.6 (25-34) pg MCHC 31.6 L (32-36) g/dL RDW Std Deviation 60.7 H (36.4-46.3) fL RDW Coeff of Brady 17.9 H (11.5-14.5) % Plt Count 201 (130-400) K/uL MPV 11.8 H (7.4-10.4) fL Sodium (136-145) mmol/L Potassium (3.5-5.1) mmol/L Chloride (98-107) mmol/L Carbon Dioxide (21-32) mmol/L Anion Gap (3-11) BUN (7-18) mg/dl Creatinine (0.6-1.2) mg/dl Est Cr Clr Drug Dosing ml/min Est GFR ( Amer) Est GFR (Non-Af Amer) BUN/Creatinine Ratio (10-20) Glucose (70-99) mg/dl POC Glucose 89 115 H (70-99) mg/dl Calcium (8.5-10.1) mg/dl Phosphorus (2.5-4.9) mg/dl Magnesium (1.8-2.4) mg/dl Total Bilirubin (0.2-1) mg/dl AST (15-37) U/L ALT (12-78) U/L Alkaline Phosphatase (45-117) U/L Total Protein (6.4-8.2) gm/dl Albumin (3.4-5.0) gm/dl Globulin (2.5-4.0) gm/dl Albumin/Globulin Ratio (0.9-2) Urine Color Urine Appearance (Clear) Urine pH (4.5-7.5) Ur Specific [place] (1.000-1.030) Urine Protein (Negative) Urine Glucose (UA) (Negative) Urine Ketones (Negative) Urine Blood (Negative) Urine Nitrite (Negative) Urine Bilirubin (Negative) Urine Urobilinogen (Negative) Ur Leukocyte Esterase (Negative) Urine WBC (Auto) (0-5) /hpf Urine RBC (Auto) (0-4) /hpf U Hyaline Cast (Auto) (0-5) /lpf U Epithel Cells (Auto) (0-5) /lpf Urine Bacteria (Auto) (Negative) 08/19/20 Range/Units 15:40 WBC (4.8-10.8) K/uL RBC (4.2-5.4) M/uL Hgb (12.0-16.0) g/dL Hct (37-47) % MCV (80-100) fL MCH (25-34) pg MCHC (32-36) g/dL RDW Std Deviation (36.4-46.3) fL RDW Coeff of Brady (11.5-14.5) % Plt Count (130-400) K/uL MPV (7.4-10.4) fL Sodium (136-145) mmol/L Potassium (3.5-5.1) mmol/L Chloride (98-107) mmol/L Carbon Dioxide (21-32) mmol/L Anion Gap (3-11) BUN (7-18) mg/dl Creatinine (0.6-1.2) mg/dl Est Cr Clr Drug Dosing ml/min Est GFR ( Amer) Est GFR (Non-Af Amer) BUN/Creatinine Ratio (10-20) Glucose (70-99) mg/dl POC Glucose (70-99) mg/dl Calcium (8.5-10.1) mg/dl Phosphorus (2.5-4.9) mg/dl Magnesium (1.8-2.4) mg/dl Total Bilirubin (0.2-1) mg/dl AST (15-37) U/L ALT (12-78) U/L Alkaline Phosphatase (45-117) U/L Total Protein (6.4-8.2) gm/dl Albumin (3.4-5.0) gm/dl Globulin (2.5-4.0) gm/dl Albumin/Globulin Ratio (0.9-2) Urine Color Dark Yellow Urine Appearance Clear (Clear) Urine pH 5.0 (4.5-7.5) Ur Specific [place] 1.014 (1.000-1.030) Urine Protein Negative (Negative) Urine Glucose (UA) Negative (Negative) Urine Ketones Negative (Negative) Urine Blood 1+ H (Negative) Urine Nitrite Negative (Negative) Urine Bilirubin Negative (Negative) Urine Urobilinogen Negative (Negative) Ur Leukocyte Esterase 2+ H (Negative) Urine WBC (Auto) 10-30 H (0-5) /hpf Urine RBC (Auto) 0-4 (0-4) /hpf U Hyaline Cast (Auto) 1-5 (0-5) /lpf U Epithel Cells (Auto) 20-30 H (0-5) /lpf Urine Bacteria (Auto) 1+ H (Negative) Medications Administered Current Inpatient Medications Aspirin (Aspirin 81 Mg Ectab) 81 mg PO DAILY DARY Stop: 09/18/20 08:59 Last Admin: 08/20/20 08:18 Dose: 81 mg Documented by: Furosemide (Furosemide 40 Mg Tab) 40 mg PO BID17 DARY Stop: 09/19/20 16:59 Last Admin: 08/20/20 17:03 Dose: 40 mg Documented by: Isosorbide Mononitrate (Isosorbide [place] Extended Rel 30 Mg Tabcr) 30 mg PO DAILY DARY Stop: 09/18/20 08:59 Last Admin: 08/20/20 08:18 Dose: 30 mg Documented by: Metoprolol Tartrate (Metoprolol Tartrate 25 Mg Tab) 25 mg PO DAILY DARY Stop: 09/18/20 08:59 Last Admin: 08/20/20 08:18 Dose: 25 mg Documented by: Prednisone (Prednisone 5 Mg Tab) 5 mg PO QAM ADRY Stop: 09/18/20 08:59 Last Admin: 08/20/20 08:18 Dose: 5 mg Documented by: Sacubitril/Valsartan (Sacubitril-Valsartan 24-26 Mg Tab) 1 tab PO BID [facility] Stop: 09/17/20 20:59 Last Admin: 08/20/20 08:18 Dose: 1 tab Documented by: Tramadol HCl (Tramadol Hcl 50 Mg Tablet) 50 - 100 mg PO QID PRN PRN Reason: Pain Stop: 09/17/20 16:31
[2020-08-20] MEDS: FUROSEMIDE 40 MG in SYRINGE 0 ML IV SCH (08:17)
[2020-08-20] MEDS: ISOSORBIDE MONO EXTENDED REL 30 MG TABCR PO SCH (08:18)
[2020-08-20] MEDS: ASPIRIN 81 MG ECTAB PO SCH (08:18)
[2020-08-20] MEDS: predniSONE 5 MG TAB PO SCH (08:18)
[2020-08-20] MEDS: METOPROLOL TARTRATE 25 MG TAB PO SCH (08:18)
[2020-08-20] MEDS: SACUBITRIL-VALSARTAN 24-26 MG TAB PO SCH ×2 (08:18→20:29)
[2020-08-20 08:37] LABS: Hematocrit (blood only) 45.3 % (37-47); Hemoglobin 14.3 g/dL (12.0-16.0); Mean Corpuscular Hemoglobin 29.6 pg (25-34); Mean Corpuscular Hgb Conc 31.6 g/dL (32-36); Mean Corpuscular Volume 93.8 fL (80-100); Mean Platelet Volume 11.8 fL (7.4-10.4); Platelet Count 201 K/uL (130-400); RDW Coefficient of Variation 17.9 % (11.5-14.5); RDW Standard Deviation 60.7 fL (36.4-46.3); Red Blood Count 4.83 M/uL (4.2-5.4); White Blood Count 6.62 K/uL (4.8-10.8)
[2020-08-20 09:10] LABS: BUN Creatinine Ratio 33.9 (10-20); Bilirubin,Total 2.2 mg/dl (0.2-1); Calcium 9.1 mg/dl (8.5-10.1); Creatinine Clr Calc Pharmacy 38.7 ml/min; Est GFR (African American) 76.8; Est GFR (Non-African American) 66.3; Globulin 2.9 gm/dl (2.5-4.0); Magnesium 1.9 mg/dl (1.8-2.4); Phosphorus 1.8 mg/dl (2.5-4.9); Potassium 3.3 mmol/L (3.5-5.1); Total Protein 5.9 gm/dl (6.4-8.2)
[2020-08-20] MEDS ORDERED: POTASSIUM PHOS 3 MMOL/1 ML INFUSION IV STA (10:31)
[2020-08-20] MEDS ORDERED: POTASSIUM CHLORIDE CRTAB 20 MEQ TABCR PO STA (10:32)
[2020-08-20] MEDS ORDERED: POTASSIUM PHOSPHATE 15 MMOL in SODIUM CHLORIDE 0.9% 250 ML IV ONE (11:00)
--- NOTE | 2020-08-20 11:01 | Cardiology Progress Note ---
Date of Service August 20, 2020 Assessment & Plan (1) Acute on chronic systolic CHF (congestive heart failure): (2) Elevated LFTs: (3) Idiopathic cardiomyopathy: (4) Elevated troponin: The patient I believe is out of acute heart failure. I believe we can stop her IV Lasix and put her on Lasix 40 mg p.o. twice daily and reassess her tomorrow. Otherwise she is doing well. Admission and Anticipated Discharge Date Admission Date: August 18, 2020 Subjective The patient states she feels much improved. She had an uneventful night. Review of Systems Review of Systems: All systems reviewed & are unremarkable except as noted in Subjective Physical Exam Physical Exam: General: no acute distress and stated age Head: normocephalic, no masses, lesions, tenderness or abnormalities Eyes: conjunctiva are pink and non-injected, sclera clear Neck: supple, no adenopathy, no bruits, normal jugular venous pulse, no hepatojugular reflux Chest: normal shape and normal respiratory effort Lungs: clear to auscultation and percussion Cardiac Exam: - regular rate & rhythm, no murmurs gallops or rubs - normal S1, normal S2 Pulses: 2(+) throughout Abdomen: abdomen soft, non-tender, no abnormal masses and no hepatosplenomegaly Musculoskeletal: no gait disturbance, no joint inflammation, no deforming arthritis Extremities: no edema and no cyanosis Neuro: grossly normal exam Results & Data ([facility]) Vital Signs (Past 12 Hours) Vital Signs Temp Pulse Pulse Resp BP Pulse Ox 08/20/20 07:44 36.3 C L 85 18 123/77 91 08/20/20 07:41 83 08/20/20 04:28 36.4 C L 80 18 127/83 92 08/20/20 01:15 100 H 08/19/20 23:14 36.9 C 89 18 101/53 L 92 Laboratory Results Laboratory Results - last 24 hr 08/19/20 08/19/20 08/19/20 11:29 15:13 15:40 WBC RBC Hgb Hct MCV MCH MCHC RDW Std Deviation RDW Coeff of Brady Plt Count MPV Sodium 145 Potassium 4.4 D Chloride 106 Carbon Dioxide 33 H Anion Gap 6.0 BUN 39 H Creatinine 0.93 Est Cr Clr Drug Dosing 30.6 Est GFR ( Amer) 64.0 Est GFR (Non-Af Amer) 55.3 BUN/Creatinine Ratio 42.2 H Glucose 97 POC Glucose 92 Calcium 8.9 Phosphorus 2.7 Magnesium 1.6 L Total Bilirubin AST ALT Alkaline Phosphatase Total Protein Albumin Globulin Albumin/Globulin Ratio Urine Color Dark Yellow Urine Appearance Clear Urine pH 5.0 Ur Specific [place] 1.014 Urine Protein Negative Urine Glucose (UA) Negative Urine Ketones Negative Urine Blood 1+ H Urine Nitrite Negative Urine Bilirubin Negative Urine Urobilinogen Negative Ur Leukocyte Esterase 2+ H Urine WBC (Auto) 10-30 H Urine RBC (Auto) 0-4 U Hyaline Cast (Auto) 1-5 U Epithel Cells (Auto) 20-30 H Urine Bacteria (Auto) 1+ H 08/19/20 08/19/20 08/20/20 16:43 20:30 07:40 WBC RBC Hgb Hct MCV MCH MCHC RDW Std Deviation RDW Coeff of Brady Plt Count MPV Sodium Potassium Chloride Carbon Dioxide Anion Gap BUN Creatinine Est Cr Clr Drug Dosing Est GFR ( Amer) Est GFR (Non-Af Amer) BUN/Creatinine Ratio Glucose POC Glucose 101 H 115 H 89 Calcium Phosphorus Magnesium Total Bilirubin AST ALT Alkaline Phosphatase Total Protein Albumin Globulin Albumin/Globulin Ratio Urine Color Urine Appearance Urine pH Ur Specific [place] Urine Protein Urine Glucose (UA) Urine Ketones Urine Blood Urine Nitrite Urine Bilirubin Urine Urobilinogen Ur Leukocyte Esterase Urine WBC (Auto) Urine RBC (Auto) U Hyaline Cast (Auto) U Epithel Cells (Auto) Urine Bacteria (Auto) 08/20/20 08/20/20 08:11 08:11 WBC 6.62 RBC 4.83 Hgb 14.3 Hct 45.3 MCV 93.8 MCH 29.6 MCHC 31.6 L RDW Std Deviation 60.7 H RDW Coeff of Brady 17.9 H Plt Count 201 MPV 11.8 H Sodium 145 Potassium 3.3 L D Chloride 104 Carbon Dioxide 34 H Anion Gap 7.0 BUN 27 H Creatinine 0.80 Est Cr Clr Drug Dosing 38.7 Est GFR ( Amer) 76.8 Est GFR (Non-Af Amer) 66.3 BUN/Creatinine Ratio 33.9 H Glucose 98 POC Glucose Calcium 9.1 Phosphorus 1.8 L Magnesium 1.9 Total Bilirubin 2.2 H AST 201 H ALT 213 H Alkaline Phosphatase 88 Total Protein 5.9 L Albumin 3.0 L Globulin 2.9 Albumin/Globulin Ratio 1.0 Urine Color Urine Appearance Urine pH Ur Specific [place] Urine Protein Urine Glucose (UA) Urine Ketones Urine Blood Urine Nitrite Urine Bilirubin Urine Urobilinogen Ur Leukocyte Esterase Urine WBC (Auto) Urine RBC (Auto) U Hyaline Cast (Auto) U Epithel Cells (Auto) Urine Bacteria (Auto) Medications Administered Current Inpatient Medications Aspirin (Aspirin 81 Mg Ectab) 81 mg PO DAILY DARY Stop: 09/18/20 08:59 Last Admin: 08/20/20 08:18 Dose: 81 mg Documented by: Furosemide (Furosemide 40 Mg Tab) 40 mg PO BID17 DARY Stop: 09/19/20 16:59 Potassium Phosphate 15 mmol/ (Sodium Chloride) 255 mls @ 100 mls/hr IV 1100 ONE Stop: 08/20/20 13:32 Isosorbide Mononitrate (Isosorbide [place] Extended Rel 30 Mg Tabcr) 30 mg PO DAILY DARY Stop: 09/18/20 08:59 Last Admin: 08/20/20 08:18 Dose: 30 mg Documented by: Metoprolol Tartrate (Metoprolol Tartrate 25 Mg Tab) 25 mg PO DAILY DARY Stop: 09/18/20 08:59 Last Admin: 08/20/20 08:18 Dose: 25 mg Documented by: Prednisone (Prednisone 5 Mg Tab) 5 mg PO QAM DARY Stop: 09/18/20 08:59 Last Admin: 08/20/20 08:18 Dose: 5 mg Documented by: Sacubitril/Valsartan (Sacubitril-Valsartan 24-26 Mg Tab) 1 tab PO BID DARY Stop: 09/17/20 20:59 Last Admin: 08/20/20 08:18 Dose: 1 tab Documented by: Tramadol HCl (Tramadol Hcl 50 Mg Tablet) 50 - 100 mg PO QID PRN PRN Reason: Pain Stop: 09/17/20 16:31
--- NOTE | 2020-08-20 12:46 | Electrocardiogram Report ---
Test Reason : Blood Pressure : / mmHG Vent. Rate : 100 BPM Atrial Rate : 102 BPM P-R Int : 000 ms QRS Dur : 092 ms QT Int : 344 ms P-R-T Axes : 194 -30 -48 degrees QTc Int : 443 ms Normal sinus rhythm first degree AVB Left axis deviation RSR' or QR pattern in V1 suggests right ventricular conduction delay Septal infarct (cited on or before 18-AUG-2020) Nonspecific T wave abnormality Abnormal ECG When compared with ECG of 19-AUG-2020 06:56, Incomplete right bundle branch block is now Present Confirmed by Tj Leal ([id number]) on 08/20/2020 12:45:31 PM Referred By: REFERRED SELF Confirmed By:Tj Leal
[2020-08-20] MEDS: FUROSEMIDE 40 MG TAB PO SCH (17:03)
[2020-08-20] MEDS ORDERED: PHYTONADIONE 5 MG TAB PO STA (17:29)
[2020-08-20] MEDS: traMADol HCL 50 MG TABLET PO PRN (20:30)
[2020-08-21 06:33] LABS: Hematocrit (blood only) 48.3 % (37-47); Hemoglobin 15.3 g/dL (12.0-16.0); Mean Corpuscular Hemoglobin 30.2 pg (25-34); Mean Corpuscular Hgb Conc 31.7 g/dL (32-36); Mean Corpuscular Volume 95.3 fL (80-100); Mean Platelet Volume 11.7 fL (7.4-10.4); Platelet Count 240 K/uL (130-400); RDW Coefficient of Variation 18.1 % (11.5-14.5); RDW Standard Deviation 62.1 fL (36.4-46.3); Red Blood Count 5.07 M/uL (4.2-5.4); White Blood Count 7.02 K/uL (4.8-10.8)
[2020-08-21 06:45] LABS: INR 1.3 (0.9-1.1); Prothrombin Time 13.6 Seconds (9.0-12.0)
[2020-08-21 07:00] LABS: Albumin Level 2.7 gm/dl (3.4-5.0); BUN Creatinine Ratio 31.3 (10-20); Calcium 8.7 mg/dl (8.5-10.1); Creatinine Clr Calc Pharmacy 38.5 ml/min; Est GFR (African American) 84.4; Est GFR (Non-African American) 72.8; Magnesium 1.9 mg/dl (1.8-2.4); Potassium 3.6 mmol/L (3.5-5.1)
[2020-08-21 07:03] LABS: Albumin Globulin Ratio 0.8 (0.9-2); Bilirubin,Total 1.8 mg/dl (0.2-1); Globulin 3.3 gm/dl (2.5-4.0); Phosphorus 1.9 mg/dl (2.5-4.9)
[2020-08-21] MEDS: SACUBITRIL-VALSARTAN 24-26 MG TAB PO SCH ×2 (08:36→20:21)
[2020-08-21] MEDS: METOPROLOL TARTRATE 25 MG TAB PO SCH (08:36)
[2020-08-21] MEDS: predniSONE 5 MG TAB PO SCH (08:37)
[2020-08-21] MEDS: ISOSORBIDE MONO EXTENDED REL 30 MG TABCR PO SCH (08:37)
[2020-08-21] MEDS: FUROSEMIDE 40 MG TAB PO SCH ×2 (08:37→17:37)
[2020-08-21] MEDS: ASPIRIN 81 MG ECTAB PO SCH (08:37)
--- NOTE | 2020-08-21 11:49 | Hospitalist Progress Note ---
Date of Service August 21, 2020 Assessment & Plan (1) Acute respiratory failure with hypoxia: (2) Acute on chronic systolic CHF (congestive heart failure): (3) Elevated troponin: (4) Idiopathic cardiomyopathy: -Patient presenting from home by referral PCP for evaluation of elevated LFTs -In the ED, found to be volume overloaded with significant lower extremity edema, proBNP 28,000, hypoxic on room air at 89% - currently saturating well on 2 L of oxygen via nasal cannula Pt presented w/ lethargy/confusion- Metabolic encephalopathy secondary to above, now resolved -History of idiopathic cardiomyopathy, EF <20% on echo 07/2019. Patient has declined AICD in the past as well as medications however seems to be compliant with medications recently. -S/p Lasix 40 mg IV in the ED, continued with Lasix 40 mg IV twice daily, switched to PO lasix 40 bid -Continue home beta-sinai, Entresto, isosorbide -Rangel placed for strict I's and O's, low Na+ diet, daily weights -Initial troponin 0.2, EKG without acute ST changes. Likely demand ischemia secondary to acute CHF. -Updated echo - EF <15%, LV systolic function is severely reduced. RV systolic function is severely reduced. Left atrium is severely dilated. Right atrium is severely dilated. There is mild to moderate mitral regurg. -Cardiology consult, input appreciated -pt is currently stable however given above echo, poor prognosis (5) Coagulopathy: (6) Elevated LFTs: -Total bili 1.9, AST 346, ALT 260, alk phos 101, INR 1.9 -Congestive hepatopathy from CHF -No evidence of CBD obstruction or dilatation on CT -GI consult, discussed with YENNIFER Montero -[facility] - reviewed by GI - no obstruction -Trial vitamin K 5 mg, should help coagulopathy if patient is nutritionally deficient (7) Acute kidney injury superimposed on chronic kidney disease: (8) CKD (chronic kidney disease), stage III: - Creatinine 1.3, baseline ~ 1.0 - 2/2 CHF exacerbation - Monitor renal function closely while diuresing for CHF - current Cr <1 Bacteriuria - asymptomatic - closely monitor for any symptoms of UTI Severe protein-calorie malnutrition Pt appears cachetic on phys. exam INR elevated poss. secondary to poor nutritious status Nutritious eval (9) Superior mesenteric artery stenosis: -CT ABD/pelvis w/ contrast 10/14: CT abdomen pelvis with IV contrast was obtained that showed focal high-grade stenosis with near complete occlusion within a proximal branch of the superior mesenteric artery -Patient denies abdominal pain -Lactate 2.6, repeat 1.6 -Doubt ischemic bowel -Continue aspirin. Patient was prescribed statin by PCP however did not start yet, will hold at this time due to elevated LFTs -Patient has vascular surgery follow-up scheduled as an outpatient (10) Rheumatoid arthritis: -On chronic prednisone, will continue (11) DVT prophylaxis: -SCDs due to coagulopathy Admission and Anticipated Discharge Date Admission Date: August 18, 2020 Subjective Patient is sitting up in bed, in no acute distress. She is complaining of constipation. Received MiraLAX, will order senna. She says that she feels better, denies any shortness of breath chest pain. However she says that she had some chest pain overnight. Review of Systems Review of Systems: All systems reviewed & are unremarkable except as noted in HPI & below Constitutional: no fever and no chills Respiratory: no cough and no dyspnea Cardiovascular: no chest pain, no palpitations and no edema Gastrointestinal: + constipation; no abdominal pain, no nausea and no vomiting Physical Exam Physical Exam: Constitutional: elderly female sitting up in bed, + cachectic; no acute distress Eyes: PERRL, EOMI, conjunctivae normal, anicteric sclerae ENMT: external ear and nose normal, oropharynx normal Respiratory: normal respiratory effort; no respiratory distress Auscultation: CTAB, but somewhat diminished lung sounds at bases Cardiovascular: Rate/Rhythm: regular rate and regular rhythm Vessels: normal peripheral pulses Extremities: + no LE edema (much improved) Gastrointestinal (Abdomen): normal bowel sounds, soft, nontender Musculoskeletal: no cyanosis or clubbing, extremities motor strength 5/5 Skin: no rashes, warm and dry Neurologic: PERRL, EOMI, no face palsy, no dysarthria, moves extremities Psychiatric: A+Ox3, euthymic affect Results & Data Results & Data ([facility]) Vital Signs (Past 12 Hours) Vital Signs Temp Pulse Pulse Resp BP BP Pulse Ox 08/21/20 11:18 68 16 100/68 91 08/21/20 07:41 36.3 C L 77 16 120/78 91 08/21/20 07:00 78 08/21/20 04:00 36.4 C L 76 18 113/74 95 08/21/20 01:27 74 Laboratory Results 08/21/20 08/21/20 08/21/20 Range/Units 11:22 07:39 06:12 WBC (4.8-10.8) K/uL RBC (4.2-5.4) M/uL Hgb (12.0-16.0) g/dL Hct (37-47) % MCV (80-100) fL MCH (25-34) pg MCHC (32-36) g/dL RDW Std Deviation (36.4-46.3) fL RDW Coeff of Brady (11.5-14.5) % Plt Count (130-400) K/uL MPV (7.4-10.4) fL PT 13.6 H (9.0-12.0) Seconds INR 1.3 H (0.9-1.1) Sodium (136-145) mmol/L Potassium (3.5-5.1) mmol/L Chloride (98-107) mmol/L Carbon Dioxide (21-32) mmol/L Anion Gap (3-11) BUN (7-18) mg/dl Creatinine (0.6-1.2) mg/dl Est Cr Clr Drug Dosing ml/min Est GFR ( Amer) Est GFR (Non-Af Amer) BUN/Creatinine Ratio (10-20) Glucose (70-99) mg/dl POC Glucose 151 H 98 (70-99) mg/dl Calcium (8.5-10.1) mg/dl Phosphorus (2.5-4.9) mg/dl Magnesium (1.8-2.4) mg/dl Total Bilirubin (0.2-1) mg/dl AST (15-37) U/L ALT (12-78) U/L Alkaline Phosphatase (45-117) U/L Total Protein (6.4-8.2) gm/dl Albumin (3.4-5.0) gm/dl Globulin (2.5-4.0) gm/dl Albumin/Globulin Ratio (0.9-2) 08/21/20 08/21/20 08/20/20 Range/Units 06:12 06:12 20:05 WBC 7.02 (4.8-10.8) K/uL RBC 5.07 (4.2-5.4) M/uL Hgb 15.3 (12.0-16.0) g/dL Hct 48.3 H (37-47) % MCV 95.3 (80-100) fL MCH 30.2 (25-34) pg MCHC 31.7 L (32-36) g/dL RDW Std Deviation 62.1 H (36.4-46.3) fL RDW Coeff of Brady 18.1 H (11.5-14.5) % Plt Count 240 (130-400) K/uL MPV 11.7 H (7.4-10.4) fL PT (9.0-12.0) Seconds INR (0.9-1.1) Sodium 142 (136-145) mmol/L Potassium 3.6 (3.5-5.1) mmol/L Chloride 103 (98-107) mmol/L Carbon Dioxide 36 H (21-32) mmol/L Anion Gap 3.0 (3-11) BUN 23 H (7-18) mg/dl Creatinine 0.74 (0.6-1.2) mg/dl Est Cr Clr Drug Dosing 38.5 ml/min Est GFR ( Amer) 84.4 Est GFR (Non-Af Amer) 72.8 BUN/Creatinine Ratio 31.3 H (10-20) Glucose 97 (70-99) mg/dl POC Glucose 105 H (70-99) mg/dl Calcium 8.7 (8.5-10.1) mg/dl Phosphorus 1.9 L (2.5-4.9) mg/dl Magnesium 1.9 (1.8-2.4) mg/dl Total Bilirubin 1.8 H (0.2-1) mg/dl AST 117 H (15-37) U/L ALT 161 H (12-78) U/L Alkaline Phosphatase 84 (45-117) U/L Total Protein 6.0 L (6.4-8.2) gm/dl Albumin 2.7 L (3.4-5.0) gm/dl Globulin 3.3 (2.5-4.0) gm/dl Albumin/Globulin Ratio 0.8 L (0.9-2) 08/20/20 08/20/20 Range/Units 16:33 11:52 WBC (4.8-10.8) K/uL RBC (4.2-5.4) M/uL Hgb (12.0-16.0) g/dL Hct (37-47) % MCV (80-100) fL MCH (25-34) pg MCHC (32-36) g/dL RDW Std Deviation (36.4-46.3) fL RDW Coeff of Brady (11.5-14.5) % Plt Count (130-400) K/uL MPV (7.4-10.4) fL PT (9.0-12.0) Seconds INR (0.9-1.1) Sodium (136-145) mmol/L Potassium (3.5-5.1) mmol/L Chloride (98-107) mmol/L Carbon Dioxide (21-32) mmol/L Anion Gap (3-11) BUN (7-18) mg/dl Creatinine (0.6-1.2) mg/dl Est Cr Clr Drug Dosing ml/min Est GFR ( Amer) Est GFR (Non-Af Amer) BUN/Creatinine Ratio (10-20) Glucose (70-99) mg/dl POC Glucose 124 H 136 H (70-99) mg/dl Calcium (8.5-10.1) mg/dl Phosphorus (2.5-4.9) mg/dl Magnesium (1.8-2.4) mg/dl Total Bilirubin (0.2-1) mg/dl AST (15-37) U/L ALT (12-78) U/L Alkaline Phosphatase (45-117) U/L Total Protein (6.4-8.2) gm/dl Albumin (3.4-5.0) gm/dl Globulin (2.5-4.0) gm/dl Albumin/Globulin Ratio (0.9-2) Medications Administered Current Inpatient Medications Aspirin (Aspirin 81 Mg Ectab) 81 mg PO DAILY [facility] Stop: 09/18/20 08:59 Last Admin: 08/21/20 08:37 Dose: 81 mg Documented by: Furosemide (Furosemide 40 Mg Tab) 40 mg PO BID17 [facility] Stop: 09/19/20 16:59 Last Admin: 08/21/20 08:37 Dose: 40 mg Documented by: Isosorbide Mononitrate (Isosorbide [place] Extended Rel 30 Mg Tabcr) 30 mg PO DA [facility] Stop: 09/18/20 08:59 Last Admin: 08/21/20 08:37 Dose: 30 mg Documented by: Metoprolol Tartrate (Metoprolol Tartrate 25 Mg Tab) 25 mg PO DAILY [facility] Stop: 09/18/20 08:59 Last Admin: 08/21/20 08:36 Dose: 25 mg Documented by: Prednisone (Prednisone 5 Mg Tab) 5 mg PO QAM [facility] Stop: 09/18/20 08:59 Last Admin: 08/21/20 08:37 Dose: 5 mg Documented by: Sacubitril/Valsartan (Sacubitril-Valsartan 24-26 Mg Tab) 1 tab PO BID [facility] Stop: 09/17/20 20:59 Last Admin: 08/21/20 08:36 Dose: 1 tab Documented by: Tramadol HCl (Tramadol Hcl 50 Mg Tablet) 50 - 100 mg PO QID PRN PRN Reason: Pain Stop: 09/17/20 16:31 Last Admin: 08/20/20 20:30 Dose: 100 mg Documented by:
--- NOTE | 2020-08-21 12:05 | Cardiology Progress Note ---
Date of Service August 21, 2020 Assessment & Plan (1) Acute on chronic systolic CHF (congestive heart failure): (2) Elevated LFTs: (3) Idiopathic cardiomyopathy: (4) Elevated troponin: I believe the patient would benefit from some physical therapy. I think she is more interested in returning home then rehab center. She is currently clinically stable. Admission and Anticipated Discharge Date Admission Date: August 18, 2020 Subjective The patient is weak but feeling better. Review of Systems Review of Systems: All systems reviewed & are unremarkable except as noted in Subjective Physical Exam Physical Exam: General: no acute distress and stated age Head: normocephalic, no masses, lesions, tenderness or abnormalities Eyes: conjunctiva are pink and non-injected, sclera clear Neck: supple, no adenopathy, no bruits, normal jugular venous pulse, no hepatojugular reflux Chest: normal shape and normal respiratory effort Lungs: clear to auscultation and percussion Cardiac Exam: - regular rate & rhythm, no murmurs gallops or rubs - normal S1, normal S2 Pulses: 2(+) throughout Abdomen: abdomen soft, non-tender, no abnormal masses and no hepatosplenomegaly Musculoskeletal: no gait disturbance, no joint inflammation, no deforming arthritis Extremities: no edema and no cyanosis Neuro: grossly normal exam Results & Data ([facility]) Vital Signs (Past 12 Hours) Vital Signs Temp Pulse Pulse Resp BP BP Pulse Ox 08/21/20 11:18 68 16 100/68 91 08/21/20 07:41 36.3 C L 77 16 120/78 91 08/21/20 07:00 78 08/21/20 04:00 36.4 C L 76 18 113/74 95 08/21/20 01:27 74 Laboratory Results Laboratory Results - last 24 hr 08/20/20 08/20/20 08/21/20 16:33 20:05 06:12 WBC 7.02 RBC 5.07 Hgb 15.3 Hct 48.3 H MCV 95.3 MCH 30.2 MCHC 31.7 L RDW Std Deviation 62.1 H RDW Coeff of Brady 18.1 H Plt Count 240 MPV 11.7 H PT INR Sodium Potassium Chloride Carbon Dioxide Anion Gap BUN Creatinine Est Cr Clr Drug Dosing Est GFR ( Amer) Est GFR (Non-Af Amer) BUN/Creatinine Ratio Glucose POC Glucose 124 H 105 H Calcium Phosphorus Magnesium Total Bilirubin AST ALT Alkaline Phosphatase Total Protein Albumin Globulin Albumin/Globulin Ratio 08/21/20 08/21/20 08/21/20 06:12 06:12 07:39 WBC RBC Hgb Hct MCV MCH MCHC RDW Std Deviation RDW Coeff of Brady Plt Count MPV PT 13.6 H INR 1.3 H Sodium 142 Potassium 3.6 Chloride 103 Carbon Dioxide 36 H Anion Gap 3.0 BUN 23 H Creatinine 0.74 Est Cr Clr Drug Dosing 38.5 Est GFR ( Amer) 84.4 Est GFR (Non-Af Amer) 72.8 BUN/Creatinine Ratio 31.3 H Glucose 97 POC Glucose 98 Calcium 8.7 Phosphorus 1.9 L Magnesium 1.9 Total Bilirubin 1.8 H AST 117 H ALT 161 H Alkaline Phosphatase 84 Total Protein 6.0 L Albumin 2.7 L Globulin 3.3 Albumin/Globulin Ratio 0.8 L 08/21/20 11:22 WBC RBC Hgb Hct MCV MCH MCHC RDW Std Deviation RDW Coeff of Brady Plt Count MPV PT INR Sodium Potassium Chloride Carbon Dioxide Anion Gap BUN Creatinine Est Cr Clr Drug Dosing Est GFR ( Amer) Est GFR (Non-Af Amer) BUN/Creatinine Ratio Glucose POC Glucose 151 H Calcium Phosphorus Magnesium Total Bilirubin AST ALT Alkaline Phosphatase Total Protein Albumin Globulin Albumin/Globulin Ratio Medications Administered Current Inpatient Medications Aspirin (Aspirin 81 Mg Ectab) 81 mg PO DAILY [facility] Stop: 09/18/20 08:59 Last Admin: 08/21/20 08:37 Dose: 81 mg Documented by: Furosemide (Furosemide 40 Mg Tab) 40 mg PO BID17 [facility] Stop: 09/19/20 16:59 Last Admin: 08/21/20 08:37 Dose: 40 mg Documented by: Isosorbide Mononitrate (Isosorbide [place] Extended Rel 30 Mg Tabcr) 30 mg PO DAILY [facility] Stop: 09/18/20 08:59 Last Admin: 08/21/20 08:37 Dose: 30 mg Documented by: Metoprolol Tartrate (Metoprolol Tartrate 25 Mg Tab) 25 mg PO DAILY [facility] Stop: 09/18/20 08:59 Last Admin: 08/21/20 08:36 Dose: 25 mg Documented by: Prednisone (Prednisone 5 Mg Tab) 5 mg PO QAM [facility] Stop: 09/18/20 08:59 Last Admin: 08/21/20 08:37 Dose: 5 mg Documented by: Sacubitril/Valsartan (Sacubitril-Valsartan 24-26 Mg Tab) 1 tab PO BID [facility] Stop: 09/17/20 20:59 Last Admin: 08/21/20 08:36 Dose: 1 tab Documented by: Tramadol HCl (Tramadol Hcl 50 Mg Tablet) 50 - 100 mg PO QID PRN PRN Reason: Pain Stop: 09/17/20 16:31 Last Admin: 08/20/20 20:30 Dose: 100 mg Documented by:
[2020-08-21] MEDS ORDERED: POLYETHYLENE (MIRALAX) 17 GM PACK PO ONE (13:00)
[2020-08-21] MEDS: SENNA 8.6 MG TAB PO SCH (17:37)
[2020-08-21] MEDS: traMADol HCL 50 MG TABLET PO PRN (19:11)
[2020-08-22] MEDS: traMADol HCL 50 MG TABLET PO PRN (03:38)
--- NOTE | 2020-08-22 08:06 | Hospitalist Progress Note ---
Date of Service August 22, 2020 Assessment & Plan (1) Acute respiratory failure with hypoxia: (2) Acute on chronic systolic CHF (congestive heart failure): (3) Elevated troponin: (4) Idiopathic cardiomyopathy: Hypoxic resp. failure secondary to acute CHF exacerbation, now resolved -Patient presenting from home by referral PCP for evaluation of elevated LFTs -In the ED, found to be volume overloaded with significant lower extremity edema, proBNP 28,000, hypoxic on room air at 89% - then saturating well on 2 L of oxygen via nasal cannula Currently pt is satting 93% on RA Pt presented w/ lethargy/confusion- Metabolic encephalopathy secondary to CHF exacerbation/ fluid overload, now resolved -History of idiopathic cardiomyopathy, EF <20% on echo 07/2019. Patient has declined AICD in the past as well as medications however seems to be compliant with medications recently. -S/p Lasix 40 mg IV in the ED, continued with Lasix 40 mg IV twice daily, switched to PO lasix 40 bid, pt will be discharged on her home dose of 40 mg lasix daily -Continue home beta-sinai, Entresto, isosorbide -strict I's and O's, low Na+ diet, daily weights -Initial troponin 0.2, EKG without acute ST changes. Likely demand ischemia secondary to acute CHF. -Updated echo - EF <15%, LV systolic function is severely reduced. RV systolic function is severely reduced. Left atrium is severely dilated. Right atrium is severely dilated. There is mild to moderate mitral regurg. -Cardiology consult, input appreciated -pt is currently stable however given above echo, poor prognosis (5) Coagulopathy: (6) Elevated LFTs: -Total bili 1.9, AST 346, ALT 260, alk phos 101, INR 1.9 -Congestive hepatopathy from CHF -No evidence of CBD obstruction or dilatation on CT -GI consult, discussed with YENNIFER Montero -[facility] - reviewed by GI - no obstruction -Trial vitamin K 5 mg, should help coagulopathy if patient is nutritionally deficient, INR now normalized -LFTs much improved (7) Acute kidney injury superimposed on chronic kidney disease: (8) CKD (chronic kidney disease), stage III: - Creatinine 1.3, baseline ~ 1.0 - 2/2 CHF exacerbation - Monitor renal function closely while diuresing for CHF - current Cr <1 Bacteriuria - asymptomatic - closely monitor for any symptoms of UTI Severe protein-calorie malnutrition Pt appears cachetic on phys. exam INR elevated poss. secondary to poor nutritious status Nutritious eval (9) Superior mesenteric artery stenosis: -CT ABD/pelvis w/ contrast 07/26: CT abdomen pelvis with IV contrast was obtained that showed focal high-grade stenosis with near complete occlusion within a proximal branch of the superior mesenteric artery -Patient denies abdominal pain -Lactate 2.6, repeat 1.6 -Doubt ischemic bowel -Continue aspirin. Patient was prescribed statin by PCP however did not start yet, will hold at this time due to elevated LFTs -Patient has vascular surgery follow-up scheduled as an outpatient (10) Rheumatoid arthritis: -On chronic prednisone, will continue (11) DVT prophylaxis: -SCDs due to coagulopathy Admission and Anticipated Discharge Date Admission Date: August 18, 2020 Subjective Patient is laying in bed, in no acute distress. Denies any chest pain, shortness of breath, palpitations or edema. Overall feels well, and is excited to go home. Review of Systems Review of Systems: All systems reviewed & are unremarkable except as noted in HPI & below Constitutional: no fever and no chills Respiratory: no cough and no dyspnea Cardiovascular: no chest pain, no palpitations and no edema Gastrointestinal: + constipation; no abdominal pain, no nausea and no vomiting Physical Exam Physical Exam: Constitutional: elderly female sitting up in bed, + cachectic; no acute distress Eyes: PERRL, EOMI, conjunctivae normal, anicteric sclerae ENMT: external ear and nose normal, oropharynx normal Respiratory: normal respiratory effort; no respiratory distress Auscultation: CTAB, but somewhat diminished lung sounds at bases Cardiovascular: Rate/Rhythm: regular rate and regular rhythm Vessels: normal peripheral pulses Extremities: + no LE edema (much improved) Gastrointestinal (Abdomen): normal bowel sounds, soft, nontender Musculoskeletal: no cyanosis or clubbing, extremities motor strength 5/5 Skin: no rashes, warm and dry Neurologic: PERRL, EOMI, no face palsy, no dysarthria, moves extremities Psychiatric: A+Ox3, euthymic affect Results & Data Results & Data ([facility]) Vital Signs (Past 12 Hours) Vital Signs Temp Pulse Pulse Resp BP Pulse Ox 08/22/20 07:51 36.8 C 75 16 115/76 93 08/22/20 04:00 36.4 C L 79 19 121/82 93 08/22/20 00:00 74 08/21/20 23:00 36.4 C L 77 18 118/78 97 Laboratory Results 08/22/20 08/22/20 08/21/20 Range/Units 08:05 08:05 16:43 WBC 6.42 (4.8-10.8) K/uL RBC 4.57 (4.2-5.4) M/uL Hgb 13.6 (12.0-16.0) g/dL Hct 43.0 (37-47) % MCV 94.1 (80-100) fL MCH 29.8 (25-34) pg MCHC 31.6 L (32-36) g/dL RDW Std Deviation 61.3 H (36.4-46.3) fL RDW Coeff of Brady 18.1 H (11.5-14.5) % Plt Count 218 (130-400) K/uL MPV 11.4 H (7.4-10.4) fL Sodium 141 (136-145) mmol/L Potassium 3.4 L (3.5-5.1) mmol/L Chloride 103 (98-107) mmol/L Carbon Dioxide 35 H (21-32) mmol/L Anion Gap 4.0 (3-11) BUN 24 H (7-18) mg/dl Creatinine 0.72 (0.6-1.2) mg/dl Est Cr Clr Drug Dosing 39.5 ml/min Est GFR ( Amer) 87.3 Est GFR (Non-Af Amer) 75.3 BUN/Creatinine Ratio 33.4 H (10-20) Glucose 91 (70-99) mg/dl POC Glucose 118 H (70-99) mg/dl Calcium 8.7 (8.5-10.1) mg/dl Phosphorus 2.2 L (2.5-4.9) mg/dl Magnesium 1.8 (1.8-2.4) mg/dl Medications Administered Current Inpatient Medications Aspirin (Aspirin 81 Mg Ectab) 81 mg PO DAILY [facility] Stop: 09/18/20 08:59 Last Admin: 08/21/20 08:37 Dose: 81 mg Documented by: Furosemide (Furosemide 40 Mg Tab) 40 mg PO BID17 [facility] Stop: 09/19/20 16:59 Last Admin: 08/21/20 17:37 Dose: 40 mg Documented by: Isosorbide Mononitrate (Isosorbide [place] Extended Rel 30 Mg Tabcr) 30 mg PO DAILY [facility] Stop: 09/18/20 08:59 Last Admin: 08/21/20 08:37 Dose: 30 mg Documented by: Metoprolol Tartrate (Metoprolol Tartrate 25 Mg Tab) 25 mg PO DAILY [facility] Stop: 09/18/20 08:59 Last Admin: 08/21/20 08:36 Dose: 25 mg Documented by: Prednisone (Prednisone 5 Mg Tab) 5 mg PO QAM [facility] Stop: 09/18/20 08:59 Last Admin: 08/21/20 08:37 Dose: 5 mg Documented by: Sacubitril/Valsartan (Sacubitril-Valsartan 24-26 Mg Tab) 1 tab PO BID [facility] Stop: 09/17/20 20:59 Last Admin: 08/21/20 20:21 Dose: 1 tab Documented by: Sennosides (Senna 8.6 Mg Tab) 8.6 mg PO BID [facility] Stop: 09/20/20 16:44 Last Admin: 08/21/20 17:37 Dose: 8.6 mg Documented by: Tramadol HCl (Tramadol Hcl 50 Mg Tablet) 50 - 100 mg PO QID PRN PRN Reason: Pain Stop: 09/17/20 16:31 Last Admin: 08/22/20 03:38 Dose: 100 mg Documented by:
[2020-08-22 08:22] LABS: Hemoglobin 13.6 g/dL (12.0-16.0); Mean Corpuscular Hemoglobin 29.8 pg (25-34); Mean Corpuscular Hgb Conc 31.6 g/dL (32-36); Mean Corpuscular Volume 94.1 fL (80-100); Mean Platelet Volume 11.4 fL (7.4-10.4); Platelet Count 218 K/uL (130-400); RDW Coefficient of Variation 18.1 % (11.5-14.5); RDW Standard Deviation 61.3 fL (36.4-46.3); Red Blood Count 4.57 M/uL (4.2-5.4); White Blood Count 6.42 K/uL (4.8-10.8)
[2020-08-22] MEDS: ISOSORBIDE MONO EXTENDED REL 30 MG TABCR PO SCH (08:22)
[2020-08-22] MEDS: SACUBITRIL-VALSARTAN 24-26 MG TAB PO SCH (08:22)
[2020-08-22] MEDS: ASPIRIN 81 MG ECTAB PO SCH (08:22)
[2020-08-22] MEDS: FUROSEMIDE 40 MG TAB PO SCH (08:22)
[2020-08-22] MEDS: predniSONE 5 MG TAB PO SCH (08:22)
[2020-08-22] MEDS: SENNA 8.6 MG TAB PO SCH (08:22)
[2020-08-22] MEDS: METOPROLOL TARTRATE 25 MG TAB PO SCH (08:23)
[2020-08-22 08:46] LABS: BUN Creatinine Ratio 33.4 (10-20); Calcium 8.7 mg/dl (8.5-10.1); Creatinine Clr Calc Pharmacy 39.5 ml/min; Est GFR (African American) 87.3; Est GFR (Non-African American) 75.3; Magnesium 1.8 mg/dl (1.8-2.4); Potassium 3.4 mmol/L (3.5-5.1)
[2020-08-22 08:47] LABS: Phosphorus 2.2 mg/dl (2.5-4.9)
[2020-08-22] MEDS ORDERED: POTASSIUM CHLORIDE CRTAB 20 MEQ TABCR PO STA (12:15)
--- NOTE | 2020-08-22 12:28 | Cardiology Progress Note ---
Date of Service August 22, 2020 Assessment & Plan (1) Acute on chronic systolic CHF (congestive heart failure): (2) Elevated LFTs: (3) Idiopathic cardiomyopathy: (4) Elevated troponin: Patient is clinically doing better. I supplemented her potassium today. I think when the hospitalist is ready, then she can be discharged to outpatient follow-up. I believe the patient is expecting to go home with help. Admission and Anticipated Discharge Date Admission Date: August 18, 2020 Subjective The patient is sitting comfortably eating lunch with her family. She has no new cardiac complaints today. Review of Systems Review of Systems: All systems reviewed & are unremarkable except as noted in Subjective Physical Exam Physical Exam: General: no acute distress and stated age Head: normocephalic, no masses, lesions, tenderness or abnormalities Eyes: conjunctiva are pink and non-injected, sclera clear Neck: supple, no adenopathy, no bruits, normal jugular venous pulse, no hepatojugular reflux Chest: normal shape and normal respiratory effort Lungs: clear to auscultation and percussion Cardiac Exam: - regular rate & rhythm, no murmurs gallops or rubs - normal S1, normal S2 Pulses: 2(+) throughout Abdomen: abdomen soft, non-tender, no abnormal masses and no hepatosplenomegaly Musculoskeletal: no gait disturbance, no joint inflammation, no deforming arthritis Extremities: no edema and no cyanosis Neuro: grossly normal exam Results & Data ([facility]) Vital Signs (Past 12 Hours) Vital Signs Temp Pulse Pulse Resp BP Pulse Ox 08/22/20 08:00 70 08/22/20 07:51 36.8 C 75 16 115/76 93 08/22/20 04:00 36.4 C L 79 19 121/82 93 Laboratory Results Laboratory Results - last 24 hr 08/21/20 08/22/20 08/22/20 16:43 08:05 08:05 WBC 6.42 RBC 4.57 Hgb 13.6 Hct 43.0 MCV 94.1 MCH 29.8 MCHC 31.6 L RDW Std Deviation 61.3 H RDW Coeff of Brady 18.1 H Plt Count 218 MPV 11.4 H Sodium 141 Potassium 3.4 L Chloride 103 Carbon Dioxide 35 H Anion Gap 4.0 BUN 24 H Creatinine 0.72 Est Cr Clr Drug Dosing 39.5 Est GFR ( Amer) 87.3 Est GFR (Non-Af Amer) 75.3 BUN/Creatinine Ratio 33.4 H Glucose 91 POC Glucose 118 H Calcium 8.7 Phosphorus 2.2 L Magnesium 1.8 Medications Administered Current Inpatient Medications Aspirin (Aspirin 81 Mg Ectab) 81 mg PO DAILY [facility] Stop: 09/18/20 08:59 Last Admin: 08/22/20 08:22 Dose: 81 mg Documented by: Furosemide (Furosemide 40 Mg Tab) 40 mg PO BID17 [facility] Stop: 09/19/20 16:59 Last Admin: 08/22/20 08:22 Dose: 40 mg Documented by: Isosorbide Mononitrate (Isosorbide [place] Extended Rel 30 Mg Tabcr) 30 mg PO DAILY [facility] Stop: 09/18/20 08:59 Last Admin: 08/22/20 08:22 Dose: 30 mg Documented by: Metoprolol Tartrate (Metoprolol Tartrate 25 Mg Tab) 25 mg PO DAILY [facility] Stop: 09/18/20 08:59 Last Admin: 08/22/20 08:23 Dose: 25 mg Documented by: Prednisone (Prednisone 5 Mg Tab) 5 mg PO QAM [facility] Stop: 09/18/20 08:59 Last Admin: 08/22/20 08:22 Dose: 5 mg Documented by: Sacubitril/Valsartan (Sacubitril-Valsartan 24-26 Mg Tab) 1 tab PO BID [facility] Stop: 09/17/20 20:59 Last Admin: 08/22/20 08:22 Dose: 1 tab Documented by: Sennosides (Senna 8.6 Mg Tab) 8.6 mg PO BID [facility] Stop: 09/20/20 16:44 Last Admin: 08/22/20 08:22 Dose: 8.6 mg Documented by: Tramadol HCl (Tramadol Hcl 50 Mg Tablet) 50 - 100 mg PO QID PRN PRN Reason: Pain Stop: 09/17/20 16:31 Last Admin: 08/22/20 03:38 Dose: 100 mg Documented by:
--- NOTE | 2020-08-22 14:45 | Discharge Summary ---
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 For the past 1 month, patient reports very poor appetite and persistent nausea and vomiting. Patient reports vomiting every day. Describes emesis as bilious/clear in nature. Denies hematemesis or coffee-ground emesis. Reports several episodes of diarrhea, denies abdominal pain. reports about a 20 pound weight loss over the past several months . Patient also has been having increasing lower extremity edema. She reports generalized weakness and lethargy. She has chronic back pain which he has been receiving injections for. No fevers or chills. Reports some chest discomfort while vomiting however no other chest pain, denies shortness of breath. No lightheadedness, dizziness, diaphoresis, syncopal events. Patient has urinary incontinence at baseline, denies dysuria. Patient was evaluated by PCP yesterday and was noted to be jaundiced. Labs were obtained showing elevated LFTs and patient was referred to the ED for further evaluation. Note the patient had an ED evaluation on 07/[address] abdomen pelvis with IV contrast was obtained that showed focal high-grade stenosis with near complete occlusion within a proximal branch of the superior mesenteric artery. Patient was started on aspirin and statin and has follow-up with vascular surgery scheduled. Patient reports she started the aspirin however did not start the statin yet. In the ED, labs show total bili 1.9, AST 346, ALT 260. INR 1.9. Troponin 0.2, EKG without acute ST changes. proBNP 28,000. Patient was hypoxic on room air at 89%, this improved with 2 L of oxygen via nasal cannula. CXR shows bibasilar opacities. CT abdomen pelvis w/o contrast negative for acute findings. Patient was given furosemide 40 mg IV and IV Zofran. Admission Exam Per Admitting Provider Constitutional: + ill appearing and + cachectic; no acute distress vitals as above Eyes: PERRL, conjunctivae normal, anicteric sclerae ENMT: external ear and nose normal, oropharynx normal Respiratory: normal respiratory effort; no respiratory distress Auscultation: + diminished lung sounds Cardiovascular: Rate/Rhythm: regular rate and regular rhythm Vessels: normal peripheral pulses Extremities: + edema (+3 pitting edema BLE) Gastrointestinal (Abdomen): normal bowel sounds, soft, nontender, no hepatosplenomegaly Musculoskeletal: no cyanosis or clubbing, extremities motor strength 5/5 Skin: no rashes, warm and dry Neurologic: PERRL, EOMI, accommodation nl, no face palsy, no dysarthria Psychiatric: A+Ox3, euthymic affect Principal Diagnosis Acute on chronic systolic heart failure Elevated LFTs/congestive hepatopathy secondary to above Discharge Exam Constitutional: elderly female sitting up in bed, + cachectic; no acute distress Eyes: PERRL, EOMI, conjunctivae normal, anicteric sclerae ENMT: external ear and nose normal, oropharynx normal Respiratory: normal respiratory effort; no respiratory distress Auscultation: CTAB, but somewhat diminished lung sounds at bases Cardiovascular: Rate/Rhythm: regular rate and regular rhythm Vessels: normal peripheral pulses Extremities: + no LE edema (much improved) Gastrointestinal (Abdomen): normal bowel sounds, soft, nontender Musculoskeletal: no cyanosis or clubbing, extremities motor strength 5/5 Skin: no rashes, warm and dry Neurologic: PERRL, EOMI, no face palsy, no dysarthria, moves extremities Psychiatric: A+Ox3, euthymic affect Discharge Data Allergies Allergy/AdvReac Type Severity Reaction Status Date / Time levofloxacin Allergy Intermediate HEPATOTOXIC Verified 08/18/20 11:39 ITY scopolamine Allergy Intermediate CAUSED Verified 08/18/20 11:39 RED, SWOLLEN AREA BEHIND EAR WHERE PATCH APPLIED lisinopril AdvReac Intermediate COUGH Verified 08/18/20 11:39 Consultations 08/18/20 12:31 ED Decision to Admit Stat 08/18/20 16:32 Consult Cardiology Routine Consult Gastroenterology Routine Ordered Studies 08/18/20 10:38 CT abd pelvis wo con Stat IMPRESSION: 1. Technically limited study secondary to the lack of intravenous and oral contrast, as well as secondary to the paucity of intra-abdominal fat and increased fat density secondary to anasarca 2. Cardiomegaly and bilateral pleural effusions with associated basilar opacities likely atelectatic 3. Bilateral nephrolithiasis. No ureteral or bladder calculi identified 4. No evidence of bowel obstruction. No evidence of free air 5. Distended urinary bladder 6. Hiatal hernia 7. Osteopenia. Multiple chronic thoracic and lumbar vertebral body fractures. Postsurgical changes of multilevel vertebroplasty. CT cervical spine wo con Stat IMPRESSION: 1. There is no evidence of fracture or subluxation involving the cervical spine. 2. Osteopenia and spondylotic change as above. 3. Right pleural effusion. CT facial bones wo con Stat IMPRESSION: No acute fractures within the maxillofacial region. Left supraorbital soft tissue swelling. CT head/brain wo con Stat IMPRESSION: There is no hemorrhage, mass effect, or evidence of acute territorial ischemia by CT criteria. 08/18/20 16:32 US liver Routine IMPRESSION: 1. No biliary ductal dilatation status post cholecystectomy. 2. Partially obscured pancreas. 3. Right pleural effusion. Hospital Course (1) Acute respiratory failure with hypoxia: (2) Acute on chronic systolic CHF (congestive heart failure): (3) Elevated troponin: (4) Idiopathic cardiomyopathy: Hypoxic resp. failure secondary to acute CHF exacerbation, now resolved -Patient presenting from home by referral PCP for evaluation of elevated LFTs -In the ED, found to be volume overloaded with significant lower extremity edema, proBNP 28,000, hypoxic on room air at 89% - then saturating well on 2 L of oxygen via nasal cannula Currently pt is satting 93% on RA Pt presented w/ lethargy/confusion- Metabolic encephalopathy secondary to CHF exacerbation/ fluid overload, now resolved -History of idiopathic cardiomyopathy, EF <20% on echo 07/2019. Patient has declined AICD in the past as well as medications however seems to be compliant with medications recently. -S/p Lasix 40 mg IV in the ED, continued with Lasix 40 mg IV twice daily, switched to PO lasix 40 bid, pt will be discharged on her home dose of 40 mg lasix daily -Continue home beta-sinai, Entresto, isosorbide -strict I's and O's, low Na+ diet, daily weights -Initial troponin 0.2, EKG without acute ST changes. Likely demand ischemia secondary to acute CHF. -Updated echo - EF <15%, LV systolic function is severely reduced. RV systolic function is severely reduced. Left atrium is severely dilated. Right atrium is severely dilated. There is mild to moderate mitral regurg. -Cardiology consult, input appreciated -pt is currently stable however given above echo, poor prognosis (5) Coagulopathy: (6) Elevated LFTs: -Total bili 1.9, AST 346, ALT 260, alk phos 101, INR 1.9 -Congestive hepatopathy from CHF -No evidence of CBD obstruction or dilatation on CT -GI consult, discussed with [facility] - reviewed by GI - no obstruction -Trial vitamin K 5 mg, should help coagulopathy if patient is nutritionally deficient, INR now normalized -LFTs much improved (7) Acute kidney injury superimposed on chronic kidney disease: (8) CKD (chronic kidney disease), stage III: - Creatinine 1.3, baseline ~ 1.0 - 2/2 CHF exacerbation - Monitor renal function closely while diuresing for CHF - current Cr <1 Bacteriuria - asymptomatic - closely monitor for any symptoms of UTI Severe protein-calorie malnutrition Pt appears cachetic on phys. exam INR elevated poss. secondary to poor nutritious status Nutritious eval (9) Superior mesenteric artery stenosis: -CT ABD/pelvis w/ contrast 07/26: CT abdomen pelvis with IV contrast was obtained that showed focal high-grade stenosis with near complete occlusion within a proximal branch of the superior mesenteric artery -Patient denies abdominal pain -Lactate 2.6, repeat 1.6 -Doubt ischemic bowel -Continue aspirin. Patient was prescribed statin by PCP however did not start yet, will hold at this time due to elevated LFTs -Patient has vascular surgery follow-up scheduled as an outpatient (10) Rheumatoid arthritis: -On chronic prednisone, will continue (11) DVT prophylaxis: -SCDs due to coagulopathy Total Time Total Time Spent Total Time Spent (In Minutes): 40 Total Time Includes: Examination of the Patient, Discharge Planning, Medication Reconciliation and Communication With Other Providers Discharge Plan Discharge Items Patient Disposition: Home - Self-Care Reason For Visit: CHF TRANSAMINITIS Discharge Diagnosis: Acute on chronic systolic heart failure Elevated LFTs/congestive hepatopathy secondary to above Activity: Per Instructions section Non-emergency contact: Primary Care Provider and [employer] Call non-emergency contact if: you have any medication questions and your symptoms worsen Follow-up/Referrals: Maya Rubio DO [Primary Care Provider] - (Date & Time 08/28/2020 11:20 AM Provider Maya Rubio DO Department [facility] ) Diet: Heart Healthy and Low Sodium (2gm) Fluids: 1800ml (7 cups) Addtl Attending Provider Instructions: Follow-up with your primary care doctor, appointment was scheduled for you for August 28. Take Lasix 40 mg daily as already prescribed. Make sure to monitor your weight daily, write down your weight and have your physicians review it. This is important to monitor your fluid status. If you gain 3 to 5 pounds overnight, take Lasix 40 mg twice a day for next 3 days and notify your physician right away. Addtl Methods Time Analyst Provider Instructions: Call your Primary Care doctor if any of the following symptoms or problems start or get worse: * Shortness of breath or difficulty breathing * Wake up at night short of breath * Chest pain * Cough * Swelling of your hands, feet, or legs * More fatigued or tired with your normal activity * Palpitations - sudden fast heart beats WEIGHT * Weigh yourself every morning after using the bathroom. * Use the same scale. * Wear the same amount of clothing. * Write your weight down on a chart. * Call your Primary Care doctor if you gain more than 2-3 pounds in 1-2 days. MEDICATIONS * Use this discharge instruction sheet for medication instructions. * Take your medications at the time your doctor ordered. * Do not skip a dose of your medicines. * If you miss a dose of medicine, take it as soon as possible, but DO NOT DOUBLE A DOSE. * Read your medicine information when you get home. * Know all of the side effects of your medicine. If in doubt, ask your pharmacist * Call your Primary Care doctor's office if you have any side effects. * Be sure all of your doctors know what medicine and herbs you take (including cold, flu, and herbal medicine). Take the following with you to your follow-up doctor appointments: * Weight Chart * Medication List * List of questions Do not drink excessive alcohol, beer or wine. Pending Studies at Discharge: No Stand-Alone Forms: My Mobile Card, Smoking Cessation Medications and DC Order Prescriptions: Continued nitroglycerin 0.4 mg tablet, sublingual 0.4 mg sublingual UD PRN (Reason: Chest Pain) RF: 0 tramadol 50 mg tablet 50 mg PO QID PRN (Reason: Pain) RF: 0 levalbuterol HCl 0.63 mg/3 mL solution for nebulization 0.63 mg INH DAILY PRN (Reason: Shortness Of Breath) RF: 0 (DME) Oxygen Home Liters Per Minute See Dose Instructions .ROUTE .MEDSUPPLY Qty: 1 RF: 0 metoprolol tartrate 25 mg tablet 25 mg PO DAILY RF: 0 potassium chloride 10 mEq tablet extended release 10 meq PO QAM RF: 0 furosemide [Lasix] 20 mg tablet 40 mg PO DAILY RF: 0 isosorbide mononitrate 30 mg Tablet Extended Release 24 Hr 30 mg PO DAILY RF: 0 Entresto 24-26 mg Tablet 1 tab PO BID RF: 0 ondansetron 4 mg tablet,disintegrating 4 mg PO Q8H PRN (Reason: nausea and vomiting) Qty: 10 RF: 0 aspirin 81 mg tablet,delayed release (DR/EC) 81 mg PO DAILY RF: 0 albuterol sulfate 90 mcg/actuation Hfa Aerosol Inhaler 1 puff INHALATION Q6H PRN (Reason: Shortness Of Breath) RF: 0 prednisone 5 mg tablet 5 mg PO QAM RF: 0 Discharge Orders: Discharge Order (Routine); Ordered 08/22/20 Ordered By: Piyush Martinez Admission Data Admit Date/Time: 08/18/20 13:43 Attending Provider: Piyush Martinez Admit Provider: Og Xavier Primary Care Provider: Maya Rubio Other Providers: Og Xavier ; Mello Hernandez ; Ruy Mcintosh ; [place]
[2020-08-22 15:36] VITALS: BP 103/67; PULSE 78; TEMP 97.9; O2SAT 94
== END 2020-08-22 17:37 | disposition home or self-care (01) | DRG 291 ==
LOC: ED 10:21 → SUATTDRO 13:43 → 2W 13:43 → 2N 08-19 18:34
DX: M06.9 Rheumatoid arthritis, unspecified; I42.9 Cardiomyopathy, unspecified; G93.41 Metabolic encephalopathy; J96.01 Acute respiratory failure with hypoxia; Z99.81 Dependence on supplemental oxygen; I13.0 Hypertensive heart and chronic kidney disease with heart failure and stage 1 through stage 4 chronic kidney disease, or unspecified chronic kidney disease; Z87.891 Personal history of nicotine dependence; Z66 Do not resuscitate; N17.9 Acute kidney failure, unspecified; N18.30 Chronic kidney disease, stage 3 unspecified; E43 Unspecified severe protein-calorie malnutrition; I50.23 Acute on chronic systolic (congestive) heart failure; Z79.82 Long term (current) use of aspirin

== ENCOUNTER 2023-05-04 11:08 | Inpatient (IN) ==
--- NOTE | 2023-05-04 11:47 | Emergency Department Note ---
Impression & Plan Acute midline thoracic back pain, Low back pain, Abnormal EKG ED Provider Note NAME: CONSUELO DUGAN AGE: 87 SEX: F : 1935 ARRIVES VIA: Ambulance INFORMANT: Patient, EMS, the patient's granddaughter ED PROVIDER(S): Rian Cosby DO CHIEF COMPLAINT: Back pain HPI: The patient is a 87-year-old female who has a history of lumbar compression fractures who presented to the emergency department for an evaluation of back pain. The patient was seen in our facility recently for similar complaints. She was treated with pain medication. She was feeling much better and was able to be discharged home. She states she was moving around this morning when she felt a pop in her middle back. Since that time she has had intractable pain. She was treated with morphine prior to arrival. The patient is frail and does not weigh very much. She was given 2 mg of morphine and at this time is much more comfortable. She denies having any lower extremity numbness or weakness. She denies having any fever or chest pain. ROS: See above HPI for pertinent positives & negatives. A total of 10 systems reviewed and were otherwise negative. PAST MEDICAL HISTORY: See Below PAST SURGICAL HISTORY: See Below FAMILY HISTORY: See Below SOCIAL HISTORY: See Below HOME MEDICATIONS: See Below ALLERGIES: See Below VITALS: See Below PHYSICAL EXAMINATION: GENERAL: The patient is awake and alert. She is very frail. EYES: The conjunctivae are clear. The pupils are round and reactive. EARS, NOSE, MOUTH AND THROAT: The nose is without any evidence of any deformity. Mucous membranes are dry. NECK: The neck is nontender and supple. RESPIRATORY: Normal respiratory effort is noted there is no evidence of wheezing rhonchi or rales CARDIOVASCULAR: Regular rate and rhythm noted there no murmurs rubs or gallops normal S1 normal S2. GASTROINTESTINAL: The abdomen is soft. Abdomen is nontender. BACK: Midline tenderness was noted over the lower thoracic as well as upper lumbar spine. Range of motion testing elicits significant pain MUSCULOSKELETAL/EXTREMITIES: There is no evidence of gross deformity full range of motion is noted in the hips and shoulders. SKIN: There is no obvious evidence of any rash. There are no petechiae, pallor or cyanosis noted. NEUROLOGIC: Patient is awake alert and oriented x3. Strength was symmetric but diminished. MEDICAL DECISION MAKING: The patient is an 87-year-old female who presented to the emergency department for an evaluation of back pain. The patient has a history of thoracic lumbar compression fractures in the past. She was seen this week at our facility for similar complaints and was treated for compression fractures and was feeling better. She was able to be discharged home. The patient returns today with worsening pain. The pain was reproducible but her oxygen requirement was increasing. She also has an abnormal EKG and elevated troponin. This reason further laboratory and radiographic studies were obtained to ensure there is no other underlying cause. I discussed the patient's laboratory and radiographic studies with her and her granddaughter. She was treated with pain medication in the emergency department. On reevaluation she was feeling somewhat improved. Given her EKG findings as well as her troponin I discussed her condition with the on-call [facility] hospitalist. They have agreed to evaluate the patient in the emergency department for further management and disposition. Triage Nursing notes reviewed. Prior medical records reviewed Vital Signs: reviewed and remarkable for hypoxia and tachycardia. Differential diagnosis: Musculoskeletal, disc herniation, fracture, metastatic disease, cord c ompression, discitis, sciatica, cauda equina, infection, aortic disease, renal colic, gastrointestinal, as well as other pathologies. ER treatment provided: See below Diagnostics interpreted by me: ECG: EKG was obtained in the emergency department. My interpretation is sinus rhythm at 100 bpm. Frequent PVCs were noted. Nonspecific T wave inversions were noted. This was compared to a tracing from May 02, 2023. EKG changes are new compared to the previous tracing. Cardiac Monitoring: An order was placed for continuous cardiac monitoring. The monitor shows a rate of 95 bpm with sinus rhythm.. Laboratory studies: As stated above and show below. Imaging studies: See below. Radiographic imaging was reviewed by myself Consultation(s): I discussed this case with Dr. Wright who is on-call for the [facility]ist group. Past Med/Surg History Medical History Anemia Arthralgia of multiple sites Asthma USES PRN INH ONCE PER WEEK - LAST EXAC January, Asthma Asthma exacerbation Cancer BCC - REMOVED Cardiac failure Cardiomyopathy, nonischemic Cervical spondylosis (10/02/12) Cervicalgia Chronic systolic CHF (congestive heart failure) CKD (chronic kidney disease), stage III GERD (gastroesophageal reflux disease) Hematuria Hiatal hernia Hiatal hernia History of hyperparathyroidism Hypertension Idiopathic cardiomyopathy Iron deficiency anemia Osteoarthritis Osteoporosis Osteoporosis Rheumatoid arthritis Rheumatoid arthritis Severe mitral regurgitation Urinary retention Surgical History History of back surgery History of cataract surgery History of cholecystectomy History of colonoscopy History of hysterectomy History of parathyroidectomy History of tooth extraction History of total hip arthroplasty BL History of total shoulder replacement RT Nausea and vomiting after administration of anesthetic agent Family History Father Heart disease Brother Heart disease Brother Heart disease Social History Smoking Status: Never smoker Second Hand Exposure: Yes (former smoker); Do You Dip or Chew Tobacco: No; Hx Alcohol Use: No Hx Substance Use: No Preferred Language: Norwegian Communication Ability: Effective 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 Beliefs That Will Affect Care: None Current Living Situation: Spouse Feels Safe at Home: Yes Assistive Devices: Glasses and Walker Allergies Allergies Allergy/AdvReac Type Severity Reaction Status Date / Time levofloxacin Allergy Intermediate HEPATOTOXIC Verified 04/23/23 12:52 ITY scopolamine Allergy Intermediate CAUSED Verified 04/23/23 12:52 RED, SWOLLEN AREA BEHIND EAR WHERE PATCH APPLIED lisinopril AdvReac Intermediate COUGH Verified 04/10/23 10:52 Home Meds Home Medications Medication Instructions Recorded Confirmed albuterol sulfate 90 mcg/actuation 2 puff inhalation Q4H PRN Wheezing 07/29/18 05/04/23 aerosol inhaler nitroglycerin 0.4 mg sublingual 0.4 mg sublingual UD PRN Chest Pain 06/30/19 05/04/23 tablet levalbuterol HCl 0.63 mg/3 mL 0.63 mg inhalation Q8H PRN Wheezing 07/12/19 05/04/23 solution for nebulization tramadol 50 mg tablet 50 mg PO Q6H PRN Pain 07/12/19 05/04/23 prednisone 5 mg tablet 2.5 mg PO DAILY 08/17/19 05/04/23 isosorbide mononitrate 30 mg 30 mg PO DAILY 07/26/20 05/04/23 tablet,extended release 24 hr sacubitril 24 mg-valsartan 26 mg 1 tab PO BID 07/26/20 05/04/23 tablet (Entresto) aspirin 81 mg tablet,delayed 81 mg PO DAILY 08/18/20 05/04/23 release metoprolol succinate 25 mg 12.5 mg PO DAILY 11/16/20 05/04/23 tablet,extended release 24 hr loperamide 2 mg tablet 2 mg PO Q6H PRN Diarrhea 03/08/21 05/04/23 polyethylene glycol 3350 17 17 g PO DAILY PRN Constipation 03/08/21 05/04/23 gram/dose oral powder (Miralax) sennosides 8.6 mg-docusate sodium 1 tab-cap PO DAILY PRN constipation 03/08/21 05/04/23 50 mg tablet (Senokot-S) acetaminophen 500 mg tablet 1,000 mg PO Q8H PRN Pain 04/14/21 05/04/23 (Tylenol Extra Strength) food supplemt, lactose-reduced 1 ea PO DAILY 04/14/21 05/04/23 (Ensure High Protein oral liquid) latanoprost 0.005 % eye drops 1 drp OPB HS 04/14/21 05/04/23 vitamin K2 100 mcg capsule 100 mcg PO DAILY 04/14/21 05/04/23 donepezil 10 mg tablet 0 mg PO DAILY 04/23/23 04/23/23 Previous Rx's Medication Instructions Recorded ondansetron 4 mg disintegrating 4 mg PO Q8H PRN nausea and 07/26/20 tablet vomiting #10 tabs Results & Data (ED) Vital Signs Vital Signs - 24 hr 05/04/23 10:48 05/04/23 11:39 05/04/23 12:15 Temperature 36.7 C Temperature Source Oral Pulse Rate 94 H 91 H Pulse Rate [Apical] Pulse Rhythm Regular Respiratory Rate 22 22 Respiratory Depth Shallow Shallow Blood Pressure 138/105 H Blood Pressure [Right Arm] 125/75 Blood Pressure Mean 116 Blood Pressure Mean [Right Arm] 91 Blood Pressure Position [Right Arm] Pulse Oximetry 98 98 98 Oxygen Delivery Method Nasal Cannula Nasal Cannula Nasal Cannula Oxygen Flow Rate 4 4 4 Sepsis Recent Fever Within 48 Hours No Sepsis New/Unexplained Change in Mental Status No Sepsis Action Taken by Nursing No Action Required 05/04/23 12:33 05/04/23 14:13 05/04/23 16:32 Temperature Temperature Source Pulse Rate 86 95 H Pulse Rate [Apical] 101 H Pulse Rhythm Respiratory Rate 16 Respiratory Depth Blood Pressure Blood Pressure [Right Arm] 121/87 Blood Pressure Mean Blood Pressure Mean [Right Arm] 98 Blood Pressure Position [Right Arm] Lying Pulse Oximetry 95 Oxygen Delivery Method Nasal Cannula Oxygen Flow Rate 5 Sepsis Recent Fever Within 48 Hours Sepsis New/Unexplained Change in Mental Status Sepsis Action Taken by [facility] Medications Current Medication List: was personally reviewed by me Laboratory Data Attestation: I reviewed the patient's lab results. 05/04/23 11:28 05/04/23 11:28 Lab Results 05/04/23 05/04/23 05/04/23 Range/Units 11:28 11:28 12:25 WBC 11.70 H (4.8-10.8) K/ul RBC 4.02 L (4.20-5.40) M/uL Hgb 10.5 L (12.0-16.0) g/dl Hct 33.4 L (37.0-47.0) % MCV 83.1 (80.0-100.0) fL MCH 26.1 (25.0-34.0) pg MCHC 31.4 L (32.0-36.0) g/dL RDW Std Deviation 45.7 (36.4-46.3) fL RDW Coeff of Brady 14.8 H (11.5-14.5) % Plt Count 326 (130-400) K/uL MPV 10.5 (9.4-12.4) fL Immature Gran % (Auto) 0.8 % Neut % (Auto) 84.2 % Lymph % (Auto) 6.6 % [place] % (Auto) 6.8 % Eos % (Auto) 1.1 % Baso % (Auto) 0.5 % Neut # (Auto) 9.86 H (1.40-6.50) K/uL Lymph # (Auto) 0.77 L (1.2-3.4) K/uL [place] # (Auto) 0.79 H (0.11-0.59) K/uL Eos # (Auto) 0.13 (0-0.50) K/uL Baso # (Auto) 0.06 (0-0.2) K/uL Immature Gran # (Auto) 0.09 (0.01-0.20) K/uL VBG pH (7.36-7.41) VBG pCO2 (38-50) mmHg VBG pO2 mmHg VBG HCO3 mmol/L VBG O2 Saturation % VBG Base Excess mEq/L Sodium 132 L (136-145) mmol/L Potassium 4.1 (3.5-5.1) mmol/L Chloride 99 (98-107) mmol/L Carbon Dioxide 25 (21-32) mmol/L Anion Gap 8 (3-11) BUN 23 (6-23) mg/dl Creatinine 0.74 (0.6-1.2) mg/dl Est Cr Clr Drug Dosing 36.2 ml/min Est GFR ( Amer) 83.2 ml/min Est GFR (Non-Af Amer) 71.8 ml/min BUN/Creatinine Ratio 31.1 H (10-20) Glucose 132 H (70-99(Fasting)) mg/dl Calcium 10.0 (8.6-10.3) mg/dl Total Bilirubin 0.5 (0.2-1.0) mg/dl AST 14 (13-39) U/L ALT 5 L (7-52) U/L Alkaline Phosphatase 75 (34-104) U/L Troponin I High Sens 64.5 H* D (0-14) pg/ml Total Protein 6.5 (6.0-8.3) gm/dl Albumin 3.6 (3.4-5.0) gm/dl Globulin 2.9 (2.5-4.0) gm/dl Albumin/Globulin Ratio 1.2 (0.9-2) Lipase 11 (11-82) U/L Urine Color Urine Appearance (Clear) Urine pH (4.5-7.5) Ur Specific [place] (1.000-1.030) Urine Protein (Negative) Urine Glucose (UA) (Negative) Urine Ketones (Negative) Urine Blood (Negative) Urine Nitrite (Negative) Urine Bilirubin (Negative) Urine Urobilinogen (Negative) Ur Leukocyte Esterase (Negative) Urine WBC (Auto) (0-5) /hpf Urine RBC (Auto) (0-4) /hpf U Hyaline Cast (Auto) (0-5) /lpf U Epithel Cells (Auto) (0-5) /lpf Urine Bacteria (Auto) (Negative) Urine Crystals (None Prsent) Calcium Oxalate Crystal (None Prsent) SARS-CoV-2, RNA, NAAT NEGATIVE (NEGATIVE) 05/04/23 05/04/23 Range/Units 14:25 15:42 WBC (4.8-10.8) K/ul RBC (4.20-5.40) M/uL Hgb (12.0-16.0) g/dl Hct (37.0-47.0) % MCV (80.0-100.0) fL MCH (25.0-34.0) pg MCHC (32.0-36.0) g/dL RDW Std Deviation (36.4-46.3) fL RDW Coeff of Brady (11.5-14.5) % Plt Count (130-400) K/uL MPV (9.4-12.4) fL Immature Gran % (Auto) % Neut % (Auto) % Lymph % (Auto) % [place] % (Auto) % Eos % (Auto) % Baso % (Auto) % Neut # (Auto) (1.40-6.50) K/uL Lymph # (Auto) (1.2-3.4) K/uL [place] # (Auto) (0.11-0.59) K/uL Eos # (Auto) (0-0.50) K/uL Baso # (Auto) (0-0.2) K/uL Immature Gran # (Auto) (0.01-0.20) K/uL VBG pH 7.36 (7.36-7.41) VBG pCO2 52 H (38-50) mmHg VBG pO2 34 mmHg VBG HCO3 29 mmol/L VBG O2 Saturation < 60.0 % VBG Base Excess 2.8 mEq/L Sodium (136-145) mmol/L Potassium (3.5-5.1) mmol/L Chloride (98-107) mmol/L Carbon Dioxide (21-32) mmol/L Anion Gap (3-11) BUN (6-23) mg/dl Creatinine (0.6-1.2) mg/dl Est Cr Clr Drug Dosing ml/min Est GFR ( Amer) ml/min Est GFR (Non-Af Amer) ml/min BUN/Creatinine Ratio (10-20) Glucose (70-99(Fasting)) mg/dl Calcium (8.6-10.3) mg/dl Total Bilirubin (0.2-1.0) mg/dl AST (13-39) U/L ALT (7-52) U/L Alkaline Phosphatase (34-104) U/L Troponin I High Sens (0-14) pg/ml Total Protein (6.0-8.3) gm/dl Albumin (3.4-5.0) gm/dl Globulin (2.5-4.0) gm/dl Albumin/Globulin Ratio (0.9-2) Lipase (11-82) U/L Urine Color Dark Yellow Urine Appearance Cloudy A (Clear) Urine pH 5.5 (4.5-7.5) Ur Specific [place] 1.025 (1.000-1.030) Urine Protein Negative (Negative) Urine Glucose (UA) Negative (Negative) Urine Ketones 1+ H (Negative) Urine Blood Negative (Negative) Urine Nitrite Negative (Negative) Urine Bilirubin Negative (Negative) Urine Urobilinogen Negative (Negative) Ur Leukocyte Esterase Negative (Negative) Urine WBC (Auto) 1-5 (0-5) /hpf Urine RBC (Auto) 5-10 H (0-4) /hpf U Hyaline Cast (Auto) 1-5 (0-5) /lpf U Epithel Cells (Auto) >30 H (0-5) /lpf Urine Bacteria (Auto) Negative (Negative) Urine Crystals Calcium Oxalate A (None Prsent) Calcium Oxalate Crystal Present A (None Prsent) SARS-CoV-2, RNA, NAAT (NEGATIVE) Administered Medications Discontinued Medications Aspirin (Aspirin 300 Mg Supp) 300 mg MO ONE ONE Stop: 05/04/23 13:21 Last Admin: 05/04/23 14:13 Dose: 300 mg Documented By: CHRISTY Magnesium Sulfate/Dextrose (Magnesium Sulfate / D5w) 1 gm in 100 mls @ 100 mls/hr IV NOW STA Stop: 05/04/23 14:19 Last Infusion: 05/04/23 15:38 Dose: 0 mls/hr Documented By: Admin: 05/04/23 14:13 Dose: 100 mls/hr Documented By: CHRISTY Ioversol (Ioversol 350 Mg 125ml Prefilled Syringe) 117 ml IV ONCE ONE Stop: 05/04/23 15:27 Last Admin: 05/04/23 15:26 Dose: 117 ml Documented By: CHAMP Morphine Sulfate (Morphine Sulfate 2 Mg/Ml Carp) 2 mg IV NOW STA Stop: 05/04/23 13:50 Last Admin: 05/04/23 14:13 Dose: 2 mg Documented By: CHRISTY Ondansetron HCl (Ondansetron Inj 2 Mg/Ml 2 Ml Vial) 4 mg IV NOW STA Stop: 05/04/23 13:50 Last Admin: 05/04/23 14:13 Dose: 4 mg Documented By: Admin: 05/04/23 14:12 Dose: 4 mg Documented By: CHRISTY Imaging Data Attestation: I personally reviewed and interpreted this imaging study as follows: My Impression: CT of the chest with angiography was obtained in the emergency department. My interpretation is no infiltrate or free air, final report below. Radiologist's Impression: Lumbar Spine CT 05/04/23 11:39 CT OF THE LUMBAR SPINE CLINICAL HISTORY: Lumbar spine pain. COMPARISON STUDY: Lumbar spine radiographs May 02, [address] of the abdomen and pelvis December 18, 2022. TECHNIQUE: Helical axial images of the lumbar spine were obtained. Sagittal and coronal reconstructions were viewed. Automated exposure control was utilized for the study. A dose lowering technique was utilized adhering to the principles of ALARA. FINDINGS: Patient is status post T11, T12 and L1 vertebroplasty. Postprocedural appearance is unchanged since abdominal CT of December 18, 2022. There are also compression fractures of L2, L3 and L4. These are unchanged since prior CT. L5 vertebral body height is maintained. There is moderate multilevel facet arthrosis. No acute lumbar spine fracture is present. A large hiatal hernia is incidentally noted. There are multiple suspected hepatic cysts. IMPRESSION: 1. No acute lumbar spine fracture or subluxation. 2. Status post T11, T12 and L1 vertebroplasty. Stable postprocedural findings. 3. No change in numerous lower thoracic and lumbar spine compression fractures since abdominal CT of December 18, 2022. These are chronic. 4. Moderate multilevel degenerative changes within the lumbar spine. ACT 112: Negative or not required by law. Electronically signed by: Heriberto Ball M.D. 05/04/2023 1:[address] 05/04/23 11:39 CT OF THE THORACIC SPINE CLINICAL HISTORY: Back pain. COMPARISON STUDY: Thoracic spine CT February 14, 2015. Thoracic spine radiographs October 02, 2020. Chest CT July 14, 2019. CT of the abdomen and pelvis December 18, 2022. TECHNIQUE: Helical axial images of the thoracic spine were obtained. Sagittal and coronal reconstructions were viewed. Automated exposure control was utilized for the study. A dose lowering technique was utilized adhering to the principles of ALARA. FINDINGS: There is a large hiatal hernia. Cardiomegaly is noted. Extensive secretions within the right lower lobe segmental bronchi are noted. Subpleural opacity favors atelectasis within the lower lobes. Aspiration pneumonitis could have a similar imaging appearance although is considered less likely. A right upper lobe a 6 mm right upper lobe nodule is unchanged from earlier chest CT. This is benign given stability. There are prominent bilateral axillary lymph nodes, partially imaged on this exam. There are numerous thoracic spine compression fractures. The lumbar spine CT will be reported separately. Mult ilevel vertebroplasty is noted, at the T6, T11, T12 and L1 levels. Numerous additional thoracic spine fracture is noted, including fractures of the T1, T2, T3, T5, T8, T9, T10 vertebra. Several these fractures are severe. Several these were present on radiographs of October 02, 2020 although several are likely new. The majority of these fractures are chronic however subacute fractures cannot be excluded. There is no severe retropulsion. Mild retropulsion is noted at several levels. There are no suspicious osseous lesions. There are several old left rib fractures. IMPRESSION: 1. Numerous moderate to severe thoracic spine compression fracture status post multilevel vertebroplasty, as described above. The majority of the fractures are likely chronic however subacute thoracic spine fractures cannot be excluded on this examination. No severe retropulsion. Mild retropulsion at multiple levels. 2. Extensive secretions within the right lower lobe segmental bronchi. Bilateral lower lobe opacities favor atelectasis. Aspiration/aspiration pneumonitis could appear similar. ACT 112: Negative or not required by law. Electronically signed by: Heriberto Ball M.D. 05/04/2023 12:57 PM Chest CTA 05/04/23 13:49 CT ANGIOGRAPHY OF THE CHEST, PULMONARY EMBOLUS PROTOCOL CLINICAL HISTORY: Shortness of breath. Evaluate for pulmonary embolus. COMPARISON STUDY: Chest CT July 14, 2019 and chest radiograph May 02, 2023. TECHNIQUE: Following IV administration of 117 mL of Optiray, helical axial images of the chest were obtained utilizing the pulmonary embolus protocol. Maximal intensity projections and sagittal and coronal reformats were viewed on an independent 3D workstation. IV contrast was administered without complication. Automated exposure control was utilized for the study. A dose lowering technique was utilized adhering to the principles of ALARA. CT DOSE: 784.50 mGy.cm FINDINGS: No pulmonary emboli are identified although segmental and subsegmental pulmonary arteries within the lower lobes are suboptimally assessed due to respiratory motion. There is moderate cardiomegaly. Mild dilatation of the aortic arch at the level the sinuses of Valsalva, measuring approximately 4.4 cm. A moderate sized hiatal hernia is present. There is no mediastinal l ymphadenopathy. There are few prominent bilateral axillary lymph nodes. Index left axillary lymph node on image 158 of 197 measures 1.2 x 0.7 cm. There is no pneumothorax. No pleural effusion is present. There are are moderate secretions within the bilateral lower lobe segmental bronchi. Mild lower lobe opacities are present. 5 minimal medial right upper lobe nodule on image 129 of [address] of July 14, 2019. This is benign given stability. Multilevel vertebroplasty within the thoracic and lumbar spine is noted. There are numerous additional thoracic spine fractures. These are discussed on the thoracic spine CT performed earlier today. Multiple suspected hepatic cysts are incidentally noted. IMPRESSION: 1. No pulmonary emboli identified although segmental and subsegmental pulmonary arteries within the lower lobes suboptimally assessed due to respiratory motion. 2. Moderate cardiomegaly. 3. Secretions within the bilateral lower lobe segmental bronchi. Left lower lobe opacity represents atelectasis. Right lower lobe opacity could reflect atelectasis or mild pneumonia/aspiration pneumonitis. 4. Moderate-sized hiatal hernia. 5. Numerous thoracic and lumbar spine compression fractures. These are further discussed on the thoracic spine CT from earlier today. ACT 112: Negative or not required by law. Electronically signed by: Heriberto Ball M.D. 05/04/2023 4:[address] 05/04/23 15:17 CT OF THE HEAD WITHOUT CONTRAST CLINICAL HISTORY: Altered mental status. COMPARISON STUDY: Head CT August 18, 2020. TECHNIQUE: Helical axial images of the head were obtained without IV contrast. Automated exposure control was utilized for the study. A dose lowering technique was utilized adhering to the principles of ALARA. FINDINGS: No acute intracranial hemorrhage, midline shift or mass effect is present. Ventricular system is stable. Basal cisterns are patent. Prominence of the extra-axial spaces is due to atrophy. White matter hypodensities are similar to prior exam and favor small vessel disease. There are no findings to suggest acute dural sinus thrombosis or acute territorial infarct. There are no significant calvarial abnormalities. There is a mucous retention cyst within the left maxillary sinus. Air-fluid level within the right maxillary sinus is noted. There is moderate ethmoid sinus mucosal thickening. There is an air-fluid level within the left sphenoid sinus as well as air-fluid levels within the frontal sinuses. IMPRESSION: 1. No acute intracranial findings. 2. Sinus air-fluid levels, as described above. The findings suggest acute sinusitis. ACT 112: Negative or not required by law. Electronically signed by: Heriberto Ball M.D. 05/04/2023 3:44 PM Discharge Plan Visit Data Chief Complaint: Back Injury/Pain Stated Complaint: BACK PAIN ED Provider: Rian Cosby Discharge Problem: Acute midline thoracic back pain, Low back pain, Abnormal EKG Patient Disposition: Being Evaluated by Hospitalist Forms Stand Alone Forms: [facility] Prescriptions Prescriptions: No Action nitroglycerin 0.4 mg tablet, sublingual 0.4 mg sublingual UD PRN (Reason: Chest Pain) tramadol 50 mg tablet 50 mg PO Q6H PRN (Reason: Pain) levalbuterol HCl 0.63 mg/3 mL solution for nebulization 0.63 mg INH Q8H PRN (Reason: Wheezing) Rx Instructions: HASNT USED FOR YEARS. loperamide 2 mg tablet 2 mg PO Q6H PRN (Reason: Diarrhea) polyethylene glycol 3350 [Miralax] 17 gram/dose powder 17 g PO DAILY PRN (Reason: Constipation) sennosides-docusate sodium [Senokot-S] 8.6-50 mg tablet 1 tab-cap PO DAILY PRN (Reason: constipation) isosorbide mononitrate 30 mg Tablet Extended Release 24 Hr 30 mg PO DAILY Entresto 24-26 mg Tablet 1 tab PO BID ondansetron 4 mg tablet,disintegrating 4 mg PO Q8H PRN (Reason: nausea and vomiting) Qty: 10 0RF aspirin 81 mg tablet,delayed release (DR/EC) 81 mg PO DAILY metoprolol succinate 25 mg tablet extended release 24 hr 12.5 mg PO DAILY albuterol sulfate 90 mcg/actuation Hfa Aerosol Inhaler 2 puff INHALATION Q4H PRN (Reason: Wheezing) prednisone 5 mg tablet 2.5 mg PO DAILY Rx Instructions: PER [facility] "PT TAKES ANOTHER 5 MG IF BACK IS HURTING". latanoprost 0.005 % drops 1 drp OPB HS acetaminophen [Tylenol Extra Strength] 500 mg Tablet 1,000 mg PO Q8H PRN (Reason: Pain) Ensure High Protein Liquid 1 ea PO DAILY vitamin K2 100 mcg Capsule 100 mcg PO DAILY donepezil 10 mg tablet 0 mg PO DAILY Rx Instructions: PT ISN'T SURE Referrals Referrals: Maya Rubio, [Primary Care Provider] -
[2023-05-04 11:54] LABS: Basophils # (auto) 0.06 K/uL (0-0.2); Basophils % (auto) 0.5 %; Eosinophils # (auto) 0.13 K/uL (0-0.50); Eosinophils % (auto) 1.1 %; Hematocrit (blood only) 33.4 % (37.0-47.0); Hemoglobin 10.5 g/dl (12.0-16.0); Immature Granulocytes # (auto) 0.09 K/uL (0.01-0.20); Immature Granulocytes % (auto) 0.8 %; Lymphocytes # (auto) 0.77 K/uL (1.2-3.4); Lymphocytes % (auto) 6.6 %; Mean Corpuscular Hemoglobin 26.1 pg (25.0-34.0); Mean Corpuscular Hgb Conc 31.4 g/dL (32.0-36.0); Mean Corpuscular Volume 83.1 fL (80.0-100.0); Mean Platelet Volume 10.5 fL (9.4-12.4); Monocytes # (auto) 0.79 K/uL (0.11-0.59); Monocytes % (auto) 6.8 %; Neutrophils # (auto) 9.86 K/uL (1.40-6.50); Neutrophils % (auto) 84.2 %; Platelet Count 326 K/uL (130-400); RDW Coefficient of Variation 14.8 % (11.5-14.5); RDW Standard Deviation 45.7 fL (36.4-46.3); Red Blood Count 4.02 M/uL (4.20-5.40)
[2023-05-04 12:08] LABS: Albumin Globulin Ratio 1.2 (0.9-2); Albumin Level 3.6 gm/dl (3.4-5.0); BUN Creatinine Ratio 31.1 (10-20); Bilirubin,Total 0.5 mg/dl (0.2-1.0); Creatinine Clr Calc Pharmacy 36.2 ml/min; Est GFR (African American) 83.2 ml/min; Est GFR (Non-African American) 71.8 ml/min; Globulin 2.9 gm/dl (2.5-4.0); Potassium 4.1 mmol/L (3.5-5.1); Total Protein 6.5 gm/dl (6.0-8.3)
[2023-05-04 12:21] LABS: Troponin I High Sensitivity 64.5 pg/ml (0-14)
--- NOTE | 2023-05-04 12:59 | CT Scan Report ---
CT OF THE THORACIC SPINE CLINICAL HISTORY: Back pain. COMPARISON STUDY: Thoracic spine CT February 14, 2015. Thoracic spine radiographs October 02, 2020. Chest CT July 14, 2019. CT of the abdomen and pelvis December 18, 2022. TECHNIQUE: Helical axial images of the thoracic spine were obtained. Sagittal and coronal reconstru ctions were viewed. Automated exposure control was utilized for the study. A dose lowering techniqu e was utilized adhering to the principles of ALARA. FINDINGS: There is a large hiatal hernia. Cardiomegaly is noted. Extensive secretions within the righ t lower lobe segmental bronchi are noted. Subpleural opacity favors atelectasis within the lower lobe s. Aspiration pneumonitis could have a similar imaging appearance although is considered less likely. A right upper lobe a 6 mm right upper lobe nodule is unchanged from earlier chest CT. This is benign given stability. There are prominent bilateral axillary lymph nodes, partially imaged on this exam. There are numerous thoracic spine compression fractures. The lumbar spine CT will be reported mayi bailey. Multilevel vertebroplasty is noted, at the T6, T11, T12 and L1 levels. Numerous additional thor acic spine fracture is noted, including fractures of the T1, T2, T3, T5, T8, T9, T10 vertebra. Severa l these fractures are severe. Several these were present on radiographs of October 02, 2020 although several are likely new. The majority of these fractures are chronic however subacute fractures canno t be excluded. There is no severe retropulsion. Mild retropulsion is noted at several levels. There a re no suspicious osseous lesions. There are several old left rib fractures. IMPRESSION: 1. Numerous moderate to severe thoracic spine compression fracture status post multilevel vertebropla sty, as described above. The majority of the fractures are likely chronic however subacute thoracic s pine fractures cannot be excluded on this examination. No severe retropulsion. Mild retropulsion at m ultiple levels. 2. Extensive secretions within the right lower lobe segmental bronchi. Bilateral lower lobe opacities favor atelectasis. Aspiration/aspiration pneumonitis could appear similar. ACT 112: Negative or not required by law. Electronically signed by: Heriberto Ball M.D. 05/04/2023 12:57 PM
--- NOTE | 2023-05-04 13:05 | CT Scan Report ---
CT OF THE LUMBAR SPINE CLINICAL HISTORY: Lumbar spine pain. COMPARISON STUDY: Lumbar spine radiographs May 02, [address] of the abdomen and pelvis December 18. TECHNIQUE: Helical axial images of the lumbar spine were obtained. Sagittal and coronal reconstruct ions were viewed. Automated exposure control was utilized for the study. A dose lowering technique was utilized adhering to the principles of ALARA. FINDINGS: Patient is status post T11, T12 and L1 vertebroplasty. Postprocedural appearance is unchang ed since abdominal CT of December 18, 2022. There are also compression fractures of L2, L3 and L4. These are unchanged since prior CT. L5 vertebral body height is maintained. There is moderate multilevel fa cet arthrosis. No acute lumbar spine fracture is present. A large hiatal hernia is incidentally noted . There are multiple suspected hepatic cysts. IMPRESSION: 1. No acute lumbar spine fracture or subluxation. 2. Status post T11, T12 and L1 vertebroplasty. Stable postprocedural findings. 3. No change in numerous lower thoracic and lumbar spine compression fractures since abdominal CT of December 18, 2022. These are chronic. 4. Moderate multilevel degenerative changes within the lumbar spine. ACT 112: Negative or not required by law. Electronically signed by: Heriberto Ball M.D. 05/04/2023 1:02 PM
[2023-05-04] MEDS ORDERED: MAGNESIUM SULFATE / D5W 1 GM/100 ML BAG IV STA (13:20)
[2023-05-04] MEDS ORDERED: ASPIRIN 300 MG SUPP PR ONE (13:20)
[2023-05-04] MEDS ORDERED: MoRPHine SULFATE 2 MG/ML CARP IV STA (13:49)
[2023-05-04] MEDS: ONDANSETRON INJ 2 MG/ML 2 ML VIAL IV STA ×2 (14:12→14:13)
[2023-05-04 14:49] LABS: Appearance Urine Cloudy (Clear); Bacteria Urine Automated Negative (Negative); Bilirubin Urine Negative (Negative); Blood Urine Negative (Negative); Color Urine Dark Yellow; Epithelial Cell Urine Auto >30 /lpf (0-5); Glucose Urine UA Negative (Negative); Ketones Urine 1+ (Negative); Leukocyte Esterase Urine Negative (Negative); Nitrite Urine Negative (Negative); Protein Urine Negative (Negative); Specific Gravity Urine 1.025 (1.000-1.030); Urobilinogen Urine Negative (Negative); pH Urine 5.5 (4.5-7.5)
[2023-05-04 15:20] LABS: Calcium Oxalate Crystals Urine Present (None Prsent)
[2023-05-04] MEDS ORDERED: IOVERSOL 350 MG 125mL Prefilled Syringe IV ONE (15:26)
--- NOTE | 2023-05-04 15:46 | CT Scan Report ---
CT OF THE HEAD WITHOUT CONTRAST CLINICAL HISTORY: Altered mental status. COMPARISON STUDY: Head CT August 18, 2020. TECHNIQUE: Helical axial images of the head were obtained without IV contrast. Automated exposure con trol was utilized for the study. A dose lowering technique was utilized adhering to the principles o f ALARA. FINDINGS: No acute intracranial hemorrhage, midline shift or mass effect is present. Ventricular syst em is stable. Basal cisterns are patent. Prominence of the extra-axial spaces is due to atrophy. Whit e matter hypodensities are similar to prior exam and favor small vessel disease. There are no finding s to suggest acute dural sinus thrombosis or acute territorial infarct. There are no significant calv arial abnormalities. There is a mucous retention cyst within the left maxillary sinus. Air-fluid leve l within the right maxillary sinus is noted. There is moderate ethmoid sinus mucosal thickening. Ther e is an air-fluid level within the left sphenoid sinus as well as air-fluid levels within the frontal sinuses. IMPRESSION: 1. No acute intracranial findings. 2. Sinus air-fluid levels, as described above. The findings suggest acute sinusitis. ACT 112: Negative or not required by law. Electronically signed by: Heriberto Ball M.D. 05/04/2023 3:44 PM
[2023-05-04 16:04] LABS: Base Excess VBG 2.8 mEq/L; HCO3 VBG 29 mmol/L; Oxygen Saturation VBG < 60.0 %; PCO2 VBG 52 mmHg (38-50); PO2 VBG 34 mmHg; pH VBG 7.36 (7.36-7.41)
--- NOTE | 2023-05-04 16:10 | CT Scan Report ---
CT ANGIOGRAPHY OF THE CHEST, PULMONARY EMBOLUS PROTOCOL CLINICAL HISTORY: Shortness of breath. Evaluate for pulmonary embolus. COMPARISON STUDY: Chest CT July 14, 2019 and chest radiograph May 02, 2023. TECHNIQUE: Following IV administration of 117 mL of Optiray, helical axial images of the chest were o btained utilizing the pulmonary embolus protocol. Maximal intensity projections and sagittal and cor onal reformats were viewed on an independent 3D workstation. IV contrast was administered without co mplication. Automated exposure control was utilized for the study. A dose lowering technique was ut ilized adhering to the principles of ALARA. CT DOSE: 784.50 mGy.cm FINDINGS: No pulmonary emboli are identified although segmental and subsegmental pulmonary arteries within the lower lobes are suboptimally assessed due to respiratory motion. There is moderate cardiom egaly. Mild dilatation of the aortic arch at the level the sinuses of Valsalva, measuring approximate ly 4.4 cm. A moderate sized hiatal hernia is present. There is no mediastinal lymphadenopathy. There are few prominent bilateral axillary lymph nodes. Index left axillary lymph node on image 158 of 197 measures 1.2 x 0.7 cm. There is no pneumothorax. No pleural effusion is present. There are are modera te secretions within the bilateral lower lobe segmental bronchi. Mild lower lobe opacities are presen t. 5 minimal medial right upper lobe nodule on image 129 of [address] of July 14 019. This is benign given stability. Multilevel vertebroplasty within the thoracic and lumbar spine i s noted. There are numerous additional thoracic spine fractures. These are discussed on the thoracic spine CT performed earlier today. Multiple suspected hepatic cysts are incidentally noted. IMPRESSION: 1. No pulmonary emboli identified although segmental and subsegmental pulmonary arteries within the l ower lobes suboptimally assessed due to respiratory motion. 2. Moderate cardiomegaly. 3. Secretions within the bilateral lower lobe segmental bronchi. Left lower lobe opacity represents a telectasis. Right lower lobe opacity could reflect atelectasis or mild pneumonia/aspiration pneumonit is. 4. Moderate-sized hiatal hernia. 5. Numerous thoracic and lumbar spine compression fractures. These are further discussed on the [facility] spine CT from earlier today. ACT 112: Negative or not required by law. Electronically signed by: Heriberto Ball M.D. 05/04/2023 4:08 PM
--- NOTE | 2023-05-04 16:41 | History & Physical Report ---
Date of Service May 04, 2023 Assessment & Plan (1) Abnormal EKG: Plan: Back pain, acute on chronic Patient with chronic back pain and history of multiple compression fractures in addition to low thoracic vertebroplasty Patient felt a pop with increased pain in her back, is found to have multiple thoracic and lumbar fractures of which are subacute as noted on imaging below. No head trauma, she did not have a fall Pain is improving while in the ER on 2 mg of morphine is now tolerable to her. We will continue pain control and add on calcitonin, calcium supplementation while on this (admitting calcium is normal at 10.0) No numbness/tingling/paresthesias/acute strength change. No signs of spinal compromise on imaging. She is concurrently admitted for troponin rule out, does endorse that she has had intermittent pain in the last week. CThead: No acute cranial findings are present, air-fluid sinus level suggestive of acute sinusitis CTAchest: No pulmonary emboli appreciated. Moderate cardiomegaly. Bilateral lower lobe segmental bronchi secretions? Aspiration pneumonitis versus mild pneumonia. Numerous thoracic and lumbar spine fractures. CTthoracic spine: Multiple moderate to severe thoracic compression fractures, majority likely chronic however subacute fractures are noted. No severe retropulsion. Mild retropulsion at multiple level CTlumbar spine: S/p T11/T12/L1 vertebroplasty stable postprocedural findings. No acute lumbar spine fracture or subluxation. Multilevel degenerative change Acute on chronic hypoxic respiratory failure 2/2 aspiration pneumonia, history of asthma History of asthma follows with Dr. Winston Suspect acute on chronic respiratory failure in the setting of aspiration,? Pneumonitis versus pneumonia. Given that she does have a leukocytosis, does endorse that she has aspirated and has had more of a cough, is more short of breath than normal on 5 L we will treat empirically for aspiration pneumonia with Unasyn SPO2 goal greater than 89% Continue home inhaler/formulary equivalent PFTs 02/2020: FVC 1.3 (63% predicted), FEV1 0.86 (59% predicted), FEV1/FVC ratio 66 (89% predicted). 15% bronchodilator response Leukocytosis of 11.7 without left shift Hemoglobin 10.5, stable and borderline microcytic VB.3 /34/29 consistent with mild compensated respiratory acidosis Sodium 132 with BSG 132, potassium is normal, creatinine is 0.74 on admission Elevated troponin, intermittent chest pain. History of idiopathic cardiomyopathy and heart failure with reduced ejection fraction 15% Chest pain is improved at time of admission EKG: Compared to 05/02/2023 T wave changes/inversions in anterior lateral leads High sensitive troponin is 64.5, repeat ordered at time of consultation Patient would want a discussion before any aggressive measures were pursued if heparinization or cardiac procedures indicated Appears stable, and does not appear acutely volume overloaded on admission. CTA is with secretions as noted, but is not consistent with pulmonary edema/ volume overload. Will treat as pneumonia, defer diuresis Chronic indwelling Simmons Intermittently with failed voiding trials in the past, chronically with urinary retention and incontinence? Overflow UA is uninfected appearing Patient denies any new urinary retention/overflow. Denies pain at catheter site Rheumatoid arthritis On chronic prednisone. Did discuss the effects of prednisone long-term on bone density and likely its contribution to her multiple and continued fractures, although she notes that this is necessary due to her very severe arthritis History of superior mesenteric artery stenosis No abdominal pain, has followed with vascular surgery No acute change in management of this at this time CKD 3 Creatinine on admission is 0.4, at baseline Trend daily Renally dose medications as required DVT prophylaxis: Heparin Disposition: Medical telemetry CODE STATUS: DNR/DNI Diet: Heart healthy, low-salt Admission disposition:Pt mistakenly recommended for admission to [facility] team, she remains with a [facility] PCP and specialist. As patient was already seen for H&P [facility] Did review H&P and plan of care with [facility] team by phone signout who agreed with the plan and are okay to transfer to their list in the morning. (2) Acute kidney injury superimposed on chronic kidney disease: (3) Acute on chronic systolic CHF (congestive heart failure): (4) Acute respiratory failure with hypoxia: (5) CKD (chronic kidney disease), stage III: (6) Chronic systolic CHF (congestive heart failure): History of Present Illness Primary Care Provider: Maya Rubio DO Marivel is an 87-year-old female with a past medical history of CKD 3, CHF, idiopathic cardiomyopathy, superior mesenteric artery stenosis, lumbar compression fractures who presents to the ER with back pain. She was seen 7/21 in the ER for similar, was discharged home with pain control. Day of admission she was moving around and felt a pop in the middle of her back, since that time she has had severe pain requiring morphine for comfort. 3rd ER visit this week. Back pain, and greatly worsened today after she felt a 'pop.' Home O2 requirement of 3L, now up to 5+L. Has been taking double tramadol and takin gpercocet x4 without relief. +hacking cough for 4-5 days. Some intermittent chest pain which brought her into the ER earlier in the week. She notes that she has had some aspiration events this week and felt like things have gone down the wrong pipe, and has been a little more short of breath with this. Denies fever/chills/sweats. Chest pain has felt in her high epigastrium, low center chest. She has a history of heart failure with EF of 15%. Is not in pain at time of assessment. Is aware that she has some EKG changes and mild troponin which is suspicious for demand, but for which is being followed. Would want discussion with her family where that to rapidly rise and cardiac intervention or heparinization be recommended. Takes prednisone daily for arthritis, has been on 'for a very, very long time.' This helps with her arthritis, she notes that this is not good for her bone density. Follows for her back with Dr. Almanzar. Back does hurt much more than normal midline. Denies any radiation to arms or legs, denies any acute focal weakness, no saddle anesthesia, no change in urinary symptoms or voiding ability although she does note that she has had intermittent failed voiding trials in the past and this is why she has a chronic indwelling Simmons. Chronic indwelling simmons catheter for severe incontinence, was placed 2 weeks ago. Has had intermittently over the last two years. BMs intermittently, has some constipation at baseline. No BM in the last 3 days. No bowel incontinence. Medical History: Reviewed Medications: Reviewed Surgical History: Reviewed Family history: Reviewed Allergies: Reviewed Social History: Reviewed Code Status:DNR/DNI Allergies Allergy/AdvReac Type Severity Reaction Status Date / Time levofloxacin Allergy Intermediate HEPATOTOXIC Verified 04/23/23 12:52 ITY scopolamine Allergy Intermediate CAUSED Verified 04/23/23 12:52 RED, SWOLLEN AREA BEHIND EAR WHERE PATCH APPLIED lisinopril AdvReac Intermediate COUGH Verified 04/10/23 10:52 Home Medications Medication Instructions Recorded Confirmed Type albuterol sulfate 90 mcg/actuation 2 puff inhalation Q4H PRN Wheezing 07/29/18 05/04/23 History aerosol inhaler nitroglycerin 0.4 mg sublingual 0.4 mg sublingual UD PRN Chest Pain 06/30/19 05/04/23 History tablet levalbuterol HCl 0.63 mg/3 mL 0.63 mg inhalation Q8H PRN Wheezing 07/12/19 05/04/23 History solution for nebulization tramadol 50 mg tablet 50 mg PO Q6H PRN Pain 07/12/19 05/04/23 History prednisone 5 mg tablet 2.5 mg PO DAILY 08/17/19 05/04/23 History isosorbide mononitrate 30 mg 30 mg PO DAILY 07/26/20 05/04/23 History tablet,extended release 24 hr ondansetron 4 mg disintegrating 4 mg PO Q8H PRN nausea and 07/26/20 05/04/23 Rx tablet vomiting #10 tabs sacubitril 24 mg-valsartan 26 mg 1 tab PO BID 07/26/20 05/04/23 History tablet (Entresto) aspirin 81 mg tablet,delayed 81 mg PO DAILY 08/18/20 05/04/23 History release metoprolol succinate 25 mg 12.5 mg PO DAILY 11/16/20 05/04/23 History tablet,extended release 24 hr loperamide 2 mg tablet 2 mg PO Q6H PRN Diarrhea 03/08/21 05/04/23 History polyethylene glycol 3350 17 17 g PO DAILY PRN Constipation 03/08/21 05/04/23 History gram/dose oral powder (Miralax) sennosides 8.6 mg-docusate sodium 1 tab-cap PO DAILY PRN constipation 03/08/21 05/04/23 History 50 mg tablet (Senokot-S) acetaminophen 500 mg tablet 1,000 mg PO Q8H PRN Pain 04/14/21 05/04/23 History (Tylenol Extra Strength) food supplemt, lactose-reduced 1 ea PO DAILY 04/14/21 05/04/23 History (Ensure High Protein oral liquid) latanoprost 0.005 % eye drops 1 drp OPB HS 04/14/21 05/04/23 History vitamin K2 100 mcg capsule 100 mcg PO DAILY 04/14/21 05/04/23 History donepezil 10 mg tablet 0 mg PO DAILY 04/23/23 04/23/23 History Past Med/Surg History Medical History Anemia Arthralgia of multiple sites Asthma USES PRN INH ONCE PER WEEK - LAST EXAC January, Asthma Asthma exacerbation Cancer BCC - REMOVED Cardiac failure Cardiomyopathy, nonischemic Cervical spondylosis (10/02/12) Cervicalgia Chronic systolic CHF (congestive heart failure) CKD (chronic kidney disease), stage III GERD (gastroesophageal reflux disease) Hematuria Hiatal hernia Hiatal hernia History of hyperparathyroidism Hypertension Idiopathic cardiomyopathy Iron deficiency anemia Osteoarthritis Osteoporosis Osteoporosis Rheumatoid arthritis Rheumatoid arthritis Severe mitral regurgitation Urinary retention Surgical History History of back surgery History of cataract surgery History of cholecystectomy History of colonoscopy History of hysterectomy History of parathyroidectomy History of tooth extraction History of total hip arthroplasty BL History of total shoulder replacement RT Nausea and vomiting after administration of anesthetic agent Family History Father Heart disease Brother Heart disease Brother Heart disease Social History Smoking Status: Never smoker Second Hand Exposure: Yes (former smoker); Do You Dip or Chew Tobacco: No; Hx Alcohol Use: No Hx Substance Use: No Preferred Language: Cameroonian Communication Ability: Effective Elocution Teacher Required: No Beliefs That Will Affect Care: None Current Living Situation: Spouse Feels Safe at Home: Yes Assistive Devices: Glasses and Walker Review of Systems Review of Systems: All systems reviewed & are unremarkable except as noted in Subjective Physical Exam Physical Exam: General: A&Ox3. NAD. Cooperative. HEENT: Atraumatic, normocephalic. Vision/hearing grossly intact. Pupils equal and reactive to light Spine: Patient is with mild tenderness to palpation along the mid thoracic and high lumbar spine. Pulm: Coarse in the bases bilaterally. Scattered high-pitched wheezes in upper [place] on end expiration which improved with deep breathing. Symmetrical chest rise. No increased work of breathing. No respiratory distress. On 5 L nasal cannula Cardiac: RRR, soft SM. Radial pulses intact and symmetrical. Abdominal: Nontender, nondistended, soft. BS present. : Simmons in place draining light yellow urine, chronic indwelling Simmons follows with urology as outpatient. Extremities: Warm, dry. Sensation intact in hands and feet bilaterally. 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 No leg edema is noted. No saddle anesthesia Results & Data Results & Data Vital Signs (Past 12 Hours) Vital Signs Temp Pulse Pulse Resp BP BP Pulse Ox 05/04/23 16:32 95 H 05/04/23 14:13 101 H 16 121/87 95 05/04/23 12:33 86 05/04/23 12:15 125/75 98 05/04/23 11:39 91 H 22 98 05/04/23 10:48 36.7 C 94 H 22 138/105 H 98 O2 Del Method O2 Flow Rate 05/04/23 16:32 05/04/23 14:13 Nasal Cannula 5 05/04/23 12:33 05/04/23 12:15 Nasal Cannula 4 05/04/23 11:39 Nasal Cannula 4 05/04/23 10:48 Nasal Cannula 4 PG Care Time/CCT Total # of Minutes Spent Total Time Spent with Patient: Total time spent is greater than 50% in coordination of care (as documented) at patient's floor/unit and/or counseling patient: Coding Level of Care Code 51710 INT INP/OBS CARE 3/75MIN Diagnoses Abnormal EKG R94.31 Acute kidney injury superimposed on chronic kidney disease N17.9; N18.9 Acute on chronic systolic CHF (congestive heart failure) I50.23 Acute respiratory failure with hypoxia J96.01 CKD (chronic kidney disease), stage III N18.30 Chronic systolic CHF (congestive heart failure) I50.22
[2023-05-04] MEDS ORDERED: HYDROmorphone INJ 0.5 MG/0.5 ML SYR IV PRN (17:15)
[2023-05-04] MEDS ORDERED: ACETAMINOPHEN 325 MG TAB PO PRN (17:16)
[2023-05-04] MEDS ORDERED: POLYETHYLENE (MIRALAX) 17 GM PACK PO PRN (19:02)
[2023-05-04] MEDS ORDERED: ONDANSETRON 4 MG OD TAB PO PRN (19:02)
[2023-05-04] MEDS ORDERED: NITROGLYCERIN SL 0.4 MG/TAB TAB SL PRN (19:02)
[2023-05-04] MEDS ORDERED: ALBUTEROL HFA 8 GM INHALER INH PRN (19:02)
[2023-05-04] MEDS ORDERED: LEVALBUTEROL HCL 0.63 MG/3 ML NEB INH PRN (19:02)
[2023-05-04] MEDS ORDERED: ACETAMINOPHEN 500 MG TAB PO PRN (19:02)
[2023-05-04] MEDS ORDERED: LOPERAMIDE HCL 2 MG CAP PO PRN (19:16)
[2023-05-04] MEDS: AMPICILLIN/SULBACTAM SOD 3,000 MG in 0.9 % SODIUM CHLORIDE 100 ML IV SCH (20:49)
[2023-05-04] MEDS: VALSARTAN/SACUBITRIL 26/24MG TAB PO SCH (20:50)
[2023-05-04] MEDS: LATANOPROST 0.005% OP SOLN 2.5 ML BTL OPB SCH (20:51)
[2023-05-04] MEDS: CALCITONIN SALMON NA 200 IU/AC 3.7 ML BTL SCH (20:51)
[2023-05-04] MEDS: HEPARIN SOD 5,000 UNIT/0.5 ML VIAL SQ SCH (22:03)
[2023-05-04] MEDS ORDERED: HYDROmorphone INJ 0.5 MG/0.5 ML SYR IV STA (22:37)
[2023-05-05] MEDS: ACETAMINOPHEN 500 MG TAB PO SCH ×3 (00:16→15:34)
[2023-05-05 01:22] LABS: Basophils # (auto) 0.07 K/uL (0-0.2); Basophils % (auto) 0.7 %; Eosinophils # (auto) 0.18 K/uL (0-0.50); Eosinophils % (auto) 1.7 %; Hematocrit (blood only) 33.5 % (37.0-47.0); Hemoglobin 10.5 g/dl (12.0-16.0); Immature Granulocytes # (auto) 0.02 K/uL (0.01-0.20); Immature Granulocytes % (auto) 0.2 %; Lymphocytes # (auto) 0.66 K/uL (1.2-3.4); Lymphocytes % (auto) 6.1 %; Mean Corpuscular Hemoglobin 25.9 pg (25.0-34.0); Mean Corpuscular Hgb Conc 31.3 g/dL (32.0-36.0); Mean Corpuscular Volume 82.5 fL (80.0-100.0); Monocytes # (auto) 0.82 K/uL (0.11-0.59); Monocytes % (auto) 7.6 %; Neutrophils # (auto) 8.99 K/uL (1.40-6.50); Neutrophils % (auto) 83.7 %; Platelet Count 276 K/uL (130-400); RDW Coefficient of Variation 15.1 % (11.5-14.5); RDW Standard Deviation 45.7 fL (36.4-46.3); Red Blood Count 4.06 M/uL (4.20-5.40); White Blood Count 10.74 K/ul (4.8-10.8)
[2023-05-05 01:42] LABS: BUN Creatinine Ratio 26.3 (10-20); Calcium 10.3 mg/dl (8.6-10.3); Creatinine Clr Calc Pharmacy 33.9 ml/min; Est GFR (African American) 80.6 ml/min; Est GFR (Non-African American) 69.5 ml/min; Potassium 4.4 mmol/L (3.5-5.1)
[2023-05-05] MEDS: AMPICILLIN/SULBACTAM SOD 3,000 MG in 0.9 % SODIUM CHLORIDE 100 ML IV SCH ×4 (02:04→20:33)
[2023-05-05] MEDS: ONDANSETRON INJ 2 MG/ML 2 ML VIAL IV PRN (02:10)
[2023-05-05] MEDS: HYDROmorphone INJ 0.5 MG/0.5 ML SYR IV PRN ×5 (03:29→22:25)
--- NOTE | 2023-05-05 08:10 | Hospitalist Progress Note ---
Date of Service May 05, 2023 Assessment & Plan (1) Abnormal EKG: Plan: Elevated troponin, intermittent chest pain. History of idiopathic cardiomyopathy and heart failure with reduced ejection fraction 15% most recent echocardiogram shows preserved ejection fraction and only minor wall motion abnormalities Chest pain is improved at time of admission chest pain not classic for ACS more diffuse pain consistent with musculoskeletal complaints EKG: Compared to 05/02/2023 T wave changes/inversions in anterior lateral leads High sensitive troponin is 64.5, 49, 38 cardiology did see the patient does not recommend any interventional therapies echocardiogram improved as noted recommending increase metoprolol to 25 no comment on if we continue or discontinue Entresto (2) Rheumatoid arthritis: Plan: Rheumatoid arthritis biggest problem seems to revolve around this unremitting pain On chronic prednisone. we will of stress dose hydrocortisone this time to see if it improves her pain as well as nonopiate pain control as she tends to have hallucinations on opiates. Did have some parenteral doses of Dilaudid Back pain, acute on chronic Patient with chronic back pain and history of multiple compression fractures in addition to low thoracic vertebroplasty imaging does not suggest any acute changes CThead: No acute cranial findings are present, air-fluid sinus level orozco ggestive of acute sinusitis CTAchest: No pulmonary emboli appreciated. Moderate cardiomegaly. Bilateral lower lobe segmental bronchi secretions? Aspiration pneumonitis versus mild pneumonia. Numerous thoracic and lumbar spine fractures. CTthoracic spine: Multiple moderate to severe thoracic compression fractures, majority likely chronic however subacute fractures are noted. No severe re tropulsion. Mild retropulsion at multiple level CTlumbar spine: S/p T11/T12/L1 vertebroplasty stable postprocedural findings. No acute lumbar spine fracture or subluxation. Multilevel degenerative change (3) Acute respiratory failure with hypoxia: Plan: Acute on chronic hypoxic respiratory failure 2/2 aspiration pneumonia, history of asthma resolved History of asthma follows with pulmonary med Suspect acute on chronic respiratory failure in the setting of aspiration,? Pneumonitis versus pneumonia. treat empirically for aspiration pneumonia with Unasyn PFTs 02/2020: obstructive physiology (4) CKD (chronic kidney disease), stage III: Plan: ahsan with CKD 3 (5) Urinary retention: Plan: Chronic indwelling Rangel Intermittently with failed voiding trials in the past, chronically with urinary retention and incontinence? Overflow UA is uninfected appearing Patient denies any new urinary retention/overflow. Denies pain at catheter site Plan History of superior mesenteric artery stenosis No abdominal pain, has followed with vascular surgery No acute change in management of this at this time DVT prophylaxis: Heparin CODE STATUS: DNR/DNI Admission and Anticipated Discharge Date Admission Date: May 04, 2023 Subjective patient was interviewed in the room in the presence of her granddaughter she is complaining of pain all over from her torso up this began when she bent forward and felt a pop in her back she previously has had a vertebroplasty her imaging however on presentation shows no new fractures malalignment or loss of height no subluxation. Patient is on chronic prednisone therapy for rheumatoid arthritis initially her EKG did show some T wave inversions cardiology was consulted and did not feel this represents dynamic changes or ACS however recommending increas ing metoprolol Physical Exam Physical Exam: awake and appropriate no particular reproducibility to her pain complains of pain all over painful to touch cardiac exam is regular with a slight systolic murmur lungs are clear lower extremities without focal neurological deficits Results & Data Results & Data Vital Signs (Past 12 Hours) Vital Signs Temp Pulse Resp BP BP Pulse Ox O2 Del Method 05/05/23 07:11 97.9 F 93 H 20 134/88 96 Nasal Cannula 05/05/23 02:47 98.1 F 100 H 22 144/91 H 96 Nasal Cannula 05/04/23 22:42 97.2 F L 103 H 18 106/69 94 Nasal Cannula O2 Flow Rate 05/05/23 07:11 3 05/05/23 02:47 3 05/04/23 22:42 5 Laboratory Results reviewed chemistry reviewed troponin reviewed CBC PG Care Time/CCT Total # of Minutes Spent Total Time Spent with Patient: Total time spent is greater than 50% in coordination of care (as documented) at patient's floor/unit and/or counseling patient: Coding Level of Care Code 98491 SUB INP/OBS CARE 2/35MIN Diagnoses Abnormal EKG R94.31 Rheumatoid arthritis M06.9 Acute respiratory failure with hypoxia J96.01 CKD (chronic kidney disease), stage III N18.30 Urinary retention R33.9
[2023-05-05] MEDS: HEPARIN SOD 5,000 UNIT/0.5 ML VIAL SQ SCH ×2 (08:24→19:59)
[2023-05-05] MEDS: ISOSORBIDE MONO EXTENDED REL 30 MG TABCR PO SCH (08:25)
[2023-05-05] MEDS: ASPIRIN 81 MG ECTAB PO SCH (08:25)
[2023-05-05] MEDS: CALCIUM 600MG + VIT D 400 IU TAB PO SCH ×2 (08:26→19:59)
[2023-05-05] MEDS: METOPROLOL SUCC 25MG EXT REL TAB PO SCH ×2 (08:26→10:28)
[2023-05-05] MEDS: VALSARTAN/SACUBITRIL 26/24MG TAB PO SCH ×2 (08:26→19:59)
[2023-05-05] MEDS: CALCITONIN SALMON NA 200 IU/AC 3.7 ML BTL SCH (08:40)
--- NOTE | 2023-05-05 08:57 | Cardiology Consultation ---
Date of Consultation May 05, 2023 Assessment & Plan (1) Chest pain: (2) Rheumatoid arthritis: (3) Idiopathic cardiomyopathy: (4) Chronic systolic CHF (congestive heart failure): (5) PVC (premature ventricular contraction): (6) Elevated troponin: Plan Patient admitted with chest pain lasting approx 30 min at home and resolving before she arrived to ER for evaluation. She has chronic diffuse pain from severe RA and severe compression fractures in her thoracic spine. EKG with sinus tach and frequent PVC's which is known to her. Minimally elevated troponin on admission, peaking at 64 and trending down. Her echo actually revealed improved LVEF now 50-55% (compared to < 20% in 2020) Its likely her chest pain is related to her chronic diffuse pain from RA and thoracic compression fractures No evidence of ACS. Would continue ASA, isosorbide, Entresto. Will increase home dose of metoprolol from 12.5 mg to 25 mg to aid with sinus tach and PVC's Conservative medical therapies recommended for this frail 87 year old. Case discussed with Dr. Torres I spent a total of 60 minutes on the date of service in preparation, delivery, and documentation of the care provided to this patient, excluding any time spent in the performance of separately billed services. Felicia Reed PA-C Department of Cardiology, [facility] This chart was completed in part utilizing Speech Voice Recognition Software. Grammatical errors, random word insertions, pronoun errors, and incomplete sentences are an occasional consequence of this system due to software limitations, ambient noise, and hardware issues. Any formal questions or concerns about the content, text, or information contained within the body of this dictation should be directly addressed to the provider for clarification. Supervising Physician Co-Signing Physician Notes Supervising Physician Attestation: I have personally performed a history and physical examination on the patient. I agree with the physician printer floor covering assistant's findings and plan as documented with the following additions. Subjective: Patient denies chest discomfort at the time my assessment. Notes arm and back pain. Exam: Cardiovascular: Tachycardic, 1/6 systolic murmur, no edema Data: EKG performed 05/04/2023 revealed sinus rhythm at 100 bpm with occasional PVCs, first-degree AV block, subtle anterior lateral repolarization changes, however similar repolarization changes are observed on prior EKGs dating back over the last few years Echocardiogram performed today 05/01/2023, LVEF lower limit of normal, 50-55%, improved significantly compared to images obtained in August, at which time ejection fraction was less than 15% High-sensitivity troponin values: Peaked at 65.7 and trending down, having been drawn 8 times Assessment and Plan: -No angina at present -Would reserve further ischemic work-up for if patient was to have life- threatening event with ST elevation -Titrate metoprolol given sinus tachycardia and PVCs -Ejection fraction has improved significantly over the last 3 years with noted addition of Entresto. DVT prophylaxis: Subcutaneous heparin I spent a total of 20 minutes on the date of service in preparation, delivery, and documentation of the care provided to this patient, excluding any time spent in the performance of separately billed services. Maurice Torres DO History of Present Illness Reason for Consultation: CHF; Abnormal EKG Requesting Physician: Dr. Recinos Attending Physician: Dr. Torres History of Present Illness Patient is an 87 year old female, known to [facility], Dr. Vincent for complex history includin. Idiopathic cardiomyopathy dating back many years initially 30-35% in 2017, declining to 15-20% in 2495-6632. 2. Declined proph ICD in the past 3. Frequent PVC's 4. Severe rheumatoid arthritis 5. Chronic indwelling simmons due to urinary retention Patient came to the emergency department after an episode of substernal chest pain radiating to her back. Symptoms lasted approximately 30 minutes. She was laying in bed when this occurred. Symptoms resolved spontaneously. She came to the emergency room several hours later. She has been taking antibiotics for recent UTI/kidney function. She continues to have ongoing flank pain. Spinal CTs demonstrate severe DDD with severe compression fractures. High-sensitivity troponin borderline elevated on arrival at 14 and peaking at 64 and then trending down to 38. EKG on admission demonstrated NSR with frequent PAC's and PVC's. Echo completed on arrival and demonstrated interval improvement in LVEF now at 50%. Cardio consult was requested due to chest pain and elevated troponin. At time of consult, patient denies recurrent chest pain. However she admits to chronic diffuse pain and often times it is hard to differentiate where her pain is located. She denies SOB but admits having oxygen on, helps her symptoms. She denies symptoms of palpitations or tachypalpitations. She admits she is significantly weaker than her recent baseline. She denies fever, cough, chills. No orthopnea, PND or edema. Allergies Allergy/AdvReac Type Severity Reaction Status Date / Time levofloxacin Allergy Intermediate HEPATOTOXIC Verified 04/23/23 12:52 ITY scopolamine Allergy Intermediate CAUSED Verified 04/23/23 12:52 RED, SWOLLEN AREA BEHIND EAR WHERE PATCH APPLIED lisinopril AdvReac Intermediate COUGH Verified 04/10/23 10:52 Home Medications Medication Instructions Recorded Confirmed Type albuterol sulfate 90 mcg/actuation 2 puff inhalation Q4H PRN Wheezing 07/29/18 05/04/23 History aerosol inhaler nitroglycerin 0.4 mg sublingual 0.4 mg sublingual UD PRN Chest Pain 06/30/19 05/04/23 History tablet levalbuterol HCl 0.63 mg/3 mL 0.63 mg inhalation Q8H PRN Wheezing 07/12/19 05/04/23 History solution for nebulization tramadol 50 mg tablet 50 mg PO Q6H PRN Pain 07/12/19 05/04/23 History prednisone 5 mg tablet 2.5 mg PO DAILY 08/17/19 05/04/23 History isosorbide mononitrate 30 mg 30 mg PO DAILY 07/26/20 05/04/23 History tablet,extended release 24 hr ondansetron 4 mg disintegrating 4 mg PO Q8H PRN nausea and 07/26/20 05/04/23 Rx tablet vomiting #10 tabs sacubitril 24 mg-valsartan 26 mg 1 tab PO BID 07/26/20 05/04/23 History tablet (Entresto) aspirin 81 mg tablet,delayed 81 mg PO DAILY 08/18/20 05/04/23 History release metoprolol succinate 25 mg 12.5 mg PO DAILY 11/16/20 05/04/23 History tablet,extended release 24 hr loperamide 2 mg tablet 2 mg PO Q6H PRN Diarrhea 03/08/21 05/04/23 History polyethylene glycol 3350 17 17 g PO DAILY PRN Constipation 03/08/21 05/04/23 History gram/dose oral powder (Miralax) sennosides 8.6 mg-docusate sodium 1 tab-cap PO DAILY PRN constipation 03/08/21 05/04/23 History 50 mg tablet (Senokot-S) acetaminophen 500 mg tablet 1,000 mg PO Q8H PRN Pain 04/14/21 05/04/23 History (Tylenol Extra Strength) food supplemt, lactose-reduced 1 ea PO DAILY 04/14/21 05/04/23 History (Ensure High Protein oral liquid) latanoprost 0.005 % eye drops 1 drp OPB HS 04/14/21 05/04/23 History vitamin K2 100 mcg capsule 100 mcg PO DAILY 04/14/21 05/04/23 History donepezil 10 mg tablet 0 mg PO DAILY 04/23/23 04/23/23 History Patient History Medical History (Updated 05/05/23 @ 10:51 by Felicia Reed PA-C) Anemia Arthralgia of multiple sites Asthma USES PRN INH ONCE PER WEEK - LAST EXAC January, Asthma Asthma exacerbation Cancer BCC - REMOVED Cardiac failure Cardiomyopathy, nonischemic Cervical spondylosis (10/02/12) Cervicalgia Chronic systolic CHF (congestive heart failure) CKD (chronic kidney disease), stage III GERD (gastroesophageal reflux disease) Hematuria Hiatal hernia Hiatal hernia History of hyperparathyroidism Hypertension Idiopathic cardiomyopathy Iron deficiency anemia Osteoarthritis Osteoporosis Osteoporosis Rheumatoid arthritis Rheumatoid arthritis Severe mitral regurgitation Urinary retention Surgical History History of back surgery History of cataract surgery History of cholecystectomy History of colonoscopy History of hysterectomy History of parathyroidectomy History of tooth extraction History of total hip arthroplasty BL History of total shoulder replacement RT Nausea and vomiting after administration of anesthetic agent Family History Father Heart disease Brother Heart disease Brother Heart disease Social History Smoking Status: Never smoker Second Hand Exposure: Yes (former smoker); Do You Dip or Chew Tobacco: No; Hx Alcohol Use: No Hx Substance Use: No Preferred Language: P[place]in[place] Communication Ability: Effective Icer Hand Required: No Beliefs That Will Affect Care: None Current Living Situation: Spouse and Family Current Living Situation Comment: lives with son and Other Information That Helps Us Care for You: No Feels Safe at Home: Yes Safety Concerns: Feels Safe At This Time Assistive Devices: Cane, Walker and Other Assistive Devices Comment: oxygen as needed Review of Systems Review of Systems: All systems reviewed & are unremarkable except as noted in HPI & below Physical Exam Constitutional: WD/WN, vitals as above + thin and + frail appearing Neck: trachea midline, no thyromegaly Respiratory: no respiratory distress and no labored breathing Auscultation: + diminished lung sounds; no crackles and no rales Cardiovascular: Rate/Rhythm: + tachycardic (with occ ectopy) Heart Sounds: normal S1, normal S2 and + murmur (I/ systolic murmur LSB) Vessels: no JVD Extremities: no edema Gastrointestinal (Abdomen): normal bowel sounds, soft, nontender, no hepatosplenomegaly Neurologic: PERRL, EOMI, accommodation nl, no face palsy, no dysarthria Results & Data Vital Signs (Past 12 Hours) Vital Signs Temp Pulse Resp BP BP Pulse Ox O2 Del Method 05/05/23 07:11 36.6 C 93 H 20 134/88 96 Nasal Cannula 05/05/23 02:47 36.7 C 100 H 22 144/91 H 96 Nasal Cannula 05/04/23 22:42 36.2 C L 103 H 18 106/69 94 Nasal Cannula O2 Flow Rate 05/05/23 07:11 3 05/05/23 02:47 3 05/04/23 22:42 5 Laboratory Results Cardiac Enzymes 05/04/23 05/04/23 05/05/23 Range/Units 11:28 17:11 01:09 AST 14 (13-39) U/L Troponin I High Sens 64.5 H* D 65.7 H* 49.0 H D (0-14) pg/ml 05/05/23 Range/Units 06:50 AST (13-39) U/L Troponin I High Sens 38.1 H D (0-14) pg/ml CBC 05/04/23 05/05/23 Range/Units 11:28 01:09 WBC 11.70 H 10.74 (4.8-10.8) K/ul RBC 4.02 L 4.06 L (4.20-5.40) M/uL Hgb 10.5 L 10.5 L (12.0-16.0) g/dl Hct 33.4 L 33.5 L (37.0-47.0) % Plt Count 326 276 (130-400) K/uL Neut # (Auto) 9.86 H 8.99 H (1.40-6.50) K/uL Lymph # (Auto) 0.77 L 0.66 L (1.2-3.4) K/uL [place] # (Auto) 0.79 H 0.82 H (0.11-0.59) K/uL Eos # (Auto) 0.13 0.18 (0-0.50) K/uL Baso # (Auto) 0.06 0.07 (0-0.2) K/uL Comprehensive Metabolic Panel 05/04/23 05/05/23 Range/Units 11:28 01:09 Sodium 132 L 132 L (136-145) mmol/L Potassium 4.1 4.4 (3.5-5.1) mmol/L Chloride 99 99 (98-107) mmol/L Carbon Dioxide 25 28 (21-32) mmol/L BUN 23 20 (6-23) mg/dl Creatinine 0.74 0.76 (0.6-1.2) mg/dl Glucose 132 H 134 H (70-99(Fasting)) mg/dl Calcium 10.0 10.3 (8.6-10.3) mg/dl AST 14 (13-39) U/L ALT 5 L (7-52) U/L Alkaline Phosphatase 75 (34-104) U/L Total Protein 6.5 (6.0-8.3) gm/dl Albumin 3.6 (3.4-5.0) gm/dl Intake and Output 05/04/23 05/05/23 05/05/23 22:59 06:59 14:59 Intake Total 208 / 316 108 / 316 Output Total 250 / 325 75 / 325 Balance -42 / -9 33 / -9 Intake: IV 208 / 316 108 / 316 Ampicillin/Sulbactam Sod 3,000 108 / 216 108 / 216 mg In 0.9 % Sodium Chloride 100 ml @ 200 mls/hr IV Q6H DARY Rx# :[id number] Magnesium Sulfate / D5w 1 gm In 100 / 100 100 ml @ 100 mls/hr IV NOW STA Rx#:[id number] Output: Urine Amount (Catheter) 250 / 325 75 / 325 Simmons/Indwelling 250 / 325 75 / 325 Other: Weight 42.8 kg 43.2 kg Weight Measurement Method Built in [facility] Built in [facility] Diagnostic Findings Telemetry reviewed: Sinus tach ranging 100-115 with occ PVC's and PACs EKG reviewed: SInus tach with PAC's and PVC's; Voltage criteria for LVH; possible old inferior and anterior ND, previously reported echo results reviewed from today, 05/05/23: Tachycardia is present with rate of 100-104 bmp Moderate concentric LVH LVEF 50-55% Aortic valve sclerosis mild without significant aortic valvular stenosis Mild TR LV Diastolic function is not assessed due to tachycardia Small circumferential pericardial effusion No echo indications of cardiac tamponade Compared to images obtained at the time of the prior study in Aug 2020, there has been an interval improvement in LVEf which was less than 15% at that tie A small circumferential pericardial effusion is now present Chest CTA 05/04/23 13:49 CT ANGIOGRAPHY OF THE CHEST, PULMONARY EMBOLUS PROTOCOL CLINICAL HISTORY: Shortness of breath. Evaluate for pulmonary embolus. COMPARISON STUDY: Chest CT July 14, 2019 and chest radiograph May 02, 2023. TECHNIQUE: Following IV administration of 117 mL of Optiray, helical axial images of the chest were obtained utilizing the pulmonary embolus protocol. Maximal intensity projections and sagittal and coronal reformats were viewed on an independent 3D workstation. IV contrast was administered without complication. Automated exposure control was utilized for the study. A dose lowering technique was utilized adhering to the principles of ALARA. CT DOSE: 784.50 mGy.cm FINDINGS: No pulmonary emboli are identified although segmental and subsegmental pulmonary arteries within the lower lobes are suboptimally assessed due to respiratory motion. There is moderate cardiomegaly. Mild dilatation of the aortic arch at the level the sinuses of Valsalva, measuring approximately 4.4 cm. A moderate sized hiatal hernia is present. There is no mediastinal lymphadenopathy. There are few prominent bilateral axillary lymph nodes. Index left axillary lymph node on image 158 of 197 measures 1.2 x 0.7 cm. There is no pneumothorax. No pleural effusion is present. There are are moderate secretions within the bilateral lower lobe segmental bronchi. Mild lower lobe opacities are present. 5 minimal medial right upper lobe nodule on image 129 of [address] of July 14, 2019. This is benign given stability. Mu ltilevel vertebroplasty within the thoracic and lumbar spine is noted. There are numerous additional thoracic spine fractures. These are discussed on the thoracic spine CT performed earlier today. Multiple suspected hepatic cysts are incidentally noted. IMPRESSION: 1. No pulmonary emboli identified although segmental and subsegmental pulmonary arteries within the lower lobes suboptimally assessed due to respiratory motion. 2. Moderate cardiomegaly. 3. Secretions within the bilateral lower lobe segmental bronchi. Left lower lobe opacity represents atelectasis. Right lower lobe opacity could reflect atelectasis or mild pneumonia/aspiration pneumonitis. 4. Moderate-sized hiatal hernia. 5. Numerous thoracic and lumbar spine compression fractures. These are further discussed on the thoracic spine CT from earlier today. ACT 112: Negative or not required by law. Electronically signed by: Heriberto Ball M.D. 05/04/2023 4:[address] of the thoracic spine reviewed: IMPRESSION: 1. Numerous moderate to severe thoracic spine compression fracture status post multilevel vertebroplasty, as described above. The majority of the fractures are likely chronic however subacute thoracic spine fractures cannot be excluded on this examination. No severe retropulsion. Mild retropulsion at multiple levels. 2. Extensive secretions within the right lower lobe segmental bronchi. Bilateral lower lobe opacities favor atelectasis. Aspiration/aspiration pneumonitis could appear similar. Medications Administered Current Inpatient Medications Acetaminophen (Acetaminophen 500 Mg Tab) 1,000 mg PO Q8H DARY Stop: 06/04/23 00:00 Last Admin: 05/05/23 08:23 Dose: 1,000 mg Albuterol (Albuterol Hfa 8 Gm Inhaler) 2 puffs INH Q4H PRN PRN Reason: Wheezing Stop: 06/03/23 19:01 Aspirin (Aspirin 81 Mg Ectab) 81 mg PO DAILY DARY Stop: 06/04/23 08:59 Last Admin: 05/05/23 08:25 Dose: 81 mg Calcitonin Ninole (Calcitonin Ninole Na 200 Iu/Ac 3.7 Ml Btl) 1 sprays NA DAILY DARY Stop: 06/03/23 19:01 Last Admin: 05/05/23 08:40 Dose: Not Given Calcium/Vitamin D (Calcium 600mg + Vit D 400 Iu Tab) 1 tab PO BID DARY Stop: 06/04/23 08:59 Last Admin: 05/05/23 08:26 Dose: 1 tab Heparin Sodium (Porcine) (Heparin Sod 5,000 Unit/0.5 Ml Vial) 5,000 units SQ Q12 DARY Stop: 06/03/23 20:59 Last Admin: 05/05/23 08:24 Dose: 5,000 units Hydromorphone HCl (Hydromorphone Inj 0.5 Mg/0.5 Ml Syr) 0.25 mg IV Q4H PRN PRN Reason: Pain, breakthrough Stop: 05/18/23 17:14 Last Admin: 05/05/23 08:57 Dose: 0.25 mg Ampicillin Sodium/Sulbactam Sodium 3,000 mg/ Sodium Chloride 108 mls @ 200 mls/hr IV Q6H DARY; Protocol Stop: 05/11/23 19:59 Last Infusion: 05/05/23 09:55 Dose: Infused Isosorbide Mononitrate (Isosorbide [place] Extended Rel 30 Mg Tabcr) 30 mg PO DAILY [facility] Stop: 06/04/23 08:59 Last Admin: 05/05/23 08:25 Dose: 30 mg Latanoprost (Latanoprost 0.005% Op Soln 2.5 Ml Btl) 1 drops OPB HS DARY Stop: 06/03/23 20:59 Last Admin: 05/04/23 20:51 Dose: 1 drops Levalbuterol HCl (Levalbuterol Hcl 0.63 Mg/3 Ml Neb) 0.63 mg INH Q8H PRN; Protocol PRN Reason: Wheezing Stop: 06/03/23 19:01 Lidocaine (Lidocaine 5% 1 Patch) 1 patch TD QAM PRN PRN Reason: back pain Stop: 06/03/23 17:29 Loperamide HCl (Loperamide Hcl 2 Mg Cap) 2 mg PO Q6H PRN PRN Reason: Diarrhea Stop: 06/03/23 19:15 Metoprolol Succinate (Metoprolol Succ 25mg Ext Rel Tab) 25 mg PO DAILY [facility] Stop: 06/05/23 08:59 Miscellaneous (Remove Lidoderm Patch) 1 each N/A DAILY@2100 [facility] Stop: 06/03/23 20:59 Last Admin: 05/04/23 20:51 Dose: Not Given Nitroglycerin (Nitroglycerin Sl 0.4 Mg/Tab Tab) 0.4 mg SL UD PRN PRN Reason: Chest Pain Stop: 06/03/23 19:01 Ondansetron HCl (Ondansetron Inj 2 Mg/Ml 2 Ml Vial) 4 mg IV Q6H PRN PRN Reason: Nausea Stop: 06/03/23 17:15 Last Admin: 05/05/23 02:10 Dose: 4 mg Ondansetron HCl (Ondansetron 4 Mg Od Tab) 4 mg PO Q8H PRN PRN Reason: nausea and vomiting Stop: 06/03/23 19:01 Polyethylene Glycol (Polyethylene (Miralax) 17 Gm Pack) 17 gm PO DAILY PRN PRN Reason: Constipation Stop: 06/03/23 19:01 Prednisone (Prednisone 2.5 Mg Tab) 2.5 mg PO DAILY [facility] Stop: 06/04/23 08:59 Last Admin: 05/05/23 08:25 Dose: 2.5 mg Sacubitril/Valsartan (Valsartan/Sacubitril 26/24mg Tab) 1 tab PO BID [facility] Stop: 06/03/23 20:59 Last Admin: 05/05/23 08:26 Dose: 1 tab Senna/Docusate Sodium (Docusate Sodium/Senna 50/8.6mg Tab) 1 tab PO DAILY PRN PRN Reason: constipation Stop: 06/03/23 19:01 (1) Chest pain Chest pain type: unspecified Qualified Code(s): R07.9 - Chest pain, unspecified
[2023-05-05] MEDS ORDERED: NON-FORMULARY MEDICATION (Vitamin K2 100 mcg Capsule) PO SCH (09:00)
[2023-05-05] MEDS ORDERED: predniSONE 2.5 MG TAB PO SCH (09:00)
[2023-05-05] MEDS ORDERED: METOPROLOL SUCC 25MG EXT REL TAB PO ONE (09:47)
--- NOTE | 2023-05-05 11:11 | Electrocardiogram Report ---
Test Reason : Blood Pressure : / mmHG Vent. 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
[2023-05-05] MEDS: LIDOCAINE 5% 1 PATCH TD PRN (11:25)
[2023-05-05] MEDS: traMADol HCL 50 MG TABLET PO PRN ×2 (14:16→19:58)
[2023-05-05] MEDS: HYDROCORTISONE SOD 50 MG in SYRINGE 0 ML IV SCH ×2 (14:18→21:19)
--- NOTE | 2023-05-05 19:04 | Hospitalist Progress Note ---
Date of Service May 05, 2023 Assessment & Plan (1) Abnormal EKG: Plan: Elevated troponin, intermittent chest pain. History of idiopathic cardiomyopathy and heart failure with reduced ejection fraction 15% most recent echocardiogram shows preserved ejection fraction and only minor wall motion abnormalities Chest pain is improved at time of admission chest pain not classic for ACS more diffuse pain consistent with musculoskeletal complaints EKG: Compared to 05/02/2023 T wave changes/inversions in anterior lateral leads High sensitive troponin is 64.5, 49, 38 cardiology did see the patient does not recommend any interventional therapies echocardiogram improved as noted recommending increase metoprolol to 25 no comment on if we continue or discontinue Entresto (2) Rheumatoid arthritis: Plan: Rheumatoid arthritis biggest problem seems to revolve around this unremitting pain On chronic prednisone. we will of stress dose hydrocortisone this time to see if it improves her pain as well as nonopiate pain control as she tends to have hallucinations on opiates. Did have some parenteral doses of Dilaudid Back pain, acute on chronic Patient with chronic back pain and history of multiple compression fractures in addition to low thoracic vertebroplasty imaging does not suggest any acute changes CThead: No acute cranial findings are present, air-fluid sinus level orozco ggestive of acute sinusitis CTAchest: No pulmonary emboli appreciated. Moderate cardiomegaly. Bilateral lower lobe segmental bronchi secretions? Aspiration pneumonitis versus mild pneumonia. Numerous thoracic and lumbar spine fractures. CTthoracic spine: Multiple moderate to severe thoracic compression fractures, majority likely chronic however subacute fractures are noted. No severe re tropulsion. Mild retropulsion at multiple level CTlumbar spine: S/p T11/T12/L1 vertebroplasty stable postprocedural findings. No acute lumbar spine fracture or subluxation. Multilevel degenerative change (3) Acute respiratory failure with hypoxia: Plan: Acute on chronic hypoxic respiratory failure 2/2 aspiration pneumonia, history of asthma resolved History of asthma follows with pulmonary med Suspect acute on chronic respiratory failure in the setting of aspiration,? Pneumonitis versus pneumonia. treat empirically for aspiration pneumonia with Unasyn PFTs 02/2020: obstructive physiology (4) CKD (chronic kidney disease), stage III: Plan: ahsan with CKD 3 (5) Urinary retention: Plan: Chronic indwelling Rangel Intermittently with failed voiding trials in the past, chronically with urinary retention and incontinence? Overflow UA is uninfected appearing Patient denies any new urinary retention/overflow. Denies pain at catheter site Plan History of superior mesenteric artery stenosis No abdominal pain, has followed with vascular surgery No acute change in management of this at this time pt is underweight with a BMI of 18.6 DVT prophylaxis: Heparin CODE STATUS: DNR/DNI Admission and Anticipated Discharge Date Admission Date: May 04, 2023 Results & Data Results & Data Vital Signs (Past 12 Hours) Vital Signs Temp Pulse Pulse Resp BP Pulse Ox O2 Del Method 05/05/23 15:59 101 H 05/05/23 15:06 97.7 F 98 H 18 127/83 96 Nasal Cannula 05/05/23 12:20 Nasal Cannula 05/05/23 11:42 98.1 F 108 H 22 142/87 H 94 Nasal Cannula 05/05/23 09:59 108 H 05/05/23 07:11 97.9 F 93 H 20 134/88 96 Nasal Cannula O2 Flow Rate 05/05/23 15:59 05/05/23 15:06 2 05/05/23 12:20 3 05/05/23 11:42 2 05/05/23 09:59 05/05/23 07:11 3 PG Care Time/CCT Total # of Minutes Spent Total Time Spent with Patient: Total time spent is greater than 50% in coordination of care (as documented) at patient's floor/unit and/or counseling patient: Coding Level of Care Code None Diagnoses Abnormal EKG R94.31 Rheumatoid arthritis M06.9 Acute respiratory failure with hypoxia J96.01 CKD (chronic kidney disease), stage III N18.30 Urinary retention R33.9
[2023-05-05] MEDS: LATANOPROST 0.005% OP SOLN 2.5 ML BTL OPB SCH (20:35)
[2023-05-06] MEDS: ACETAMINOPHEN 500 MG TAB PO SCH ×3 (00:18→15:22)
[2023-05-06] MEDS: AMPICILLIN/SULBACTAM SOD 3,000 MG in 0.9 % SODIUM CHLORIDE 100 ML IV SCH ×4 (01:57→22:09)
[2023-05-06] MEDS: HYDROmorphone INJ 0.5 MG/0.5 ML SYR IV PRN (01:58)
[2023-05-06] MEDS: HYDROCORTISONE SOD 50 MG in SYRINGE 0 ML IV SCH ×2 (05:20→15:05)
[2023-05-06] MEDS: ASPIRIN 81 MG ECTAB PO SCH (07:36)
[2023-05-06] MEDS: traMADol HCL 50 MG TABLET PO PRN ×3 (07:40→22:10)
[2023-05-06] MEDS: METOPROLOL SUCC 25MG EXT REL TAB PO SCH ×2 (07:40→11:03)
[2023-05-06] MEDS: ISOSORBIDE MONO EXTENDED REL 30 MG TABCR PO SCH (07:41)
[2023-05-06] MEDS: VALSARTAN/SACUBITRIL 26/24MG TAB PO SCH ×2 (07:41→21:29)
[2023-05-06] MEDS: HEPARIN SOD 5,000 UNIT/0.5 ML VIAL SQ SCH ×2 (07:43→21:30)
[2023-05-06] MEDS: CALCIUM 600MG + VIT D 400 IU TAB PO SCH ×2 (07:43→21:29)
[2023-05-06 07:54] LABS: Hematocrit (blood only) 31.9 % (37.0-47.0); Hemoglobin 9.9 g/dl (12.0-16.0); Mean Corpuscular Hemoglobin 25.7 pg (25.0-34.0); Mean Corpuscular Volume 82.9 fL (80.0-100.0); Mean Platelet Volume 10.3 fL (9.4-12.4); Platelet Count 450 K/uL (130-400); RDW Coefficient of Variation 14.9 % (11.5-14.5); RDW Standard Deviation 45.1 fL (36.4-46.3); Red Blood Count 3.85 M/uL (4.20-5.40)
[2023-05-06 08:16] LABS: BUN Creatinine Ratio 34.4 (10-20); Creatinine Clr Calc Pharmacy 40.5 ml/min; Est GFR (African American) 91.7 ml/min; Est GFR (Non-African American) 79.1 ml/min; Potassium 4.3 mmol/L (3.5-5.1)
[2023-05-06 08:31] LABS: Basophils # (auto) 0.02 K/uL (0-0.2); Basophils % (auto) 0.1 %; Immature Granulocytes # (auto) 0.09 K/uL (0.01-0.20); Immature Granulocytes % (auto) 0.6 %; Lymphocytes # (auto) 0.59 K/uL (1.2-3.4); Monocytes # (auto) 0.47 K/uL (0.11-0.59); Monocytes % (auto) 3.2 %; Neutrophils # (auto) 13.53 K/uL (1.40-6.50); Neutrophils % (auto) 92.1 %
[2023-05-06] MEDS: CALCITONIN SALMON NA 200 IU/AC 3.7 ML BTL SCH (09:22)
[2023-05-06] MEDS: DOCUSATE SODIUM/SENNA 50/8.6MG TAB PO PRN (09:28)
[2023-05-06] MEDS ORDERED: METOPROLOL SUCC 25MG EXT REL TAB PO ONE (10:15)
--- NOTE | 2023-05-06 12:26 | Cardiology Progress Note ---
Date of Service May 06, 2023 Assessment & Plan (1) Chest pain: (2) Rheumatoid arthritis: (3) Idiopathic cardiomyopathy: (4) Chronic systolic CHF (congestive heart failure): (5) PVC (premature ventricular contraction): (6) Elevated troponin: Plan Patient admitted with chest pain lasting approx 30 min at home and resolving before she arrived to ER for evaluation. She has chronic diffuse pain from severe RA and severe compression fractures in her thoracic spine. EKG with sinus tach and frequent PVC's which is known to her. Minimally elevated troponin on admission, peaking at 64 and trending down. Her echo actually revealed improved LVEF now 50-55% (compared to < 20% in 2020) Its likely her chest pain is related to her chronic diffuse pain from RA and thoracic compression fractures No evidence of ACS. Would continue ASA, isosorbide, Entresto. Given sinus tach with frequent ectopy and hypertension, will continue to increase metoprolol to 50 mg daily Conservative medical therapies recommended for this frail 87 year old. No further cardiac testing warranted at this time Case discussed with Dr. Torres I spent a total of 30 minutes on the date of service in preparation, delivery, and documentation of the care provided to this patient, excluding any time spent in the performance of separately billed services. Felicia Reed PA-C Department of Cardiology, [facility] This chart was completed in part utilizing Speech Voice Recognition Software. Grammatical errors, random word insertions, pronoun errors, and incomplete sentences are an occasional consequence of this system due to software limitations, ambient noise, and hardware issues. Any formal questions or concerns about the content, text, or information contained within the body of this dictation should be directly addressed to the provider for clarification. Admission and Anticipated Discharge Date Admission Date: May 04, 2023 Supervising Physician Co-Signing Physician Notes Supervising Physician Attestation: I have personally performed a history and physical examination on the patient. I agree with the physician life science research assistant's findings and plan as documented with the following additions. Subjective: Chest feeling better. Other than occasional coughing spells subjectively improved. Sinus tachycardia in the 100s noted. Exam: Cardiovascular: Tachycardic, no edema Pulmonary: Clear Assessment and Plan: As noted above I spent a total of 20 minutes on the date of service in preparation, delivery, and documentation of the care provided to this patient, excluding any time spent in the performance of separately billed services. Maurice Torres, DO Subjective Patient resting in bed. More confused this morning. Denies recurrent chest pain. Admits to intermittent SOB. Limited review of systems. Review of Systems Review of Systems: Other (limited due to mild confusion this morning) Physical Exam Constitutional: WD/WN, vitals as above + thin and + frail appearing Neck: trachea midline, no thyromegaly Respiratory: no respiratory distress and no labored breathing Auscultation: + diminished lung sounds; no crackles and no rales Cardiovascular: Rate/Rhythm: + tachycardic (with occ ectopy) Heart Sounds: normal S1, normal S2 and + murmur (I/ systolic murmur LSB) Vessels: no JVD Extremities: no edema Gastrointestinal (Abdomen): normal bowel sounds, soft, nontender, no hepatosplenomegaly Neurologic: PERRL, EOMI, accommodation nl, no face palsy, no dysarthria Results & Data Vital Signs (Past 12 Hours) Vital Signs Temp Pulse Pulse Resp BP Pulse Ox O2 Del Method 05/06/23 11:13 36.4 C L 97 H 20 153/91 H 94 Nasal Cannula 05/06/23 08:48 Nasal Cannula 05/06/23 07:40 36.7 C 108 H 22 172/81 H 93 Nasal Cannula 05/06/23 07:10 102 H 05/06/23 03:49 36.3 C L 101 H 18 141/89 H 91 Nasal Cannula O2 Flow Rate 05/06/23 11:13 2 05/06/23 08:48 2 05/06/23 07:40 2 05/06/23 07:10 05/06/23 03:49 2 Laboratory Results Cardiac Enzymes 05/05/23 Range/Units 13:09 Troponin I High Sens 34.6 H (0-14) pg/ml CBC 05/06/23 Range/Units 07:28 WBC 14.70 H (4.8-10.8) K/ul RBC 3.85 L (4.20-5.40) M/uL Hgb 9.9 L (12.0-16.0) g/dl Hct 31.9 L (37.0-47.0) % Plt Count 450 H D (130-400) K/uL Neut # (Auto) 13.53 H (1.40-6.50) K/uL Lymph # (Auto) 0.59 L (1.2-3.4) K/uL [place] # (Auto) 0.47 (0.11-0.59) K/uL Eos # (Auto) 0.00 (0-0.50) K/uL Baso # (Auto) 0.02 (0-0.2) K/uL Comprehensive Metabolic Panel 05/06/23 Range/Units 07:28 Sodium 134 L (136-145) mmol/L Potassium 4.3 (3.5-5.1) mmol/L Chloride 98 (98-107) mmol/L Carbon Dioxide 31 (21-32) mmol/L BUN 22 (6-23) mg/dl Creatinine 0.64 (0.6-1.2) mg/dl Glucose 160 H (70-99(Fasting)) mg/dl Calcium 11.0 H (8.6-10.3) mg/dl Intake and Output 05/05/23 05/06/23 05/06/23 22:59 06:59 14:59 Intake Total 336 / 652 208 / 652 108 / 108 Output Total 225 / 350 125 / 350 Balance 111 / 302 83 / 302 108 / 108 Intake: IV 216 / 432 108 / 432 108 / 108 Ampicillin/Sulbactam Sod 3,000 216 / 432 108 / 432 108 / 108 mg In 0.9 % Sodium Chloride 100 ml @ 200 mls/hr IV Q6H [facility] Rx# :[id number] Oral 120 / 220 100 / 220 Output: Urine Amount (Catheter) 225 / 350 125 / 350 Rangel/Indwelling 225 / 350 125 / 350 Other: Other Intake Source sips and bites Weight 43 kg Weight Measurement Method Built in [facility] Diagnostic Findings Telemetry reviewed: sinus and sinus tach with frequent atrial and ventricular ectopy Echo with interval improvement in LVEF, now at 50-55% Medications Administered Current Inpatient Medications Acetaminophen (Acetaminophen 500 Mg Tab) 1,000 mg PO Q8H DARY Stop: 06/04/23 00:00 Last Admin: 05/06/23 07:36 Dose: 1,000 mg Albuterol (Albuterol Hfa 8 Gm Inhaler) 2 puffs INH Q4H PRN PRN Reason: Wheezing Stop: 06/03/23 19:01 Aspirin (Aspirin 81 Mg Ectab) 81 mg PO DAILY DARY Stop: 06/04/23 08:59 Last Admin: 05/06/23 07:36 Dose: 81 mg Calcitonin [place] (Calcitonin [place] Na 200 Iu/Ac 3.7 Ml Btl) 1 sprays NA DAILY [facility] Stop: 06/03/23 19:01 Last Admin: 05/06/23 09:22 Dose: Not Given Calcium/Vitamin D (Calcium 600mg + Vit D 400 Iu Tab) 1 tab PO BID DARY Stop: 06/04/23 08:59 Last Admin: 05/06/23 07:43 Dose: 1 tab Heparin Sodium (Porcine) (Heparin Sod 5,000 Unit/0.5 Ml Vial) 5,000 units SQ Q12 DARY Stop: 06/03/23 20:59 Last Admin: 05/06/23 07:43 Dose: 5,000 units Hydromorphone HCl (Hydromorphone Inj 0.5 Mg/0.5 Ml Syr) 0.25 mg IV Q3H PRN PRN Reason: Pain, breakthrough Stop: 05/18/23 23:36 Last Admin: 05/06/23 01:58 Dose: 0.25 mg Ampicillin Sodium/Sulbactam Sodium 3,000 mg/ Sodium Chloride 108 mls @ 200 mls/hr IV Q6H [facility]; Protocol Stop: 05/11/23 19:59 Last Infusion: 05/06/23 09:18 Dose: Infused Hydrocortisone Sodium (Succinate 50 mg/ Syringe) 1 mls @ 4 mls/min IV Q8H [facility]ARY Stop: 05/06/23 22:01 Last Admin: 05/06/23 05:20 Dose: 4 mls/min Isosorbide Mononitrate (Isosorbide [place] Extended Rel 30 Mg Tabcr) 30 mg PO DAILY [facility] Stop: 06/04/23 08:59 Last Admin: 05/06/23 07:41 Dose: 30 mg Latanoprost (Latanoprost 0.005% Op Soln 2.5 Ml Btl) 1 drops OPB HS [facility] Stop: 06/03/23 20:59 Last Admin: 05/05/23 20:35 Dose: 1 drops Levalbuterol HCl (Levalbuterol Hcl 0.63 Mg/3 Ml Neb) 0.63 mg INH Q8H PRN; Protocol PRN Reason: Wheezing Stop: 06/03/23 19:01 Lidocaine (Lidocaine 5% 1 Patch) 1 patch TD QAM PRN PRN Reason: back pain Stop: 06/03/23 17:29 Last Admin: 05/05/23 11:25 Dose: 1 patch Loperamide HCl (Loperamide Hcl 2 Mg Cap) 2 mg PO Q6H PRN PRN Reason: Diarrhea Stop: 06/03/23 19:15 Metoprolol Succinate (Metoprolol Succ 50mg Ext Rel Tab) 50 mg PO DAILY [facility] Stop: 06/06/23 08:59 Miscellaneous (Remove Lidoderm Patch) 1 each N/A DAILY@2100 [facility] Stop: 06/03/23 20:59 Last Admin: 05/05/23 21:25 Dose: 1 each Nitroglycerin (Nitroglycerin Sl 0.4 Mg/Tab Tab) 0.4 mg SL UD PRN PRN Reason: Chest Pain Stop: 06/03/23 19:01 Ondansetron HCl (Ondansetron Inj 2 Mg/Ml 2 Ml Vial) 4 mg IV Q6H PRN PRN Reason: Nausea Stop: 06/03/23 17:15 Last Admin: 05/05/23 02:10 Dose: 4 mg Ondansetron HCl (Ondansetron 4 Mg Od Tab) 4 mg PO Q8H PRN PRN Reason: nausea and vomiting Stop: 06/03/23 19:01 Polyethylene Glycol (Polyethylene (Miralax) 17 Gm Pack) 17 gm PO DAILY PRN PRN Reason: Constipation Stop: 06/03/23 19:01 Prednisone (Prednisone 5 Mg Tab) 5 mg PO DAILY [facility] Stop: 06/06/23 08:59 Sacubitril/Valsartan (Valsartan/Sacubitril 26/24mg Tab) 1 tab PO BID [facility] Stop: 06/03/23 20:59 Last Admin: 05/06/23 07:41 Dose: 1 tab Senna/Docusate Sodium (Docusate Sodium/Senna 50/8.6mg Tab) 1 tab PO DAILY PRN PRN Reason: constipation Stop: 06/03/23 19:01 Last Admin: 05/06/23 09:28 Dose: 1 tab Tramadol HCl (Tramadol Hcl 50 Mg Tablet) 50 mg PO Q6H PRN PRN Reason: Pain Stop: 06/04/23 13:04 Last Admin: 05/06/23 07:40 Dose: 50 mg (1) Chest pain Chest pain type: unspecified Qualified Code(s): R07.9 - Chest pain, unspecified
[2023-05-06] MEDS: LIDOCAINE 5% 1 PATCH TD PRN ×2 (13:47→17:49)
--- NOTE | 2023-05-06 15:06 | Hospitalist Progress Note ---
Date of Service May 06, 2023 Assessment & Plan (1) Chest pain: Plan: She was admitted with chest pain with EKG changes Elevated troponin, intermittent chest pain. History of idiopathic cardiomyopathy and heart failure with reduced ejection fraction 15% most recent echocardiogram shows preserved ejection fraction and only minor wall motion abnormalities Serial cardiac enzymes and echocardiogram did not support any ACS Appreciate cardiology input and recommendation Chest pain and chest pressure likely sec secondary to diffuse pains due to rheumatoid arthritis Remains stable cardiac abbott Echo reviewed showed improved EF of 50 to 55% and without any significant wall motion abnormalities Continue current management (2) Abnormal EKG: Plan: Sinus tach with PVCs and nonspecific T wave changes (3) Rheumatoid arthritis: Plan: Rheumatoid arthritis biggest problem seems to revolve around this unremitting pain No acute arthritis but may have mild arthralgias On chronic prednisone. Received stress dose hydrocortisone -we will stop it from today Has been having occasional Dilaudid as well Back pain, acute on chronic Patient with chronic back pain and history of multiple compression fractures in addition to low thoracic vertebroplasty imaging does not suggest any acute changes CThead: No acute cranial findings are present, air-fluid sinus level suggestive of acute sinusitis CTAchest: No pulmonary emboli appreciated. Moderate cardiomegaly. Bilateral lower lobe segmental bronchi secretions? Aspiration pneumonitis versus mild pneumonia. Numerous thoracic and lumbar spine fractures. CTthoracic spine: Multiple moderate to severe thoracic compression fractures, majority likely chronic however subacute fractures are noted. No severe retropulsion. Mild retropulsion at multiple level CTlumbar spine: S/p T11/T12/L1 vertebroplasty stable postprocedural findings. No acute lumbar spine fracture or subluxation. Multilevel degenerative change Conservative management-remains stable now (4) Acute respiratory failure with hypoxia: Plan: Acute on chronic hypoxic respiratory failure 2/2 aspiration pneumonia, history of asthma resolved History of asthma follows with pulmonary med Suspect acute on chronic respiratory failure in the setting of aspiration,? Pneumonitis versus pneumonia. treat empirically for aspiration pneumonia with Unasyn PFTs 02/2020: obstructive physiology -Has been on Unasyn and finished a course of 7 days in total with oral Augmentin if needed -No acute respiratory symptoms (5) CKD (chronic kidney disease), stage III: Plan: ahsan with CKD 3 -Stable (6) Urinary retention: Plan: Chronic indwelling Rangel Intermittently with failed voiding trials in the past, chronically with urinary retention and incontinence? Overflow UA is uninfected appearing Patient denies any new urinary retention/overflow. Denies pain at catheter site Plan History of superior mesenteric artery stenosis No abdominal pain, has followed with vascular surgery No acute change in management of this at this time pt is underweight with a BMI of 18.6 DVT prophylaxis: Heparin CODE STATUS: DNR/DNI We will get PT and OT evaluation for possible discharge in a day or 2 Admission and Anticipated Discharge Date Admission Date: May 04, 2023 Subjective 05/06/2023 The patient was seen and examined in telemetry unit. She has been feeling better but is still has nonspecific symptoms like mild chest tightness, nonspecific pain in the joint and also in the abdomen and back and nausea at times Denies any chest pain and/or palpitation no shortness of breath at rest Review of Systems Review of Systems: All systems reviewed and are unremarkable except as noted below Respiratory: No respiratory symptoms at rest Musculoskeletal: Has severe rheumatoid changes involving the extremities but without any acute arthritis Physical Exam Physical Exam: Lying in bed comfortably Constitutional: + ill appearing and + thin Eyes: PERRL, conjunctivae normal, anicteric sclerae ENMT: external ear and nose normal, oropharynx normal Neck: trachea midline, no thyromegaly Respiratory: no respiratory distress Auscultation: + diminished lung sounds and + crackles (Minimal crackles at the bases) Cardiovascular: Rate/Rhythm: regular rate and regular rhythm; not tachycardic Heart Sounds: normal S1, normal S2 and + murmur Extremities: no edema Gastrointestinal (Abdomen): Inspection/Auscultation: normal bowel sounds; abdomen not distended Percussion/Palpation: + abdomen tender (Nonspecific tenderness all over) and abdomen soft; no guarding and abdomen not rigid Musculoskeletal: Has severe rheumatoid changes involving the extremities. No acute arthritis involving any of the extremities Neurologic: Alert, awake and oriented x3. She generally very weak and lethargic Lymphatic: no cervical or axillary lymphadenopathy Results & Data Results & Data Vital Signs (Past 12 Hours) Vital Signs Temp Pulse Pulse Resp BP Pulse Ox O2 Del Method 05/06/23 11:13 36.4 C L 97 H 20 153/91 H 94 Nasal Cannula 05/06/23 08:48 Nasal Cannula 05/06/23 07:40 36.7 C 108 H 22 172/81 H 93 Nasal Cannula 05/06/23 07:10 102 H 07/25/23 03:49 36.3 C L 101 H 18 141/89 H 91 Nasal Cannula O2 Flow Rate 05/06/23 11:13 2 05/06/23 08:48 2 05/06/23 07:40 2 05/06/23 07:10 05/06/23 03:49 2 Laboratory Results Short CBC 05/06/23 Range/Units 07:28 WBC 14.70 H (4.8-10.8) K/ul Hgb 9.9 L (12.0-16.0) g/dl Hct 31.9 L (37.0-47.0) % Plt Count 450 H D (130-400) K/uL BMP 05/06/23 07:28 Sodium 134 L Potassium 4.3 Chloride 98 Carbon Dioxide 31 BUN 22 Creatinine 0.64 Glucose 160 H Calcium 11.0 H Medications Administered Current Inpatient Medications Acetaminophen (Acetaminophen 500 Mg Tab) 1,000 mg PO Q8H [facility] Stop: 06/04/23 00:00 Last Admin: 05/06/23 07:36 Dose: 1,000 mg Albuterol (Albuterol Hfa 8 Gm Inhaler) 2 puffs INH Q4H PRN PRN Reason: Wheezing Stop: 06/03/23 19:01 Aspirin (Aspirin 81 Mg Ectab) 81 mg PO DAILY DARY Stop: 06/04/23 08:59 Last Admin: 05/06/23 07:36 Dose: 81 mg Calcitonin [place] (Calcitonin [place] Na 200 Iu/Ac 3.7 Ml Btl) 1 sprays NA DAILY [facility] Stop: 06/03/23 19:01 Last Admin: 05/06/23 09:22 Dose: Not Given Calcium/Vitamin D (Calcium 600mg + Vit D 400 Iu Tab) 1 tab PO BID DARY Stop: 06/04/23 08:59 Last Admin: 05/06/23 07:43 Dose: 1 tab Heparin Sodium (Porcine) (Heparin Sod 5,000 Unit/0.5 Ml Vial) 5,000 units SQ Q12 DARY Stop: 06/03/23 20:59 Last Admin: 05/06/23 07:43 Dose: 5,000 units Hydromorphone HCl (Hydromorphone Inj 0.5 Mg/0.5 Ml Syr) 0.25 mg IV Q3H PRN PRN Reason: Pain, breakthrough Stop: 05/18/23 23:36 Last Admin: 05/06/23 01:58 Dose: 0.25 mg Ampicillin Sodium/Sulbactam Sodium 3,000 mg/ Sodium Chloride 108 mls @ 200 mls/hr IV Q6H DARY; Protocol Stop: 05/11/23 19:59 Last Infusion: 05/06/23 09:18 Dose: Infused Hydrocortisone Sodium (Succinate 50 mg/ Syringe) 1 mls @ 4 mls/min IV Q8H [facility]ARY Stop: 05/06/23 22:01 Last Admin: 05/06/23 05:20 Dose: 4 mls/min Isosorbide Mononitrate (Isosorbide [place] Extended Rel 30 Mg Tabcr) 30 mg PO DAILY [facility] Stop: 06/04/23 08:59 Last Admin: 05/06/23 07:41 Dose: 30 mg Latanoprost (Latanoprost 0.005% Op Soln 2.5 Ml Btl) 1 drops OPB HS [facility] Stop: 06/03/23 20:59 Last Admin: 05/05/23 20:35 Dose: 1 drops Levalbuterol HCl (Levalbuterol Hcl 0.63 Mg/3 Ml Neb) 0.63 mg INH Q8H PRN; Protocol PRN Reason: Wheezing Stop: 06/03/23 19:01 Lidocaine (Lidocaine 5% 1 Patch) 1 patch TD QAM PRN PRN Reason: back pain Stop: 06/03/23 17:29 Last Admin: 05/06/23 13:47 Dose: 1 patch Loperamide HCl (Loperamide Hcl 2 Mg Cap) 2 mg PO Q6H PRN PRN Reason: Diarrhea Stop: 06/03/23 19:15 Metoprolol Succinate (Metoprolol Succ 50mg Ext Rel Tab) 50 mg PO DAILY [facility] Stop: 06/06/23 08:59 Miscellaneous (Remove Lidoderm Patch) 1 each N/A DAILY@2100 [facility] Stop: 06/03/23 20:59 Last Admin: 05/05/23 21:25 Dose: 1 each Nitroglycerin (Nitroglycerin Sl 0.4 Mg/Tab Tab) 0.4 mg SL UD PRN PRN Reason: Chest Pain Stop: 06/03/23 19:01 Ondansetron HCl (Ondansetron Inj 2 Mg/Ml 2 Ml Vial) 4 mg IV Q6H PRN PRN Reason: Nausea Stop: 06/03/23 17:15 Last Admin: 05/05/23 02:10 Dose: 4 mg Ondansetron HCl (Ondansetron 4 Mg Od Tab) 4 mg PO Q8H PRN PRN Reason: nausea and vomiting Stop: 06/03/23 19:01 Polyethylene Glycol (Polyethylene (Miralax) 17 Gm Pack) 17 gm PO DAILY PRN PRN Reason: Constipation Stop: 06/03/23 19:01 Prednisone (Prednisone 5 Mg Tab) 5 mg PO DAILY DARY Stop: 06/06/23 08:59 Sacubitril/Valsartan (Valsartan/Sacubitril 26/24mg Tab) 1 tab PO BID DARY Stop: 06/03/23 20:59 Last Admin: 05/06/23 07:41 Dose: 1 tab Senna/Docusate Sodium (Docusate Sodium/Senna 50/8.6mg Tab) 1 tab PO DAILY PRN PRN Reason: constipation Stop: 06/03/23 19:01 Last Admin: 05/06/23 09:28 Dose: 1 tab Tramadol HCl (Tramadol Hcl 50 Mg Tablet) 50 mg PO Q6H PRN PRN Reason: Pain Stop: 06/04/23 13:04 Last Admin: 05/06/23 13:50 Dose: 50 mg (1) Chest pain Chest pain type: unspecified Qualified Code(s): R07.9 - Chest pain, unspecified
[2023-05-06] MEDS: LATANOPROST 0.005% OP SOLN 2.5 ML BTL OPB SCH (21:38)
[2023-05-07] MEDS: ACETAMINOPHEN 500 MG TAB PO SCH ×3 (00:17→16:25)
[2023-05-07] MEDS: AMPICILLIN/SULBACTAM SOD 3,000 MG in 0.9 % SODIUM CHLORIDE 100 ML IV SCH ×4 (04:04→23:17)
[2023-05-07] MEDS: traMADol HCL 50 MG TABLET PO PRN ×3 (06:11→20:05)
[2023-05-07 07:53] LABS: Basophils # (auto) 0.04 K/uL (0-0.2); Basophils % (auto) 0.3 %; Eosinophils # (auto) 0.03 K/uL (0-0.50); Eosinophils % (auto) 0.2 %; Hematocrit (blood only) 31.9 % (37.0-47.0); Hemoglobin 10.1 g/dl (12.0-16.0); Immature Granulocytes # (auto) 0.07 K/uL (0.01-0.20); Immature Granulocytes % (auto) 0.5 %; Lymphocytes # (auto) 0.97 K/uL (1.2-3.4); Lymphocytes % (auto) 6.8 %; Mean Corpuscular Hemoglobin 25.6 pg (25.0-34.0); Mean Corpuscular Hgb Conc 31.7 g/dL (32.0-36.0); Mean Corpuscular Volume 80.8 fL (80.0-100.0); Mean Platelet Volume 11.8 fL (9.4-12.4); Monocytes # (auto) 1.23 K/uL (0.11-0.59); Monocytes % (auto) 8.7 %; Neutrophils # (auto) 11.84 K/uL (1.40-6.50); Neutrophils % (auto) 83.5 %; Platelet Count 298 K/uL (130-400); RDW Coefficient of Variation 15.1 % (11.5-14.5); RDW Standard Deviation 44.1 fL (36.4-46.3); Red Blood Count 3.95 M/uL (4.20-5.40); White Blood Count 14.18 K/ul (4.8-10.8)
[2023-05-07 08:15] LABS: BUN Creatinine Ratio 29.7 (10-20); Creatinine Clr Calc Pharmacy 41.3 ml/min; Est GFR (African American) 91.7 ml/min; Est GFR (Non-African American) 79.1 ml/min; Potassium 3.5 mmol/L (3.5-5.1)
[2023-05-07] MEDS: ONDANSETRON INJ 2 MG/ML 2 ML VIAL IV PRN (08:34)
[2023-05-07] MEDS: ISOSORBIDE MONO EXTENDED REL 30 MG TABCR PO SCH (09:28)
[2023-05-07] MEDS: METOPROLOL SUCC 50MG EXT REL TAB PO SCH (09:28)
[2023-05-07] MEDS: VALSARTAN/SACUBITRIL 26/24MG TAB PO SCH ×2 (09:28→20:05)
[2023-05-07] MEDS: predniSONE 5 MG TAB PO SCH (09:28)
[2023-05-07] MEDS: CALCIUM 600MG + VIT D 400 IU TAB PO SCH ×2 (09:29→20:05)
[2023-05-07] MEDS: ASPIRIN 81 MG ECTAB PO SCH (09:29)
[2023-05-07] MEDS: CALCITONIN SALMON NA 200 IU/AC 3.7 ML BTL SCH (09:30)
[2023-05-07] MEDS: HEPARIN SOD 5,000 UNIT/0.5 ML VIAL SQ SCH ×2 (09:30→20:05)
[2023-05-07] MEDS ORDERED: ACETAMINOPHEN 1,000 MG/100 ML VIAL IV STA (11:12)
[2023-05-07] MEDS: LIDOCAINE 5% 1 PATCH TD PRN (13:20)
--- NOTE | 2023-05-07 18:14 | Hospitalist Progress Note ---
Date of Service May 07, 2023 Assessment & Plan (1) Chest pain: Plan: She was admitted with chest pain with EKG changes Elevated troponin, intermittent chest pain. History of idiopathic cardiomyopathy and heart failure with reduced ejection fraction 15% most recent echocardiogram shows preserved ejection fraction and only minor wall motion abnormalities Serial cardiac enzymes and echocardiogram did not support any ACS Appreciate cardiology input and recommendation Chest pain and chest pressure likely sec secondary to diffuse pains due to rheumatoid arthritis Remains stable cardiac abbott Echo reviewed showed improved EF of 50 to 55% and without any significant wall motion abnormalities Continue current management (2) Abnormal EKG: Plan: Sinus tach with PVCs and nonspecific T wave changes (3) Rheumatoid arthritis: Plan: Rheumatoid arthritis biggest problem seems to revolve around this unremitting pain No acute arthritis but may have mild arthralgias On chronic prednisone. Received stress dose hydrocortisone Has been having occasional Dilaudid as well Back pain, acute on chronic Patient with chronic back pain and history of multiple compression fractures in addition to low thoracic vertebroplasty imaging does not suggest any acute changes CThead: No acute cranial findings are present, air-fluid sinus level suggestive of acute sinusitis CTAchest: No pulmonary emboli appreciated. Moderate cardiomegaly. Bilateral lower lobe segmental bronchi secretions? Aspiration pneumonitis versus mild pneumonia. Numerous thoracic and lumbar spine fractures. CTthoracic spine: Multiple moderate to severe thoracic compression fractures, majority likely chronic however subacute fractures are noted. No severe retropulsion. Mild retropulsion at multiple level CTlumbar spine: S/p T11/T12/L1 vertebroplasty stable postprocedural findings. No acute lumbar spine fracture or subluxation. Multilevel degenerative change Conservative management-remains stable now (4) Acute respiratory failure with hypoxia: Plan: Acute on chronic hypoxic respiratory failure 2/2 aspiration pneumonia, history of asthma resolved History of asthma follows with pulmonary med Suspect acute on chronic respiratory failure in the setting of aspiration,? Pneumonitis versus pneumonia. treat empirically for aspiration pneumonia with Unasyn PFTs 02/2020: obstructive physiology -Has been on Unasyn and finished a course of 7 days in total with oral Augmentin if needed -No acute respiratory symptoms Evaluated by PHOTOVOLTAIC SOLAR CELL DESIGNER and found to be aspiration. Video swallow study recommended but family initially declined but is now agreeable--will discuss with PHOTOVOLTAIC SOLAR CELL DESIGNER tomorrow (5) CKD (chronic kidney disease), stage III: Plan: ahsan with CKD 3 -Stable (6) Urinary retention: Plan: Chronic indwelling Rangel Intermittently with failed voiding trials in the past, chronically with urinary retention and incontinence? Overflow UA is uninfected appearing Patient denies any new urinary retention/overflow. Denies pain at catheter site Plan History of superior mesenteric artery stenosis No abdominal pain, has followed with vascular surgery No acute change in management of this at this time pt is underweight with a BMI of 18.6 DVT prophylaxis: Heparin CODE STATUS: DNR/DNI disposition- PT recommending rehab, patient and family want her to return home Admission and Anticipated Discharge Date Admission Date: May 04, 2023 Subjective Reports ongoing back pain but it is only 4/10 right now and is tolerable Reports coughing with food. "I think my food goes down my air pipe" Family wants to bring her home (rather than send to rehab) but patient is worried she will be a burden on her family Review of Systems Review of Systems: as above Physical Exam Physical Exam: thin, cachetic, no acute distress Respiratory: breathing comfortably, no wheezing/rhonchi/rales Cardiovascular: regular rate and rhythm, no murmurs/rubs Gastrointestinal (Abdomen): soft, non tender, non distended Musculoskeletal: +kyphosis Neurologic: awake, alert, spontaneously moving extremities Results & Data Results & Data Vital Signs (Past 12 Hours) Vital Signs Temp Pulse Pulse Resp BP BP Pulse Ox 05/07/23 15:18 36.8 C 76 20 148/87 H 99 05/07/23 11:02 36.7 C 91 H 20 166/99 H 97 05/07/23 09:31 85 20 157/95 H 97 05/07/23 06:19 96 H 05/07/23 07:40 05/07/23 07:39 36.4 C L 83 20 172/92 H 98 O2 Del Method O2 Flow Rate 05/07/23 15:18 Room Air 05/07/23 11:02 Nasal Cannula 2 05/07/23 09:31 Nasal Cannula 2 05/07/23 06:19 05/07/23 07:40 Nasal Cannula 2 05/07/23 07:39 Room Air (1) Chest pain Chest pain type: unspecified Qualified Code(s): R07.9 - Chest pain, unspecified
[2023-05-07] MEDS: LATANOPROST 0.005% OP SOLN 2.5 ML BTL OPB SCH (20:05)
[2023-05-08] MEDS: ACETAMINOPHEN 500 MG TAB PO SCH ×3 (00:36→16:11)
[2023-05-08] MEDS: traMADol HCL 50 MG TABLET PO PRN ×5 (02:20→21:32)
[2023-05-08] MEDS: AMPICILLIN/SULBACTAM SOD 3,000 MG in 0.9 % SODIUM CHLORIDE 100 ML IV SCH ×4 (04:50→21:18)
[2023-05-08] MEDS: predniSONE 5 MG TAB PO SCH (07:57)
[2023-05-08] MEDS: VALSARTAN/SACUBITRIL 26/24MG TAB PO SCH ×2 (07:57→21:17)
[2023-05-08] MEDS: CALCIUM 600MG + VIT D 400 IU TAB PO SCH ×2 (07:57→21:17)
[2023-05-08] MEDS: ASPIRIN 81 MG ECTAB PO SCH (07:57)
[2023-05-08] MEDS: ISOSORBIDE MONO EXTENDED REL 30 MG TABCR PO SCH (07:58)
[2023-05-08] MEDS: HEPARIN SOD 5,000 UNIT/0.5 ML VIAL SQ SCH ×2 (07:58→21:17)
[2023-05-08] MEDS: CALCITONIN SALMON NA 200 IU/AC 3.7 ML BTL SCH (07:58)
[2023-05-08] MEDS: METOPROLOL SUCC 50MG EXT REL TAB PO SCH (07:58)
[2023-05-08] MEDS: DOCUSATE SODIUM/SENNA 50/8.6MG TAB PO PRN (08:06)
[2023-05-08] MEDS: ONDANSETRON INJ 2 MG/ML 2 ML VIAL IV PRN ×2 (09:33→19:38)
[2023-05-08] MEDS ORDERED: bisacodyL 10 MG SUPP PR ONE (10:00)
--- NOTE | 2023-05-08 20:55 | Hospitalist Progress Note ---
Date of Service May 08, 2023 Assessment & Plan (1) Chest pain: Plan: She was admitted with chest pain with EKG changes Elevated troponin, intermittent chest pain. History of idiopathic cardiomyopathy and heart failure with reduced ejection fraction 15% most recent echocardiogram shows preserved ejection fraction and only minor wall motion abnormalities Serial cardiac enzymes and echocardiogram did not support any ACS Appreciate cardiology input and recommendation Chest pain and chest pressure likely sec secondary to diffuse pains due to rheumatoid arthritis Remains stable cardiac abbott Echo reviewed showed improved EF of 50 to 55% and without any significant wall motion abnormalities Continue current management (2) Abnormal EKG: Plan: Sinus tach with PVCs and nonspecific T wave changes (3) Rheumatoid arthritis: Plan: Rheumatoid arthritis biggest problem seems to revolve around this unremitting pain No acute arthritis but may have mild arthralgias On chronic prednisone. Received stress dose hydrocortisone Has been having occasional Dilaudid as well Back pain, acute on chronic Patient with chronic back pain and history of multiple compression fractures in addition to low thoracic vertebroplasty imaging does not suggest any acute changes CThead: No acute cranial findings are present, air-fluid sinus level suggestive of acute sinusitis CTAchest: No pulmonary emboli appreciated. Moderate cardiomegaly. Bilateral lower lobe segmental bronchi secretions? Aspiration pneumonitis versus mild pneumonia. Numerous thoracic and lumbar spine fractures. CTthoracic spine: Multiple moderate to severe thoracic compression fractures, majority likely chronic however subacute fractures are noted. No severe retropulsion. Mild retropulsion at multiple level CTlumbar spine: S/p T11/T12/L1 vertebroplasty stable postprocedural findings. No acute lumbar spine fracture or subluxation. Multilevel degenerative change Conservative management-remains stable now (4) Acute respiratory failure with hypoxia: Plan: Acute on chronic hypoxic respiratory failure 2/2 aspiration pneumonia, history of asthma resolved History of asthma follows with pulmonary med Suspect acute on chronic respiratory failure in the setting of aspiration,? Pneumonitis versus pneumonia. treat empirically for aspiration pneumonia with Unasyn PFTs 02/2020: obstructive physiology -Has been on Unasyn and finished a course of 7 days in total with oral Augmentin if needed -No acute respiratory symptoms. -Currently on room air Evaluated by PHYSICAL METEOROLOGIST and found to be aspiration. Video swallow study recommended but family initially declined but is then was agreeable, it was scheduled for 11am today but patient refused. (5) CKD (chronic kidney disease), stage III: Plan: ahsan with CKD 3 -Stable (6) Urinary retention: Plan: Chronic indwelling Rangel Intermittently with failed voiding trials in the past, chronically with urinary retention and incontinence? Overflow UA is uninfected appearing Patient denies any new urinary retention/overflow. Denies pain at catheter site Plan History of superior mesenteric artery stenosis No abdominal pain, has followed with vascular surgery No acute change in management of this at this time pt is underweight with a BMI of 18.6 DVT prophylaxis: Heparin CODE STATUS: DNR/DNI disposition- PT recommending rehab, patient and family want her to return home. Plan to discharge tomorrow Admission and Anticipated Discharge Date Admission Date: May 04, 2023 Subjective Patient refused video swallow study Has not had a BM in over a week. Did not do well with her enema, took miralax and later a dulcolax suppository then had a moderate size BM When seen in afternoon, patient's daughter at bedside. Patient feels too tired and weak to go home today but still refusing to go to rehab. Review of Systems Review of Systems: as above Physical Exam Physical Exam: thin, frail, elderly Respiratory: breathing comfortably on room air, no wheezing/rhonchi Cardiovascular: regular rate and rhythm, no murmurs/rubs Gastrointestinal (Abdomen): soft, non tender Musculoskeletal: peripheral muscle wasting, thin extremities, mishapen fingers Neurologic: awake, alert, spontaneously moving extremities Results & Data Results & Data Vital Signs (Past 12 Hours) Vital Signs Temp Pulse Pulse Resp BP Pulse Ox O2 Del Method 05/08/23 19:45 Room Air 05/08/23 19:23 36.7 C 82 18 161/75 H 91 Room Air 05/08/23 17:05 36.7 C 83 17 133/85 92 Nasal Cannula 05/08/23 15:25 90 05/08/23 11:26 36.5 C 72 18 152/86 H 98 Nasal Cannula 05/08/23 11:06 92 H 05/08/23 10:39 Nasal Cannula O2 Flow Rate 05/08/23 19:45 05/08/23 19:23 05/08/23 17:05 2 05/08/23 15:25 05/08/23 11:26 2 05/08/23 11:06 05/08/23 10:39 2 (1) Chest pain Chest pain type: unspecified Qualified Code(s): R07.9 - Chest pain, unspecified
[2023-05-08] MEDS: LATANOPROST 0.005% OP SOLN 2.5 ML BTL OPB SCH (21:18)
[2023-05-08] MEDS: LIDOCAINE 5% 1 PATCH TD PRN (22:50)
[2023-05-09] MEDS: ACETAMINOPHEN 500 MG TAB PO SCH ×2 (00:30→09:25)
[2023-05-09] MEDS ORDERED: guaiFENesin SUGAR FREE 200 MG/10 ML UDC PO PRN (01:48)
[2023-05-09] MEDS ORDERED: COUGH DROP (SUGAR FREE) LOZ 24 LOZ/1 BOX BUCCAL PRN (01:53)
[2023-05-09] MEDS: AMPICILLIN/SULBACTAM SOD 3,000 MG in 0.9 % SODIUM CHLORIDE 100 ML IV SCH ×2 (05:10→10:49)
[2023-05-09] MEDS: traMADol HCL 50 MG TABLET PO PRN ×2 (05:21→12:42)
[2023-05-09] MEDS ORDERED: POLYETHYLENE (MIRALAX) 17 GM PACK PO SCH (09:00)
[2023-05-09] MEDS ORDERED: DOCUSATE SODIUM/SENNA 50/8.6MG TAB PO SCH (09:00)
[2023-05-09] MEDS: HEPARIN SOD 5,000 UNIT/0.5 ML VIAL SQ SCH (09:08)
[2023-05-09] MEDS: METOPROLOL SUCC 50MG EXT REL TAB PO SCH (09:27)
[2023-05-09] MEDS: VALSARTAN/SACUBITRIL 26/24MG TAB PO SCH (09:27)
[2023-05-09] MEDS: ISOSORBIDE MONO EXTENDED REL 30 MG TABCR PO SCH (09:27)
[2023-05-09] MEDS: predniSONE 5 MG TAB PO SCH (09:27)
[2023-05-09] MEDS: ASPIRIN 81 MG ECTAB PO SCH (09:28)
[2023-05-09] MEDS: CALCIUM 600MG + VIT D 400 IU TAB PO SCH (09:28)
[2023-05-09] MEDS: CALCITONIN SALMON NA 200 IU/AC 3.7 ML BTL SCH (09:30)
--- NOTE | 2023-05-13 21:21 | Discharge Summary ---
Date of Service May 13, 2023 Date of discharge 05/09/2023 Admission HPI Per Admitting Provider Marivel is an 87-year-old female with a past medical history of CKD 3, CHF, idiopathic cardiomyopathy, superior mesenteric artery stenosis, lumbar compression fractures who presents to the ER with back pain. She was seen 05/02 in the ER for similar, was discharged home with pain control. Day of admission she was moving around and felt a pop in the middle of her back, since that time she has had severe pain requiring morphine for comfort. 3rd ER visit this week. Back pain, and greatly worsened today after she felt a 'pop.' Home O2 requirement of 3L, now up to 5+L. Has been taking double tramadol and takin gpercocet x4 without relief. +hacking cough for 4-5 days. Some intermittent chest pain which brought her into the ER earlier in the week. She notes that she has had some aspiration events this week and felt like things have gone down the wrong pipe, and has been a little more short of breath with this. Denies fever/chills/sweats. Chest pain has felt in her high epigastrium, low center chest. She has a history of heart failure with EF of 15%. Is not in pain at time of assessment. Is aware that she has some EKG changes and mild troponin which is suspicious for demand, but for which is being followed. Would want discussion with her family where that to rapidly rise and cardiac intervention or heparinization be recommended. Takes prednisone daily for arthritis, has been on 'for a very, very long time.' This helps with her arthritis, she notes that this is not good for her bone density. Follows for her back with Dr. Almanzar. Back does hurt much more than normal midline. Denies any radiation to arms or legs, denies any acute focal weakness, no saddle anesthesia, no change in urinary symptoms or voiding ability although she does note that she has had intermittent failed voiding trials in the past and this is why she has a chronic indwelling Simmons. Chronic indwelling simmons catheter for severe incontinence, was placed 2 weeks ago. Has had intermittently over the last two years. BMs intermittently, has some constipation at baseline. No BM in the last 3 days. No bowel incontinence. Medical History: Reviewed Medications: Reviewed Surgical History: Reviewed Family history: Reviewed Allergies: Reviewed Social History: Reviewed Code Status:DNR/DNI Principal Diagnosis Rheumatoid Arthritis Chronic MSK pain Aspiration pneumonia/pneumonitis Discharge Exam Patient was seen on the day of discharge. She was in no acute distress. Breathing comfortably on 2LNC. She feels weak but still wants to return home (rather than going to rehab) Discharge Data Allergies Allergy/AdvReac Type Severity Reaction Status Date / Time levofloxacin Allergy Intermediate HEPATOTOXIC Verified 04/23/23 12:52 ITY scopolamine Allergy Intermediate CAUSED Verified 04/23/23 12:52 RED, SWOLLEN AREA BEHIND EAR WHERE PATCH APPLIED lisinopril AdvReac Intermediate COUGH Verified 04/10/23 10:52 Consultations 05/04/23 16:37 ED Decision to Admit Stat 05/05/23 08:08 Consult Cardiology Routine Ordered Studies 05/04/23 11:39 CT lumbar spine wo con Stat CT thoracic spine wo con Stat 05/04/23 13:49 CT angio chest PE protocol Stat 05/04/23 15:17 CT head/brain wo con Stat Hospital Course (1) Chest pain: Ruled out for ACS Chest pain and chest pressure likely secondary to diffuse pains due to rheumatoid arthritis (2) Abnormal EKG: (3) Rheumatoid arthritis: Back pain, acute on chronic Patient with chronic back pain and history of multiple compression fractures. She has seen orthopedic surgery previously and at one point was recommended a trial of a back brace but she doesn't wear it Ongoing body arthralgias On chronic prednisone. Received stress dose hydrocortisone and occasional dilaudid initially but this was later discontinued CTthoracic spine: Multiple moderate to severe thoracic compression fractures, majority likely chronic however subacute fractures are noted. No severe retropulsion. Mild retropulsion at multiple level CTlumbar spine: S/p T11/T12/L1 vertebroplasty stable postprocedural findings. No acute lumbar spine fracture or subluxation. Multilevel degenerative change With her age and debility, would recommend conservative management. She should follow up with Orthopedic surgery service after discharge. (4) Acute respiratory failure with hypoxia: Acute on chronic hypoxic respiratory failure 2/2 aspiration pneumonia, history of asthma CTAchest: No pulmonary emboli appreciated. Moderate cardiomegaly. Bilateral lower lobe segmental bronchi containing secretions raising question of aspiration pneumonitis versus pneumonia History also of asthma follows with pulmonology PFTs 02/2020: obstructive physiology --She received Unasyn here and discharged on Augmentin at discharge to finish 7 day course Evaluated by HIGH SCHOOL VICE PRINCIPAL and found to be aspirating. Video swallow study recommended but family initially declined but later agreed but patient refused study (5) CKD (chronic kidney disease), stage III: JUSTYN with CKD 3 Resolved after IV fluids (6) Urinary retention: Chronic indwelling Simmons Intermittently with failed voiding trials in the past -She has a follow up appointment with Urology after discharge Plan History of superior mesenteric artery stenosis No abdominal pain, has followed with vascular surgery. Recommend follow up for surveillance Pt is underweight with a BMI of 18.6 Disposition- PT recommending rehab but patient and family want her to return home with home health and family support Goals of care--Patient would benefit from referral to see Palliative Medicine Home Health Attestation I certify that this patient is under my care and that I, or a physicians porcelain buildup assistant working with me, had a face to-face encounter that meets the home health [id number] encounter requirements with this patient. The encounter with the patient was in whole, or in part, for the following medical condition, which is the primary reason for home health care (list medica l condition): I certify that, based on my findings, the following services are medically necessary home health services: My clinical findings support the need for the above services because: Further, I certify that my clinical findings support that this patient is homebound (i.e. absences from home require considerable and taxing effort and are for medical reasons or jainism services or infrequently or of short duration when for other reasons) because: Certification for Home Health Services: Based on the above findings, I certify that this patient is confined to the home and needs intermittent fpc care, physical therapy and/or speech therapy or continues to need occupational therapy. The patient is under my care, and I have initiated the establishment of the plan of care. This patient will be followed by a physician who will periodically review the plan of care. Total Time Total Time Spent Total Time Spent (In Minutes): 40 Discharge Plan Discharge Items Patient Disposition: Home - Home Health Services Reason For Visit: BACK PAIN, TROP, AHRF Discharge Diagnosis: Rheumatoid Arthritis Chronic MSK pain Aspiration pneumonia/pneumonitis Activity: Resume your previous activity Non-emergency contact: Primary Care Provider and Urologist Call non-emergency contact if: you have any medication questions Follow-up/Referrals: Maya Rubio, [Primary Care Provider] - 05/15/23 11:00 am (Date & Time 05/15/2023 11:00 AM Provider Carlitos Lund III, MD Department [facility] ) Diet: Regular Diet Texture: Mechanical soft (ground) Addtl Attending Provider Instructions: You were admitted for chest pain. You had a negative cardiac workup here. Your pain is likely related to your arthritis and chronic pain You were found to have multiple chronic fractures in your back. You were also found to have aspiration pneumonia/pneumonitis. You finished a 6 day course of antibiotics here You can continue a mechanical soft diet. If you change your mind about having a video swallow study, please speak with your primary care doctor You would benefit from a referral to see Palliative Care to discuss goals of care to help coordinate your future care. Please follow up with your Urologist for your simmons catheter Pending Studies at Discharge: No Stand-Alone Forms: My ePub Direct, Smoking Cessation Medications and DC Order Prescriptions: New metoprolol succinate 50 mg Tablet Extended Release 24 Hr 50 mg PO DAILY 30 Days Qty: 30 0RF lidocaine 5 % Adhesive Patch,Medicated 1 patch transdermal QAM PRN (Reason: pain) 30 Days Qty: 30 0RF Continued nitroglycerin 0.4 mg tablet, sublingual 0.4 mg sublingual UD PRN (Reason: Chest Pain) tramadol 50 mg tablet 50 mg PO Q6H PRN (Reason: Pain) levalbuterol HCl 0.63 mg/3 mL solution for nebulization 0.63 mg INH Q8H PRN (Reason: Wheezing) Rx Instructions: HASNT USED FOR YEARS. loperamide 2 mg tablet 2 mg PO Q6H PRN (Reason: Diarrhea) polyethylene glycol 3350 [Miralax] 17 gram/dose powder 17 g PO DAILY PRN (Reason: Constipation) sennosides-docusate sodium [Senokot-S] 8.6-50 mg tablet 1 tab-cap PO DAILY PRN (Reason: constipation) isosorbide mononitrate 30 mg Tablet Extended Release 24 Hr 30 mg PO DAILY Entresto 24-26 mg Tablet 1 tab PO BID ondansetron 4 mg tablet,disintegrating 4 mg PO Q8H PRN (Reason: nausea and vomiting) Qty: 10 0RF aspirin 81 mg tablet,delayed release (DR/EC) 81 mg PO DAILY albuterol sulfate 90 mcg/actuation Hfa Aerosol Inhaler 2 puff INHALATION Q4H PRN (Reason: Wheezing) prednisone 5 mg tablet 2.5 mg PO DAILY Rx Instructions: PER [facility] "PT TAKES ANOTHER 5 MG IF BACK IS HURTING". latanoprost 0.005 % drops 1 drp OPB HS acetaminophen [Tylenol Extra Strength] 500 mg Tablet 1,000 mg PO Q8H PRN (Reason: Pain) Ensure High Protein Liquid 1 ea PO DAILY vitamin K2 100 mcg Capsule 100 mcg PO DAILY donepezil 10 mg tablet 0 mg PO DAILY Rx Instructions: PT ISN'T SURE Discontinued metoprolol succinate 25 mg tablet extended release 24 hr 12.5 mg PO DAILY Discharge Orders: Discharge Order (Routine); Ordered 05/09/23 Ordered By: Guille Hutson Admission Data Admit Date/Time: 05/04/23 17:16 Attending Provider: Guille Hutson Admit Provider: Jaxon Matute Primary Care Provider: Maya Rubio Other Providers: Jaxon Matute ; Maurice Torres ; Med Ann Other Interventions: Discharge Summary Assessment (RN) Last Done: 05/09/23 11:50
== END 2023-05-09 13:46 | disposition home health service (06) | DRG 545 ==
LOC: ED 11:08 → 2S 17:16 → SUATTDRO 17:16 → 2S 19:09 → 2N 05-06 18:16 → 2W 05-07 02:31